=== PATIENT | male | born 1940 | race Caucasian/White ===

== ENCOUNTER 2018-11-15 14:52 | Emergency (ER) | payer MEDICARE, SELFPAY ==
[2018-11-15 14:55] VITALS: BP 153/94; PULSE 102; RESP 15; TEMP 36.6; O2SAT 98; BMI 32.5
--- NOTE | 2018-11-15 15:02 | PC.NURSE ---
Pt unable to urinate since 0700 today.
--- NOTE | 2018-11-15 15:05 | ED.MALEGU ---
HPI - Male Genitourinary <YEHUDA Teran - Last Filed: 11/15/18 21:45> General Chief complaint: Urogenital-Male Stated complaint: needs bladder drained Time Seen by Provider: 11/15/18 14:57 Source: patient Mode of arrival: ambulatory Limitations: no limitations History of Present Illness HPI Narrative: 78-year-old male with history of bladder cancer here for complaint of urinary retention. He was seen in primary care provider office this morning and was diagnosed with prostatitis he was given a prescription of levofloxacin however he has not been able to urinate since early this morning and feels that he has pressure to his suprapubic region. Primary care office was unable to put in a Venegas catheter he is here primarily to have his bladder drained to relieve the pressure and discomfort. He is referred to urology already. He denies any fevers or chills. No flank pain. Positive p.o. intake. No nausea or vomiting. Discomfort is limited to the suprapubic area. He denies having any rectal discomfort at this time. He denies any other urinary symptoms other than urinary retention with no dysuria or urinary frequency. MD Complaint: other Related Data Home Medications Medication Instructions Recorded Confirmed levofloxacin 500 mg PO DAILY 11/15/18 11/15/18 Allergies Allergy/AdvReac Type Severity Reaction Status Date / Time Penicillins Allergy Verified 11/15/18 14:59 Sulfa (Sulfonamide Allergy Verified 11/15/18 14:59 Antibiotics) Review of Systems <YEHUDA Teran - Last Filed: 11/15/18 21:45> Constitutional Denies chills, Denies fever(s), Denies lethargy and Denies weakness ENT Ears, Nose, Mouth, and Throat: Denies change in voice, Denies neck pain and Denies sore throat Cardiovascular Denies chest pain, Denies irregular heart rhythm, Denies lightheadedness, Denies palpitations, Denies dyspnea, Denies dyspnea on exertion and Denies orthopnea Respiratory Denies cough, Denies dyspnea, Denies dyspnea on exertion and Denies wheezing Gastrointestinal Gastrointestinal: Denies abdominal pain, Denies change in bowel habits, Denies diarrhea, Denies nausea and Denies vomiting Genitourinary Comments: Acute urinary retention Musculoskeletal Denies neck pain Integumentary/Breasts Denies pruritus, Denies erythema, Denies rash and Denies wounds Neurologic Denies weakness Endocrine Denies palpitations Hematologic/Lymphatic Denies easy bruising Allergic/Immunologic Denies wheezing PFSH <YEHUDA Teran - Last Filed: 11/15/18 21:45> Social History Smoking Status: Never smoker Social History Smoking Status: Never smoker Exam <YEHUDA Teran - Last Filed: 11/15/18 21:45> Initial Vital Signs Initial Vital Signs: Vital Signs Temperature 97.8 F 11/15/18 14:55 Pulse Rate 102 H 11/15/18 14:55 Respiratory Rate 15 11/15/18 14:55 Blood Pressure 153/94 H 11/15/18 14:55 Pulse Oximetry 98 11/15/18 14:55 Const General: cooperative and well developed Nutritional Appearance: well nourished Orientation: alert, awake, oriented x3 and not confused HENMT Mouth: oral mucosae normal and moist mucous membranes Resp Effort & Inspection: normal respiratory effort, able to speak in complete sentences, no respiratory distress and no use of accessory muscles Auscultation: clear to auscultation bilaterally, no rales, no rhonchi and no wheezes Cardio Rate: regular rate Rhythm: regular rhythm Heart Sounds: no click, no gallops, no murmurs and no rubs Pulses: normal peripheral pulses GI Inspection: non-distended Palpation: soft, no hepatosplenomegaly, No guarding, No pulsatile mass and No tender Auscultation: normal bowel sounds General: No CVA tenderness Skin General: no rashes or lesions noted, No jaundice and No petechiae Neuro General: alert, oriented x3, gait normal and no focal motor deficits Speech: speech normal <Flaco Staples DO - Last Filed: 11/16/18 18:20> Initial Vital Signs Initial Vital Signs: Vital Signs Temperature 97.8 F 11/15/18 14:55 Pulse Rate 102 H 11/15/18 14:55 Respiratory Rate 15 11/15/18 14:55 Blood Pressure 153/94 H 11/15/18 14:55 Pulse Oximetry 98 11/15/18 14:55 Course <YEHUDA Teran - Last Filed: 11/15/18 21:45> Orders Ordered: ED Orders 11/15/18 15:30 UA Complete [Urinalysis and Microscopic] Stat Urine Culture Stat Vital Signs - 8 hr 11/15/18 14:55 11/15/18 15:58 Temperature 97.8 F Pulse Rate 102 H 82 Respiratory Rate 15 18 Blood Pressure 153/94 H Blood Pressure [Right Arm] 120/81 Pulse Oximetry 98 94 <Flaco Staples DO - Last Filed: 11/16/18 18:20> Orders Ordered: ED Orders 11/15/18 15:30 UA Complete [Urinalysis and Microscopic] Stat Urine Culture Stat Vital Signs - 8 hr 11/15/18 14:55 11/15/18 15:58 Temperature 97.8 F Pulse Rate 102 H 82 Respiratory Rate 15 18 Blood Pressure 153/94 H Blood Pressure [Right Arm] 120/81 Pulse Oximetry 98 94 MDM - Male Genitourinary <YEHUDA Teran - Last Filed: 11/15/18 21:45> Lab Data Lab Results 11/15/18 Range/Units 15:30 Urine Color Yellow Urine Appearance Clear Urine pH 5.5 (4.5-8.0) Ur Specific [place] 1.015 (1.000-1.035) Urine Protein Trace H (Negative) Urine Glucose (UA) Negative (Negative) g/dL Urine Ketones Negative (NEGATIVE) Urine Occult Blood 3+ H (Negative) Urine Nitrate Positive (Negative) Urine Bilirubin Negative (NEGATIVE) Urine Urobilinogen 0.2 (0.2) E.U./dL Ur Leukocyte Esterase Trace H (NEGATIVE) Urine RBC 5-10/hpf H (0-5/HPF) Urine WBC 10-30/hpf H (0-5/HPF) Ur Squamous Epith Cells 0-1 /hpf Urine Bacteria Many (>30) H (None) Ur Culture Indicated? Specimen cultured MDM Narrative Medical decision making narrative: Bladder scan indicated 800 mL of a urine in the bladder. Venegas catheter was inserted and drained approximately 1500 mL of yellowish urine. Patient reports feeling much better after Venegas catheter insertion. Urinalysis was obtained and shows signs of urinary tract infection. Venegas catheter is left in welling along with leg bag. He is to follow up with Urology here in the next day or 2 for further evaluation and treatment. He is already prescribed Levaquin for prostatitis which will also cover for UTI. He is instructed to take as directed. [id number] Tylenol as needed for any discomfort. For any worsening symptoms return to the emergency room. <Flaco Staples DO - Last Filed: 11/16/18 18:20> Lab Data Lab Results 11/15/18 Range/Units 15:30 Urine Color Yellow Urine Appearance Clear Urine pH 5.5 (4.5-8.0) Ur Specific [place] 1.015 (1.000-1.035) Urine Protein Trace H (Negative) Urine Glucose (UA) Negative (Negative) g/dL Urine Ketones Negative (NEGATIVE) Urine Occult Blood 3+ H (Negative) Urine Nitrate Positive (Negative) Urine Bilirubin Negative (NEGATIVE) Urine Urobilinogen 0.2 (0.2) E.U./dL Ur Leukocyte Esterase Trace H (NEGATIVE) Urine RBC 5-10/hpf H (0-5/HPF) Urine WBC 10-30/hpf H (0-5/HPF) Ur Squamous Epith Cells 0-1 /hpf Urine Bacteria Many (>30) H (None) Ur Culture Indicated? Specimen cultured Discharge Plan Departure Patient Disposition: Home Clinical Impression: Acute retention of urine Urinary tract infection Qualifiers: Urinary tract infection type: acute cystitis Hematuria presence: without hematuria Qualified Code(s): N30.00 - Acute cystitis without hematuria Prostatitis Qualifiers: Prostatitis type: acute Qualified Code(s): N41.0 - Acute prostatitis Discharge Date/Time: 11/15/18 16:13 Interventions: ED Discharge Assessment Last Done: 11/15/18 16:12 Instructions: DI for Urinary Tract Infection (UTI), DI for Urinary Retention in Men Activity Restrictions/Additional Instructions: Catheter was inserted to help drain the bladder. Catheter was left indwelling to allow for continued urine drainage. He will need to follow up with Urology here in the next day or 2 you may follow up with Urology at [facility] or obtain a referral to Urology from her primary care provider for a local urologist. Urinalysis indicates urinary tract infection. Use the already prescribed Levaquin for the prostatitis as directed as this will cover for urinary tract infection as well. Use [id number] Tylenol as needed for any discomfort. For any worsening symptoms return to the emergency room. Venegas catheter care as instructed. Prescriptions: No Action levofloxacin 500 mg tablet 500 mg PO DAILY RF: 0 Referrals: [facility] [Provider Group] Kat Christian PA-C [Primary Care Provider] - <Flaco Staples DO - Last Filed: 11/16/18 18:20> Cosign ED Attending Patel Attestation: I was available for consultation during this patient's emergency department encounter
--- NOTE | 2018-11-15 15:30 | PC.NURSE ---
post robb insertion, drained approx 1400ml.
[2018-11-15 15:32] LABS: Appearance Urine UA CLEAR; Bilirubin Urine UA NEGATIVE (NEGATIVE); Color Urine UA YELLOW; Glucose Urine UA NEGATIVE (Negative); Ketones Urine UA NEGATIVE (NEGATIVE); Leukocyte Esterase Urine UA TRACE (NEGATIVE); Nitrite Urine UA POSITIVE (Negative); Occult Blood Urine UA 3+ (Negative); Protein Urine UA TRACE (Negative); Specific Gravity Urine UA 1.015 (1.000-1.035); Urobilinogen Urine UA 0.2 E.U./dL (0.2); pH Urine UA 5.5 (4.5-8.0)
[2018-11-15 15:39] LABS: RBC Urine 5-10/HPF (0-5/HPF); Squamous Epithelial Cell Urine 0-1 /HPF; WBC Urine 10-30/HPF (0-5/HPF)
[2018-11-15 15:40] LABS: Bacteria Urine Many (>30); Culture Indicated Urine Specimen Cultured
[2018-11-15 15:58] VITALS: BP 120/81; PULSE 82; RESP 18; O2SAT 94
--- NOTE | 2018-11-15 16:12 | PC.NURSE ---
robb education given, pt verbal understanding instructions.
== END 2018-11-15 16:13 | disposition home or self-care (01) ==
PROVIDERS: Emergency Provider Nurse Practitioner Family; PCP Physician Assistant
DX: N30.00 Acute cystitis without hematuria (principal); R33.9 Retention of urine, unspecified
CPT/HCPCS: 51701; 51798; 81001; 87077; 87086; 87186; 99283

== ENCOUNTER → 2020-05-24 07:25 | Outpatient (CLI) | payer MEDICARE, SELFPAY ==
[2020-05-24 08:54] LABS: Hemoglobin A1C% w Est Avg Glu 6.2 % (4.0-6.0)
[2020-05-24 09:31] LABS: Prostate Specific Antigen Scrn 3.06 ng/mL (0.1-4.0)
[2020-05-24 20:11] LABS: Add Manual Diff / Slide Review NO; Basophils Absolute Auto 200 /uL (0-100); Basophils Percent Auto 1.3 % (0-2); Eosinophils Absolute Auto 400 /uL (0-450); Eosinophils Percent Auto 2.9 % (2-4); Hematocrit 26.6 % (41-53); Hemoglobin 8.3 g/dL (13.5-17.5); Lymphocytes Absolute Auto 1200 /uL (1100-4500); Lymphocytes Percent Auto 9.6 % (25-40); Mean Corpuscular HGB Conc 31.2 % (30-36); Mean Corpuscular Hemoglobin 24.1 PG (26-34); Mean Corpuscular Volume 77.2 fL (80-100); Monocytes Absolute Auto 1200 /uL (0-900); Monocytes Percent Auto 10.1 % (3-14); Neutrophils Absolute Auto 9200 /uL (1500-7000); Neutrophils Percent Auto 76.1 % (50-75); Platelet Count 584 X10^3/uL (150-400); Red Blood Cell Count 3.44 X10^6/uL (4.5-5.9); White Blood Cell Count 12.1 X10^3/uL (4.5-11.0)
[2020-05-24 20:38] LABS: Alanine Aminotransferase 12 IU/L (<50); Albumin 3.6 g/dL (3.5-5.0); Alkaline Phosphatase 71 U/L (38-126); Aspartate Aminotransferase 16 IU/L (17-59); BUN Creatinine Ratio 15.7 (6-22); Bilirubin Total 0.6 mg/dL (0.2-1.3); Blood Urea Nitrogen 36 mg/dL (9-20); Carbon Dioxide 26 mmol/L (22-32); Chloride 98 mmol/L (98-107); Estimated Glomerular Filt Rate 27.7 mL/min (>60); Globulin 3.7 g/dL (1.7-4.1); Glucose 108 mg/dL (80-110); HEMOLYSIS < 15 (0-50); Potassium 4.7 mmol/L (3.4-5.1); Sodium 133 mmol/L (137-145); Total Protein 7.3 g/dL (6.3-8.2)
== END ==
PROVIDERS: PCP Physician Assistant; Referring Provider Physician Assistant; Visit Provider Physician Assistant
DX: Z12.5 Encounter for screening for malignant neoplasm of prostate (principal); I10 Essential (primary) hypertension; R73.03 Prediabetes; I48.91 Unspecified atrial fibrillation; I48.92 Unspecified atrial flutter
CPT/HCPCS: 36415; 80053; 83036; 85025; G0103

== ENCOUNTER 2020-05-26 23:49 | Inpatient (IN) | payer MEDICARE, SELFPAY ==
[2020-05-26 23:57] VITALS: BP 139/88; PULSE 104; RESP 20; TEMP 36.1; O2SAT 97
--- NOTE | 2020-05-26 23:59 | ED_ITS ---
HPI - Nausea/Vomiting/Diarrhea General Chief complaint: Syncope Stated complaint: lighthead/nausea/fell hit head on toilet Time Seen by Provider: 05/26/20 23:54 Source: patient and family Mode of arrival: Ambulatory Limitations: no limitations History of Present Illness HPI Narrative: 79-year-old male former smoker with history of atrial fibrillation presents with his and a chief complaint have multiple episodes of nausea, vomiting, poor appetite and diarrhea today which resulted in syncopal episode in which he fell and struck his head on the toilet. He states he has been feeling poorly for a few weeks with things definitely ramped up today. He denies any recent dietary change, new medications, exposure to other ill persons, bad food or antibiotics. He denies any chest pain but states he becomes profoundly short of breath with minimal exertion states he is very fatigued and upon standing he becomes dizzy and lightheaded. He denies any blood in his emesis or his stools and does not take any blood thinners. He denies any abdominal pain. He denies any history of the same. Patient is not a drinker, denies the use of any blood thinners or frequent use of NSAIDs or aspirin. His last colonoscopy he states noted diverticuli. MD complaint: nausea, vomiting and diarrhea Onset (ago): hour(s) Description of Vomiting: food contents Description of Diarrhea: watery Relieving factors: none Exacerbating factors: none Associated symptoms: nausea/vomiting Related Data Home Medications Medication Instructions Recorded Confirmed levofloxacin 500 mg PO DAILY 11/15/18 11/15/18 Allergies Allergy/AdvReac Type Severity Reaction Status Date / Time Penicillins Allergy Verified 11/15/18 14:59 Sulfa (Sulfonamide Allergy Verified 11/15/18 14:59 Antibiotics) Review of Systems Constitutional Constitutional: Denies chills, Reports fatigue, Denies fever(s), Denies frequent falls, Reports lethargy, Reports malaise, Reports poor appetite and Reports we akness Eyes Eyes: Denies change in vision, Denies eye discharge, Denies irritation and Denies loss of vision ENT Ears, Nose, Mouth, and Throat: Denies change in voice, Denies dizziness, Denies neck pain, Denies sore throat and Denies throat swelling Cardiovascular Cardiovascular: Denies chest pain, Reports syncope, Denies irregular heart rhythm, Reports lightheadedness, Denies palpitations, Reports dyspnea, Denies dyspnea on exertion and Denies orthopnea Respiratory Respiratory: Denies cough, Reports dyspnea, Denies dyspnea on exertion and Denies wheezing Gastrointestinal Gastrointestinal: Denies change in bowel habits, Reports diarrhea, Reports nausea and Reports vomiting Musculoskeletal Musculoskeletal: Denies neck pain and Denies numbness Integumentary/Breasts Skin/Breast: Denies pruritus, Denies erythema, Denies rash and Denies wounds Neurologic Neurologic: Denies behavioral changes, Denies confusion, Denies dizziness, Reports syncope, Denies frequent falls, Denies loss of vision, Denies numbness and Reports weakness Psychiatric Psychiatric: Denies anxiety, Denies behavioral changes, Denies confusion, Denies depression, Denies homicidal ideation and Denies suicidal ideation Endocrine Endocrine: Reports fatigue, Denies flushing and Denies palpitations Hematologic/Lymphatic Hematologic/Lymphatic: Denies easy bruising Allergic/Immunologic Allergic/Immunologic: Denies urticaria, Denies throat swelling and Denies wheezing Patient History Social History Smoking Status: Never smoker Smoking Status: Never smoker alcohol intake frequency: holidays/special occasions only Substance Use Type: does not use Exam Narrative Exam Narrative: GENERAL: [79] year old patient appears stated age. Ill appearing, very weak and requiring assistance to get out of the wheelchair. HEAD: Atraumatic. Normocephalic. EYES: Pupils equal round and reactive. Extraocular motions intact. No scleral icterus. No injection or drainage. ENT: Dry mucous membrane Nose without bleeding, purulent drainage. Throat without erythema, tonsillar hypertrophy or exudate. Airway patent. NECK: Trachea midline. Non tender CARDIOVASCULAR: Regular rate and rhythm without murmurs, gallops, or rubs. RESPIRATORY: Clear to auscultation. Breath sounds equal bilaterally. No wheezes, rales, or rhonchi. GASTROINTESTINAL: Abdomen soft, non-tender, nondistended. EXTREMITIES: No edema or joint tenderness. BACK: Nontender without deformity or crepitance. No flank tenderness. NEURO: AOx3. SKIN: Poor skin turgor No rash or erythema of visible areas Initial Vital Signs Initial Vital Signs: Vital Signs Temperature 96.9 F L 05/26/20 23:57 Pulse Rate 104 H 05/26/20 23:57 Respiratory Rate 20 05/26/20 23:57 Blood Pressure 139/88 05/26/20 23:57 Pulse Oximetry 97 05/26/20 23:57 Course Orders Ordered: ED Orders 05/26/20 23:59 Complete Blood Count AUTO DIFF Stat Comprehensive Metabolic Panel Stat 05/27/20 00:00 EKG-12 Lead Stat 05/27/20 00:05 Lactate (Lactic Acid) Stat Lipase Stat NT-proBNP (BNP-Adult 18+) Stat Packed Cells Stat Troponin & CK Cardiac Panel Stat Type and Screen Stat 05/27/20 00:39 CT head/brain wo con Stat 05/27/20 01:00 COVID19 -ED/INPAT/OR/L&D Stat Ondansetron HCl (Zofran) 4 mg IV Q4HR PRN PRN Reason: Nausea And Vomiting Last Admin: 05/27/20 00:18 Dose: 4 mg Documented by: MOUNA Discontinued Medications Lactated Ringer's (Lactated Ringers) 1,000 mls @ 1,000 mls/hr IV BOLUS ONE Stop: 05/27/20 00:58 Last Infusion: 05/27/20 01:38 Dose: 0 mls/hr Documented by: Admin: 05/27/20 00:18 Dose: 1,000 mls/hr Documented by: MOUNA Pantoprazole Sodium (Protonix) 40 mg IV NOW ONE Stop: 05/27/20 00:01 Last Admin: 05/27/20 00:18 Dose: 40 mg Documented by: MOUNA Reevaluation(s) Reevaluation #1: Patient actively vomiting, no blood or coffee-ground emesis Reevaluation #2: patient having frequent episodes of brief rapid AFib at the 140s to 150s, but quickly returns to sinus Consultations Consultation #1: discussed with Dr. Bingham. He is happy to be involved as senior environmental consultant for likely scope Consultation #2: hospitalist accepts patient on service Vital Signs Vital signs: Vital Signs - 8 hr 05/26/20 23:57 05/27/20 00:18 05/27/20 00:30 Temperature 96.9 F L Pulse Rate 104 H 100 H 136 H Respiratory Rate 20 25 H 19 Blood Pressure 139/88 136/84 Pulse Oximetry 97 97 95 05/27/20 01:00 Temperature Pulse Rate 105 H Respiratory Rate 20 Blood Pressure Pulse Oximetry 99 MDM - Nausea/Vomiting/Diarrhea Lab Data Result diagrams: 05/27/20 00:05 05/27/20 00:05 Labs: Lab Results 05/27/20 05/27/20 05/27/20 Range/Units 00:05 00:05 00:05 WBC 23.7 H (4.5-11.0) X10^3/uL RBC 2.78 L (4.5-5.9) X10^6/uL Hgb 6.8 L* (13.5-17.5) g/dL Hct 21.3 L (41-53) % MCV 76.7 L (80-100) fL MCH 24.5 L (26-34) PG MCHC 31.9 (30-36) % RDW 16.3 H (11.6-14.8) % Plt Count 644 H (150-400) X10^3/uL Neut % (Auto) 82.1 H (50-75) % Lymph % (Auto) 8.1 L (25-40) % [place] % (Auto) 7.1 (3-14) % Eos % (Auto) 1.8 L (2-4) % Baso % (Auto) 0.9 (0-2) % Neut # (Auto) 84034 H (2999-9219) /uL Lymph # (Auto) 1900 (9599-5008) /uL [place] # (Auto) 1700 H (0-900) /uL Eos # (Auto) 400 (0-450) /uL Baso # (Auto) 200 H (0-100) /uL Sodium 133 L (137-145) mmol/L Potassium 4.5 (3.4-5.1) mmol/L Chloride 95 L (98-107) mmol/L Carbon Dioxide 26 (22-32) mmol/L BUN 47 H (9-20) mg/dL Creatinine 2.61 H (0.66-1.25) mg/dL Estimated GFR 23.9 L (>60) mL/min BUN/Creatinine Ratio 18.0 (6-22) Glucose 257 H D (80-110) mg/dL Lactate (0.7-2.1) mmol/L Calcium 8.6 (8.4-10.2) mg/dL Total Bilirubin 0.5 (0.2-1.3) mg/dL AST 19 (17-59) IU/L ALT 13 (<50) IU/L Alkaline Phosphatase 68 (38-126) U/L Total Creatine Kinase 31 L (55-170) U/L CK-MB (CK-2) TNP CK-MB (CK-2) Rel Index TNP Troponin I < 0.012 (0.01-0.034) ng/mL NT-Pro-B Natriuret Pep 1710 H (<450) pg/mL Total Protein 7.0 (6.3-8.2) g/dL Albumin 3.4 L (3.5-5.0) g/dL Globulin 3.6 (1.7-4.1) g/dL Albumin/Globulin Ratio 0.9 L (1.0-2.8) Lipase 65 (23-300) U/L COVID-19 PCR (Negative) Blood Type Antibody Screen Crossmatch 05/27/20 05/27/20 05/27/20 Range/Units 00:05 00:05 01:00 WBC (4.5-11.0) X10^3/uL RBC (4.5-5.9) X10^6/uL Hgb (13.5-17.5) g/dL Hct (41-53) % MCV (80-100) fL MCH (26-34) PG MCHC (30-36) % RDW (11.6-14.8) % Plt Count (150-400) X10^3/uL Neut % (Auto) (50-75) % Lymph % (Auto) (25-40) % [place] % (Auto) (3-14) % Eos % (Auto) (2-4) % Baso % (Auto) (0-2) % Neut # (Auto) (5254-9348) /uL Lymph # (Auto) (6654-9718) /uL [place] # (Auto) (0-900) /uL Eos # (Auto) (0-450) /uL Baso # (Auto) (0-100) /uL Sodium (137-145) mmol/L Potassium (3.4-5.1) mmol/L Chloride (98-107) mmol/L Carbon Dioxide (22-32) mmol/L BUN (9-20) mg/dL Creatinine (0.66-1.25) mg/dL Estimated GFR (>60) mL/min BUN/Creatinine Ratio (6-22) Glucose (80-110) mg/dL Lactate 1.9 (0.7-2.1) mmol/L Calcium (8.4-10.2) mg/dL Total Bilirubin (0.2-1.3) mg/dL AST (17-59) IU/L ALT (<50) IU/L Alkaline Phosphatase (38-126) U/L Total Creatine Kinase (55-170) U/L CK-MB (CK-2) CK-MB (CK-2) Rel Index Troponin I (0.01-0.034) ng/mL NT-Pro-B Natriuret Pep (<450) pg/mL Total Protein (6.3-8.2) g/dL Albumin (3.5-5.0) g/dL Globulin (1.7-4.1) g/dL Albumin/Globulin Ratio (1.0-2.8) Lipase (23-300) U/L COVID-19 PCR Negative (Negative) Blood Type A Positive Antibody Screen Negative Crossmatch See Detail Imaging Data CT scan - head: My Impression: NAP Radiologist's Impression: No acute intracranial process Discharge Plan Departure Admit Date/Time: 05/27/20 01:26 Admit Provider: Amanda Garces
[2020-05-27] VITALS (27 sets, daily range): BP systolic 118–161; BP diastolic 67–96; PULSE 76–136; RESP 12–27; TEMP 36.1–36.9; O2SAT 91–99; BMI 30.7
[2020-05-27] MEDS: LACTATED RINGERS 1,000 ML 1000 ML IV (00:18)
[2020-05-27] MEDS: PANTOPRAZOLE 40 MG VIAL IV ×3 (00:18→20:41)
[2020-05-27] MEDS: ONDANSETRON 4 MG/2 ML INJ IV (00:18)
[2020-05-27 00:23] LABS: Add Manual Diff / Slide Review NO; Basophils Absolute Auto 200 /uL (0-100); Basophils Percent Auto 0.9 % (0-2); Eosinophils Absolute Auto 400 /uL (0-450); Eosinophils Percent Auto 1.8 % (2-4); Lymphocytes Absolute Auto 1900 /uL (1100-4500); Lymphocytes Percent Auto 8.1 % (25-40); Mean Corpuscular HGB Conc 31.9 % (30-36); Mean Corpuscular Hemoglobin 24.5 PG (26-34); Mean Corpuscular Volume 76.7 fL (80-100); Monocytes Absolute Auto 1700 /uL (0-900); Monocytes Percent Auto 7.1 % (3-14); Neutrophils Absolute Auto 19500 /uL (1500-7000); Neutrophils Percent Auto 82.1 % (50-75); Platelet Count 644 X10^3/uL (150-400); Red Blood Cell Count 2.78 X10^6/uL (4.5-5.9); Red Cell Distribution Width 16.3 % (11.6-14.8); White Blood Cell Count 23.7 X10^3/uL (4.5-11.0)
[2020-05-27 00:28] LABS: Lactate (Lactic Acid) 1.9 mmol/L (0.7-2.1)
[2020-05-27 00:29] LABS: Creatine Kinase 31 U/L (55-170); Hematocrit 21.3 % (41-53); Lipase 65 U/L (23-300)
[2020-05-27 00:30] LABS: Hemoglobin 6.8 g/dL (13.5-17.5)
[2020-05-27 00:31] LABS: Alanine Aminotransferase 13 IU/L (<50); Albumin 3.4 g/dL (3.5-5.0); Albumin Globulin Ratio 0.9 (1.0-2.8); Alkaline Phosphatase 68 U/L (38-126); Aspartate Aminotransferase 19 IU/L (17-59); Bilirubin Total 0.5 mg/dL (0.2-1.3); Blood Urea Nitrogen 47 mg/dL (9-20); Calcium 8.6 mg/dL (8.4-10.2); Carbon Dioxide 26 mmol/L (22-32); Chloride 95 mmol/L (98-107); Estimated Glomerular Filt Rate 23.9 mL/min (>60); Globulin 3.6 g/dL (1.7-4.1); Glucose 257 mg/dL (80-110); HEMOLYSIS < 15 (0-50); Potassium 4.5 mmol/L (3.4-5.1); Sodium 133 mmol/L (137-145)
--- NOTE | 2020-05-27 00:39 | DI.CT.S_ITS ---
PROCEDURE: CT HEAD/BRAIN WO CON INDICATIONS: syncope secondary to head injury TECHNIQUE: Noncontrast 4.5 mm thick angled axial sections acquired from the foramen magnum to the vertex, with coronal and sagittal reformats. For radiation dose reduction, the following was used: automated exposure control, adjustment of mA and/or kV according to patient size. COMPARISON: None. FINDINGS: Image quality: Excellent. CSF spaces: Basal cisterns are patent. No extra-axial fluid collections. The ventricles are symmetric in size and shape. Brain: No intracranial bleeds or masses. There is cerebral volume loss for age, with resultant ventricular and sulcal prominence. There are periventricular and deep white matter chronic small vessel ischemic changes. There is intracranial internal carotid artery atherosclerosis. Skull and face: Calvarium and visualized facial bones appear intact, without suspicious lesions. Sinuses: Visualized sinuses and mastoids are clear. IMPRESSION: Normal intracranial study for age. Note: No significant discrepancy from the preliminary report. Dictated by: Johnathon Urias M.D. on 05/27/2020 at 7:34 Approved by: Johnathon Urias M.D. on 05/27/2020 at 7:34
[2020-05-27 00:41] LABS: NT-proBNP (BNP-Adult 18+) 1710 pg/mL (<450); Troponin I < 0.012 ng/mL (0.01-0.034)
[2020-05-27 01:25] LABS: COVID19 -Nasal RAPID Negative (Negative)
--- NOTE | 2020-05-27 02:48 | DI.US.S_ITS ---
PROCEDURE: US RENAL COMPLETE INDICATIONS: ALFREDITO TECHNIQUE: Real-time scanning was performed of the kidneys and bladder, with image documentation. COMPARISON: [facility], CT, CT HEAD/BRAIN WO CON, 05/27/2020, 0:45. FINDINGS: Kidneys: Kidneys are normal in size. Right kidney measures 12.4 cm long; left kidney measures 10.7 cm long. Right renal cortical thickness is 2 cm; left renal cortical thickness is 1.5 cm. Renal cortical echotexture is normal. No hydronephrosis or nephrolithiasis. No suspicious solid mass lesions. Bladder: The bladder is decompressed by a Venegas catheter. Miscellaneous: No free pelvic fluid. IMPRESSION: Normal appearing kidneys by ultrasound, without hydronephrosis. Venegas catheter. Dictated by: Johnathon Urias M.D. on 05/27/2020 at 8:51 Approved by: Johnathon Urias M.D. on 05/27/2020 at 8:52
[2020-05-27 03:28] LABS: Hemoglobin A1C% w Est Avg Glu 6.2 % (4.0-6.0)
--- NOTE | 2020-05-27 03:28 | P.HP_ITS ---
History of Present Illness History of Present Illness Date Patient Seen: 05/27/20 Time Patient Seen: 01:45 Chief complaint: lighthead/nausea/fell hit head on toilet Narrative: Shady Pinedo is 79-year-old male former smoker with history of paroxsymal atrial fibrillation and subsequent cardioversion in June 2019 and a remote history of prostate cancer and subsequent TURP in 2001, and on no medications, presented with his who was in his usual state of health presented to the ED with a chief complaint have multiple episodes of nausea, vomiting, poor appetite and diarrhea today which resulted in syncopal episode in which he fell and struck his head on the toilet. He states he has been feeling weak and fatigued for the past several weeks. He denies any recent dietary change, new medications, exposure to other ill persons, bad food or antibiotics. He denies any chest pain but states he becomes profoundly short of breath with minimal exertion, states he is very fatigued and upon standing he becomes dizzy and lightheaded. He denies any blood in his emesis or his stools, or hematuria and no longer takes any blood thinners. He denies any abdominal pain. Patient is not a drinker, denies the use of any blood thinners or frequent use of NSAIDs or aspirin. His last colonoscopy he states noted diverticuli. Upon obtaining records from [facility], it was noted he was diabetic with an A1c of 6.1 in May 2019 and the patient states he was aware, but was not instructed to take any medications or modify his diet. today it is 6.2, so not significantly worse. The patient presented today with an acute kidney injury with a creatinine of 2.61 and GFR of 23.9, where in 05/2019, his renal function was normal. He presented to [place] in March for gross hematuria and underwent a contrast IVP which indicated a possible resolving pyeloniphritis. He was seen in [facility]'s ED urinary retention, and at that time, both his hemoglobin was mildly decreased and today it is 6.8, necessitating a transfusion. His creatinine was elevated at 2.3 on 05/23 and today it is 2.61. In June of 2019, he underwent a cardioversion for paroxsymal atrial fibrillation. He had previously been on xarelto, but developed a rash with that and started apixaban. He had also been taking sotolol and went off both medications after the cardioversion. He has seen his academic computing director at least once since the most recent dates of his [facility] records and informed his PCP that they were in agreement with his not being on medications. His main reason for being here is for symtomatic anemia, however, receipt of his records from [facility] reveal other issues that may need to be urgently addressed due to a high white count, apparent uncontrolled atrial fibrillation, blood pressure and rapid heart, and acute kidney injury and uncontrolled diabetes. Head CT was negative for an acute intercranial process. Patient is afebrile, blood pressure 161/90, heart rate 129, respiratory rate 16, oxygen saturation 97% on room air, he weighs 94.3 kg with a BMI of 30.7. WBC is 23.7, RBC 2.78, hemoglobin 6.8, hematocrit 21.3, platelet count 644, he does have a significant left shift with neutrophils of 19,500, sodium 133, potassium 4.5, chloride 95, bicarb 26, BUN is 47, creatinine 2.61, GFR is 23.9, glucose 257, hemoglobin A1c was 6.2, lactate is normal at 1.4, liver enzymes are within normal limits, his proBNP is 1710, lipase 65, and COVID-19 negative. Patient History Medical History History of cardioversion (Acute) Hx of prostatic malignancy (Acute) Lipoma of abdominal wall (Acute) Paroxysmal A-fib (Acute) Surgical History Hx of total knee replacement (Inactive) S/P TURP (status post transurethral resection of prostate) (Acute) Family & Social History Family History Mother Multiple sclerosis Father Prostate cancer Social History: household members spouse Prior Living Arrangements House Safety & Behavioral: Feels Safe in Current Yes Environment Been Physically Hurt or No Threatened By a Person Suicidal Ideation Description None Suicide Plan Description No Plan Tobacco & Substance use: Smoking Status remote history alcohol intake frequency holiday/special occasion Substance Use Type does not use Meds Home Medications and Allergies Home Medications Medication Instructions Recorded Confirmed Type levofloxacin 500 mg PO DAILY 11/15/18 11/15/18 History Allergies Allergy/AdvReac Type Severity Reaction Status Date / Time Penicillins Allergy Verified 11/15/18 14:59 Sulfa (Sulfonamide Allergy Verified 11/15/18 14:59 Antibiotics) Review of Systems Review of Systems ROS: Yes All systems reviewed with the patient and are negative except as otherwise documented Exam Vital Signs (past 8 hours): - 05/26/20 23:57 05/27/20 00:18 05/27/20 00:30 Temperature 96.9 F L Pulse Rate 104 H 100 H 136 H Respiratory Rate 20 25 H 19 Blood Pressure 139/88 136/84 Pulse Oximetry 97 97 95 05/27/20 01:00 05/27/20 01:30 05/27/20 01:33 Temperature 97.9 F Pulse Rate 105 H 111 H 118 H Respiratory Rate 20 21 17 Blood Pressure 136/84 Pulse Oximetry 99 98 05/27/20 01:34 05/27/20 01:45 05/27/20 01:49 Temperature 97.8 F Pulse Rate 103 H 134 H 109 H Respiratory Rate 18 16 14 Blood Pressure 160/77 H 154/82 H 154/82 H Pulse Oximetry 95 93 05/27/20 02:00 05/27/20 02:15 05/27/20 02:30 Temperature Pulse Rate 95 H 96 H 95 H Respiratory Rate 14 15 16 Blood Pressure 142/72 H 139/84 138/96 H Pulse Oximetry 91 91 92 05/27/20 02:35 05/27/20 03:09 Temperature 97.3 F L Pulse Rate 109 H 129 H Respiratory Rate 16 Blood Pressure 161/90 H Pulse Oximetry 95 97 Oxygen Delivery Method Room Air Oxygen Flow Rate 0 Narrative Exam Narrative: Gen: Alert, oriented, well-developed 79 y.o. male, quite pale HEENT: normocephalic, atraumatic, conjunctiva clear, sclera non-icteric, oral mucosa pink and moist Neck: supple, full ROM, no JVD, trachea is midline Resp: Lungs CTA, non-labored breathing CV: irregularly irregular, no murmur or rubs Abd: soft, non-tender, normoactive BTs Skin: no lesions or rashes, dry and intact Neuro: Alert and oriented X 4 w/no focal deficits. Speech clear and coherent. Extremities: moves all 4 extremities, is ambulatory, negative Gayle?s sign Psyche: normal mood and affect. Very evasive regarding medical history Objective Labs Result Diagrams: 05/27/20 04:54 05/27/20 04:54 Labs: Laboratory Results - last 24 hr 05/27/20 05/27/20 05/27/20 00:05 00:05 00:05 WBC 23.7 H RBC 2.78 L Hgb 6.8 L* Hct 21.3 L MCV 76.7 L MCH 24.5 L MCHC 31.9 RDW 16.3 H Plt Count 644 H Neut % (Auto) 82.1 H Lymph % (Auto) 8.1 L [place] % (Auto) 7.1 Eos % (Auto) 1.8 L Baso % (Auto) 0.9 Neut # (Auto) 55824 H Lymph # (Auto) 1900 [place] # (Auto) 1700 H Eos # (Auto) 400 Baso # (Auto) 200 H Sodium 133 L Potassium 4.5 Chloride 95 L Carbon Dioxide 26 BUN 47 H Creatinine 2.61 H Estimated GFR 23.9 L BUN/Creatinine Ratio 18.0 Glucose 257 H D Lactate Calcium 8.6 Total Bilirubin 0.5 AST 19 ALT 13 Alkaline Phosphatase 68 Total Creatine Kinase 31 L CK-MB (CK-2) TNP CK-MB (CK-2) Rel Index TNP Troponin I < 0.012 NT-Pro-B Natriuret Pep 1710 H Total Protein 7.0 Albumin 3.4 L Globulin 3.6 Albumin/Globulin Ratio 0.9 L Lipase 65 COVID-19 PCR Blood Type Antibody Screen Crossmatch 05/27/20 05/27/20 05/27/20 00:05 00:05 01:00 WBC RBC Hgb Hct MCV MCH MCHC RDW Plt Count Neut % (Auto) Lymph % (Auto) [place] % (Auto) Eos % (Auto) Baso % (Auto) Neut # (Auto) Lymph # (Auto) [place] # (Auto) Eos # (Auto) Baso # (Auto) Sodium Potassium Chloride Carbon Dioxide BUN Creatinine Estimated GFR BUN/Creatinine Ratio Glucose Lactate 1.9 Calcium Total Bilirubin AST ALT Alkaline Phosphatase Total Creatine Kinase CK-MB (CK-2) CK-MB (CK-2) Rel Index Troponin I NT-Pro-B Natriuret Pep Total Protein Albumin Globulin Albumin/Globulin Ratio Lipase COVID-19 PCR Negative Blood Type A Positive Antibody Screen Negative Crossmatch See Detail Assessment & Plan Assessment & Plan narrative: Shady Pinedo is a 79 y.o. male who is admitted to the inpatient service for symptomatic anemia and further workup of an acute kidney injury and leukocytosis. Symptomatic anemia, acute, present on admission -he was initiated on 1 unit PRBC, I will do an H&H prior to him receiving the 2nd PRBC as his hemoglobin was 6.9 and wish to avoid overcorrecting -presumed to be a GI bleed and Dr. Bingham is following -due to a fall, head CT was done and was negative -clears Leukocytosis in the setting of a confirmed complicated UTI vs pylenephritis, acute, present on admission -UA positive for blood, nitrates, many urine WBCs and bacteria -initiated on ceftriaxone 1 gram daily -patient's lactate is normal -blood and urine cultures pending Acute kidney injury, present on admission -patient had a normal creatinine and GFR in June 2019 -he also had an abnormal CT IVP reported by Dr. Jagdish Coulter and am not clear as to whether this was addressed -renal ultrasound is ordered. Paroxysmal atrial fibrillation, present on admission -The patient was cardioverted at [facility] in June of last year. Dr. Fareed Pat is his academic computing director -telemetry -he went off of his blood thinner, apixaban, and sotalol for likely rate and r hythm control -he is currently in the 110s to 120s and is in atrial fibrillation, I will start him on metoprolol 25 mg p.o. b.i.d. for better rate and bp control -he should likely undergo an echocardiogram however due to current daily limits, I would advise having a discussion with his academic computing director in [place] -Pro-bnp is elevated at 1710, ordered IV lasix 40 mg after the first unit Hypertension, not well controlled, present on admission -See above Diabetes type 2 with a hemoglobin A1c of 6.2 -Low dose insulin correctional scale Risk stratification -Lipid panel: TC: 101, LDL: 64m, HDL: 27, Triglicerides: 52 VTE prophylaxis: Caprini risk score: 6, high risk, HAS-BLED score of 4, high risk of bleeding. Bilateral SCDs Consults: Dr. Bingham consult and involvement is appreciated. Patient is admitted under inpatient status with expected length of stay greater than 2 midnights due to severity of presenting symptoms, risk of adverse event, and complexity of treatment plan. FEN: Saline lock, clears, CMP and magnesium in the am. Dispo: Unknown at this time Code Status: Full Code as discussed with patient
[2020-05-27 03:31] LABS: Lactate (Lactic Acid) 1.4 mmol/L (0.7-2.1)
[2020-05-27 04:53] LABS: Bilirubin Urine UA NEGATIVE (NEGATIVE); Color Urine UA YELLOW; Glucose Urine UA NEGATIVE (Negative); Ketones Urine UA NEGATIVE (NEGATIVE); Leukocyte Esterase Urine UA 2+ (NEGATIVE); Nitrite Urine UA POSITIVE (Negative); Occult Blood Urine UA 1+ (Negative); Protein Urine UA NEGATIVE (Negative); Urobilinogen Urine UA 0.2 E.U./dL (0.2)
[2020-05-27 04:59] LABS: Appearance Urine UA Slightly Cloudy
[2020-05-27 05:00] LABS: Bacteria Urine Many (>30); Culture Indicated Urine Specimen Cultured; RBC Urine 0-1/HPF (0-5/HPF); Squamous Epithelial Cell Urine 0-1 /HPF (0-5/HPF); WBC Urine 30-100/HPF (0-5/HPF)
[2020-05-27] MEDS: FUROSEMIDE 40 MG/4 ML VIAL IV (05:06)
[2020-05-27] MEDS: SODIUM CHLORIDE 0.9% FLUSH 10 ML IV ×3 (05:06→20:41)
[2020-05-27 05:10] LABS: Add Manual Diff / Slide Review NO; Basophils Absolute Auto 0 /uL (0-100); Basophils Percent Auto 0.2 % (0-2); Eosinophils Absolute Auto 0 /uL (0-450); Eosinophils Percent Auto 0.1 % (2-4); Hematocrit 21.4 % (41-53); Lymphocytes Absolute Auto 1200 /uL (1100-4500); Lymphocytes Percent Auto 7.3 % (25-40); Mean Corpuscular HGB Conc 32.8 % (30-36); Mean Corpuscular Hemoglobin 25.5 PG (26-34); Mean Corpuscular Volume 77.7 fL (80-100); Monocytes Absolute Auto 900 /uL (0-900); Monocytes Percent Auto 5.5 % (3-14); Neutrophils Absolute Auto 14400 /uL (1500-7000); Neutrophils Percent Auto 86.9 % (50-75); Platelet Count 526 X10^3/uL (150-400); Red Blood Cell Count 2.76 X10^6/uL (4.5-5.9); Red Cell Distribution Width 16.7 % (11.6-14.8); White Blood Cell Count 16.6 X10^3/uL (4.5-11.0)
[2020-05-27 05:12] LABS: INR 1.5 (0.9-1.3); Prothrombin Time 16.7 SECONDS (10.1-12.7)
[2020-05-27 05:20] LABS: Alanine Aminotransferase 14 IU/L (<50); Albumin 3.3 g/dL (3.5-5.0); Albumin Globulin Ratio 0.9 (1.0-2.8); Alkaline Phosphatase 59 U/L (38-126); Aspartate Aminotransferase 26 IU/L (17-59); BUN Creatinine Ratio 20.9 (6-22); Bilirubin Total 0.7 mg/dL (0.2-1.3); Blood Urea Nitrogen 49 mg/dL (9-20); Calcium 8.5 mg/dL (8.4-10.2); Carbon Dioxide 28 mmol/L (22-32); Chloride 97 mmol/L (98-107); Estimated Glomerular Filt Rate 27.2 mL/min (>60); Globulin 3.7 g/dL (1.7-4.1); Glucose 173 mg/dL (80-110); HEMOLYSIS 19 (0-50); Magnesium 1.6 mg/dL (1.6-2.3); Potassium 4.8 mmol/L (3.4-5.1); Sodium 133 mmol/L (137-145)
--- NOTE | 2020-05-27 05:25 | PC.NURSE ---
Addendum entered by Damari Moss R.N. 05/27/20 06:31: 2nd unit PRBC started, tolerating. Ceftriaxzone infusing as ordered. Original Note: Admit Note-Patient brought to Room 227 via stretcher, able to ambulate to bed and then later into BR with SBA, denies dizziness. Still has paroxysmal A-fib rate up to 130s, self-limiting, and SR with frequent PACs and multi-focal PVCs, other VSS. 1st unit PRBCs infusing without s/s reaction. 40mg IV Lasix x1 given afterward as ordered. UAC sent, urine is cloudy, denies dysuria, flank or abdominal pain. Placed on 2L NC while asleep, desats to 85% on RA, LS CTA, denies shortness of breath. Patient is A/Ox4, fatigued and a bit nervous, asks appropriate questions. Bed alarm on.
[2020-05-27 05:30] LABS: Cholesterol 101 mg/dL (140-199); HDL Cholesterol 27 mg/dL (40-60); LDL Cholesterol Calculated 64 mg/dL (<100); Triglycerides 52 mg/dL (35-150)
[2020-05-27] MEDS: CEFTRIAXONE 1 GM/50 ML FROZ.PIGGY IV (06:22)
[2020-05-27] MEDS: METOPROLOL IR 25 MG TABLET PO ×2 (08:04→20:41)
--- NOTE | 2020-05-27 09:01 | PM.PN.1 ---
Subjective Subjective Date Patient Seen: 05/27/20 Interval history: Brief progress note: Patient seen and examined. Physical exam unchanged. Initial hemoglobin 6.8 and previously 1 month ago was 15.3 on 04/29/2020 per outside records. Patient received 2 U PRBC and will recheck H&H. Plan for surgery consultation today for evaluation of bleeding. Patient had small amount of BRBPR this morning per nurse. Patient had colonoscopy 08/2019 with benign polyps and diverticula per patient report. He has never had an EGD. Hi dizziness has resolved with transfusion. He has had no nausea, vomiting or diarrhea since hospitalized. If diarrhea recurs would pursue GI stool PCR. Urine preliminarily has no growth but urinalysis appeared mildly infected. WBC trending down and procalcitonin elevated at 3.73. Continue to monitor WBC and procalcitonin daily. Blood cultures have no growth. Renal ultrasound unremarkable. Continue ceftriaxone but note if infection appears to be worsening he has history of ESBL E. coli and would need to broaden antibiotics. Atrial fibrillation now well controlled on metoprolol tartrate 25 mg twice daily. Patient hopeful of late discharge tomorrow afternoon due to planned in person meeting on Wednesday05/29/20 in the morning. Exam Vital Signs (past 8 hours): - 05/27/20 15:40 05/27/20 19:50 Temperature 98.4 F 98.4 F Pulse Rate 76 79 Respiratory Rate 18 19 Blood Pressure 142/83 H 118/74 Pulse Oximetry 96 94 Oxygen Delivery Method Room Air Oxygen Flow Rate 0 Objective Labs Result Diagrams: 05/27/20 13:20 05/27/20 04:54 Labs: Laboratory Results - last 24 hr 05/27/20 05/27/20 05/27/20 00:05 00:05 00:05 WBC 23.7 H RBC 2.78 L Hgb 6.8 L* Hct 21.3 L MCV 76.7 L MCH 24.5 L MCHC 31.9 RDW 16.3 H Plt Count 644 H Neut % (Auto) 82.1 H Lymph % (Auto) 8.1 L Tate % (Auto) 7.1 Eos % (Auto) 1.8 L Baso % (Auto) 0.9 Neut # (Auto) 51100 H Lymph # (Auto) 1900 Tate # (Auto) 1700 H Eos # (Auto) 400 Baso # (Auto) 200 H PT INR Sodium 133 L Potassium 4.5 Chloride 95 L Carbon Dioxide 26 BUN 47 H Creatinine 2.61 H Estimated GFR 23.9 L BUN/Creatinine Ratio 18.0 Glucose 257 H D Hemoglobin A1c Lactate Calcium 8.6 Magnesium Total Bilirubin 0.5 AST 19 ALT 13 Alkaline Phosphatase 68 Total Creatine Kinase 31 L CK-MB (CK-2) TNP CK-MB (CK-2) Rel Index TNP Troponin I < 0.012 NT-Pro-B Natriuret Pep 1710 H Total Protein 7.0 Albumin 3.4 L Globulin 3.6 Albumin/Globulin Ratio 0.9 L Triglycerides Cholesterol LDL Cholesterol, Calc HDL Cholesterol Lipase 65 Procalcitonin Urine Color Urine Appearance Urine pH Ur Specific [place] Urine Protein Urine Glucose (UA) Urine Ketones Urine Occult Blood Urine Nitrate Urine Bilirubin Urine Urobilinogen Ur Leukocyte Esterase Urine RBC Urine WBC Ur Squamous Epith Cells Urine Bacteria Ur Culture Indicated? Nasal Screen MRSA (PCR) COVID-19 PCR Blood Type Antibody Screen Crossmatch 05/27/20 05/27/20 05/27/20 00:05 00:05 01:00 WBC RBC Hgb Hct MCV MCH MCHC RDW Plt Count Neut % (Auto) Lymph % (Auto) Tate % (Auto) Eos % (Auto) Baso % (Auto) Neut # (Auto) Lymph # (Auto) Tate # (Auto) Eos # (Auto) Baso # (Auto) PT INR Sodium Potassium Chloride Carbon Dioxide BUN Creatinine Estimated GFR BUN/Creatinine Ratio Glucose Hemoglobin A1c Lactate 1.9 Calcium Magnesium Total Bilirubin AST ALT Alkaline Phosphatase Total Creatine Kinase CK-MB (CK-2) CK-MB (CK-2) Rel Index Troponin I NT-Pro-B Natriuret Pep Total Protein Albumin Globulin Albumin/Globulin Ratio Triglycerides Cholesterol LDL Cholesterol, Calc HDL Cholesterol Lipase Procalcitonin Urine Color Urine Appearance Urine pH Ur Specific [place] Urine Protein Urine Glucose (UA) Urine Ketones Urine Occult Blood Urine Nitrate Urine Bilirubin Urine Urobilinogen Ur Leukocyte Esterase Urine RBC Urine WBC Ur Squamous Epith Cells Urine Bacteria Ur Culture Indicated? Nasal Screen MRSA (PCR) COVID-19 PCR Negative Blood Type A Positive Antibody Screen Negative Crossmatch See Detail 05/27/20 05/27/20 05/27/20 02:50 02:58 03:05 WBC RBC Hgb Hct MCV MCH MCHC RDW Plt Count Neut % (Auto) Lymph % (Auto) Tate % (Auto) Eos % (Auto) Baso % (Auto) Neut # (Auto) Lymph # (Auto) Tate # (Auto) Eos # (Auto) Baso # (Auto) PT INR Sodium Potassium Chloride Carbon Dioxide BUN Creatinine Estimated GFR BUN/Creatinine Ratio Glucose Hemoglobin A1c 6.2 H Lactate 1.4 Calcium Magnesium Total Bilirubin AST ALT Alkaline Phosphatase Total Creatine Kinase CK-MB (CK-2) CK-MB (CK-2) Rel Index Troponin I NT-Pro-B Natriuret Pep Total Protein Albumin Globulin Albumin/Globulin Ratio Triglycerides Cholesterol LDL Cholesterol, Calc HDL Cholesterol Lipase Procalcitonin Urine Color Urine Appearance Urine pH Ur Specific [place] Urine Protein Urine Glucose (UA) Urine Ketones Urine Occult Blood Urine Nitrate Urine Bilirubin Urine Urobilinogen Ur Leukocyte Esterase Urine RBC Urine WBC Ur Squamous Epith Cells Urine Bacteria Ur Culture Indicated? Nasal Screen MRSA (PCR) Negative for mrsa COVID-19 PCR Blood Type Antibody Screen Crossmatch 05/27/20 05/27/20 05/27/20 04:45 04:54 04:54 WBC 16.6 H RBC 2.76 L Hgb 7.0 L Hct 21.4 L MCV 77.7 L MCH 25.5 L MCHC 32.8 RDW 16.7 H Plt Count 526 H Neut % (Auto) 86.9 H Lymph % (Auto) 7.3 L Tate % (Auto) 5.5 Eos % (Auto) 0.1 L Baso % (Auto) 0.2 Neut # (Auto) 58600 H Lymph # (Auto) 1200 Tate # (Auto) 900 Eos # (Auto) 0 Baso # (Auto) 0 PT 16.7 H INR 1.5 H Sodium Potassium Chloride Carbon Dioxide BUN Creatinine Estimated GFR BUN/Creatinine Ratio Glucose Hemoglobin A1c Lactate Calcium Magnesium Total Bilirubin AST ALT Alkaline Phosphatase Total Creatine Kinase CK-MB (CK-2) CK-MB (CK-2) Rel Index Troponin I NT-Pro-B Natriuret Pep Total Protein Albumin Globulin Albumin/Globulin Ratio Triglycerides Cholesterol LDL Cholesterol, Calc HDL Cholesterol Lipase Procalcitonin Urine Color Yellow Urine Appearance Slightly cloudy Urine pH 5.0 Ur Specific [place] 1.010 Urine Protein Negative Urine Glucose (UA) Negative Urine Ketones Negative Urine Occult Blood 1+ H Urine Nitrate Positive Urine Bilirubin Negative Urine Urobilinogen 0.2 Ur Leukocyte Esterase 2+ H Urine RBC 0-1/hpf Urine WBC 30-100/hpf H Ur Squamous Epith Cells 0-1 /hpf Urine Bacteria Many (>30) H Ur Culture Indicated? Specimen cultured Nasal Screen MRSA (PCR) COVID-19 PCR Blood Type Antibody Screen Crossmatch 05/27/20 05/27/20 05/27/20 04:54 04:54 04:54 WBC RBC Hgb Hct MCV MCH MCHC RDW Plt Count Neut % (Auto) Lymph % (Auto) Tate % (Auto) Eos % (Auto) Baso % (Auto) Neut # (Auto) Lymph # (Auto) Tate # (Auto) Eos # (Auto) Baso # (Auto) PT INR Sodium 133 L Potassium 4.8 Chloride 97 L Carbon Dioxide 28 BUN 49 H Creatinine 2.34 H Estimated GFR 27.2 L BUN/Creatinine Ratio 20.9 Glucose 173 H Hemoglobin A1c Lactate Calcium 8.5 Magnesium 1.6 Total Bilirubin 0.7 AST 26 ALT 14 Alkaline Phosphatase 59 Total Creatine Kinase CK-MB (CK-2) CK-MB (CK-2) Rel Index Troponin I NT-Pro-B Natriuret Pep Total Protein 7.0 Albumin 3.3 L Globulin 3.7 Albumin/Globulin Ratio 0.9 L Triglycerides 52 Cholesterol 101 L LDL Cholesterol, Calc 64 HDL Cholesterol 27 L Lipase Procalcitonin 3.73 H Urine Color Urine Appearance Urine pH Ur Specific [place] Urine Protein Urine Glucose (UA) Urine Ketones Urine Occult Blood Urine Nitrate Urine Bilirubin Urine Urobilinogen Ur Leukocyte Esterase Urine RBC Urine WBC Ur Squamous Epith Cells Urine Bacteria Ur Culture Indicated? Nasal Screen MRSA (PCR) COVID-19 PCR Blood Type Antibody Screen Crossmatch 05/27/20 13:20 WBC RBC Hgb 7.4 L Hct 23.3 L MCV MCH MCHC RDW Plt Count Neut % (Auto) Lymph % (Auto) Tate % (Auto) Eos % (Auto) Baso % (Auto) Neut # (Auto) Lymph # (Auto) Tate # (Auto) Eos # (Auto) Baso # (Auto) PT INR Sodium Potassium Chloride Carbon Dioxide BUN Creatinine Estimated GFR BUN/Creatinine Ratio Glucose Hemoglobin A1c Lactate Calcium Magnesium Total Bilirubin AST ALT Alkaline Phosphatase Total Creatine Kinase CK-MB (CK-2) CK-MB (CK-2) Rel Index Troponin I NT-Pro-B Natriuret Pep Total Protein Albumin Globulin Albumin/Globulin Ratio Triglycerides Cholesterol LDL Cholesterol, Calc HDL Cholesterol Lipase Procalcitonin Urine Color Urine Appearance Urine pH Ur Specific [place] Urine Protein Urine Glucose (UA) Urine Ketones Urine Occult Blood Urine Nitrate Urine Bilirubin Urine Urobilinogen Ur Leukocyte Esterase Urine RBC Urine WBC Ur Squamous Epith Cells Urine Bacteria Ur Culture Indicated? Nasal Screen MRSA (PCR) COVID-19 PCR Blood Type Antibody Screen Crossmatch
[2020-05-27 09:46] LABS: Procalcitonin 3.73 ng/mL (<0.5)
--- NOTE | 2020-05-27 12:48 | CM.DANOTE ---
DCP: Case received, EMR reviewed and met with patient. Introduced self and role. , Hannah, was also at bedside. Had seen patient prior to visit during team rounds as well. DCP assessment completed with information currently available. Patient is a 79 year old male who admitted early this morning to the care of the hospitalist team. PCP: Dr. Christian. Payer: confirmed: [facility]. Patient came to the hospital via private vehicle secondary to a fall at home due to increased weakness. Patient had had some nausea, as well as vomiting. At home, he had some syncope and he ended up falling, hitting his head on the toilet. was able to assist him up and drive him here to the hospital. Patient holds diagnosis of anemia, as well as uncontrolled a-fib. He also is noted to have acute kidney injury. He may have UTI, and culture is pending. Met with patient in his room. He is alert and oriented, pleasant. , Hannah, present in room as well. Patient indicated, I really hope that I can go home tomorrow, for I have a meeting that I need to be at on Wednesday. Dr. Moser mentioned significance of ensuring that culture comes back for appropriate treatment. He is functionally independent, and lives in single family home with his spouse. P: DCP to continue to follow. Patient should be able to go home when he is medically stable. Leia Pineda RN/Clinical Rehab Liaison
[2020-05-27] MEDS: MAGNESIUM SULFATE 2 GM/50 ML PIGGYBACK IV (13:16)
[2020-05-27 13:26] LABS: Hematocrit 23.3 % (41-53); Hemoglobin 7.4 g/dL (13.5-17.5)
--- NOTE | 2020-05-27 14:49 | PC.NURSE ---
pt denies pain - has been in sr with freq pvc's most of shift following early am dose od po metoprolol, completed #2 unit of PRBC transfusion and tolerated well- robb cath placed with large diuresis ( pt did receive lasix between units) am labs ordered and mag rider near completion and then will be saline locked - tolerating clear liquid diet
--- NOTE | 2020-05-27 16:12 | P.CONS_ITS ---
History of Present Illness Consult details Date Patient Seen: 05/27/20 Time Patient Seen: 11:14 Chief complaint: lighthead/nausea/fell hit head on toilet Reason for consult: Intestinal bleeding and anemia Requesting provider: Ramsey Jackson Narrative: The patient is a gentleman who is been having nausea vomiting last few days. No blood in his emesis. He has not seen any blood per rectum until last night when he went to the bathroom had a large bowel movement that had a lot of maroon and clotted material and passed out. He was brought to the emergency room and I was asked to see him today he had a colonoscopy in August. I have the pathology report from that which suggests as he stated for small polyps were removed and they found diverticulosis. I do not have the actual report yet and the doctor's office who performed it is not available today due to the holiday so I can obtain it. Meds Home Medications and Allergies Home Medications Medication Instructions Recorded Confirmed Type tamsulosin 0.4 mg PO BEDTIME 05/27/20 05/27/20 History Allergies Allergy/AdvReac Type Severity Reaction Status Date / Time Penicillins Allergy Verified 11/15/18 14:59 Sulfa (Sulfonamide Allergy Verified 11/15/18 14:59 Antibiotics) Review of Systems Review of Systems Narrative: Patient denies cough or cold. He has been fatigued and tired. No heart attack that he is aware of but he has been in atrial fibrillation in the past and was cardioverted. He was out of it for some time until this admission. The patient does have some urinary tract difficulties with voiding. Exam Vital Signs (past 8 hours): - 05/27/20 09:42 05/27/20 11:18 05/27/20 15:40 Temperature 98.0 F 98.4 F Pulse Rate 87 78 76 Respiratory Rate 24 16 18 Blood Pressure 141/89 H 142/83 H Pulse Oximetry 95 96 Oxygen Delivery Method Room Air Oxygen Flow Rate 0 Narrative Exam Narrative: Cooperative pleasant man. He has a small bruise near his left eyelid. Neck is supple. There are no nodes in the neck or supraclavicular areas. Trachea is midline mobile. Thyroid is not enlarged. Lungs are clear to auscultation without rales or rhonchi. Heart irregularly irregular with a 2 to 3/6 systolic murmur heard best at the base. No bruit in the neck. His abdomen is protuberant but soft. There is no tenderness. No obvious hernias are noted. Rectal was performed by the ER physician who reported maroon stool on the glove to me. Objective Labs Result Diagrams: 05/27/20 13:20 05/27/20 04:54 Labs: Laboratory Results - last 24 hr 05/27/20 05/27/20 05/27/20 00:05 00:05 00:05 WBC 23.7 H RBC 2.78 L Hgb 6.8 L* Hct 21.3 L MCV 76.7 L MCH 24.5 L MCHC 31.9 RDW 16.3 H Plt Count 644 H Neut % (Auto) 82.1 H Lymph % (Auto) 8.1 L [place] % (Auto) 7.1 Eos % (Auto) 1.8 L Baso % (Auto) 0.9 Neut # (Auto) 21025 H Lymph # (Auto) 1900 [place] # (Auto) 1700 H Eos # (Auto) 400 Baso # (Auto) 200 H PT INR Sodium 133 L Potassium 4.5 Chloride 95 L Carbon Dioxide 26 BUN 47 H Creatinine 2.61 H Estimated GFR 23.9 L BUN/Creatinine Ratio 18.0 Glucose 257 H D Hemoglobin A1c Lactate Calcium 8.6 Magnesium Total Bilirubin 0.5 AST 19 ALT 13 Alkaline Phosphatase 68 Total Creatine Kinase 31 L CK-MB (CK-2) TNP CK-MB (CK-2) Rel Index TNP Troponin I < 0.012 NT-Pro-B Natriuret Pep 1710 H Total Protein 7.0 Albumin 3.4 L Globulin 3.6 Albumin/Globulin Ratio 0.9 L Triglycerides Cholesterol LDL Cholesterol, Calc HDL Cholesterol Lipase 65 Procalcitonin Urine Color Urine Appearance Urine pH Ur Specific [place] Urine Protein Urine Glucose (UA) Urine Ketones Urine Occult Blood Urine Nitrate Urine Bilirubin Urine Urobilinogen Ur Leukocyte Esterase Urine RBC Urine WBC Ur Squamous Epith Cells Urine Bacteria Ur Culture Indicated? Nasal Screen MRSA (PCR) COVID-19 PCR Blood Type Antibody Screen Crossmatch 05/27/20 05/27/20 05/27/20 00:05 00:05 01:00 WBC RBC Hgb Hct MCV MCH MCHC RDW Plt Count Neut % (Auto) Lymph % (Auto) [place] % (Auto) Eos % (Auto) Baso % (Auto) Neut # (Auto) Lymph # (Auto) [place] # (Auto) Eos # (Auto) Baso # (Auto) PT INR Sodium Potassium Chloride Carbon Dioxide BUN Creatinine Estimated GFR BUN/Creatinine Ratio Glucose Hemoglobin A1c Lactate 1.9 Calcium Magnesium Total Bilirubin AST ALT Alkaline Phosphatase Total Creatine Kinase CK-MB (CK-2) CK-MB (CK-2) Rel Index Troponin I NT-Pro-B Natriuret Pep Total Protein Albumin Globulin Albumin/Globulin Ratio Triglycerides Cholesterol LDL Cholesterol, Calc HDL Cholesterol Lipase Procalcitonin Urine Color Urine Appearance Urine pH Ur Specific [place] Urine Protein Urine Glucose (UA) Urine Ketones Urine Occult Blood Urine Nitrate Urine Bilirubin Urine Urobilinogen Ur Leukocyte Esterase Urine RBC Urine WBC Ur Squamous Epith Cells Urine Bacteria Ur Culture Indicated? Nasal Screen MRSA (PCR) COVID-19 PCR Negative Blood Type A Positive Antibody Screen Negative Crossmatch See Detail 05/27/20 05/27/20 05/27/20 02:50 02:58 03:05 WBC RBC Hgb Hct MCV MCH MCHC RDW Plt Count Neut % (Auto) Lymph % (Auto) [place] % (Auto) Eos % (Auto) Baso % (Auto) Neut # (Auto) Lymph # (Auto) [place] # (Auto) Eos # (Auto) Baso # (Auto) PT INR Sodium Potassium Chloride Carbon Dioxide BUN Creatinine Estimated GFR BUN/Creatinine Ratio Glucose Hemoglobin A1c 6.2 H Lactate 1.4 Calcium Magnesium Total Bilirubin AST ALT Alkaline Phosphatase Total Creatine Kinase CK-MB (CK-2) CK-MB (CK-2) Rel Index Troponin I NT-Pro-B Natriuret Pep Total Protein Albumin Globulin Albumin/Globulin Ratio Triglycerides Cholesterol LDL Cholesterol, Calc HDL Cholesterol Lipase Procalcitonin Urine Color Urine Appearance Urine pH Ur Specific [place] Urine Protein Urine Glucose (UA) Urine Ketones Urine Occult Blood Urine Nitrate Urine Bilirubin Urine Urobilinogen Ur Leukocyte Esterase Urine RBC Urine WBC Ur Squamous Epith Cells Urine Bacteria Ur Culture Indicated? Nasal Screen MRSA (PCR) Negative for mrsa COVID-19 PCR Blood Type Antibody Screen Crossmatch 05/27/20 05/27/20 05/27/20 04:45 04:54 04:54 WBC 16.6 H RBC 2.76 L Hgb 7.0 L Hct 21.4 L MCV 77.7 L MCH 25.5 L MCHC 32.8 RDW 16.7 H Plt Count 526 H Neut % (Auto) 86.9 H Lymph % (Auto) 7.3 L [place] % (Auto) 5.5 Eos % (Auto) 0.1 L Baso % (Auto) 0.2 Neut # (Auto) 37156 H Lymph # (Auto) 1200 [place] # (Auto) 900 Eos # (Auto) 0 Baso # (Auto) 0 PT 16.7 H INR 1.5 H Sodium Potassium Chloride Carbon Dioxide BUN Creatinine Estimated GFR BUN/Creatinine Ratio Glucose Hemoglobin A1c Lactate Calcium Magnesium Total Bilirubin AST ALT Alkaline Phosphatase Total Creatine Kinase CK-MB (CK-2) CK-MB (CK-2) Rel Index Troponin I NT-Pro-B Natriuret Pep Total Protein Albumin Globulin Albumin/Globulin Ratio Triglycerides Cholesterol LDL Cholesterol, Calc HDL Cholesterol Lipase Procalcitonin Urine Color Yellow Urine Appearance Slightly cloudy Urine pH 5.0 Ur Specific [place] 1.010 Urine Protein Negative Urine Glucose (UA) Negative Urine Ketones Negative Urine Occult Blood 1+ H Urine Nitrate Positive Urine Bilirubin Negative Urine Urobilinogen 0.2 Ur Leukocyte Esterase 2+ H Urine RBC 0-1/hpf Urine WBC 30-100/hpf H Ur Squamous Epith Cells 0-1 /hpf Urine Bacteria Many (>30) H Ur Culture Indicated? Specimen cultured Nasal Screen MRSA (PCR) COVID-19 PCR Blood Type Antibody Screen Crossmatch 05/27/20 05/27/20 05/27/20 04:54 04:54 04:54 WBC RBC Hgb Hct MCV MCH MCHC RDW Plt Count Neut % (Auto) Lymph % (Auto) [place] % (Auto) Eos % (Auto) Baso % (Auto) Neut # (Auto) Lymph # (Auto) [place] # (Auto) Eos # (Auto) Baso # (Auto) PT INR Sodium 133 L Potassium 4.8 Chloride 97 L Carbon Dioxide 28 BUN 49 H Creatinine 2.34 H Estimated GFR 27.2 L BUN/Creatinine Ratio 20.9 Glucose 173 H Hemoglobin A1c Lactate Calcium 8.5 Magnesium 1.6 Total Bilirubin 0.7 AST 26 ALT 14 Alkaline Phosphatase 59 Total Creatine Kinase CK-MB (CK-2) CK-MB (CK-2) Rel Index Troponin I NT-Pro-B Natriuret Pep Total Protein 7.0 Albumin 3.3 L Globulin 3.7 Albumin/Globulin Ratio 0.9 L Triglycerides 52 Cholesterol 101 L LDL Cholesterol, Calc 64 HDL Cholesterol 27 L Lipase Procalcitonin 3.73 H Urine Color Urine Appearance Urine pH Ur Specific [place] Urine Protein Urine Glucose (UA) Urine Ketones Urine Occult Blood Urine Nitrate Urine Bilirubin Urine Urobilinogen Ur Leukocyte Esterase Urine RBC Urine WBC Ur Squamous Epith Cells Urine Bacteria Ur Culture Indicated? Nasal Screen MRSA (PCR) COVID-19 PCR Blood Type Antibody Screen Crossmatch 05/27/20 13:20 WBC RBC Hgb 7.4 L Hct 23.3 L MCV MCH MCHC RDW Plt Count Neut % (Auto) Lymph % (Auto) [place] % (Auto) Eos % (Auto) Baso % (Auto) Neut # (Auto) Lymph # (Auto) [place] # (Auto) Eos # (Auto) Baso # (Auto) PT INR Sodium Potassium Chloride Carbon Dioxide BUN Creatinine Estimated GFR BUN/Creatinine Ratio Glucose Hemoglobin A1c Lactate Calcium Magnesium Total Bilirubin AST ALT Alkaline Phosphatase Total Creatine Kinase CK-MB (CK-2) CK-MB (CK-2) Rel Index Troponin I NT-Pro-B Natriuret Pep Total Protein Albumin Globulin Albumin/Globulin Ratio Triglycerides Cholesterol LDL Cholesterol, Calc HDL Cholesterol Lipase Procalcitonin Urine Color Urine Appearance Urine pH Ur Specific [place] Urine Protein Urine Glucose (UA) Urine Ketones Urine Occult Blood Urine Nitrate Urine Bilirubin Urine Urobilinogen Ur Leukocyte Esterase Urine RBC Urine WBC Ur Squamous Epith Cells Urine Bacteria Ur Culture Indicated? Nasal Screen MRSA (PCR) COVID-19 PCR Blood Type Antibody Screen Crossmatch Assessment & Plan Assessment & Plan narrative: Patient has numerous issues including cardiac, it urinary, renal failure, and what appears to be a chronic anemia with an acute bleed. Given his recent colonoscopy I am not sure that has to be repeated but I do have to obtain the report to make sure was a thorough exam in that the prep was good. I did want to perform an EGD though I think the an upper source of acute blood-loss is slight given the fact he was vomiting there was no blood in the vomitus. However he could have an ulcer or gastritis causing some chronic bleeding. He had refuses to have an EGD and therefore I will order a barium upper GI whenever I obtain his colonoscopy report. Should he need a colonoscopy and I gave him barium I will not be able to do it until that entirely clear is a system. His cardiac issues etc are being managed by his music manager.
--- NOTE | 2020-05-27 21:32 | PC.NURSE ---
Addendum entered by Damari Moss R.N. 05/28/20 06:25: Patient slept throughout the night, no more stools. Original Note: 2100-Patient ambulated into BR, steady with SBA, denies dizziness, remains in SR with 1st degree AVB, frequent PACs and PVCs, scheduled PO metoprolol given, IVP Protonix given. He had 250ml thick maroon stool, denies abdominal pain.
[2020-05-28 05:00] VITALS: BP 115/61; PULSE 73; RESP 16; TEMP 36.6; O2SAT 97
[2020-05-28 05:06] LABS: Add Manual Diff / Slide Review NO; Basophils Absolute Auto 200 /uL (0-100); Basophils Percent Auto 1.7 % (0-2); Eosinophils Absolute Auto 500 /uL (0-450); Eosinophils Percent Auto 4.7 % (2-4); Hematocrit 21.7 % (41-53); Hemoglobin 7.2 g/dL (13.5-17.5); Lymphocytes Absolute Auto 1700 /uL (1100-4500); Lymphocytes Percent Auto 14.7 % (25-40); Mean Corpuscular HGB Conc 33.3 % (30-36); Mean Corpuscular Hemoglobin 26.4 PG (26-34); Mean Corpuscular Volume 79.2 fL (80-100); Monocytes Absolute Auto 1200 /uL (0-900); Monocytes Percent Auto 10.5 % (3-14); Neutrophils Absolute Auto 8000 /uL (1500-7000); Neutrophils Percent Auto 68.4 % (50-75); Platelet Count 447 X10^3/uL (150-400); Red Blood Cell Count 2.74 X10^6/uL (4.5-5.9); Red Cell Distribution Width 17.4 % (11.6-14.8); White Blood Cell Count 11.7 X10^3/uL (4.5-11.0)
[2020-05-28 05:19] LABS: BUN Creatinine Ratio 17.9 (6-22); Blood Urea Nitrogen 47 mg/dL (9-20); Calcium 8.6 mg/dL (8.4-10.2); Carbon Dioxide 31 mmol/L (22-32); Chloride 100 mmol/L (98-107); Estimated Glomerular Filt Rate 23.8 mL/min (>60); Glucose 104 mg/dL (80-110); HEMOLYSIS < 15 (0-50); Magnesium 2.2 mg/dL (1.6-2.3); Potassium 4.7 mmol/L (3.4-5.1); Sodium 135 mmol/L (137-145)
[2020-05-28 05:32] LABS: Procalcitonin 5.53 ng/mL (<0.5)
[2020-05-28] MEDS: CEFTRIAXONE 1 GM/50 ML FROZ.PIGGY IV (06:19)
[2020-05-28] MEDS: SODIUM CHLORIDE 0.9% FLUSH 10 ML IV ×4 (06:19→20:33)
[2020-05-28 08:23] VITALS: BP 147/74; PULSE 74; RESP 18; TEMP 36.4; O2SAT 95
[2020-05-28] MEDS: PANTOPRAZOLE 40 MG VIAL IV ×2 (08:34→19:44)
[2020-05-28] MEDS: METOPROLOL IR 25 MG TABLET PO ×2 (08:34→19:44)
[2020-05-28] MEDS: MEROPENEM 1 GM/50 ML PIGGYBACK IV (10:05)
--- NOTE | 2020-05-28 11:18 | PM.PN.1 ---
Subjective Subjective Date Patient Seen: 05/28/20 Time Patient Seen: 11:18 Interval history: Patient was admitted for gastrointestinal bleeding. Did have a colonoscopy be in August and I have obtain that report from the sports medicine coordinator office. Was a complete exam. He had diverticulosis and for tiny polyps. Therefore I do not believe it is worthwhile to repeat his colonoscopy unless he continues to bleed and were trying to find an exact area that is bleeding. Consider a bleeding scan of some form if bleeding continues. To evaluate his upper tract, I would recommend a upper GI as the patient declines an EGD. Exam Vital Signs (past 8 hours): - 05/28/20 05:00 05/28/20 08:23 Temperature 97.9 F 97.6 F Pulse Rate 73 74 Respiratory Rate 16 18 Blood Pressure 115/61 147/74 H Pulse Oximetry 97 95 Oxygen Delivery Method Room Air Oxygen Flow Rate 0 Objective Labs Result Diagrams: 05/28/20 04:47 05/28/20 04:47 Labs: Laboratory Results - last 24 hr 05/27/20 05/28/20 05/28/20 13:20 04:47 04:47 WBC 11.7 H RBC 2.74 L Hgb 7.4 L 7.2 L Hct 23.3 L 21.7 L MCV 79.2 L MCH 26.4 MCHC 33.3 RDW 17.4 H Plt Count 447 H Neut % (Auto) 68.4 Lymph % (Auto) 14.7 L [place] % (Auto) 10.5 Eos % (Auto) 4.7 H Baso % (Auto) 1.7 Neut # (Auto) 8000 H Lymph # (Auto) 1700 [place] # (Auto) 1200 H Eos # (Auto) 500 H Baso # (Auto) 200 H Sodium Potassium Chloride Carbon Dioxide BUN Creatinine Estimated GFR BUN/Creatinine Ratio Glucose Calcium Magnesium Procalcitonin 5.53 H 05/28/20 04:47 WBC RBC Hgb Hct MCV MCH MCHC RDW Plt Count Neut % (Auto) Lymph % (Auto) [place] % (Auto) Eos % (Auto) Baso % (Auto) Neut # (Auto) Lymph # (Auto) [place] # (Auto) Eos # (Auto) Baso # (Auto) Sodium 135 L Potassium 4.7 Chloride 100 Carbon Dioxide 31 BUN 47 H Creatinine 2.62 H Estimated GFR 23.8 L BUN/Creatinine Ratio 17.9 Glucose 104 Calcium 8.6 Magnesium 2.2 Procalcitonin
[2020-05-28 12:00] VITALS: BP 140/89; PULSE 74; RESP 24; TEMP 36.6; O2SAT 99
--- NOTE | 2020-05-28 12:06 | DI.RAD.S_ITS ---
PROCEDURE: FL UPPER GI W AIR INDICATIONS: GI bleeding, recommended by surgery COMPARISON: None. FINDINGS: Exam suboptimal due to support equipment, Venegas catheter and subsequent difficulty with patient positioning KUB: Preprocedural scout leaser film demonstrates a normal bowel gas pattern. No suspicious abdominal calcifications. Visualized solid organ contours appear normal. Bony structures appear unremarkable. Esophagus: Esophageal dysmotility is present. No definite focal esophageal mucosal abnormality. No strictures, extrinsic mass effects, or diverticula. No hiatal hernia or elicited gastroesophageal reflux. Stomach: The stomach is normally distensible, with normal rugal fold thickness. No mucosal masses or ulcers. Pylorus and duodenal bulb appear normal in morphology. Incidentally noted duodenal diverticulum. IMPRESSION: Incidentally noted duodenal diverticulum. Esophageal dysmotility Elsewhere, no discrete mass or focal abnormality identified Dictated by: Tank Garces M.D. on 05/28/2020 at 14:56 Approved by: Tank Garces M.D. on 05/28/2020 at 14:59
--- NOTE | 2020-05-28 12:17 | P.PN_ITS ---
Subjective Subjective Date Patient Seen: 05/28/20 Time Patient Seen: 12:17 Interval history: Shady Pinedo is 79-year-old male former smoker with history of paroxsymal atrial fibrillation and subsequent cardioversion in June 2019 and a remote history of prostate cancer and subsequent TURP in 2001, multiple recent UTIs who presented after symptoms of nausea, vomiting, and diarrhea prior to admission and some bright red blood per rectum. His hemoglobin has sta bilized around 7, his urine culture is positive for 2 different Gram-negative bacilli, he did have a rising procalcitonin today in given his history of ESBL organisms he was placed on contact precautions and started on meropenem. He continues to feel well, and did have a few episodes of bright red blood per rectum overnight with bowel movements. He still calls his bowel movements quickly. Have reordered him for a GI panel given his recent antibiotic use. Patient was further seen by General surgery, not recommended for repeat colonoscopy and patient refused EGD. Did recommend an upper GI series which has been ordered. He remains on a clear liquid diet for now. Exam Vital Signs (past 8 hours): - 05/28/20 05:00 05/28/20 08:23 Temperature 97.9 F 97.6 F Pulse Rate 73 74 Respiratory Rate 16 18 Blood Pressure 115/61 147/74 H Pulse Oximetry 97 95 Oxygen Delivery Method Room Air Oxygen Flow Rate 0 Narrative Exam Narrative: GENERAL APPEARANCE: Well developed, well nourished, in no acute distress. SKIN: Inspection of the skin reveals no rashes, ulcerations or petechiae. HEENT: Normocephalic atraumatic, extraocular muscles are intact, oropharynx is clear and mucous membranes are moist, neck is supple without adenopathy NECK: Supple and symmetric. There was no thyroid enlargement, and no tenderness, or masses were felt. CHEST: Normal AP diameter and normal contour without any kyphoscoliosis. LUNGS: Auscultation of the lungs revealed no wheezes, rhonchi, or rales. CARDIOVASCULAR: Irregularly irregular rhythm with a normal rate, there is a 2- 3/6 systolic murmur. Peripheral pulses were 2+ and symmetric. ABDOMEN: Soft and nontender with normal bowel sounds. No ascites was noted. MUSCULOSKELETAL: There was no tenderness or effusions noted. Muscle strength and tone were normal. EXTREMITIES: No cyanosis, clubbing or edema. NEUROLOGIC: Alert and oriented x 3. Normal affect. Gait was normal. Strength is +5/5 in the Upper Extremities and Lower Extremities Bilaterally. Sensation to touch was normal. Objective Labs Result Diagrams: 05/28/20 04:47 05/28/20 04:47 Labs: Laboratory Results - last 24 hr 05/27/20 05/28/20 05/28/20 13:20 04:47 04:47 WBC 11.7 H RBC 2.74 L Hgb 7.4 L 7.2 L Hct 23.3 L 21.7 L MCV 79.2 L MCH 26.4 MCHC 33.3 RDW 17.4 H Plt Count 447 H Neut % (Auto) 68.4 Lymph % (Auto) 14.7 L [place] % (Auto) 10.5 Eos % (Auto) 4.7 H Baso % (Auto) 1.7 Neut # (Auto) 8000 H Lymph # (Auto) 1700 [place] # (Auto) 1200 H Eos # (Auto) 500 H Baso # (Auto) 200 H Sodium Potassium Chloride Carbon Dioxide BUN Creatinine Estimated GFR BUN/Creatinine Ratio Glucose Calcium Magnesium Procalcitonin 5.53 H 05/28/20 04:47 WBC RBC Hgb Hct MCV MCH MCHC RDW Plt Count Neut % (Auto) Lymph % (Auto) [place] % (Auto) Eos % (Auto) Baso % (Auto) Neut # (Auto) Lymph # (Auto) [place] # (Auto) Eos # (Auto) Baso # (Auto) Sodium 135 L Potassium 4.7 Chloride 100 Carbon Dioxide 31 BUN 47 H Creatinine 2.62 H Estimated GFR 23.8 L BUN/Creatinine Ratio 17.9 Glucose 104 Calcium 8.6 Magnesium 2.2 Procalcitonin Assessment & Plan Assessment & Plan narrative: Shady Pinedo is 79-year-old male former smoker with history of paroxsymal atrial fibrillation and subsequent cardioversion in June 2019 and a remote history of prostate cancer and subsequent TURP in 2001, multiple recent UTIs who presented after symptoms of nausea, vomiting, and diarrhea prior to admission and some bright red blood per rectum. He remains admitted for continued GI bleeding, ALFREDITO, and UTI with possible ESBL organism. 1. Symptomatic acute blood loss anemia likely secondary to GI bleeding, acute, present on admission -initial Hg was 6.8, received 1 U PRBC with response to 7.0, then 7.4. Stable at 7.2 today. Will repeat early afternoon. - refused EGD, will obtain upper GI series recommended by general surgery, dr. Bingham. Appreciate his time and assistance. - s/p colonoscopy 08/31/19 which showed minor polyps, no need for repeat per surgery. - continue protonix IV BID, transfuse for Hg <7. - still with some liquidy bowel movements reported, collect GI panel if remains liquid stool given recent antibiotic use for UTI. 2. complicated acute cystitis, present on admission -UA positive for blood, nitrates, + WBC. Urine culture with 2x GNB, history of ESBL in the past. -initiated on ceftriaxone 1 gram daily, broadened to meropenem today given history of ESBL and procalcitonin did rise. -patient's lactate is normal -blood cultures NGTD. Urine cultures as noted above. 3. Acute kidney injury, present on admission -patient had a normal creatinine and GFR in June 2019. Admission creatinine 2.6 which improved slightly but returned back to 2.6 today. Does have history of prostate CA and complained of obstruction like symptoms, now with a robb catheter. -renal ultrasound unremarkable. -possibly in the setting of acute cystitis or relative hypovolemia. - continue to monitor cr, avoid nephrotoxic medications. 4. Paroxysmal atrial fibrillation, present on admission -The patient was cardioverted at [facility] in June of last year. 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 Was uncontrolled rate on admission which improved with initation of metoprolol. Will hold resumption of anticoagulation given bleeding. -given 1 dose of IV lasix initially. Appears euvolemic now. Will hold any further diuresis. 5. Hypertension, chronic, present on admission -See above 6. Diabetes type 2 with a hemoglobin A1c of 6.2 -continue Low dose insulin correctional scale Code: Full Dispo: likely discharge home, if ESBL + will need 7 days of IV antibiotics for definitive treatment with today being day 1. Pending sensitivities at this time.
[2020-05-28 13:36] LABS: Adenovirus F 40/41 Not Detected (Not Detect); Astrovirus Not Detected (Not Detect); Campylobacter Not Detected (Not Detect); Clostridium difficile toxin AB Not Detected (Not Detect); Cryptosporidium Not Detected (Not Detect); Cyclospora cayetanensis Not Detected (Not Detect); Entamoeba histolytica Not Detected (Not Detect); Enteroaggregative E.coli Not Detected (Not Detect); Enteropathogenic E.coli Not Detected (Not Detect); Enterotoxigenic E.coli It/st Not Detected (Not Detect); Giardia lamblia Not Detected (Not Detect); Norovirus GI/GII Not Detected (Not Detect); Plesiomonsa shigelloides Not Detected (Not Detect); Rotavirus A Not Detected (Not Detect); Salmonella Not Detected (Not Detect); Sapovirus Not Detected (Not Detect); Shiga-like toxin-prod E.coli Not Detected (Not Detect); Shigella/Enteroinvasive E.coli Not Detected (Not Detect); Vibrio Not Detected (Not Detect); Vibrio cholerae Not Detected (Not Detect); Yersinia enterocolitica Not Detected (Not Detect)
[2020-05-28 14:52] LABS: Hematocrit 23.1 % (41-53); Hemoglobin 7.5 g/dL (13.5-17.5)
[2020-05-28 15:30] VITALS: BP 147/89; PULSE 81; RESP 16; TEMP 36.6; O2SAT 98
--- NOTE | 2020-05-28 16:59 | PC.NURSE ---
Addendum entered by Qing Haro R.N. 05/28/20 20:40: Diet advanced to general. Pt ate a later dinner, whole sandwich and yogurt with no reported pain or nausea post-meal. HS CBG elevated at 145 mg/dl, possibly due to the late meal. Venegas patent with dilute clear yellow urine, emptied prior to shower with 450 ml output in approx 4 hours. Pt reports comfortable, warm blanket placed over feet, denies other needs or concerns from staff. Original Note: 1520: Had 5 and then 20 beat runs of V-tach during shift change, CREDIT ADMINISTRATION SPECIALIST confirmed via strip & Dr Beaver was notified. No new orders. Meds and patient cardiac history reviewed by myself & CREDIT ADMINISTRATION SPECIALIST. Pt denies feeling any palpitations, chest pain, SOB, dizziness upon ambulation or other symptoms. Told me he feels fine. He has asked myself & MANAGER PROFESSIONAL DEVELOPMENT several times when is the Dr coming to tell me my test results? I notified Dr Beaver of patient request. Patient slightly anxious, Ox3 and situation. visiting at bedside. VS stable, tele SR with PAC's and PVC's. LS dimished to bilateral bases, RA oxygen mid 90's. CBG 125. Denies any other needs or concerns at this time, call button at bedside, reminded to call staff if he has any needs.
[2020-05-28] MEDS: MEROPENEM 500 MG in SODIUM CHLORIDE 0.9% 100 ML 200 ML IV (19:44)
[2020-05-28] MEDS: TAMSULOSIN 0.4 MG CAPSULE PO (19:44)
[2020-05-28 20:00] VITALS: BP 133/77; PULSE 90; RESP 18; TEMP 37.2
[2020-05-28 20:34] VITALS: O2SAT 98
[2020-05-29 01:45] VITALS: BP 106/64; PULSE 74; RESP 18; TEMP 36.9; O2SAT 95
[2020-05-29 06:15] VITALS: BP 134/70; PULSE 77; RESP 20; TEMP 37.1; O2SAT 98
[2020-05-29 08:00] VITALS: BP 159/91; PULSE 79; RESP 18; TEMP 36.7; O2SAT 97
[2020-05-29 08:17] LABS: Add Manual Diff / Slide Review NO; Basophils Absolute Auto 100 /uL (0-100); Eosinophils Absolute Auto 400 /uL (0-450); Eosinophils Percent Auto 3.5 % (2-4); Hematocrit 22.8 % (41-53); Hemoglobin 7.4 g/dL (13.5-17.5); Lymphocytes Absolute Auto 1500 /uL (1100-4500); Lymphocytes Percent Auto 11.8 % (25-40); Mean Corpuscular HGB Conc 32.7 % (30-36); Mean Corpuscular Volume 79.7 fL (80-100); Monocytes Absolute Auto 1200 /uL (0-900); Monocytes Percent Auto 9.6 % (3-14); Neutrophils Absolute Auto 9500 /uL (1500-7000); Neutrophils Percent Auto 74.1 % (50-75); Platelet Count 453 X10^3/uL (150-400); Red Blood Cell Count 2.86 X10^6/uL (4.5-5.9); Red Cell Distribution Width 17.7 % (11.6-14.8); White Blood Cell Count 12.8 X10^3/uL (4.5-11.0)
[2020-05-29] MEDS: METOPROLOL IR 25 MG TABLET PO (08:27)
[2020-05-29] MEDS: SODIUM CHLORIDE 0.9% FLUSH 10 ML IV (08:27)
[2020-05-29] MEDS: PANTOPRAZOLE 40 MG VIAL IV (08:27)
[2020-05-29] MEDS: MEROPENEM 500 MG in SODIUM CHLORIDE 0.9% 100 ML 200 ML IV (08:27)
[2020-05-29 08:28] LABS: BUN Creatinine Ratio 15.9 (6-22); Blood Urea Nitrogen 39 mg/dL (9-20); Calcium 8.5 mg/dL (8.4-10.2); Carbon Dioxide 28 mmol/L (22-32); Chloride 99 mmol/L (98-107); Estimated Glomerular Filt Rate 25.8 mL/min (>60); Glucose 103 mg/dL (80-110); HEMOLYSIS < 15 (0-50); Magnesium 1.9 mg/dL (1.6-2.3); Potassium 4.3 mmol/L (3.4-5.1); Sodium 134 mmol/L (137-145)
--- NOTE | 2020-05-29 08:48 | P.DS_ITS ---
History of Present Illness History of Present Illness Date Patient Seen: 05/29/20 Time Patient Seen: 08:48 Chief complaint: lighthead/nausea/fell hit head on toilet Narrative: As per YEHUDA Roth: Shady Pinedo is 79-year-old male former smoker with history of paroxsymal atrial fibrillation and subsequent cardioversion in June 2019 and a remote history of prostate cancer and subsequent TURP in 2001, and on no medications, presented with his who was in his usual state of health presented to the ED with a chief complaint have multiple episodes of nausea, vomiting, poor appetite and diarrhea today which resulted in syncopal episode in which he fell and struck his head on the toilet. He states he has been feeling weak and fatigued for the past several weeks. He denies any recent dietary change, new medications, exposure to other ill persons, bad food or antibiotics. He denies any chest pain but states he becomes profoundly short of breath with minimal exertion, states he is very fatigued and upon standing he becomes dizzy and lightheaded. He denies any blood in his emesis or his stools, or hematuria and no longer takes any blood thinners. He denies any abdominal pain. Patient is not a drinker, denies the use of any blood thinners or frequent use of NSAIDs or aspirin. His last colonoscopy he states noted diverticuli. Upon obtaining records from [facility], it was noted he was diabetic with an A1c of 6.1 in May 2019 and the patient states he was aware, but was not instructed to take any medications or modify his diet. today it is 6.2, so not significantly worse. The patient presented today with an acute kidney injury with a creatinine of 2.61 and GFR of 23.9, where in 05/2019, his renal function was normal. He presented to [place] in March this for gross hematuria and underwent a contrast IVP which indicated a possible resolving pyeloniphritis. He was seen in [facility] ED urinary retention, and at that time, both his hemoglobin was mildly decreased and today it is 6.8, necessitating a transfusion. His creatinine was elevated at 2.3 on 05/23 and today it is 2.61. In June of 2019, he underwent a cardioversion for paroxsymal atrial fibrillation. He had previously been on xarelto, but developed a rash with that and started apixaban. He had also been taking sotolol and went off both medications after the cardioversion. He has seen his analytics specialist at least once since the most recent dates of his [facility] records and informed his PCP that they were in agreement with his not being on medications. His main reason for being here is for symtomatic anemia, however, receipt of his records from [facility] reveal other issues that may need to be urgently addressed due to a high white count, apparent uncontrolled atrial fibrillation, blood pressure and rapid heart, and acute kidney injury and uncontrolled diabetes. Head CT was negative for an acute intercranial process. Patient is afebrile, blood pressure 161/90, heart rate 129, respiratory rate 16, oxygen saturation 97% on room air, he weighs 94.3 kg with a BMI of 30.7. WBC is 23.7, RBC 2.78, hemoglobin 6.8, hematocrit 21.3, platelet count 644, he does have a significant left shift with neutrophils of 19,500, sodium 133, potassium 4.5, chloride 95, bicarb 26, BUN is 47, creatinine 2.61, GFR is 23.9, glucose 257, hemoglobin A1c was 6.2, lactate is normal at 1.4, liver enzymes are within normal limits, his proBNP is 1710, lipase 65, and COVID-19 negative. Discharge Providers Provider Date of admission: 05/27/20 01:26 Discharge Date: 05/29/20 Primary care physician: Kat Christian PA-C Consults: 05/27/20 02:34 Consult to General Surgery Routine Comment: Consulting Provider: Sebastian Bingham Reason for consultation: Acute blood loss, susp GIB Has provider been notified: Yes Discharge provider: Koby Beaver DO Summary Hospital Course Discharge Diagnosis: Please see hospital course by problem list noted below. Hospital Course: Shday Pinedo is 79-year-old male former smoker with history of paroxsymal atrial fibrillation and subsequent cardioversion in June 2019 and a remote history of prostate cancer and subsequent TURP in 2001, multiple recent UTIs who presented after symptoms of nausea, vomiting, and diarrhea prior to admission and some bright red blood per rectum. He remains admitted for continued GI bleeding, ALFREDITO, and UTI. GI bleeding resolved and patient refused further interventions from general surgery. Creatinine stayed stable during his course, may be due to chronic obstruction and can follow up with PMD and urologist after discharging with robb. Concern for ESBL organism as patient with a history of ESBL E. 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 Patient reports allergies to both, however he had swelling on penicillins and does not recall taking sulfa drugs in the past. Given a trial of bactrim while admitted and will continue half dose regimen given kidney function as an outpatient. He has planned urology and PMD appointments for early next week. 1. Symptomatic acute blood loss anemia likely secondary to GI bleeding, acute, present on admission -initial Hg was 6.8, received 1 U PRBC with response to 7.0, then 7.4. Stable in the low 7s after and slowly improving. Patient refused further endoscopies here, tolerated a diet prior to discharge and had only minimal bleeding. He was discahrged on a PPI BID as a precaution and was given IV PPI BID while admitted. He states he will follow up with his problem manager as an outpatient. - refused EGD, Upper GI series unremarkable recommended by general surgery, dr. Bingham. Appreciate his time and assistance. - s/p colonoscopy 08/31/19 which showed minor polyps, no need for repeat per surgery. - GI panel was negative for infection. 2. complicated acute cystitis, present on admission -UA positive for blood, nitrates, + WBC. history of ESBL in the past. Urine cultures ultimately grew an E coli that was sensitive to Augmentin and Bactrim. -initiated on ceftriaxone 1 gram daily initially, broadened to meropenem today given history of ESBL and procalcitonin did rise. After starting meropenem his labs began to improve. Patient reports allergy to penicillin, he was given a dose of Bactrim prior to discharge given that he has a reported allergy but does not recall taking a sulfa drug ever. He tolerated the medicine without incident. Ultimately, do not like giving Bactrim to an elderly male with reduced kidney function, however I do suspect his kidney function will continue to improve after placement of a Robb catheter and there are no other alternative oral antibiotics given his penicillin allergy and do not believe that nitrofurantoin would be effective against this drug-resistant bacteria. Discharged on single strength bactrim given EGFR of 25 on discharge. -patient's lactate was normal -blood cultures NGTD. Urine cultures as noted above. 3. Acute kidney injury, present on admission -patient had a normal creatinine and GFR in June 2019. Admission creatinine 2.6 which stayed fairly stable over the course of his admission. Creatinine upon discharge did improved slightly to 2.45. Does have history of prostate CA and complained of obstruction like symptoms, now with a robb catheter. 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 He will follow-up with his urologist next week. -renal ultrasound unremarkable. -recommend repeating creatinine next week after placement of catheter and treatment of acute cystitis. If still no improvement recommend neprhology follow up. 4. Paroxysmal atrial fibrillation, present on admission, resolved -The patient was cardioverted at [facility] in June of last year. Dr. Fareed Pat is his analytics specialist. -continue telemetry -he went off of his blood thinner, apixaban, and sotalol for likely rate and rhythm control. Was uncontrolled rate on admission which improved with initation of metoprolol and he is in normal sinus rhythm at the time of discharge. Will hold resumption of anticoagulation given bleeding. -given 1 dose of IV lasix initially. Appears euvolemic now. Will hold any further diuresis. 5. Hypertension, chronic, present on admission -See above 6. Diabetes type 2 with a hemoglobin A1c of 6.2 -continued on Low dose insulin correctional scale while admitted. 7. BPH with obstruction - patient complained of difficulty voiding. Urinary catheter was placed. Has urology follow up planned for next week. Time Spent with Patient Time spent: Greater than 30 minutes Exam Vital Signs (past 8 hours): - 05/29/20 01:45 05/29/20 06:15 Temperature 98.4 F 98.8 F Pulse Rate 74 77 Respiratory Rate 18 20 Blood Pressure 106/64 134/70 Pulse Oximetry 95 98 Oxygen Delivery Method Room Air Oxygen Flow Rate 0 Narrative Exam Narrative: GENERAL APPEARANCE: Well developed, well nourished, in no acute distress. SKIN: Inspection of the skin reveals no rashes, ulcerations or petechiae. HEENT: Normocephalic atraumatic, extraocular muscles are intact, oropharynx is clear and mucous membranes are moist, neck is supple without adenopathy NECK: Supple and symmetric. There was no thyroid enlargement, and no tenderness, or masses were felt. CHEST: Normal AP diameter and normal contour without any kyphoscoliosis. LUNGS: Auscultation of the lungs revealed no wheezes, rhonchi, or rales. CARDIOVASCULAR: Irregularly irregular rhythm with a normal rate, there is a 2- 3/6 systolic murmur. Peripheral pulses were 2+ and symmetric. ABDOMEN: Soft and nontender with normal bowel sounds. No ascites was noted. MUSCULOSKELETAL: There was no tenderness or effusions noted. Muscle strength and tone were normal. EXTREMITIES: No cyanosis, clubbing or edema. NEUROLOGIC: Alert and oriented x 3. Normal affect. Gait was normal. Strength is +5/5 in the Upper Extremities and Lower Extremities Bilaterally. Sensation to touch was normal. Objective Labs Result Diagrams: 05/29/20 08:05 05/29/20 08:05 Labs: Laboratory Results - last 24 hr 05/28/20 05/28/20 05/29/20 11:46 14:40 08:05 WBC 12.8 H RBC 2.86 L Hgb 7.5 L 7.4 L Hct 23.1 L 22.8 L MCV 79.7 L MCH 26.0 MCHC 32.7 RDW 17.7 H Plt Count 453 H Neut % (Auto) 74.1 Lymph % (Auto) 11.8 L [place] % (Auto) 9.6 Eos % (Auto) 3.5 Baso % (Auto) 1.0 Neut # (Auto) 9500 H Lymph # (Auto) 1500 [place] # (Auto) 1200 H Eos # (Auto) 400 Baso # (Auto) 100 Sodium Potassium Chloride Carbon Dioxide BUN Creatinine Estimated GFR BUN/Creatinine Ratio Glucose Calcium Magnesium Stl C. cayetanensis PCR Not detected Stool Rotavirus (PCR) Not detected Stool Adenovirus (PCR) Not detected Stool Astrovirus (PCR) Not detected Stool Cryptosporidium PCR Not detected Stl E.coli Shiga Tox PCR Not detected St Sh/Enteroin Ecoli PCR Not detected Stool E coli O157 PCR Not detected Stl Enterotoxigenic E PCR Not detected Stool EPEC (PCR) Not detected Stl E. histolytica PCR Not detected Stool Giardia Lamblia PCR Not detected Stool Sapovirus (PCR) Not detected Stl P. shigelloides PCR Not detected St Y.enterocolitica PCR Not detected Stool Vibrio (PCR) Not detected Stl Vibrio cholerae PCR Not detected Stl Enteroaggr Ecoli PCR Not detected Stl Norovirus GI/GII PCR Not detected Campylobacter (PCR) Not detected C. difficile Tox (PCR) Not detected Salmonella (PCR) Not detected 05/29/20 08:05 WBC RBC Hgb Hct MCV MCH MCHC RDW Plt Count Neut % (Auto) Lymph % (Auto) [place] % (Auto) Eos % (Auto) Baso % (Auto) Neut # (Auto) Lymph # (Auto) [place] # (Auto) Eos # (Auto) Baso # (Auto) Sodium 134 L Potassium 4.3 Chloride 99 Carbon Dioxide 28 BUN 39 H Creatinine 2.45 H Estimated GFR 25.8 L BUN/Creatinine Ratio 15.9 Glucose 103 Calcium 8.5 Magnesium 1.9 Stl C. cayetanensis PCR Stool Rotavirus (PCR) Stool Adenovirus (PCR) Stool Astrovirus (PCR) Stool Cryptosporidium PCR Stl E.coli Shiga Tox PCR St Sh/Enteroin Ecoli PCR Stool E coli O157 PCR Stl Enterotoxigenic E PCR Stool EPEC (PCR) Stl E. histolytica PCR Stool Giardia Lamblia PCR Stool Sapovirus (PCR) Stl P. shigelloides PCR St Y.enterocolitica PCR Stool Vibrio (PCR) Stl Vibrio cholerae PCR Stl Enteroaggr Ecoli PCR Stl Norovirus GI/GII PCR Campylobacter (PCR) C. difficile Tox (PCR) Salmonella (PCR) Discharge Plan Discharge Plan Patient Disposition: Home Discharge comment: You were admitted to the hospital with a urinary tract in fection, possibly due to urinary obstruction from your prostate. You also had an elevated creatinine which was stable and did slightly improve on the day of discharge. Please follow up with your urologist and PCP as soon as possible for repeat kidney function testing, catheter follow up, and to check on your symptoms after antibiotics. Your infection was due to a bacteria that is drug resistant, and given your penicillin allergy we tried bactrim which you did not have a reaction to. You also had some GI bleeding, unknown if this is in your stomach or due to diverticulae. Discharge orders & Medications Prescriptions: New metoprolol tartrate 25 mg Tablet 25 mg PO BID 30 Days Qty: 60 RF: 0 sulfamethoxazole-trimethoprim 400-80 mg tablet 1 tab PO BID 6 Days Qty: 12 RF: 0 pantoprazole 40 mg tablet,delayed release (DR/EC) 40 mg PO BID 14 Days Qty: 28 RF: 0 Continued tamsulosin 0.4 mg capsule 0.4 mg PO BEDTIME RF: 0 Follow up/Referrals: Kat Christian, PAClaireC [Primary Care Provider] - Discharge Health Status Health Concerns: ALFREDITO, UTI, atrial fibrillation, BPH Diet/Activity/Treatments Diet: Diet as Tolerated Activity: As tolerated Catheter: 2-way Robb Visit Report/Discharge Packet Instructions: How to Care for Your Robb Catheter -- Male Visit Report Forms: Patient Portal/API, Stroke Signs & Symptoms Discharge Data Primary Care Provider: Kat Christian Discharges patient from system. Discharge Date/Time: 05/29/20 11:25
[2020-05-29] MEDS: TRIMETH/SULFA 160/800 (DS) TABLET 1 TAB PO (09:18)
--- NOTE | 2020-05-29 11:23 | PC.NURSE ---
PT ;DISCHARGED TO HOME WITH PENDING APPTS WITH BOTH PCP/UROLOGIST @ first of week- REVIEWED WITH BOTH PT AND LEG-[facility]- ANSWERED ALL QUESTIONS TO THEIR SATISFACTION AND DISCHARGED TO HOME AT THIS TIME
--- NOTE | 2020-05-29 13:12 | CM.DPC ---
DCP Discharge Home Per MD, pt is medically stable to d/c home today as his V-tach is stable and will receive a dose of abx prior to d/c just to confirm no allergic reaction to the abx. Per RN, plan is to d/c home with robb and leg bag, which pt has had before and aware how to manage, and will have follow up appointments with Urologist on Wednesday06/03/20 and PCP appointment on 06/04/20. No concerns at this time. Plan: Patient discharged home via POV and no SW needs at this time. Tiffany Kelly MSW
[2020-05-30 14:01] LABS: H. Pylori Antigen Stool Negative (Negative)
== END 2020-05-29 11:25 | disposition home or self-care (01) | DRG 812 ==
LOC: ED 05-27 00:39 → AC 05-27 01:29 → ICU 05-27 02:40
PROVIDERS: Internal Medicine; Admitting Provider Nurse Practitioner Family; Emergency Provider Emergency Medicine; PCP Physician Assistant; Referring Provider Emergency Medicine; Visit Provider Nurse Practitioner Family
DX: D62 Acute posthemorrhagic anemia (principal); N17.9 Acute kidney failure, unspecified; K92.1 Melena; N30.00 Acute cystitis without hematuria; Z16.24 Resistance to multiple antibiotics; I48.92 Unspecified atrial flutter; N13.8 Other obstructive and reflux uropathy; I48.0 Paroxysmal atrial fibrillation; B96.29 Other Escherichia coli [E. coli] as the cause of diseases classified elsewhere; N40.1 Benign prostatic hyperplasia with lower urinary tract symptoms; I10 Essential (primary) hypertension; E11.9 Type 2 diabetes mellitus without complications; R11.2 Nausea with vomiting, unspecified; R55 Syncope and collapse; Z12.5 Encounter for screening for malignant neoplasm of prostate; Z85.46 Personal history of malignant neoplasm of prostate; W18.30XA Fall on same level, unspecified, initial encounter; Z87.891 Personal history of nicotine dependence
CPT/HCPCS: 36415; 36430; 70450; 74246; 76770; 80048; 80053; 80061; 81001; 81003; 82550; 82962; 83036; 83605; 83690; 83735; 83880; 84145; 84484; 85014; 85018; 85025; 85610; 86850; 86900; 86901; 87040; 87077; 87086; 87186; 87338; 87507; 87635; 87797; 93005; 96361; 96374; 96375; 99284; G0103; P9016; C9113; J1940; J2185; J2405

== ENCOUNTER → 2020-06-20 11:10 | Outpatient (CLI) | payer MEDICARE, SELFPAY ==
[2020-05-27 02:59] VITALS: BMI 30.7
[2020-06-20 12:36] LABS: Add Manual Diff / Slide Review NO; Basophils Absolute Auto 100 /uL (0-100); Eosinophils Absolute Auto 200 /uL (0-450); Eosinophils Percent Auto 1.9 % (2-4); Hematocrit 24.2 % (41-53); Hemoglobin 7.7 g/dL (13.5-17.5); Lymphocytes Absolute Auto 1200 /uL (1100-4500); Lymphocytes Percent Auto 10.2 % (25-40); Mean Corpuscular HGB Conc 31.9 % (30-36); Mean Corpuscular Hemoglobin 25.4 PG (26-34); Mean Corpuscular Volume 79.7 fL (80-100); Monocytes Absolute Auto 1100 /uL (0-900); Monocytes Percent Auto 9.2 % (3-14); Neutrophils Absolute Auto 9000 /uL (1500-7000); Neutrophils Percent Auto 77.7 % (50-75); Platelet Count 556 X10^3/uL (150-400); Red Blood Cell Count 3.04 X10^6/uL (4.5-5.9); Red Cell Distribution Width 18.1 % (11.6-14.8); White Blood Cell Count 11.5 X10^3/uL (4.5-11.0)
[2020-06-20 13:04] LABS: Alanine Aminotransferase 16 IU/L (<50); Albumin 3.7 g/dL (3.5-5.0); Albumin Globulin Ratio 0.9 (1.0-2.8); Alkaline Phosphatase 65 U/L (38-126); Aspartate Aminotransferase 21 IU/L (17-59); Bilirubin Total 0.5 mg/dL (0.2-1.3); Blood Urea Nitrogen 31 mg/dL (9-20); Carbon Dioxide 29 mmol/L (22-32); Chloride 95 mmol/L (98-107); Estimated Glomerular Filt Rate 31.5 mL/min (>60); Glucose 137 mg/dL (80-110); Potassium 4.4 mmol/L (3.4-5.1); Sodium 133 mmol/L (137-145); Total Protein 7.7 g/dL (6.3-8.2)
[2020-06-20 13:22] LABS: HEMOLYSIS < 15 (0-50); Iron 25 ug/dL (49-181)
[2020-06-20 13:36] LABS: Percent Iron Saturation 9 % (20-50); Total Iron Binding Capacity 267 ug/dL (261-462); Transferrin 197 mg/dL (206-381)
[2020-06-20 13:39] LABS: Ferritin 236 ng/mL (18-464)
[2020-06-20 13:43] LABS: Free T3, Triiodothyronine Free 2.82 pg/mL (2.77-5.27)
[2020-06-20 13:54] LABS: TSH w/ Reflex to FT4 3.11 uIU/mL (0.47-4.68)
[2020-06-20 15:32] LABS: Vitamin D 25 Hydroxy (D3) 71.8 ng/mL (30.0-100.0)
[2020-06-20 18:31] LABS: HEMOLYSIS < 15 (0-50); Prostate Specific Antigen 3.05 ng/mL (0.10-4.00)
== END ==
PROVIDERS: PCP Physician Assistant; Referring Provider Naturopath; Visit Provider Naturopath
DX: D64.9 Anemia, unspecified (principal); K92.2 Gastrointestinal hemorrhage, unspecified; N40.0 Benign prostatic hyperplasia without lower urinary tract symptoms; I48.11 Longstanding persistent atrial fibrillation; D50.9 Iron deficiency anemia, unspecified; Z12.5 Encounter for screening for malignant neoplasm of prostate; I10 Essential (primary) hypertension; R73.03 Prediabetes; I48.92 Unspecified atrial flutter; I48.91 Unspecified atrial fibrillation
CPT/HCPCS: 36415; 80053; 82306; 82728; 83036; 83540; 83550; 84153; 84443; 84481; 85025

== ENCOUNTER 2020-06-22 09:50 | Emergency (ER) | payer MEDICARE, SELFPAY ==
[2020-05-27 02:59] VITALS: BMI 30.7
[2020-06-22 09:55] VITALS: BP 188/99; PULSE 90; RESP 24; TEMP 36.5; O2SAT 92; O2SAT 94; BMI 30.2
[2020-06-22 09:56] VITALS: BP 178/147; PULSE 93; O2SAT 96
[2020-06-22 09:58] VITALS: BP 188/99; PULSE 108; RESP 21; O2SAT 96
[2020-06-22 10:00] VITALS: PULSE 99; RESP 21; O2SAT 96
[2020-06-22 10:01] VITALS: BP 150/88; PULSE 96; RESP 21; O2SAT 95
--- NOTE | 2020-06-22 10:11 | ED_ITS ---
HPI - Recheck/Abnormal Lab/Rx General Chief Complaint: Recheck/Abnormal Lab/Rx Stated Complaint: transfusion per phys Time Seen by Provider: 06/22/20 09:59 Source: patient Mode of arrival: Ambulatory Limitations: no limitations History of Present Illness HPI narrative: Patient is a 79-year-old male with history of anemia admitted May 26 through May 29 with GI bleed. Initially found have a hemoglobin of 6.8 a seem to level out at around 7.4. He had routine lab redraw on 06/20/2020 hemoglobin 7.7 hematocrit 24.2. He received a phone call from his primary care provider who ordered the labs and was told to go to the ER for blood transfusion. He said when he had the blood work drawn he actually was dizzy and lightheaded when he stood up too fast. But he denies any shortness of breath with exertion he denies any dizziness or lightheadedness now he really overall is feeling well. He denies any further GI bleeding. He scheduled follow-up with GI he already has followed up some with them. He is scheduled to have prostate surgery in just over a week. MD complaint: abnormal lab Related Data Home Medications Medication Instructions Recorded Confirmed tamsulosin 0.4 mg PO BEDTIME 05/27/20 05/27/20 Previous Rx's Medication Instructions Recorded metoprolol tartrate 25 mg PO BID 30 Days #60 tab 05/29/20 Allergies Allergy/AdvReac Type Severity Reaction Status Date / Time Penicillins Allergy Verified 06/22/20 10:00 Sulfa (Sulfonamide Allergy Verified 06/22/20 10:00 Antibiotics) Review of Systems Review of Systems Narrative: GENERAL: Denies chills, fatigue, malaise, fever, sweats, travel HEENT: Denies sinus pain, ear pain, sore throat, difficulty swallowing, neck pain RESPIRATORY: Denies dyspnea, cough, wheezing, hemoptysis, sputum. CARDIOVASCULAR: Denies chest pain, palpitations, orthopnea, edema GASTROINTESTINAL: Denies nausea, vomiting, abdominal pain, diarrhea, constipation, melena. : See HPI denies any dysuria-indwelling Venegas catheter MUSCULOSKELETAL: Denies weakness, joint pain, or bony pain SKIN: No rash, no erythema, no pruritus NEUROLOGIC: Denies weakness, dizziness, headache, numbness, change in speech, confusion PSYCHIATRIC: No concerning psychosocial issues. 12 point review of systems is negative except for those stated above and HPI Patient History Medical History History of cardioversion (Acute) Hx of prostatic malignancy (Acute) Lipoma of abdominal wall (Acute) Paroxysmal A-fib (Acute) Surgical History Hx of total knee replacement (Inactive) S/P TURP (status post transurethral resection of prostate) (Acute) Family History Mother Multiple sclerosis Father Prostate cancer Social History household members: spouse Smoking Status: Never smoker Smoking Status: Never smoker alcohol intake frequency: holidays/special occasions only Substance Use Type: does not use Exam Initial Vital Signs Initial Vital Signs: Vital Signs Temperature 97.7 F 06/22/20 09:55 Pulse Rate 90 06/22/20 09:55 Respiratory Rate 24 06/22/20 09:55 Blood Pressure 188/99 H 06/22/20 09:55 Pulse Oximetry 94 06/22/20 09:55 GENERAL: Well-appearing, well-nourished and in no acute distress. HEENT: Head atraumatic,EOMI, pupils reactive, face symmetric, moist mucous membranes CARDIOVASCULAR: Regular rate and rhythm without murmurs, rubs or gallops. RESPIRATORY: Breath sounds equal bilaterally, no wheezes rales or rhonchi. ABDOMEN: Soft, nontender. Normoactive bowel sounds all 4 quadrants. No guarding or rebound. : Venegas catheter in place EXTREMITIES: Normal range of motion, no clubbing or edema. Neurovascularly intact NEUROLOGICAL: Alert and oriented x4.Normal gait and speech. SKIN: Warm, dry, no laceration, no petechiae, no rashes or lesions. Course Orders Ordered: ED Orders 06/22/20 10:00 Basic Metabolic Panel Stat Complete Blood Count AUTO DIFF Stat Type and Screen Stat Vital Signs Vital signs: Vital Signs - 8 hr 06/22/20 09:55 06/22/20 09:56 06/22/20 09:58 Temperature 97.7 F Pulse Rate 90 93 H 108 H Respiratory Rate 24 21 Blood Pressure 188/99 H 178/147 H 188/99 H Pulse Oximetry 92 96 96 06/22/20 10:00 06/22/20 10:01 06/22/20 10:30 Temperature Pulse Rate 99 H 96 H 97 H Respiratory Rate 21 21 18 Blood Pressure 150/88 H 151/89 H Pulse Oximetry 96 95 96 MDM - Recheck/Abnormal Lab/Rx Lab Data Attestation: I reviewed the patient's lab results. Result diagrams: 06/22/20 10:00 06/22/20 10:00 Labs: Lab Results 06/22/20 06/22/20 06/22/20 Range/Units 10:00 10:00 10:00 WBC 12.9 H (4.5-11.0) X10^3/uL RBC 3.20 L (4.5-5.9) X10^6/uL Hgb 8.1 L (13.5-17.5) g/dL Hct 25.2 L (41-53) % MCV 78.6 L (80-100) fL MCH 25.3 L (26-34) PG MCHC 32.2 (30-36) % RDW 18.2 H (11.6-14.8) % Plt Count 540 H (150-400) X10^3/uL Neut % (Auto) Not Reportable Lymph % (Auto) Not Reportable [place] % (Auto) Not Reportable Eos % (Auto) Not Reportable Baso % (Auto) Not Reportable Lymph # (Auto) Not Reportable [place] # (Auto) Not Reportable Baso # (Auto) Not Reportable Total Counted 100 Seg Neutrophils % 58.0 (38-70) % Band Neutrophils % 27.0 H (3-7) % Lymphocytes % (Manual) 6.0 L (25-45) % Atypical Lymphs % 1.0 H ( - 0) % Monocytes % (Manual) 4.0 (2-11) % Eosinophils % (Manual) 3.0 (2-4) % Basophils % (Manual) 1.0 (0-1) % Neutrophils # (Manual) 19270 H (5092-1348) /uL RBC Morphology See below Microcytosis 1+ H Sodium 133 L (137-145) mmol/L Potassium 4.6 (3.4-5.1) mmol/L Chloride 97 L (98-107) mmol/L Carbon Dioxide 29 (22-32) mmol/L BUN 32 H (9-20) mg/dL Creatinine 2.05 H (0.66-1.25) mg/dL Estimated GFR 31.6 L (>60) mL/min BUN/Creatinine Ratio 15.6 (6-22) Glucose 138 H (80-110) mg/dL Calcium 9.1 (8.4-10.2) mg/dL Blood Type A Positive Antibody Screen Negative ECG Data Attestation: I personally reviewed and interpreted this ECG as follows: Prior ECG tracings: available for review Interpretation: Sinus rhythm rate 107 p.r. interval 224 multiple PVCs noted. New first-degree AV block MDM Narrative Medical decision making narrative: Patient's hemoglobin has gradually been rising. Actually with higher when it was rechecked 3 days ago than when he was discharged. Today his hemoglobin greater than 8.0 and no indication for emergent blood transfusion. He is also asymptomatic at this time. Discharge Plan Departure Patient Disposition: Home Clinical Impression: Anemia Qualifiers: Anemia type: other cause Discharge Date/Time: 06/22/20 10:50 Instructions: Anemia Activity Restrictions/Additional Instructions: *You have been diagnosed with anemia *What to do: At this time no emergent blood transfusion is needed however you in your surgeon may discuss possibility of transfusion prior to surgery next week. *Continue to take medications as directed *Follow up with your primary care provider in 2-3 days *Return to ER if you should have increasing fatigue, shortness of breath with exertion, bloody stools, dizziness, lightheadedness or passing out or any new, worsening or concerning symptoms Prescriptions: No Action tamsulosin 0.4 mg capsule 0.4 mg PO BEDTIME RF: 0 metoprolol tartrate 25 mg Tablet 25 mg PO BID 30 Days Qty: 60 RF: 0 Referrals: Kat Christian PA-C [Primary Care Provider] -
[2020-06-22 10:23] LABS: Add Manual Diff / Slide Review YES; Hematocrit 25.2 % (41-53); Hemoglobin 8.1 g/dL (13.5-17.5); Mean Corpuscular HGB Conc 32.2 % (30-36); Mean Corpuscular Hemoglobin 25.3 PG (26-34); Mean Corpuscular Volume 78.6 fL (80-100); Platelet Count 540 X10^3/uL (150-400); Red Cell Distribution Width 18.2 % (11.6-14.8); White Blood Cell Count 12.9 X10^3/uL (4.5-11.0)
[2020-06-22 10:24] LABS: BUN Creatinine Ratio 15.6 (6-22); Blood Urea Nitrogen 32 mg/dL (9-20); Calcium 9.1 mg/dL (8.4-10.2); Carbon Dioxide 29 mmol/L (22-32); Chloride 97 mmol/L (98-107); Estimated Glomerular Filt Rate 31.6 mL/min (>60); Glucose 138 mg/dL (80-110); HEMOLYSIS < 15 (0-50); Potassium 4.6 mmol/L (3.4-5.1); Sodium 133 mmol/L (137-145)
[2020-06-22 10:30] VITALS: BP 151/89; PULSE 97; RESP 18; O2SAT 96
[2020-06-22 11:06] LABS: Neutrophils Absolute Manual 10965 /uL (3000-5900); Total Cells Counted 100
[2020-06-22 11:08] LABS: Microcytosis 1+
== END 2020-06-22 10:50 | disposition home or self-care (01) ==
PROVIDERS: Emergency Provider Emergency Medicine; PCP Physician Assistant
DX: D64.9 Anemia, unspecified (principal)
CPT/HCPCS: 36415; 80048; 85025; 86850; 86900; 86901; 93005; 99283; 99284

== ENCOUNTER → 2020-08-02 11:22 | Outpatient (CLI) | payer MEDICARE, SELFPAY ==
[2020-05-27 02:59] VITALS: BMI 30.7
[2020-08-02 14:29] LABS: Add Manual Diff / Slide Review NO; Basophils Absolute Auto 100 /uL (0-100); Basophils Percent Auto 0.6 % (0-2); Eosinophils Absolute Auto 200 /uL (0-450); Eosinophils Percent Auto 0.8 % (2-4); Hematocrit 27.2 % (41-53); Hemoglobin 8.5 g/dL (13.5-17.5); Lymphocytes Absolute Auto 1500 /uL (1100-4500); Lymphocytes Percent Auto 7.1 % (25-40); Mean Corpuscular HGB Conc 31.3 % (30-36); Mean Corpuscular Hemoglobin 23.9 PG (26-34); Mean Corpuscular Volume 76.2 fL (80-100); Monocytes Absolute Auto 2000 /uL (0-900); Monocytes Percent Auto 9.8 % (3-14); Neutrophils Absolute Auto 16900 /uL (1500-7000); Neutrophils Percent Auto 81.7 % (50-75); Platelet Count 576 X10^3/uL (150-400); Red Blood Cell Count 3.57 X10^6/uL (4.5-5.9); Red Cell Distribution Width 17.6 % (11.6-14.8); White Blood Cell Count 20.8 X10^3/uL (4.5-11.0)
[2020-08-02 15:16] LABS: Alanine Aminotransferase 14 IU/L (<50); Albumin 3.2 g/dL (3.5-5.0); Albumin Globulin Ratio 0.8 (1.0-2.8); Alkaline Phosphatase 80 U/L (38-126); Aspartate Aminotransferase 17 IU/L (17-59); BUN Creatinine Ratio 15.9 (6-22); Bilirubin Total 0.6 mg/dL (0.2-1.3); Blood Urea Nitrogen 25 mg/dL (9-20); Calcium 8.5 mg/dL (8.4-10.2); Carbon Dioxide 29 mmol/L (22-32); Chloride 97 mmol/L (98-107); Estimated Glomerular Filt Rate 43.1 mL/min (>60); Globulin 3.8 g/dL (1.7-4.1); Glucose 99 mg/dL (80-110); HEMOLYSIS < 15 (0-50); Potassium 4.7 mmol/L (3.4-5.1); Sodium 134 mmol/L (137-145)
[2020-08-02 15:37] LABS: TSH w/ Reflex to FT4 2.54 uIU/mL (0.47-4.68)
== END ==
PROVIDERS: PCP Physician Assistant; Referring Provider Physician Assistant; Visit Provider Physician Assistant
DX: D64.9 Anemia, unspecified (principal); D47.3 Essential (hemorrhagic) thrombocythemia
CPT/HCPCS: 36415; 80053; 84443; 85025

== ENCOUNTER 2020-08-20 13:58 | Emergency (ER) | payer MEDICARE, SELFPAY ==
[2020-05-27 02:59] VITALS: BMI 30.7
[2020-08-20] VITALS (24 sets, daily range): BP systolic 132–193; BP diastolic 82–109; PULSE 82–115; RESP 16–47; TEMP 36.4; O2SAT 80–97; BMI 30.4
--- NOTE | 2020-08-20 14:11 | ED_ITS ---
HPI - SOB/Dyspnea General Chief Complaint: Shortness of Breath/Dyspnea Stated Complaint: lung issue Time Seen by Provider: 08/20/20 14:11 Source: patient and old records reviewed Limitations: no limitations History of Present Illness HPI Narrative: This is a 79-year-old male comes to the emergency department with complaint of difficulty breathing. He states all in his right side. He states it has been slowly getting better over the last couple weeks. He states he does sometimes bring up some clear phlegm when he does beam treatments at. He denies fevers, chills no cough that is regular. He denies any chest pain or pressure. He has noted swelling of his right upper extremity intermittently. He states that it will improve as the day goes by usually worse in the evening. He did have a hospitalization for a TURP and symptomatic anemia in the last several months did have an IV at that side he also noticed his face will often get puffy overnight and then improves as the day goes by. He does have a history of atrial fibrillation which he is in and out of intermittently. He states that he had cardioverted to a regular rhythm, he had stopped his anticoagulants, metoprolol and does not take any of those medications currently. He does state that he has been in and out of atrial fibrillation since being off those medicat ions. He denies any history cardiac stents. He did have some GI bleeding which they related to his anticoagulant. This was after he had a TURP. He quit smoking tobacco remotely, no alcohol or illicit. He does take medication for hypothyroid. Related Data Home Medications Medication Instructions Recorded Confirmed tamsulosin 0.4 mg PO BEDTIME 05/27/20 05/27/20 Allergies Allergy/AdvReac Type Severity Reaction Status Date / Time Penicillins Allergy Verified 08/20/20 14:13 Sulfa (Sulfonamide Allergy Verified 08/20/20 14:13 Antibiotics) Review of Systems Review of Systems ROS Unobtainable: All systems reviewed & are unremarkable except as noted in HPI and below Patient History Medical History (Updated 08/20/20 @ 17:20 by Nhi Naqvi DO) History of cardioversion Hx of prostatic malignancy Lipoma of abdominal wall Paroxysmal A-fib Surgical History Hx of total knee replacement S/P TURP (status post transurethral resection of prostate) Family History Mother Multiple sclerosis Father Prostate cancer Social History household members: spouse Smoking Status: Never smoker Smoking Status: Never smoker alcohol intake frequency: holidays/special occasions only Substance Use Type: does not use Exam Narrative Exam Narrative: GEN: Obese male alert and oriented x 3, patient appears to be in mild distress. HEENT: Atraumatic, pupils are equal round reactive to light, extraocular movements are intact, nares are clear, TMs are clear with no fluid, there is no conjunctival pallor. Throat is clear without any exudates, erythema, tonsillar enlargement or uvular deviation HEART: Irregularly irregular and occasionally tachycardic Regular rate and rhythm without murmur, clicks, rubs. Pulses are equal in upper and lower extremities. Patient's right upper extremity is swollen, not erythematous, I do not appreciate any discoloration, pallor or cyanosis, patient has full range of motion. LUNGS:Lungs slightly decreased on the left, no wheezes, rales, crackles, chest moves symmetrically, positive for tachypnea. No accessory muscle use. Patient speaks in full sentences ABD:bowel sounds normal, soft, non-tender, no guarding, rebound, rigidity, no masses noted, no hepatosplenomegaly MSCL: Non-tender, no muscle atrophy, muscles strength 5/5 upper and lower extremities, full range of motion, normal gait NEURO:CN 2-12 intact, sensation normal Initial Vital Signs Initial Vital Signs: Vital Signs Temperature 97.5 F L 08/20/20 14:08 Pulse Rate 114 H 08/20/20 14:08 Respiratory Rate 33 H 08/20/20 14:08 Blood Pressure 154/100 H 08/20/20 14:08 Pulse Oximetry 92 08/20/20 14:08 Scores PERC Score Age greater than or equal to 50 years: Yes Heart rate greater than or equal to 100 bpm: Yes Room Air O2 Sat less than 95%: No Unilateral leg swelling: Yes (arm) Recent trauma or surgery: Yes Hemoptysis: No Prior PE or DVT: No Hormone Use: No Total PERC Score: 4 Course Orders Ordered: ED Orders 08/20/20 14:10 Complete Blood Count AUTO DIFF Stat Comprehensive Metabolic Panel Stat D Dimer Stat Lactate (Lactic Acid) Stat NT-proBNP (BNP-Adult 18+) Stat Partial Thromboplastin Time Stat Procalcitonin Stat Prothrombin Time INR Stat Troponin & CK Cardiac Panel Stat Type and Screen Stat 08/20/20 14:21 XR chest 1V Stat EKG-12 Lead Stat Measure peak expiratory flow ONCE RT Consult Eval and Treat Now 08/20/20 14:27 US periph venous up extrem rt Stat 08/20/20 15:21 Blood Culture Stat 08/20/20 15:41 CT angio chest PE protocol Stat 08/20/20 17:10 COVID19 Stat DILTIAZEM (Diltiazem 125 Mg/125 Ml-D5w) 125 mg in 125 mls @ 5 mls/hr IV TITRATE [facility]; Protocol Last Admin: 08/20/20 16:30 Dose: 5 mg/hr, 5 mls/hr Documented by: BTONESaida Discontinued Medications Diltiazem HCl (Diltiazem 5 Mg/Ml Sdv) 10 mg IV NOW ONE Stop: 08/20/20 15:43 Last Admin: 08/20/20 16:30 Dose: 10 mg Documented by: CATRINA Sodium Chloride (Normal Saline 0.9%) 1,000 mls @ 1,000 mls/hr IV BOLUS ONE Stop: 08/20/20 15:27 Last Infusion: 08/20/20 17:00 Dose: 150 mls/hr Documented by: Admin: 08/20/20 16:30 Dose: 1,000 mls/hr Documented by: BTONESaida Levofloxacin (Levaquin) 750 mg in 150 mls @ 100 mls/hr IV NOW ONE Stop: 08/20/20 17:11 Last Admin: 08/20/20 16:32 Dose: 100 mls/hr Documented by: BTONESaida Reevaluation(s) Reevaluation #1: Patient initial ultrasound was negative, with intermittent swelling, D-dimer was ordered and patient is elevated, CTA was ordered patient has a large right lung mass with invasion into the pericardium and appears to be into the SVC. Patient and I discussed he had a lipoma in his abdomen which he states he was told was noncancerous but was also told that some doctors might have said it was cancerous this was removed in 2002 in [facility]. Patient recently had a TURP there were cells consistent with bladder cancer and he is actually being set up to follow with Oncology and Surgical Oncology at [facility] and Lorrie scott on this following Wednesday and . Time: 17: Consultations Consultation #1: Lorrie Scott, spoke with Dr. Simmons from oncology, reviewed patient's labs and imaging he. He does feel patient needs to be eval uated from an oncology perspective we also discussed he is in AFib with RVR and is currently on a diltiazem drip. Chronic kidney disease appear stable with very mild electrolyte changes. Has CHF from compression of the structures in his chest and or his atrial fibrillation. We also discussed his procalcitonin is elevated he does have an increasingly elevated leukocytosis unclear if this is infectious or related to cancer. He was covered with IV antibiotics in the short term. Time: 17: Consultation #2: Dr. Ballard, accepts for transfer. Reviewed patients, labs, imaging and current therapies. Time: 19:01 Vital Signs Vital signs: Vital Signs - 8 hr 08/20/20 14:08 08/20/20 14:27 08/20/20 14:30 Temperature 97.5 F L Pulse Rate 114 H 106 H Respiratory Rate 33 H 32 H Blood Pressure 154/100 H Pulse Oximetry 92 94 96 08/20/20 15:00 08/20/20 15:30 08/20/20 16:00 Temperature Pulse Rate 82 107 H 115 H Respiratory Rate 28 H 47 H Blood Pressure Pulse Oximetry 97 93 80 L 08/20/20 16:30 08/20/20 16:46 08/20/20 16:51 Temperature Pulse Rate 101 H 94 H 89 Respiratory Rate 37 H 31 H 34 H Blood Pressure 154/100 H 160/100 H 163/103 H Pulse Oximetry 93 93 93 08/20/20 17:00 08/20/20 17:30 08/20/20 17:31 Temperature Pulse Rate 90 97 H 98 H Respiratory Rate 27 H 29 H 34 H Blood Pressure 162/95 H 173/109 H Pulse Oximetry 93 93 93 08/20/20 18:00 08/20/20 18:30 Temperature Pulse Rate 100 H 100 H Respiratory Rate 38 H 35 H Blood Pressure 162/103 H 156/98 H Pulse Oximetry 92 94 MDM - SOB/Dyspnea Lab Data Attestation: I reviewed the patient's lab results. Result diagrams: 08/20/20 14:10 08/20/20 14:10 Labs: Lab Results 08/20/20 08/20/20 08/20/20 Range/Units 14:10 14:10 14:10 WBC 31.8 H* (4.5-11.0) X10^3/uL RBC 3.96 L (4.5-5.9) X10^6/uL Hgb 9.2 L (13.5-17.5) g/dL Hct 29.6 L (41-53) % MCV 74.8 L (80-100) fL MCH 23.2 L (26-34) PG MCHC 31.0 (30-36) % RDW 18.3 H (11.6-14.8) % Plt Count 621 H (150-400) X10^3/uL Neut % (Auto) 89.6 H (50-75) % Lymph % (Auto) 4.5 L (25-40) % [place] % (Auto) 5.6 (3-14) % Eos % (Auto) 0.0 L (2-4) % Baso % (Auto) 0.3 (0-2) % Neut # (Auto) 85564 H (5772-3384) /uL Lymph # (Auto) 1400 (5257-8493) /uL [place] # (Auto) 1800 H (0-900) /uL Eos # (Auto) 0 (0-450) /uL Baso # (Auto) 100 (0-100) /uL RBC Morphology See below Polychromasia 1+ H Microcytosis 1+ H PT (10.1-12.7) SECONDS INR (0.9-1.3) APTT (26.4-36.2) SECONDS D-Dimer (<230) ng/mL Sodium 136 L (137-145) mmol/L Potassium 4.2 (3.4-5.1) mmol/L Chloride 100 (98-107) mmol/L Carbon Dioxide 29 (22-32) mmol/L BUN 38 H (9-20) mg/dL Creatinine 1.91 H (0.66-1.25) mg/dL Estimated GFR 34.3 L (>60) mL/min BUN/Creatinine Ratio 19.9 (6-22) Glucose 130 H (80-110) mg/dL Lactate 2.2 H (0.7-2.1) mmol/L Calcium 9.3 (8.4-10.2) mg/dL Total Bilirubin 0.7 (0.2-1.3) mg/dL AST 23 (17-59) IU/L ALT 20 (<50) IU/L Alkaline Phosphatase 124 (38-126) U/L Total Creatine Kinase (55-170) U/L CK-MB (CK-2) CK-MB (CK-2) Rel Index Troponin I (0.01-0.034) ng/mL NT-Pro-B Natriuret Pep 6280 H (<450) pg/mL Total Protein 8.0 (6.3-8.2) g/dL Albumin 3.7 (3.5-5.0) g/dL Globulin 4.3 H (1.7-4.1) g/dL Albumin/Globulin Ratio 0.9 L (1.0-2.8) Procalcitonin (<0.5) ng/mL COVID-19 PCR (Negative) Blood Type Antibody Screen 08/20/20 08/20/20 08/20/20 Range/Units 14:10 14:10 14:10 WBC (4.5-11.0) X10^3/uL RBC (4.5-5.9) X10^6/uL Hgb (13.5-17.5) g/dL Hct (41-53) % MCV (80-100) fL MCH (26-34) PG MCHC (30-36) % RDW (11.6-14.8) % Plt Count (150-400) X10^3/uL Neut % (Auto) (50-75) % Lymph % (Auto) (25-40) % [place] % (Auto) (3-14) % Eos % (Auto) (2-4) % Baso % (Auto) (0-2) % Neut # (Auto) (7589-5290) /uL Lymph # (Auto) (2054-0950) /uL [place] # (Auto) (0-900) /uL Eos # (Auto) (0-450) /uL Baso # (Auto) (0-100) /uL RBC Morphology Polychromasia Microcytosis PT (10.1-12.7) SECONDS INR (0.9-1.3) APTT (26.4-36.2) SECONDS D-Dimer (<230) ng/mL Sodium (137-145) mmol/L Potassium (3.4-5.1) mmol/L Chloride (98-107) mmol/L Carbon Dioxide (22-32) mmol/L BUN (9-20) mg/dL Creatinine (0.66-1.25) mg/dL Estimated GFR (>60) mL/min BUN/Creatinine Ratio (6-22) Glucose (80-110) mg/dL Lactate (0.7-2.1) mmol/L Calcium (8.4-10.2) mg/dL Total Bilirubin (0.2-1.3) mg/dL AST (17-59) IU/L ALT (<50) IU/L Alkaline Phosphatase (38-126) U/L Total Creatine Kinase 34 L (55-170) U/L CK-MB (CK-2) TNP CK-MB (CK-2) Rel Index TNP Troponin I 0.014 (0.01-0.034) ng/mL NT-Pro-B Natriuret Pep (<450) pg/mL Total Protein (6.3-8.2) g/dL Albumin (3.5-5.0) g/dL Globulin (1.7-4.1) g/dL Albumin/Globulin Ratio (1.0-2.8) Procalcitonin 2.11 H (<0.5) ng/mL COVID-19 PCR (Negative) Blood Type A Positive Antibody Screen Negative 08/20/20 08/20/20 08/20/20 Range/Units 14:10 16:41 17:10 WBC (4.5-11.0) X10^3/uL RBC (4.5-5.9) X10^6/uL Hgb (13.5-17.5) g/dL Hct (41-53) % MCV (80-100) fL MCH (26-34) PG MCHC (30-36) % RDW (11.6-14.8) % Plt Count (150-400) X10^3/uL Neut % (Auto) (50-75) % Lymph % (Auto) (25-40) % [place] % (Auto) (3-14) % Eos % (Auto) (2-4) % Baso % (Auto) (0-2) % Neut # (Auto) (3526-6733) /uL Lymph # (Auto) (9146-5125) /uL [place] # (Auto) (0-900) /uL Eos # (Auto) (0-450) /uL Baso # (Auto) (0-100) /uL RBC Morphology Polychromasia Microcytosis PT 16.9 H (10.1-12.7) SECONDS INR 1.5 H (0.9-1.3) APTT 32 (26.4-36.2) SECONDS D-Dimer 1657 H (<230) ng/mL Sodium (137-145) mmol/L Potassium (3.4-5.1) mmol/L Chloride (98-107) mmol/L Carbon Dioxide (22-32) mmol/L BUN (9-20) mg/dL Creatinine (0.66-1.25) mg/dL Estimated GFR (>60) mL/min BUN/Creatinine Ratio (6-22) Glucose (80-110) mg/dL Lactate 1.8 (0.7-2.1) mmol/L Calcium (8.4-10.2) mg/dL Total Bilirubin (0.2-1.3) mg/dL AST (17-59) IU/L ALT (<50) IU/L Alkaline Phosphatase (38-126) U/L Total Creatine Kinase (55-170) U/L CK-MB (CK-2) CK-MB (CK-2) Rel Index Troponin I (0.01-0.034) ng/mL NT-Pro-B Natriuret Pep (<450) pg/mL Total Protein (6.3-8.2) g/dL Albumin (3.5-5.0) g/dL Globulin (1.7-4.1) g/dL Albumin/Globulin Ratio (1.0-2.8) Procalcitonin (<0.5) ng/mL COVID-19 PCR Negative (Negative) Blood Type Antibody Screen Imaging Data Chest x-ray: Radiologist's Impression: [address] [id number] ReportSigned Patient: Shady Pinedo WMR#: [id number]: 3Acct:[id number]/Sex: 79 / MDate of Service: 08/20/20Lo: EDAccession Number: [id number] Procedure: XR chest 1V Ordering Provider: Nhi Naqvi D.O. PROCEDURE: XR CHEST 1V INDICATIONS: flu-like symptoms TECHNIQUE: One view of the chest was acquired. COMPARISON: None. FINDINGS: Surgical changes and devices: None. Lungs and pleura: There is a large right-sided pleural effusion with atelectasis of the adjacent portions of the right lung. The left lung appears clear. There is no pneumothorax. Mediastinum: Right-sided mediastinal contours are obscured by the adjacent pleural effusion. The left heart border appears normal. Bones and chest wall: No suspicious bony lesions. Overlying soft tissues appear unremarkable. Degenerative changes are seen in the acromioclavicular joints and the spine. IMPRESSION: Large right pleural effusion with atelectasis of the adjacent portions of the right lung. Dictated by: Cristian Montero M.D. on 08/20/2020 at 13:47 Approved by: Cristian Montero M.D. on 08/20/2020 at 13:49 CT scan - abdomen/pelvis: Radiologist's Impression: [address] Scan ReportSigned Patient: Shady Pinedo R#: [id number]: 3Acct:[id number]/Sex: 79 / MDate of Service: 08/20/20Loc: EDAccession Number: [id number] Procedure: CT angio chest PE protocol Ordering Provider: Nhi Naqvi D.O. PROCEDURE: CT ANGIO CHEST PE PROTOCOL INDICATIONS: pleural effusion, intermitten arm swelling, mass vs PE TECHNIQUE: After the administration of intravenous contrast, 2 mm thick sections acquired from the pulmonary apices to the posterior costophrenic angles. 3-dimensional maximum intensity projection (MIP) coronal and sagittal reformats were then acquired through the thorax. For radiation dose reduction, the following was used: automated exposure control, adjustment of mA and/or kV according to patient size. COMPARISON: None. FINDINGS: Image quality: Excellent. Pulmonary arteries: Pulmonary arteries are normal in size, and demonstrate no intraluminal filling defects to suggest central pulmonary embolism. Lungs and pleura: There is a large right pleural effusion with areas of loculation. There appears to be compressive atelectasis within the right lower lobe. Confluent mass is noted in the medial aspect of the left upper lobe with marked extension into the mediastinum, right hilum, as well as portions of the pericardium. It measures approximately 11.0 cm AP x 7.5 cm transverse by 8.5 cm craniocaudal. Mediastinum: Heart size is enlarged, with pericardial effusion. Thoracic aorta is normal in caliber and enhancement. Esophagus is normal in caliber, without hiatal hernia. Portions of the proximal and mid superior vena cava demonstrate lack of contrast opacification and are contiguous with the above described mass. Bones and chest wall: No suspicious bony lesions. Ribs and thoracic spine appear intact throughout. Thyroid gland is unremarkable . No axillary or supraclavicular adenopathy. Abdomen: Visualized upper abdominal solid organs appear normal in the early arterial phase of enhancement. IMPRESSION: 1. Prominent right upper lobe mass, with prominent extension into the mediastinum, pericardium and hilar region, as above most consistent with malignancy. 2. Lack of opacification within the superior vena cava as above most concerning for tumor infiltration. 3. Large right pleural effusion with compressive atelectasis. 4. No pulmonary embolism. Dictated by: Adelaida Laboy M.D. on 08/20/2020 at 16:13 Approved by: Adelaida Laboy M.D. on 08/20/2020 at 16:41 US - DVT: Radiologist's Impression: [address] [id number] ReportSigned Patient: Shady Pinedo WMR#: [id number]: 3Acct:[id number]/Sex: 79 / MDate of Service: 08/20/20Loc: EDAccession Number: [id number] Procedure: US periph venous up extrem rt Ordering Provider: Nhi Naqvi D.O. PROCEDURE: US PERIPH VENOUS UP EXTREM RT INDICATIONS: ? dvt, intermittent swelling TECHNIQUE: Real-time imaging, as well as color and pulse Doppler interrogation, was performed of the right upper extremity deep veins from the inferior neck to the antecubital fossa. COMPARISON: None. FINDINGS: The internal jugular vein, visualized portions of the subclavian vein, axillary, and brachial veins are free of intraluminal thrombus. Where physically possible, the veins are normally compressible. Color and pulse Doppler demonstrate normal intraluminal flow, with expected phasicity and pulsatility. Additional scanning of the cephalic and basilic veins of the superficial system demonstrate normal compressibility, without thrombus. Nonspecific subcutaneous edema is seen at the lower portion of the right arm. IMPRESSION: Negative for deep venous thrombosis of the right upper extremity. Dictated by: Cristian Montero M.D. on 08/20/2020 at 14:17 Approved by: Cristian Montero M.D. on 08/20/2020 at 14:19 ECG Data Attestation: I personally reviewed and interpreted this ECG as follows: Prior ECG tracings: available for review Interpretation: AFib with RVR, rate of 105, QRS is 74 and QTC of 412. No significant ST changes appreciated. MDM Narrative Medical decision making narrative: 79-year-old male who comes to the emergency department with complaint of. Patient states he has had right hand swelling in his upper extremity and his face intermittently swells particularly when he is lying flat overnight. Patient has a remote history of a mass in his abdomen which was surgically removed. Patient is atrial fibrillation with rapid ventricular response and ultimately required a diltiazem drip for rate control, he also appears to be in congestive heart failure with a negative troponin. Patient's CTA shows a large right lung mass with compression, pleural effusion with compressive atelectasis and appears to be invasion into the pericardium with invasion or compression of the SVC as well. Discussed with Oncology and they felt that patient would benefit from coming to [facility] which he has already tied into for evaluation for recent TURP with cells that were positive for bladder cancer. Spoke with the hospitalist, Dr. Ballard who accepts for transfer. Discharge Plan Departure Clinical Impression: Mass of upper lobe of right lung, Pleural effusion on right, Atrial fibrillation with RVR, CKD (chronic kidney disease), Anemia Prescriptions: No Action tamsulosin 0.4 mg capsule 0.4 mg PO BEDTIME RF: 0 Referrals: Kat Christian PA-C [Primary Care Provider] -
--- NOTE | 2020-08-20 14:21 | DI.RAD.S_ITS ---
PROCEDURE: XR CHEST 1V INDICATIONS: flu-like symptoms TECHNIQUE: One view of the chest was acquired. COMPARISON: None. FINDINGS: Surgical changes and devices: None. Lungs and pleura: There is a large right-sided pleural effusion with atelectasis of the adjacent portions of the right lung. The left lung appears clear. There is no pneumothorax. Mediastinum: Right-sided mediastinal contours are obscured by the adjacent pleural effusion. The left heart border appears normal. Bones and chest wall: No suspicious bony lesions. Overlying soft tissues appear unremarkable. Degenerative changes are seen in the acromioclavicular joints and the spine. IMPRESSION: Large right pleural effusion with atelectasis of the adjacent portions of the right lung. Dictated by: Cristian Montero M.D. on 08/20/2020 at 13:47 Approved by: Cristian Montero M.D. on 08/20/2020 at 13:49
--- NOTE | 2020-08-20 14:27 | DI.US.S_ITS ---
PROCEDURE: US PERIPH VENOUS UP EXTREM RT INDICATIONS: ? dvt, intermittent swelling TECHNIQUE: Real-time imaging, as well as color and pulse Doppler interrogation, was performed of the right upper extremity deep veins from the inferior neck to the antecubital fossa. COMPARISON: None. FINDINGS: The internal jugular vein, visualized portions of the subclavian vein, axillary, and brachial veins are free of intraluminal thrombus. Where physically possible, the veins are normally compressible. Color and pulse Doppler demonstrate normal intraluminal flow, with expected phasicity and pulsatility. Additional scanning of the cephalic and basilic veins of the superficial system demonstrate normal compressibility, without thrombus. Nonspecific subcutaneous edema is seen at the lower portion of the right arm. IMPRESSION: Negative for deep venous thrombosis of the right upper extremity. Dictated by: Cristian Montero M.D. on 08/20/2020 at 14:17 Approved by: Cristian Montero M.D. on 08/20/2020 at 14:19
[2020-08-20 14:41] LABS: Basophils Absolute Auto 100 /uL (0-100); Basophils Percent Auto 0.3 % (0-2); Eosinophils Absolute Auto 0 /uL (0-450); Hematocrit 29.6 % (41-53); Hemoglobin 9.2 g/dL (13.5-17.5); Lymphocytes Absolute Auto 1400 /uL (1100-4500); Lymphocytes Percent Auto 4.5 % (25-40); Mean Corpuscular Hemoglobin 23.2 PG (26-34); Mean Corpuscular Volume 74.8 fL (80-100); Monocytes Absolute Auto 1800 /uL (0-900); Monocytes Percent Auto 5.6 % (3-14); Neutrophils Absolute Auto 28500 /uL (1500-7000); Neutrophils Percent Auto 89.6 % (50-75); Platelet Count 621 X10^3/uL (150-400); Red Blood Cell Count 3.96 X10^6/uL (4.5-5.9); Red Cell Distribution Width 18.3 % (11.6-14.8)
[2020-08-20 14:49] LABS: Alanine Aminotransferase 20 IU/L (<50); Albumin 3.7 g/dL (3.5-5.0); Albumin Globulin Ratio 0.9 (1.0-2.8); Alkaline Phosphatase 124 U/L (38-126); Aspartate Aminotransferase 23 IU/L (17-59); BUN Creatinine Ratio 19.9 (6-22); Bilirubin Total 0.7 mg/dL (0.2-1.3); Blood Urea Nitrogen 38 mg/dL (9-20); Calcium 9.3 mg/dL (8.4-10.2); Carbon Dioxide 29 mmol/L (22-32); Chloride 100 mmol/L (98-107); Creatine Kinase 34 U/L (55-170); Estimated Glomerular Filt Rate 34.3 mL/min (>60); Globulin 4.3 g/dL (1.7-4.1); Glucose 130 mg/dL (80-110); HEMOLYSIS < 15 (0-50); Lactate (Lactic Acid) 2.2 mmol/L (0.7-2.1); Potassium 4.2 mmol/L (3.4-5.1); Sodium 136 mmol/L (137-145); White Blood Cell Count 31.8 X10^3/uL (4.5-11.0)
[2020-08-20 14:51] LABS: Add Manual Diff / Slide Review SLIDE REVIEW
[2020-08-20 14:57] LABS: NT-proBNP (BNP-Adult 18+) 6280 pg/mL (<450)
[2020-08-20 15:00] LABS: Troponin I 0.014 ng/mL (0.01-0.034)
[2020-08-20 15:06] LABS: INR 1.5 (0.9-1.3); Prothrombin Time 16.9 SECONDS (10.1-12.7)
[2020-08-20 15:09] LABS: PTT Partial Thromboplastin Tim 32 SECONDS (26.4-36.2)
[2020-08-20 15:16] LABS: D Dimer 1657 ng/mL (<230)
[2020-08-20 15:37] LABS: Procalcitonin 2.11 ng/mL (<0.5)
--- NOTE | 2020-08-20 15:41 | DI.CT.S_ITS ---
PROCEDURE: CT ANGIO CHEST PE PROTOCOL INDICATIONS: pleural effusion, intermitten arm swelling, mass vs PE TECHNIQUE: After the administration of intravenous contrast, 2 mm thick sections acquired from the pulmonary apices to the posterior costophrenic angles. 3-dimensional maximum intensity projection (MIP) coronal and sagittal reformats were then acquired through the thorax. For radiation dose reduction, the following was used: automated exposure control, adjustment of mA and/or kV according to patient size. COMPARISON: None. FINDINGS: Image quality: Excellent. Pulmonary arteries: Pulmonary arteries are normal in size, and demonstrate no intraluminal filling defects to suggest central pulmonary embolism. Lungs and pleura: There is a large right pleural effusion with areas of loculation. There appears to be compressive atelectasis within the right lower lobe. Confluent mass is noted in the medial aspect of the left upper lobe with marked extension into the mediastinum, right hilum, as well as portions of the pericardium. It measures approximately 11.0 cm AP x 7.5 cm transverse by 8.5 cm craniocaudal. Mediastinum: Heart size is enlarged, with pericardial effusion. Thoracic aorta is normal in caliber and enhancement. Esophagus is normal in caliber, without hiatal hernia. Portions of the proximal and mid superior vena cava demonstrate lack of contrast opacification and are contiguous with the above described mass. Bones and chest wall: No suspicious bony lesions. Ribs and thoracic spine appear intact throughout. Thyroid gland is unremarkable . No axillary or supraclavicular adenopathy. Abdomen: Visualized upper abdominal solid organs appear normal in the early arterial phase of enhancement. IMPRESSION: 1. Prominent right upper lobe mass, with prominent extension into the mediastinum, pericardium and hilar region, as above most consistent with malignancy. 2. Lack of opacification within the superior vena cava as above most concerning for tumor infiltration. 3. Large right pleural effusion with compressive atelectasis. 4. No pulmonary embolism. Dictated by: Adelaida Laboy M.D. on 08/20/2020 at 16:13 Approved by: Adelaida Laboy M.D. on 08/20/2020 at 16:41
[2020-08-20 15:54] LABS: Microcytosis 1+; Polychromasia 1+
[2020-08-20] MEDS: DILTIAZEM 125 MG/125 ML PIGGYBACK IV (16:30)
[2020-08-20] MEDS: SODIUM CHLORIDE 0.9% 1,000 ML 1000 ML IV (16:30)
[2020-08-20] MEDS: dilTIAZem 5 MG/ML SDV 10 MG IV (16:30)
[2020-08-20 16:31] LABS: Reflexed Lactate in 2 Hours Y
[2020-08-20] MEDS: levoFLOXacin 750 MG/150 ML PIGGYBACK 100 MG IV (16:32)
[2020-08-20 17:05] LABS: Lactate 2HR (Lactic Acid Rflx) 1.8 mmol/L (0.7-2.1)
[2020-08-20 17:34] LABS: COVID19 -Nasal RAPID Negative (Negative)
--- NOTE | 2020-08-20 20:24 | PC.NURSE ---
NAIF Mario given report at [facility]
== END 2020-08-20 21:30 | disposition short-term general hospital (02) ==
PROVIDERS: Emergency Medicine; Emergency Provider Emergency Medicine; PCP Physician Assistant
DX: R91.8 Other nonspecific abnormal finding of lung field (principal); J90 Pleural effusion, not elsewhere classified; N18.9 Chronic kidney disease, unspecified; I48.91 Unspecified atrial fibrillation; D64.9 Anemia, unspecified; R00.0 Tachycardia, unspecified; R06.82 Tachypnea, not elsewhere classified; R79.89 Other specified abnormal findings of blood chemistry; E03.9 Hypothyroidism, unspecified
CPT/HCPCS: 36415; 71045; 71275; 80053; 82550; 83605; 83880; 84145; 84484; 85025; 85379; 85610; 85730; 86850; 86900; 86901; 87040; 87635; 93005; 93971; 96365; 96366; 96368; 96375; 99284; J1956; Q9967

== ENCOUNTER 2020-10-17 20:36 | Inpatient (IN) | payer MEDICARE, SELFPAY ==
[2020-05-27 02:59] VITALS: BMI 30.7
[2020-10-17] VITALS (11 sets, daily range): BP systolic 97–122; BP diastolic 59–78; PULSE 80–103; RESP 18–26; TEMP 35.9–36.8; O2SAT 94–100; BMI 26.6
[2020-10-17 21:07] LABS: INR 1.6 (0.9-1.3)
--- NOTE | 2020-10-17 21:09 | PC.NURSE ---
PT was walking to bathroom, felt dizzy and told spouse he was feeling funny. Lowered down to knees, then syncopal episode. Bumped left side of head on the wall. Was incontinent of black stool. Pt was able to get up and clean off in shower before medics arrived. Recent chemo treatment started wednesday for reccurance of bladder cancer and mass outside of right lung. Was started on Eliquis again for Afib recently also. Reports history of syncopal episode and GI bleed after starting blood thinners previously. Currently A/O, and reports details of event. Denies pain. Appears pale, skin cool. Warm blankets provided.
[2020-10-17 21:10] LABS: PTT Partial Thromboplastin Tim 28 SECONDS (26.4-36.2)
[2020-10-17 21:12] LABS: Alanine Aminotransferase 21 IU/L (<50); Albumin 2.3 g/dL (3.5-5.0); Albumin Globulin Ratio 0.9 (1.0-2.8); Alkaline Phosphatase 93 U/L (38-126); Aspartate Aminotransferase 33 IU/L (17-59); BUN Creatinine Ratio 28.8 (6-22); Bilirubin Total 0.2 mg/dL (0.2-1.3); Blood Urea Nitrogen 38 mg/dL (9-20); Calcium 7.5 mg/dL (8.4-10.2); Carbon Dioxide 26 mmol/L (22-32); Chloride 100 mmol/L (98-107); Estimated Glomerular Filt Rate 52.5 mL/min (>60); Globulin 2.6 g/dL (1.7-4.1); Glucose 215 mg/dL (80-110); HEMOLYSIS < 15 (0-50); Sodium 131 mmol/L (137-145); Total Protein 4.9 g/dL (6.3-8.2)
[2020-10-17 21:19] LABS: Mean Corpuscular HGB Conc 29.5 % (30-36); Mean Corpuscular Hemoglobin 22.8 PG (26-34); Mean Corpuscular Volume 77.5 fL (80-100); Platelet Count 454 X10^3/uL (150-400); Red Blood Cell Count 2.19 X10^6/uL (4.5-5.9); Red Cell Distribution Width 19.5 % (11.6-14.8); White Blood Cell Count 27.2 X10^3/uL (4.5-11.0)
[2020-10-17 21:22] LABS: Add Manual Diff / Slide Review YES
[2020-10-17 21:48] LABS: COVID19 -Nasal RAPID Negative (Negative)
[2020-10-17 21:54] LABS: Neutrophils Absolute Manual 25840 /uL (3000-5900); Total Cells Counted 100
[2020-10-17 21:55] LABS: Hypochromasia 1+; Microcytosis 1+
--- NOTE | 2020-10-17 21:56 | ED.GIBLEED ---
HPI - GI Bleed General Chief complaint: GI Bleed Stated complaint: Syncopal Episode Time Seen by Provider: 10/17/20 20:57 Source: patient, family and EMS Mode of arrival: EMS Limitations: no limitations History of Present Illness HPI Narrative: 80-year-old male former smoker with history of atrial fibrillation presents by EMS for syncopal episode just prior to arrival. He states he had largely been in his normal state of health until the event this evening. He was walking to the bathroom and requested his 's assistance, stating his legs felt like they were going to give out. He became lightheaded, developed tunnel vision and fell to his knees. He states that he was very close but did not completely pass out. Soon thereafter he had a large bloody bowel movement. He recently has had a diagnosis of bladder cancer and has been receiving treatment at [facility]. 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 He just had a port placed and 1st round of chemotherapy on Wednesday. He just resumed his Eliquis 3 doses ago. He denies hematemesis or coffee-ground emesis. He feels very fatigued, dizzy and lightheaded. He has mild abdominal cramping but no significant pain. He has had no runny nose or sore throat. He denies any fever or chills MD complaint: gross hematochezia Onset (ago): minute(s) Pain Consistency: intermittent Severity: mild Relieving factors: none Exacerbating factors: none Context: history of GI bleed and medication/supplement use Associated symptoms: loss of appetite, syncope and weakness Treatments Prior to Arrival: none Related Data Home Medications Medication Instructions Recorded Confirmed tamsulosin 0.4 mg PO BEDTIME 05/27/20 10/17/20 apixaban [Eliquis] 5 mg PO BID 10/17/20 10/17/20 biotin-chromium 1 cap PO DAILY 10/17/20 10/17/20 cholecalciferol (vitamin D3) 250 mcg PO DAILY 10/17/20 10/17/20 [Vitamin D3] iron bisglycinate chelate 29 mg PO DAILY 10/17/20 10/17/20 levothyroxine [Synthroid] 25 mcg PO DAILY 10/17/20 10/17/20 metoprolol tartrate 25 mg PO DAILY 10/17/20 10/17/20 olanzapine 2.5 mg PO PRN PRN 10/17/20 10/17/20 Allergies Allergy/AdvReac Type Severity Reaction Status Date / Time Penicillins Allergy Verified 08/20/20 14:13 Sulfa (Sulfonamide Allergy Verified 08/20/20 14:13 Antibiotics) Review of Systems Review of Systems ROS Unobtainable: All systems reviewed & are unremarkable except as noted in HPI and below Constitutional Constitutional: Denies chills, Reports fatigue, Denies fever(s), Denies frequent falls, Denies lethargy and Reports weakness Eyes Eyes: Denies change in vision, Denies eye discharge, Denies irritation and Denies loss of vision ENT Ears, Nose, Mouth, and Throat: Denies change in voice, Denies dizziness, Denies neck pain, Denies sore throat and Denies throat swelling Cardiovascular Cardiovascular: Denies chest pain, Reports syncope, Denies irregular heart rhythm, Denies lightheadedness, Denies palpitations, Denies dyspnea, Denies dyspnea on exertion and Denies orthopnea Respiratory Respiratory: Denies cough, Denies dyspnea, Denies dyspnea on exertion and Denies wheezing Gastrointestinal Gastrointestinal: Reports abdominal pain, Reports hematochezia, Denies change in bowel habits, Denies diarrhea, Denies nausea and Denies vomiting Musculoskeletal Musculoskeletal: Denies neck pain and Denies numbness Integumentary/Breasts Skin/Breast: Denies pruritus, Denies erythema, Denies rash and Denies wounds Neurologic Neurologic: Denies behavioral changes, Denies confusion, Denies dizziness, Reports syncope, Denies frequent falls, Denies loss of vision, Denies numbness and Reports weakness Psychiatric Psychiatric: Denies anxiety, Denies behavioral changes, Denies confusion, Denies depression, Denies homicidal ideation and Denies suicidal ideation Endocrine Endocrine: Reports fatigue, Denies flushing and Denies palpitations Hematologic/Lymphatic Hematologic/Lymphatic: Denies easy bruising Allergic/Immunologic Allergic/Immunologic: Denies urticaria, Denies throat swelling and Denies wheezing Patient History Medical History (Updated 10/18/20 @ 01:29 by Ramsey Jackson DO) History of cardioversion Hx of prostatic malignancy Lipoma of abdominal wall Paroxysmal A-fib Surgical History Hx of total knee replacement S/P TURP (status post transurethral resection of prostate) Family History Mother Multiple sclerosis Father Prostate cancer Social History household members: spouse Smoking Status: Never smoker alcohol intake: current Smoking Status: Never smoker alcohol intake frequency: holidays/special occasions only Substance Use Type: does not use Exam Narrative Exam Narrative: GENERAL: [80] year old patient appears stated age. Well-nourished, well-developed patient, in mild distress. HEAD: Atraumatic. Normocephalic. EYES: Pale conjunctiva Pupils equal round and reactive. Extraocular motions intact. No scleral icterus. No injection or drainage. ENT: Nose without bleeding, purulent drainage. Throat without erythema, tonsillar hypertrophy or exudate. Airway patent. NECK: Trachea midline. Non tender CARDIOVASCULAR: Regular rate and rhythm without murmurs, gallops, or rubs. RESPIRATORY: Clear to auscultation. Breath sounds equal bilaterally. No wheezes, rales, or rhonchi. GASTROINTESTINAL: Abdomen soft, non-tender, nondistended. Rectal notes melena. Guaiac positive EXTREMITIES: No edema or joint tenderness. BACK: Nontender without deformity or crepitance. No flank tenderness. NEURO: AOx3. SKIN: No rash or erythema of visible areas Initial Vital Signs Initial Vital Signs: Vital Signs Temperature 98.3 F 10/17/20 20:40 Pulse Rate 91 H 10/17/20 20:40 Respiratory Rate 18 10/17/20 20:40 Blood Pressure 119/77 10/17/20 20:40 Pulse Oximetry 99 10/17/20 20:40 Course Course Course Narrative: patient refused head CT. States he did NOT fully syncopize, has full recall. Orders Ordered: ED Orders 10/17/20 20:45 Complete Blood Count AUTO DIFF Stat Comprehensive Metabolic Panel Stat Packed Cells Stat Partial Thromboplastin Time Stat Prothrombin Time INR Stat Type and Screen Stat 10/17/20 20:57 CT head/brain wo con Stat 10/17/20 21:25 COVID19 Stat Acetaminophen (Acetaminophen 325 Mg Tablet) 650 mg PO Q6HR PRN PRN Reason: Fever/Mild Pain (1-3) Lactated Ringer's (Lactated Ringers) 1,000 mls @ 60 mls/hr IV CONT KAREEN Influenza Virus Vaccine (Influenza Hd Vaccine 0.7 Ml Syringe) 0.7 ml IM .ONCE ONE Stop: 10/18/20 09:01 Levothyroxine Sodium (Levothyroxine 25 Mcg Tablet) 25 mcg PO 0600 KAREEN Naloxone HCl (Naloxone 0.4 Mg/Ml Vial) 0.2 mg IV Q2MIN PRN PRN Reason: Opiate Reversal Pantoprazole Sodium (Pantoprazole 40 Mg Vial) 40 mg IV BID KAREEN Tamsulosin HCl (Tamsulosin 0.4 Mg Capsule) 0.4 mg PO BEDTIME [facility] Consultations Consultation #1: discussed with on-call Gen Surgery (Delores), happy to become involved if/when needed. Admit to hospitalist Consultation #2: hospitalist happy to accept Vital Signs Vital signs: Vital Signs - 8 hr 10/17/20 20:40 10/17/20 20:43 10/17/20 21:00 Temperature 98.3 F Pulse Rate 91 H 97 H 92 H Respiratory Rate 18 18 21 Blood Pressure 119/77 105/77 Pulse Oximetry 99 100 94 10/17/20 21:30 10/17/20 21:31 10/17/20 22:00 Temperature Pulse Rate 94 H 102 H 89 Respiratory Rate 22 23 21 Blood Pressure 122/59 L 97/65 Pulse Oximetry 97 MDM - GI Bleed Lab Data Result diagrams: 10/17/20 20:45 10/17/20 20:45 Labs: Lab Results 10/17/20 10/17/20 10/17/20 Range/Units 20:45 20:45 20:45 WBC 27.2 H (4.5-11.0) X10^3/uL RBC 2.19 L (4.5-5.9) X10^6/uL Hgb 5.0 L* (13.5-17.5) g/dL Hct 17.0 L* (41-53) % MCV 77.5 L (80-100) fL MCH 22.8 L (26-34) PG MCHC 29.5 L (30-36) % RDW 19.5 H (11.6-14.8) % Plt Count 454 H (150-400) X10^3/uL Neut % (Auto) Not Reportable Lymph % (Auto) Not Reportable [place]bour % (Auto) Not Reportable Eos % (Auto) Not Reportable Baso % (Auto) Not Reportable Lymph # (Auto) Not Reportable [place]bour # (Auto) Not Reportable Baso # (Auto) Not Reportable Total Counted 100 Seg Neutrophils % 85.0 H (38-70) % Band Neutrophils % 10.0 H (3-7) % Lymphocytes % (Manual) 2.0 L (25-45) % Monocytes % (Manual) 3.0 (2-11) % Neutrophils # (Manual) 66457 H (4561-9264) /uL RBC Morphology See below Hypochromasia 1+ H Microcytosis 1+ H PT 18.0 H (10.1-12.7) SECONDS INR 1.6 H (0.9-1.3) APTT 28 (26.4-36.2) SECONDS Sodium 131 L (137-145) mmol/L Potassium 5.0 (3.4-5.1) mmol/L Chloride 100 (98-107) mmol/L Carbon Dioxide 26 (22-32) mmol/L BUN 38 H (9-20) mg/dL Creatinine 1.32 H (0.66-1.25) mg/dL Estimated GFR 52.5 L (>60) mL/min BUN/Creatinine Ratio 28.8 H (6-22) Glucose 215 H (80-110) mg/dL Calcium 7.5 L (8.4-10.2) mg/dL Total Bilirubin 0.2 (0.2-1.3) mg/dL AST 33 (17-59) IU/L ALT 21 (<50) IU/L Alkaline Phosphatase 93 (38-126) U/L Total Protein 4.9 L (6.3-8.2) g/dL Albumin 2.3 L (3.5-5.0) g/dL Globulin 2.6 (1.7-4.1) g/dL Albumin/Globulin Ratio 0.9 L (1.0-2.8) SARS-CoV-2 (PCR) (Negative) Blood Type Antibody Screen Crossmatch 10/17/20 10/17/20 Range/Units 20:45 21:25 WBC (4.5-11.0) X10^3/uL RBC (4.5-5.9) X10^6/uL Hgb (13.5-17.5) g/dL Hct (41-53) % MCV (80-100) fL MCH (26-34) PG MCHC (30-36) % RDW (11.6-14.8) % Plt Count (150-400) X10^3/uL Neut % (Auto) Lymph % (Auto) [place]bour % (Auto) Eos % (Auto) Baso % (Auto) Lymph # (Auto) [place] # (Auto) Baso # (Auto) Total Counted Seg Neutrophils % (38-70) % Band Neutrophils % (3-7) % Lymphocytes % (Manual) (25-45) % Monocytes % (Manual) (2-11) % Neutrophils # (Manual) (3517-7878) /uL RBC Morphology Hypochromasia Microcytosis PT (10.1-12.7) SECONDS INR (0.9-1.3) APTT (26.4-36.2) SECONDS Sodium (137-145) mmol/L Potassium (3.4-5.1) mmol/L Chloride (98-107) mmol/L Carbon Dioxide (22-32) mmol/L BUN (9-20) mg/dL Creatinine (0.66-1.25) mg/dL Estimated GFR (>60) mL/min BUN/Creatinine Ratio (6-22) Glucose (80-110) mg/dL Calcium (8.4-10.2) mg/dL Total Bilirubin (0.2-1.3) mg/dL AST (17-59) IU/L ALT (<50) IU/L Alkaline Phosphatase (38-126) U/L Total Protein (6.3-8.2) g/dL Albumin (3.5-5.0) g/dL Globulin (1.7-4.1) g/dL Albumin/Globulin Ratio (1.0-2.8) SARS-CoV-2 (PCR) Negative (Negative) Blood Type A Positive Antibody Screen Negative Crossmatch See Detail Discharge Plan Departure Patient Disposition: Admitted As Inpatient Clinical Impression: Acute blood loss anemia GI bleed Qualifiers: GI bleed type/associated pathology: unspecified gastrointestinal hemorrhage type Qualified Code(s): K92.2 - Gastrointestinal hemorrhage, unspecified Admit Date/Time: 10/17/20 22:04 Admit Provider: Aurora Abel
--- NOTE | 2020-10-17 23:04 | PC.NURSE ---
2245: This RN was informed by charge nurse that Pt declined CT scan of head. Pt States I don't need it. I'm fine. Talked with pt about situation, on anticoagulants, fell and hit head, and that signs/symptoms may not show immediately. After more information about risks given, pt again declined. Floor nurse also informed of this when pt was transferred up to .
[2020-10-18] VITALS (13 sets, daily range): BP systolic 127–154; BP diastolic 72–116; PULSE 71–108; RESP 15–16; TEMP 35.5–36.3; O2SAT 93–98
--- NOTE | 2020-10-18 00:27 | PM.HP.1 ---
History of Present Illness History of Present Illness Date Patient Seen: 10/17/20 Time Patient Seen: 22:12 Chief complaint: Syncopal Episode Narrative: Shady Pinedo is 79-year-old male presents by EMS for syncopal episode just prior to arrival. He states he had largely been in his normal state of health until the event this evening. He was walking to the bathroom and requested his 's assistance, stating his legs felt like they were going to give out. He became lightheaded, developed tunnel vision and fell to his knees. He states that he was very close but did not completely pass out. Soon thereafter he had a large bloody bowel movement. He recently has had a diagnosis of bladder cancer and has been receiving treatment at [facility]. 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 He just had a port placed and 1st round of chemotherapy on Wednesday. He just resumed his Eliquis 3 doses ago. He denies hematemesis or coffee-ground emesis. Pt is a former smoker with history of paroxsymal atrial fibrillation and subsequent cardioversion in June 2019, a history of prostate cancer and subsequent TURP in 2001, patient was placed back on Xarelto so that a port could be placed for utilization of chemotherapy. He denies any recent dietary changes, exposure to other ill persons, bad food or antibiotics. He notes the only change is restarting Xarelto, which he notes previously he had a GI bleed while taking Xarelto and subsequently was taken off. Upon admit to the floor pt denies any chest pain, SOB, fever body aches or chills, cough shortness of breath, states he is very fatigued and upon standing he becomes dizzy and lightheaded. He denies any blood in his emesis or hematuria. He denies any abdominal pain. Patient is not a drinker, denies frequent use of NSAIDs or aspirin. His last colonoscopy he states noted diverticuli. Patient's presenting vitals 97/65 HR 89 RR 21 temp 98.3? O2 saturation air, hemoglobin 5 hematocrit 17, WBC 27.2, RBC 2.19, RDW 19.5, platelets 454, neutrophil# 25,840, sodium 131, BUN 38, creatinine 1.32, glucose 215, EGFR 52.5, albumin 2.3, total protein 4.9, BUN creatinine ratio 28.8. 06/22/2020 patient was seen in [facility] Emergency Room for anemia admitted 05/26-05/29/2020 with GI bleed. Initially found have a hemoglobin of 6.8 a seem to level out at around 7.4. He had routine lab redraw on 06/20/2020 hemoglobin 7.7 hematocrit 24.2. He received a phone call from his primary care provider who ordered the labs and was told to go to the ER for blood transfusion. He scheduled follow-up with GI he already has followed up some with them. He is scheduled to have prostate surgery in just over a week. 05/27-05/29/2020 admitted to [facility] for symptomatic anemia and further workup of an acute kidney injury and leukocytosis. Records from [facility]: noted he was diabetic with an A1c of 6.1 in May 2019 and the patient states he was aware, but was not instructed to take any medications or modify his diet. today it is 6.2, so not significantly worse. The patient presented today with an acute kidney injury with a creatinine of 2.61 and GFR of 23.9, where in 05/2019, his renal function was normal. He presented to [facility] in March of 2019 for gross hematuria and underwent a contrast IVP which indicated a possible resolving pyeloniphritis. He was seen in [facility]'s ED urinary retention, and at that time, both his hemoglobin was mildly decreased and today it is 6.8, necessitating a transfusion. His creatinine was elevated at 2.3 on 05/23 and today it is 2.61. 06/2019, he underwent a cardioversion for paroxsymal atrial fibrillation. He had previously been on xarelto, but developed a rash with that and started apixaban. He had also been taking sotolol and went off both medications after the cardioversion. 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 . Patient History Medical History (Updated 10/18/20 @ 02:05 by RICARDO Matos) Adult onset hypothyroidism Anemia History of cardioversion Hx of prostatic malignancy Lipoma of abdominal wall Paroxysmal A-fib Surgical History Hx of total knee replacement S/P TURP (status post transurethral resection of prostate) Family & Social History Family History Mother Multiple sclerosis Father Prostate cancer Social History: household members spouse Prior Living Arrangements House Safety & Behavioral: Feels Safe in Current Yes Environment Been Physically Hurt or No Threatened By a Person Suicidal Ideation Description None Suicide Plan Description No Plan Tobacco & Substance use: Smoking Status Never smoker alcohol intake current alcohol intake frequency holiday/special occasion Substance Use Type does not use Meds Home Medications and Allergies Home Medications Medication Instructions Recorded Confirmed Type tamsulosin 0.4 mg PO BEDTIME 05/27/20 10/17/20 History apixaban [Eliquis] 5 mg PO BID 10/17/20 10/17/20 History biotin-chromium 1 cap PO DAILY 10/17/20 10/17/20 History cholecalciferol (vitamin D3) 250 mcg PO DAILY 10/17/20 10/17/20 History [Vitamin D3] iron bisglycinate chelate 29 mg PO DAILY 10/17/20 10/17/20 History levothyroxine [Synthroid] 25 mcg PO DAILY 10/17/20 10/17/20 History metoprolol tartrate 25 mg PO DAILY 10/17/20 10/17/20 History olanzapine 2.5 mg PO PRN PRN 10/17/20 10/17/20 History Allergies Allergy/AdvReac Type Severity Reaction Status Date / Time Penicillins Allergy Verified 08/20/20 14:13 Sulfa (Sulfonamide Allergy Verified 08/20/20 14:13 Antibiotics) Review of Systems Review of Systems ROS: Yes All systems reviewed with the patient and are negative except as otherwise documented Constitutional Constitutional: Reports chills, Reports fatigue and Reports lethargy Eyes Eyes: Reports system reviewed and no additional complaints, except as documented ENT Ears, Nose, Mouth, and Throat: Yes system reviewed and no additional complaints, except as documented Cardiovascular Cardiovascular: Reports system reviewed and no additional complaints, except as documented Respiratory Respiratory: Reports system reviewed and no additional complaints, except as documented Gastrointestinal Gastrointestinal: Reports melena Genitourinary Genitourinary: Reports system reviewed and no additional complaints, except as documented Musculoskeletal Musculoskeletal: Reports system reviewed and no additional complaints, except as documented Integumentary/Breasts Skin/Breast: Reports system reviewed and no additional complaints, except as documented Neurologic Neurologic: Reports system reviewed and no additional complaints, except as documented Psychiatric Psychiatric: Reports system reviewed and no additional complaints, except as documented Endocrine Endocrine: Reports system reviewed and no additional complaints, except as documented and Reports fatigue Hematologic/Lymphatic Hematologic/Lymphatic: Reports system reviewed and no additional complaints, except as documented Allergic/Immunologic Allergic/Immunologic: Reports system reviewed and no additional complaints, except as documented Exam Vital Signs (past 8 hours): - 10/17/20 20:40 10/17/20 20:43 10/17/20 21:00 Temperature 98.3 F Pulse Rate 91 H 97 H 92 H Respiratory Rate 18 18 21 Blood Pressure 119/77 105/77 Pulse Oximetry 99 100 94 10/17/20 21:30 10/17/20 21:31 10/17/20 22:00 Temperature Pulse Rate 94 H 102 H 89 Respiratory Rate 22 23 21 Blood Pressure 122/59 L 97/65 Pulse Oximetry 97 10/17/20 22:30 10/17/20 22:35 10/17/20 22:48 Temperature 96.6 F L 96.6 F L Pulse Rate 90 98 H 80 Respiratory Rate 26 H 18 18 Blood Pressure 102/68 106/72 106/72 Pulse Oximetry 98 100 10/17/20 22:59 10/17/20 23:10 Temperature 97.4 F L Pulse Rate 103 H Respiratory Rate 18 Blood Pressure 111/78 Pulse Oximetry 94 Oxygen Delivery Method Room Air Oxygen Flow Rate 0 Narrative Exam Narrative: General: Patient is a well-developed, well-nourished pale male, in no distress at this time. HEENT: Normocephalic, atraumatic, extraocular muscles intact, oral pharynx is clear and mucous membranes are moist. Neck is supple and symmetric, trachea is midline, no adenopathy, no thyroid enlargement, nontender, no masses palpated. Negative for JVD Chest: Normal AP diameter and contour without kyphoscoliosis, no nasal flaring, retractions, or tachypneic labored, noted port present right 2nd intercostal space midclavicular line Lungs: Auscultation of all lung cohen are clear without adventitious sounds, wheezes, rhonchi, or rales. Cardio: S1 & S2 with regular rate and rhythm without murmur, rubs, or gallops, no carotid bruit, no cardiac pulsations present. Abdomen: Soft nontender, negative for organomegaly, or masses. Bowel sounds are present in all 4 quadrants without guarding or rebound, no CVA tenderness. Musculoskeletal: Muscle strength and tone are equal within normal limits, no deformity, Stevo crepitus, effusions, cyanosis, clubbing present. Positive bilateral lower extremity present and equal non pitting. Full range of motion intact radial and pedal pulses are normal. Skin: Warm dry and intact without rashes, ulcerations or petechiae. Neuro: Alert and orientated x3, strength is +5/5 in all extremities, sensation to touch intact, no gross deficits noted of cranial nerves. Psych: Patient has a well-kept appearance, appropriate affect, mental status attitude thought context and judgment are appropriate for age. Objective Labs Result Diagrams: 10/17/20 20:45 10/17/20 20:45 Labs: Laboratory Results - last 24 hr 10/17/20 10/17/20 10/17/20 20:45 20:45 20:45 WBC 27.2 H RBC 2.19 L Hgb 5.0 L* Hct 17.0 L* MCV 77.5 L MCH 22.8 L MCHC 29.5 L RDW 19.5 H Plt Count 454 H Neut % (Auto) Not Reportable Lymph % (Auto) Not Reportable Whitley % (Auto) Not Reportable Eos % (Auto) Not Reportable Baso % (Auto) Not Reportable Lymph # (Auto) Not Reportable Whitley # (Auto) Not Reportable Baso # (Auto) Not Reportable Total Counted 100 Seg Neutrophils % 85.0 H Band Neutrophils % 10.0 H Lymphocytes % (Manual) 2.0 L Monocytes % (Manual) 3.0 Neutrophils # (Manual) 38463 H RBC Morphology See below Hypochromasia 1+ H Microcytosis 1+ H PT 18.0 H INR 1.6 H APTT 28 Sodium 131 L Potassium 5.0 Chloride 100 Carbon Dioxide 26 BUN 38 H Creatinine 1.32 H Estimated GFR 52.5 L BUN/Creatinine Ratio 28.8 H Glucose 215 H Calcium 7.5 L Total Bilirubin 0.2 AST 33 ALT 21 Alkaline Phosphatase 93 Total Protein 4.9 L Albumin 2.3 L Globulin 2.6 Albumin/Globulin Ratio 0.9 L SARS-CoV-2 (PCR) Blood Type Antibody Screen Crossmatch 10/17/20 10/17/20 20:45 21:25 WBC RBC Hgb Hct MCV MCH MCHC RDW Plt Count Neut % (Auto) Lymph % (Auto) Whitley % (Auto) Eos % (Auto) Baso % (Auto) Lymph # (Auto) Whitley # (Auto) Baso # (Auto) Total Counted Seg Neutrophils % Band Neutrophils % Lymphocytes % (Manual) Monocytes % (Manual) Neutrophils # (Manual) RBC Morphology Hypochromasia Microcytosis PT INR APTT Sodium Potassium Chloride Carbon Dioxide BUN Creatinine Estimated GFR BUN/Creatinine Ratio Glucose Calcium Total Bilirubin AST ALT Alkaline Phosphatase Total Protein Albumin Globulin Albumin/Globulin Ratio SARS-CoV-2 (PCR) Negative Blood Type A Positive Antibody Screen Negative Crossmatch See Detail Assessment & Plan Assessment & Plan narrative: This patient requires acute care inpatient hospital management for acute GI bleed/anemia. After failing outpatient management of anti coagulable therapy in the presence of chemotherapy treatment for bladder cancer. The patient is at much higher risk for medical and surgical complications because of his history of multiple hospital visits for acute anemia. These factors increase the difficulty and complexity of medical and surgical interventions and increases the chances of poor outcomes such as morbidity and mortality. The patient's acute on chronic anemia and recent cancer diagnosis will impact his oxygenation, which will likely contribute to impaired healing. 1. Acute lower GI bleed,(acute, stable) secondary to Eliquis exacerbation of, anemia (acute on chronic stable), in the presence of initiation of chemotherapy for bladder cancer, (acute, stability unknown), present on admission -vitals 97/65 HR 89 RR 21 temp 98.3? O2 saturation air, hemoglobin 5 hematocrit 17, WBC 27.2, RBC 2.19, RDW 19.5, platelets 454, neutrophil# 25,840, sodium 131, BUN 38, creatinine 1.32, glucose 215, EGFR 52.5, albumin 2.3, total protein 4.9, BUN creatinine ratio 28.8. -stopped Patient's Eliquis -patient has been seen multiple times and admitted to hospital over the past 2 years for GI bleed/anemia. -vital signs if unstable q.2 hours x2, then q.4 hours if stable, call for heart rate> 100, systolic BP< 100, activity-as tolerated with fall precautions, patient on clear liquids-will re-evaluate tomorrow, strict I&O Q shift, DVT prophylaxis contraindicated, SCDs only, neuro checks Q shift, weight measure daily. -patient was typed and cross in ER (A+)patient receiving 2 units of blood then will reassess H&H 30-45 minutes following 2nd transfusion and then will re-evaluate, goal hemoglobin> 7. -labs ordered CBC, peripheral smear, reticulocyte count, PT, PTT, iron profile, CMP -consults ordered physical therapy, occupational therapy, dietary. -prevention vaccines: Seasonal flu recommended, shingles, pneumonia, COVID-19 when available. 2. Hypertension, controlled, not present on admission -holding patient's metoprolol admit blood pressure 97/65 3. Hypothyroidism, stability unknown, present on admission -continue patient's levothyroxine, a.m. lab of TSH with reflex T4 4. Prostate cancer, stable, present on admission -continue patient's tamsulosin daily Code status:Full Surrogate/plan of care:Spouse COVID PCR:Negative VTE prophylaxis: Contraindicated, Eliquis stopped, SCDs Scores GCS Maisha coma scale eye opening: Spontaneous Maisha coma scale verbal response: Orientated Maisha coma scale motor response: Obey commands Cornucopia coma scale total score: 15 Quality VTE Deep Vein Thrombosis/Pulmonary Embolism Present on Admission: No
--- NOTE | 2020-10-18 03:03 | PC.NURSE ---
at 0115 pt's first unit of blood finished and vitals stable, pt states that he is feeling better already and pt ambulated to bathroom with FWW and reported no dizziness. Second unit of blood started, vitals stable, pt laying in bed.
[2020-10-18] MEDS: LACTATED RINGERS 1,000 ML 60 ML IV (03:51)
--- NOTE | 2020-10-18 04:10 | PC.NURSE ---
2nd unit of blood ended at about 0345, vitals stable, pt sleeping, lab was notified that HH needed to be drawn in next 30 mins.
[2020-10-18] MEDS: LEVOTHYROXINE 25 MCG TABLET PO (05:46)
--- NOTE | 2020-10-18 07:55 | PC.NURSE ---
Addendum entered by Crystal Llamas R.N. 10/18/20 15:28: IV removed, small skin tear due to tape, covered with allyvn. is hesitant to tack picker prescribed protonix, does not want PT to take unnecessary medication. Patient education given regarding medication and potential side effects. Tele off, patient discharge via wheelchair, accompanied by aide. Addendum entered by Crystal Llamas R.N. 10/18/20 13:20: Patient A/O x 4, patient verbalized he is feeling much improved after receiving two units of blood overnight (discrepancy noted in TAR, 2nd unit infused per RN note but not reflected in TAR, will follow up). Pt denies lightheadedness, dizziness, SOB, n/t in the extremities, or headache. Room air, > 95%, tele on, pulses irregularly irregular, noted 2+ edema in LUE and LLE, extremities warm, WNL denies tenderness. Patient reports this happens occasionally. IV in L AC patent, infusing LR @60 cc/hr per order. Patient up to restroom for stool, still loose, dark, noted blood. UA collected and sent. Patient ambulating with FWW. Patient denies further needs at this time. Call light in reach. 1013 third unit of blood infusing, patient tolerating. VS stable. Completed at 1313. Patient hypertensive, denies headache, chest pain, SOB, remains afebrile. Original Note: Informed lab patient has completed 2 units of blood and needs to be drawn.
--- NOTE | 2020-10-18 08:26 | OT.IPNOTE ---
Discussed case with nursing and pt. Pt states he is IND at baseline and feels like he is back to his baseline of IND this AM. Nursing agrees that pt is likely at or near his baseline for ADLs. Will discharge order per pt request.
[2020-10-18 08:35] LABS: Add Manual Diff / Slide Review NO; Basophils Absolute Auto 0 /uL (0-100); Basophils Percent Auto 0.1 % (0-2); Eosinophils Absolute Auto 0 /uL (0-450); Hematocrit 21.6 % (41-53); Lymphocytes Absolute Auto 400 /uL (1100-4500); Lymphocytes Percent Auto 2.1 % (25-40); Mean Corpuscular HGB Conc 30.9 % (30-36); Mean Corpuscular Hemoglobin 25.1 PG (26-34); Mean Corpuscular Volume 81.1 fL (80-100); Monocytes Absolute Auto 300 /uL (0-900); Monocytes Percent Auto 1.3 % (3-14); Neutrophils Absolute Auto 19100 /uL (1500-7000); Neutrophils Percent Auto 96.5 % (50-75); Platelet Count 301 X10^3/uL (150-400); Red Blood Cell Count 2.66 X10^6/uL (4.5-5.9); Red Cell Distribution Width 20.3 % (11.6-14.8); White Blood Cell Count 19.8 X10^3/uL (4.5-11.0)
[2020-10-18 08:38] LABS: Hemoglobin 6.7 g/dL (13.5-17.5)
[2020-10-18 08:43] LABS: Reticulocyte Count, Percent 1.7 % (0.87-2.60)
[2020-10-18 08:52] LABS: HEMOLYSIS < 15 (0-50); Iron 179 ug/dL (49-181)
[2020-10-18 08:53] LABS: Alanine Aminotransferase 21 IU/L (<50); Albumin 2.3 g/dL (3.5-5.0); Alkaline Phosphatase 87 U/L (38-126); Aspartate Aminotransferase 27 IU/L (17-59); BUN Creatinine Ratio 34.2 (6-22); Bilirubin Total 0.6 mg/dL (0.2-1.3); Blood Urea Nitrogen 41 mg/dL (9-20); Calcium 7.6 mg/dL (8.4-10.2); Carbon Dioxide 28 mmol/L (22-32); Chloride 101 mmol/L (98-107); Estimated Glomerular Filt Rate 58.6 mL/min (>60); Globulin 2.4 g/dL (1.7-4.1); Glucose 116 mg/dL (80-110); HEMOLYSIS < 15 (0-50); Magnesium 1.7 mg/dL (1.6-2.3); Sodium 132 mmol/L (137-145); Total Protein 4.7 g/dL (6.3-8.2)
[2020-10-18 08:54] LABS: Potassium 5.5 mmol/L (3.4-5.1)
[2020-10-18 09:02] LABS: Percent Iron Saturation 77 % (20-50); Total Iron Binding Capacity 231 ug/dL (261-462); Transferrin 158 mg/dL (206-381)
[2020-10-18 09:03] LABS: Anisocytosis 2+; Poikilocytosis 2+
[2020-10-18 09:04] LABS: Burr Cells 2+
[2020-10-18 09:18] LABS: TSH w/ Reflex to FT4 2.94 uIU/mL (0.47-4.68)
[2020-10-18] MEDS: INFLUENZA HD VACCINE 0.7 ML SYRINGE IM (09:30)
[2020-10-18] MEDS: PANTOPRAZOLE 40 MG VIAL IV (09:31)
--- NOTE | 2020-10-18 10:57 | PT-IP ANOTE ---
checked with nurse and Dr. Beaver also was outside pt's room. pt with Hgb of 6.7. Doctor stated to hold pt for today and to check back tomorrow.
[2020-10-18 13:32] LABS: Hematocrit 24.4 % (41-53); Hemoglobin 7.7 g/dL (13.5-17.5)
--- NOTE | 2020-10-18 13:48 | P.DS_ITS ---
History of Present Illness History of Present Illness Date Patient Seen: 10/18/20 Time Patient Seen: 13:48 Chief complaint: Syncopal Episode Narrative: As per Aurora Abel, BIOMEDICAL ENGINEERING TECHNICIAN-: Shady Pinedo is 79-year-old male presents by EMS for syncopal episode just prior to arrival. He states he had largely been in his normal state of health until the event this evening. He was walking to the bathroom and requested his 's assistance, stating his legs felt like they were going to give out. He became lightheaded, developed tunnel vision and fell to his knees. He states that he was very close but did not completely pass out. Soon thereafter he had a large bloody bowel movement. He recently has had a diagnosis of bladder cancer and has been receiving treatment at [facility]. 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 He just had a port placed and 1st round of chemotherapy on Wednesday. He just resumed his Eliquis 3 doses ago. He denies hematemesis or coffee-ground emesis. Pt is a former smoker with history of paroxsymal atrial fibrillation and subsequent cardioversion in June 2019, a history of prostate cancer and subsequent TURP in 2001, patient was placed back on Xarelto so that a port could be placed for utilization of chemotherapy. He denies any recent dietary changes, exposure to other ill persons, bad food or antibiotics. He notes the only change is restarting Xarelto, which he notes previously he had a GI bleed while taking Xarelto and subsequently was taken off. Upon admit to the floor pt denies any chest pain, SOB, fever body aches or chills, cough shortness of breath, states he is very fatigued and upon standing he becomes dizzy and ligh theaded. He denies any blood in his emesis or hematuria. He denies any abdominal pain. Patient is not a drinker, denies frequent use of NSAIDs or aspirin. His last colonoscopy he states noted diverticuli. Patient's presenting vitals 97/65 HR 89 RR 21 temp 98.3? O2 saturation air, hemoglobin 5 hematocrit 17, WBC 27.2, RBC 2.19, RDW 19.5, platelets 454, neutrophil# 25,840, sodium 131, BUN 38, creatinine 1.32, glucose 215, EGFR 52.5, albumin 2.3, total protein 4.9, BUN creatinine ratio 28.8. 06/22/2020 patient was seen in [facility] Emergency Room for anemia admitted 05/26-05/29/2020 with GI bleed. Initially found have a hemoglobin of 6.8 a seem to level out at around 7.4. He had routine lab redraw on 06/20/2020 hemoglobin 7.7 hematocrit 24.2. He received a phone call from his primary care provider who ordered the labs and was told to go to the ER for blood transfusion. He scheduled follow-up with GI he already has followed up some with them. He is scheduled to have prostate surgery in just over a week. 05/27-05/29/2020 admitted to [facility] for symptomatic anemia and further workup of an acute kidney injury and leukocytosis. Records from [facility]: noted he was diabetic with an A1c of 6.1 in May 2019 and the patient states he was aware, but was not instructed to take any medications or modify his diet. today it is 6.2, so not significantly worse. The patient presented today with an acute kidney injury with a creatinine of 2.61 and GFR of 23.9, where in 05/2019, his renal function was normal. He presented to [place] in March of 2019 for gross hematuria and underwent a contrast IVP which indicated a possible resolving pyeloniphritis. He was seen in [facility]'s ED urinary retention, and at that time, both his hemoglobin was mildly decreased and today it is 6.8, necessitating a transfusion. His creatinine was elevated at 2.3 on 05/23 and today it is 2.61. 06/2019, he underwent a cardioversion for paroxsymal atrial fibrillation. He had previously been on xarelto, but developed a rash with that and started apixaban. He had also been taking sotolol and went off both medications after the cardioversion. He has seen his rippler at least once since the most recent dates of his [facility] records and informed his PCP that they were in agreement with his not being on medications. Discharge Providers Provider Date of admission: 10/17/20 22:04 Discharge Date: 10/18/20 Primary care physician: Kat Christian PA-C Consults: 10/17/20 23:04 Consult to Discharge Planning Routine Comment: Consult to Occupational Therapy Evaluate & Treat Comment: Physician Instructions: Evaluate and treat Consult to Physical Therapy Evaluate & Treat Comment: Physician Instructions: Evaluate and Treat Discharge provider: Koby Beaver DO Summary Hospital Course Discharge Diagnosis: 1. Acute lower GI bleed (acute) secondary to oral anticoagulation. 2. Acute blood loss anemia secondary to GI bleeding., improve. 3. Hypertension, controlled, not present on admission 4. Hypothyroidism, chronic 5. Prostate cancer, stable, present on admission Hospital Course: This is a 80-year-old male with a history of prostate cancer, hypertension, hypothyroidism who was admitted for a likely lower GI bleed after restarting oral apixaban as an outpatient after port placement earlier this week. His hemoglobin on admission was 5, with 2 units his hemoglobin improved to 6.7. He was given a 3rd unit with improvement to 7.7. He responded appropriately to each and he was asymptomatic after his final transfusion. He had no further episodes melanotic stools and improved more quickly than expected on admission. Believe this to be lower GI in nature, however cannot rule out the possibility of an upper GI bleed. He was given IV Protonix while here, and discharged on oral PPI therapy twice daily for 14 days. Apixaban was discontinued. The patient refused further evaluation with colonoscopy or endoscopy. Recommend he follow-up with his primary care provider for repeat CBC next week. Exam Vital Signs (past 8 hours): - 10/18/20 06:00 10/18/20 06:17 10/18/20 08:28 Temperature 97.4 F L Pulse Rate 83 Pulse Rate [Orthostatic Lying] 71 Pulse Rate [Orthostatic Sitting] 89 Pulse Rate [Orthostatic Standing] 108 H Respiratory Rate 16 Blood Pressure 139/93 H Blood Pressure [Orthostatic Lying] 130/100 H Blood Pressure [Orthostatic Sitting] 134/96 H Blood Pressure [Orthostatic Standing] 138/80 Pulse Oximetry 98 93 10/18/20 08:30 10/18/20 10:00 10/18/20 10:10 Temperature 97.1 F L Pulse Rate 95 H Pulse Rate [Orthostatic Lying] 83 Pulse Rate [Orthostatic Sitting] 100 H Pulse Rate [Orthostatic Standing] 94 H Respiratory Rate 16 Blood Pressure 147/116 H Blood Pressure [Orthostatic Lying] 139/93 H Blood Pressure [Orthostatic Sitting] 147/77 H Blood Pressure [Orthostatic Standing] 144/81 H Pulse Oximetry 96 10/18/20 10:28 10/18/20 12:30 10/18/20 13:13 Temperature 97.1 F L 96.4 F L 96.4 F L Pulse Rate 79 74 83 Pulse Rate [Orthostatic Lying] Pulse Rate [Orthostatic Sitting] Pulse Rate [Orthostatic Standing] Respiratory Rate 16 16 16 Blood Pressure 142/93 H 154/113 H 137/77 Blood Pressure [Orthostatic Lying] Blood Pressure [Orthostatic Sitting] Blood Pressure [Orthostatic Standing] Pulse Oximetry 97 Oxygen Delivery Method Room Air Oxygen Flow Rate 0 Narrative Exam Narrative: General: Patient is a well-developed, well-nourished male, in no distress at this time. Improved pallor. HEENT: Normocephalic, atraumatic, extraocular muscles intact, oral pharynx is clear and mucous membranes are moist. Neck is supple and symmetric, trachea is midline, no adenopathy, no thyroid enlargement, nontender, no masses palpated. Negative for JVD Chest: Normal AP diameter and contour without kyphoscoliosis, no nasal flaring, retractions, or tachypneic labored, noted port present right 2nd intercostal space midclavicular line without erythema induration, or warmth. Lungs: Auscultation of all lung cohen are clear without wheezes, rhonchi, or r ales. Cardio: S1 & S2 with regular rate and rhythm without murmur, rubs, or gallops, no carotid bruit, no cardiac pulsations present. Abdomen: Soft nontender, negative for organomegaly, or masses. Bowel sounds are present in all 4 quadrants without guarding or rebound, no CVA tenderness. Musculoskeletal: Muscle strength and tone are equal within normal limits, no deformity, effusions, cyanosis, clubbing present. Positive bilateral lower extremity present and equal non pitting. Full range of motion intact radial and pedal pulses are normal. Skin: Warm dry and intact without rashes, ulcerations or petechiae. Neuro: Alert and orientated x3, strength is +5/5 in all extremities, sensation to touch intact, no gross deficits noted of cranial nerves. Psych: Patient has a well-kept appearance, appropriate affect, mental status attitude thought context and judgment are appropriate for age. Objective Labs Result Diagrams: 10/18/20 13:18 10/18/20 08:10 Labs: Laboratory Results - last 24 hr 10/17/20 10/17/20 10/17/20 20:45 20:45 20:45 WBC 27.2 H RBC 2.19 L Hgb 5.0 L* Hct 17.0 L* MCV 77.5 L MCH 22.8 L MCHC 29.5 L RDW 19.5 H Plt Count 454 H Neut % (Auto) Not Reportable Lymph % (Auto) Not Reportable [place] % (Auto) Not Reportable Eos % (Auto) Not Reportable Baso % (Auto) Not Reportable Neut # (Auto) Lymph # (Auto) Not Reportable [place] # (Auto) Not Reportable Eos # (Auto) Baso # (Auto) Not Reportable Total Counted 100 Seg Neutrophils % 85.0 H Band Neutrophils % 10.0 H Lymphocytes % (Manual) 2.0 L Monocytes % (Manual) 3.0 Neutrophils # (Manual) 01610 H RBC Morphology See below Hypochromasia 1+ H Poikilocytosis Anisocytosis Microcytosis 1+ H Gus Cells Percent Retic PT 18.0 H INR 1.6 H APTT 28 Sodium 131 L Potassium 5.0 Chloride 100 Carbon Dioxide 26 BUN 38 H Creatinine 1.32 H Estimated GFR 52.5 L BUN/Creatinine Ratio 28.8 H Glucose 215 H Calcium 7.5 L Magnesium Iron TIBC % Saturation Transferrin Total Bilirubin 0.2 AST 33 ALT 21 Alkaline Phosphatase 93 Total Protein 4.9 L Albumin 2.3 L Globulin 2.6 Albumin/Globulin Ratio 0.9 L TSH SARS-CoV-2 (PCR) Blood Type Antibody Screen Crossmatch 10/17/20 10/17/20 10/18/20 20:45 21:25 08:10 WBC 19.8 H RBC 2.66 L Hgb 6.7 L* Hct 21.6 L MCV 81.1 D MCH 25.1 L MCHC 30.9 RDW 20.3 H Plt Count 301 Neut % (Auto) 96.5 H Lymph % (Auto) 2.1 L [place] % (Auto) 1.3 L Eos % (Auto) 0.0 L Baso % (Auto) 0.1 Neut # (Auto) 65422 H Lymph # (Auto) 400 L [place] # (Auto) 300 Eos # (Auto) 0 Baso # (Auto) 0 Total Counted Seg Neutrophils % Band Neutrophils % Lymphocytes % (Manual) Monocytes % (Manual) Neutrophils # (Manual) RBC Morphology Not Reportable Hypochromasia Poikilocytosis 2+ H Anisocytosis 2+ H Microcytosis [place] Cells 2+ H Percent Retic PT INR APTT Sodium Potassium Chloride Carbon Dioxide BUN Creatinine Estimated GFR BUN/Creatinine Ratio Glucose Calcium Magnesium Iron TIBC % Saturation Transferrin Total Bilirubin AST ALT Alkaline Phosphatase Total Protein Albumin Globulin Albumin/Globulin Ratio TSH SARS-CoV-2 (PCR) Negative Blood Type A Positive Antibody Screen Negative Crossmatch See Detail 10/18/20 10/18/20 10/18/20 08:10 08:10 08:10 WBC RBC Hgb Hct MCV MCH MCHC RDW Plt Count Neut % (Auto) Lymph % (Auto) [place] % (Auto) Eos % (Auto) Baso % (Auto) Neut # (Auto) Lymph # (Auto) [place] # (Auto) Eos # (Auto) Baso # (Auto) Total Counted Seg Neutrophils % Band Neutrophils % Lymphocytes % (Manual) Monocytes % (Manual) Neutrophils # (Manual) RBC Morphology Hypochromasia Poikilocytosis Anisocytosis Microcytosis Gus Cells Percent Retic 1.7 PT INR APTT Sodium 132 L Potassium 5.5 H Chloride 101 Carbon Dioxide 28 BUN 41 H Creatinine 1.20 Estimated GFR 58.6 L BUN/Creatinine Ratio 34.2 H Glucose 116 H Calcium 7.6 L Magnesium 1.7 Iron TIBC % Saturation Transferrin Total Bilirubin 0.6 AST 27 ALT 21 Alkaline Phosphatase 87 Total Protein 4.7 L Albumin 2.3 L Globulin 2.4 Albumin/Globulin Ratio 1.0 TSH 2.94 SARS-CoV-2 (PCR) Blood Type Antibody Screen Crossmatch 10/18/20 10/18/20 08:10 13:18 WBC RBC Hgb 7.7 L Hct 24.4 L MCV MCH MCHC RDW Plt Count Neut % (Auto) Lymph % (Auto) [place] % (Auto) Eos % (Auto) Baso % (Auto) Neut # (Auto) Lymph # (Auto) [place] # (Auto) Eos # (Auto) Baso # (Auto) Total Counted Seg Neutrophils % Band Neutrophils % Lymphocytes % (Manual) Monocytes % (Manual) Neutrophils # (Manual) RBC Morphology Hypochromasia Poikilocytosis Anisocytosis Microcytosis Gus Cells Percent Retic PT INR APTT Sodium Potassium Chloride Carbon Dioxide BUN Creatinine Estimated GFR BUN/Creatinine Ratio Glucose Calcium Magnesium Iron 179 TIBC 231 L % Saturation 77 H Transferrin 158 L Total Bilirubin AST ALT Alkaline Phosphatase Total Protein Albumin Globulin Albumin/Globulin Ratio TSH SARS-CoV-2 (PCR) Blood Type Antibody Screen Crossmatch [facility] Medical History (Updated 10/18/20 @ 02:05 by Aurora Abel [facility]) Adult onset hypothyroidism Anemia History of cardioversion Hx of prostatic malignancy Lipoma of abdominal wall Paroxysmal A-fib Surgical History Hx of total knee replacement S/P TURP (status post transurethral resection of prostate) Family History Mother Multiple sclerosis Father Prostate cancer Social History household members: spouse Smoking Status: Never smoker alcohol intake: current Discharge Plan Discharge Plan Patient Disposition: Home Provider Discharge Comment: You were admitted to the hospital with GI bleeding after restarting a blood thinner. You needed 3 units of blood but your counts improved to normal and it appears as if your bleeding has improved. You did not want endoscopy performed. Please follow up with your primary care provider as previously scheduled. Return for any worsening fatigue, chest pain, pallor, or evidence of continued bleeding although your stools may be dark for a few days. I recommend you take omeprazole or pantoprazole at home, 40 mg twice daily for 2 weeks, then 40 mg daily after. Discharge orders & Medications Prescriptions: New pantoprazole 40 mg tablet,delayed release (DR/EC) 40 mg PO BID 14 Days Qty: 28 RF: 0 Continued tamsulosin 0.4 mg capsule 0.4 mg PO BEDTIME RF: 0 olanzapine 2.5 mg tablet 2.5 mg PO PRN PRN (Reason: Nausea) RF: 0 levothyroxine [Synthroid] 25 mcg Tablet 25 mcg PO DAILY RF: 0 metoprolol tartrate 25 mg Tablet 25 mg PO DAILY RF: 0 iron bisglycinate chelate 29 mg iron Capsule 29 mg PO DAILY RF: 0 biotin-chromium 2-600 mg-mcg Capsule 1 cap PO DAILY RF: 0 cholecalciferol (vitamin D3) [Vitamin D3] 125 mcg (5,000 unit) Tablet 250 mcg PO DAILY RF: 0 Discontinued Eliquis 5 mg Tablet 5 mg PO BID RF: 0 Follow up/Referrals: Kat Christian, PALOMA [Primary Care Provider] - Diet/Activity/Treatments Diet: Diet as Tolerated Activity: As tolerated Discharge Data Primary Care Provider: Kat Christian Quality VTE Deep Vein Thrombosis/Pulmonary Embolism Present on Admission: No
--- NOTE | 2020-10-18 13:55 | CM.DANOTE ---
Discharge Planning/Care Management DCP: assessment: case received, EMR reviewed and met with pt. Introduced self and role. Pt has just been given the ok for a d/c home today if he wishes. He says he is most eager to go and his is on her way. PCP: Megan Christian. Pt is current oncolgy pt with Lorrie Scott. Just started chemotherapy on Wednesday. He says he is feeling much better after the transfusions: home today. CM Discharge Assessment Start: 10/18/20 13:54 Freq: Status: Active Protocol: Document 10/18/20 13:54 ITV (Rec: 10/18/20 13:55 ITV [id number]) Discharge Planning Assessment Advance Directives? No Advance Directives on File No History Provided By Patient,Medical Record Prior Living Arrangements House Household Members spouse Independent with ADL's Yes Is patient alert and oriented? Yes Discharge Plan Home Transportation Arrangement Spouse Referrals Initiated None needed
== END 2020-10-18 15:45 | disposition home or self-care (01) | DRG 378 ==
LOC: ED 21:21 → AC 22:05
PROVIDERS: Internal Medicine; Admitting Provider Nurse Practitioner Family; Emergency Provider Emergency Medicine; PCP Physician Assistant; Referring Provider Emergency Medicine; Visit Provider Nurse Practitioner Family
DX: K92.1 Melena (principal); D68.32 Hemorrhagic disorder due to extrinsic circulating anticoagulants; D62 Acute posthemorrhagic anemia; T45.525A Adverse effect of antithrombotic drugs, initial encounter; I48.0 Paroxysmal atrial fibrillation; Z79.01 Long term (current) use of anticoagulants; C67.9 Malignant neoplasm of bladder, unspecified; R55 Syncope and collapse; Z87.891 Personal history of nicotine dependence; E03.9 Hypothyroidism, unspecified; I10 Essential (primary) hypertension; C61 Malignant neoplasm of prostate; Z20.822 Contact with and (suspected) exposure to COVID-19
CPT/HCPCS: 36415; 36430; 80053; 83540; 83550; 83735; 84443; 85007; 85014; 85018; 85025; 85045; 85610; 85730; 86850; 86900; 86901; 87635; 90471; 90662; 93005; 96374; 99283; 99285; C9803; P9016; C9113

== ENCOUNTER 2020-10-19 14:23 | Inpatient (IN) | payer MEDICARE, SELFPAY ==
[2020-10-17 22:30] VITALS: BMI 26.6
[2020-10-19] VITALS (45 sets, daily range): BP systolic 73–127; BP diastolic 50–94; PULSE 79–139; RESP 14–26; TEMP 36.2–36.7; O2SAT 77–100; BMI 27.1
--- NOTE | 2020-10-19 14:28 | ED.GIBLEED ---
HPI - GI Bleed General Chief complaint: GI Bleed Stated complaint: Rectal Bleed, syncope Time Seen by Provider: 10/19/20 14:28 Source: EMS and old records reviewed Mode of arrival: EMS Limitations: no limitations History of Present Illness HPI Narrative: Patient is a 80-year-old male who has a history of recently diagnosed bladder cancer, atrial fibrillation was on Eliquis until 3 days ago when he was admitted for rectal bleeding. He received 3 units of packed red blood cells and was discharged on October 18. During that hospital stay he did not want endoscopy done. He was not restarted on anticoagulation. Today he felt like he had to have a bowel movement he got up he did not feel well when he passed out hitting his head. He had a brief loss of consciousness and had a large bright red blood per rectum. EMS was called they came to evaluate he was awake and responsive at that time they sat him up at which point he passed out again. He appears pale and cool. EMS did give him 1 L of normal saline and blood pressure they say was never low. Related Data Home Medications Medication Instructions Recorded Confirmed tamsulosin 0.4 mg PO BEDTIME 05/27/20 10/19/20 biotin-chromium 1 cap PO DAILY 10/17/20 10/19/20 cholecalciferol (vitamin D3) 250 mcg PO DAILY 10/17/20 10/19/20 [Vitamin D3] iron bisglycinate chelate 29 mg PO DAILY 10/17/20 10/19/20 levothyroxine [Synthroid] 25 mcg PO DAILY 10/17/20 10/19/20 metoprolol tartrate 25 mg PO DAILY 10/17/20 10/19/20 olanzapine 2.5 mg PO PRN PRN 10/17/20 10/19/20 Allergies Allergy/AdvReac Type Severity Reaction Status Date / Time Penicillins Allergy Verified 10/19/20 15:15 Sulfa (Sulfonamide Allergy Verified 10/19/20 15:15 Antibiotics) Review of Systems Review of Systems ROS Unobtainable: All systems reviewed & are unremarkable except as noted in HPI and below Constitutional Constitutional: Denies body ache(s), Denies chills, Reports fatigue and Denies headache(s) Eyes Eyes: Denies change in vision, Denies eye discharge, Denies irritation and Denies loss of vision ENT Ears, Nose, Mouth, and Throat: Denies facial pain and Denies headache(s) Cardiovascular Cardiovascular: Denies chest pain, Denies irregular heart rhythm, Reports lightheadedness and Denies dyspnea Respiratory Respiratory: Denies chest congestion and Denies dyspnea Gastrointestinal Gastrointestinal: Reports as per HPI Neurologic Neurologic: Denies headache(s) and Denies loss of vision Endocrine Endocrine: Reports fatigue Patient History Medical History Adult onset hypothyroidism Anemia History of cardioversion Hx of prostatic malignancy Lipoma of abdominal wall Paroxysmal A-fib Surgical History Hx of total knee replacement S/P TURP (status post transurethral resection of prostate) Family History Mother Multiple sclerosis Father Prostate cancer Social History household members: spouse Smoking Status: Never smoker alcohol intake: current Smoking Status: Never smoker alcohol intake frequency: holidays/special occasions only Substance Use Type: does not use Exam Initial Vital Signs Initial Vital Signs: Vital Signs Temperature 97.6 F 10/19/20 14:24 Pulse Rate 112 H 10/19/20 14:24 Respiratory Rate 16 10/19/20 14:24 Blood Pressure 112/54 L 10/19/20 14:24 Pulse Oximetry 96 10/19/20 14:24 GENERAL: Pale alert male HEENT: Head atraumatic,EOMI, pupils reactive, face symmetric, moist mucous membranes CARDIOVASCULAR: Regular rate and rhythm without murmurs, rubs or gallops. RESPIRATORY: Breath sounds equal bilaterally, no wheezes rales or rhonchi. ABDOMEN: Soft, nontender. Normoactive bowel sounds all 4 quadrants. No guarding or rebound. RECTAL: Gross bright red blood EXTREMITIES: Normal range of motion, no clubbing or edema. Neurovascularly intact NEUROLOGICAL: Alert and oriented x4. SKIN: Warm, dry, no laceration, no petechiae, no rashes or lesions. Scores NIH Stroke Scale Level of Conciousness: Alert, keenly responsive Ask month/age: Answers both questions correctly. Open/close eyes, close hand: Performs both tasks correctly Best gaze horizontal: Normal Visual cohen: No visual loss Facial palsy: Normal symetrical movement Left arm drift: No drift for full 10 sec Right arm drift: No drift for full 10 sec Left leg drift: No drift for full 5 sec Right leg drift: No drift for full 5 sec Limb ataxia: Absent Sensory on face/arms/legs: Normal, no sensory loss Best language: No aphasia, normal Dysarthria: Normal Extinction or inattention: No abnormality Total NIH Stroke scale score: 0 Course Orders Ordered: ED Orders 10/19/20 14:30 CT head/brain wo con Stat EKG-12 Lead Stat 10/19/20 14:45 COVID19 Stat 10/19/20 14:56 CT abdomen pelvis w con Stat 10/19/20 15:05 Complete Blood Count AUTO DIFF Stat Comprehensive Metabolic Panel Stat Lactate (Lactic Acid) Stat Partial Thromboplastin Time Stat Prothrombin Time INR Stat Troponin & CK Cardiac Panel Stat 10/19/20 15:19 Packed Cells Stat Type and Screen Stat 10/19/20 16:18 Consult to General Surgery Stat 10/19/20 17:15 MRSA PCR Stat Lactated Ringer's (Lactated Ringers) 1,000 mls @ 100 mls/hr IV CONT KAREEN Last Admin: 10/19/20 18:05 Dose: 100 mls/hr Documented by: JOESPH Naloxone HCl (Naloxone 0.4 Mg/Ml Vial) 0.2 mg IV Q2MIN PRN PRN Reason: Opiate Reversal Pantoprazole Sodium (Pantoprazole 40 Mg Vial) 40 mg IV DAILY KAREEN Discontinued Medications Sodium Chloride (Normal Saline 0.9%) 1,000 mls @ 1,000 mls/hr IV BOLUS ONE Stop: 10/19/20 15:29 Last Infusion: 10/19/20 17:01 Dose: 0 mls/hr Documented by: Infusion: 10/19/20 15:58 Dose: 100 mls/hr Documented by: Admin: 10/19/20 14:30 Dose: 1,000 mls/hr Documented by: BERLIN Pantoprazole Sodium (Pantoprazole 40 Mg Vial) 40 mg IV NOW ONE Stop: 10/19/20 14:57 Last Admin: 10/19/20 15:42 Dose: 40 mg Documented by: BERLIN Vital Signs Vital signs: Vital Signs - 8 hr 10/19/20 14:24 10/19/20 14:30 10/19/20 14:37 Temperature 97.6 F Pulse Rate 112 H 139 H 118 H Respiratory Rate 16 26 H 22 Blood Pressure 112/54 L 112/54 L Pulse Oximetry 96 10/19/20 14:45 10/19/20 14:46 10/19/20 15:00 Temperature Pulse Rate 119 H 113 H 112 H Respiratory Rate 23 26 H 24 Blood Pressure 81/53 L 84/52 L 75/53 L Pulse Oximetry 84 L 10/19/20 15:14 10/19/20 15:15 10/19/20 15:30 Temperature Pulse Rate 115 H 114 H 120 H Respiratory Rate 22 20 24 Blood Pressure 73/51 L 81/56 L Pulse Oximetry 99 10/19/20 15:35 10/19/20 15:36 10/19/20 15:45 Temperature Pulse Rate 114 H 107 H 118 H Respiratory Rate 19 23 22 Blood Pressure 92/59 L 92/59 L 109/55 L Pulse Oximetry 96 96 10/19/20 15:48 10/19/20 16:00 10/19/20 16:15 Temperature Pulse Rate 111 H 113 H 101 H Respiratory Rate 21 24 16 Blood Pressure 92/50 L 82/52 L 98/67 Pulse Oximetry 98 96 98 10/19/20 16:30 10/19/20 16:45 10/19/20 16:54 Temperature Pulse Rate 101 H 105 H 99 H Respiratory Rate 17 22 18 Blood Pressure 112/72 95/67 102/71 Pulse Oximetry 99 91 MDM - GI Bleed Lab Data Attestation: I reviewed the patient's lab results. Result diagrams: 10/19/20 18:50 10/19/20 15:05 Labs: Lab Results 10/19/20 10/19/20 10/19/20 Range/Units 14:45 15:05 15:05 WBC 21.1 H (4.5-11.0) X10^3/uL RBC 2.18 L (4.5-5.9) X10^6/uL Hgb 5.6 L* (13.5-17.5) g/dL Hct 18.2 L* (41-53) % MCV 83.7 (80-100) fL MCH 25.9 L (26-34) PG MCHC 30.9 (30-36) % RDW 20.6 H (11.6-14.8) % Plt Count 277 (150-400) X10^3/uL Neut % (Auto) 97.4 H (50-75) % Lymph % (Auto) 2.1 L (25-40) % [place] % (Auto) 0.3 L (3-14) % Eos % (Auto) 0.1 L (2-4) % Baso % (Auto) 0.1 (0-2) % Neut # (Auto) 18664 H (3545-7908) /uL Lymph # (Auto) 400 L (8725-6264) /uL [place] # (Auto) 100 (0-900) /uL Eos # (Auto) 0 (0-450) /uL Baso # (Auto) 0 (0-100) /uL RBC Morphology Not Reportable Anisocytosis 2+ H PT 14.9 H (10.1-12.7) SECONDS INR 1.3 (0.9-1.3) APTT 27 (26.4-36.2) SECONDS Sodium (137-145) mmol/L Potassium (3.4-5.1) mmol/L Chloride (98-107) mmol/L Carbon Dioxide (22-32) mmol/L BUN (9-20) mg/dL Creatinine (0.66-1.25) mg/dL Estimated GFR (>60) mL/min BUN/Creatinine Ratio (6-22) Glucose (80-110) mg/dL Lactate (0.7-2.1) mmol/L Calcium (8.4-10.2) mg/dL Total Bilirubin (0.2-1.3) mg/dL AST (17-59) IU/L ALT (<50) IU/L Alkaline Phosphatase (38-126) U/L Total Creatine Kinase (55-170) U/L CK-MB (CK-2) CK-MB (CK-2) Rel Index Troponin I (0.01-0.034) ng/mL Total Protein (6.3-8.2) g/dL Albumin (3.5-5.0) g/dL Globulin (1.7-4.1) g/dL Albumin/Globulin Ratio (1.0-2.8) SARS-CoV-2 (PCR) Negative (Negative) Blood Type Antibody Screen Crossmatch 10/19/20 10/19/20 10/19/20 Range/Units 15:05 15:05 15:19 WBC (4.5-11.0) X10^3/uL RBC (4.5-5.9) X10^6/uL Hgb (13.5-17.5) g/dL Hct (41-53) % MCV (80-100) fL MCH (26-34) PG MCHC (30-36) % RDW (11.6-14.8) % Plt Count (150-400) X10^3/uL Neut % (Auto) (50-75) % Lymph % (Auto) (25-40) % [place] % (Auto) (3-14) % Eos % (Auto) (2-4) % Baso % (Auto) (0-2) % Neut # (Auto) (6284-5932) /uL Lymph # (Auto) (1675-9033) /uL [place] # (Auto) (0-900) /uL Eos # (Auto) (0-450) /uL Baso # (Auto) (0-100) /uL RBC Morphology Anisocytosis PT (10.1-12.7) SECONDS INR (0.9-1.3) APTT (26.4-36.2) SECONDS Sodium 133 L (137-145) mmol/L Potassium 4.7 (3.4-5.1) mmol/L Chloride 102 (98-107) mmol/L Carbon Dioxide 23 (22-32) mmol/L BUN 41 H (9-20) mg/dL Creatinine 1.11 (0.66-1.25) mg/dL Estimated GFR > 60.0 (>60) mL/min BUN/Creatinine Ratio 36.9 H (6-22) Glucose 197 H (80-110) mg/dL Lactate 6.3 H* (0.7-2.1) mmol/L Calcium 7.2 L (8.4-10.2) mg/dL Total Bilirubin 0.3 (0.2-1.3) mg/dL AST 30 (17-59) IU/L ALT 24 (<50) IU/L Alkaline Phosphatase 79 (38-126) U/L Total Creatine Kinase 45 L (55-170) U/L CK-MB (CK-2) TNP CK-MB (CK-2) Rel Index TNP Troponin I < 0.012 (0.01-0.034) ng/mL Total Protein 4.5 L (6.3-8.2) g/dL Albumin 2.2 L (3.5-5.0) g/dL Globulin 2.3 (1.7-4.1) g/dL Albumin/Globulin Ratio 1.0 (1.0-2.8) SARS-CoV-2 (PCR) (Negative) Blood Type A Positive Antibody Screen Negative Crossmatch See Detail Imaging Data CT scan - head: Radiologist's Impression: PROCEDURE: CT HEAD/BRAIN WO CON INDICATIONS: syncope TECHNIQUE: Noncontrast 4.5 mm thick angled axial sections acquired from the foramen magnum to the vertex, with coronal and sagittal reformats. For radiation dose reduction, the following was used: automated exposure control, adjustment of mA and/or kV according to patient size. COMPARISON: [facility], CT, CT HEAD/BRAIN WO CON, 05/27/2020, 0:45. FINDINGS: Image quality: Excellent. CSF spaces: Basal cisterns are patent. No extra-axial fluid collections. The ventricles are symmetric in size and shape. Brain: No intracranial bleeds or masses. There is cerebral volume loss for age, with resultant ventricular and sulcal prominence. There are periventricular and deep white matter chronic small vessel ischemic changes. There is intracranial internal carotid artery atherosclerosis. Skull and face: Calvarium and visualized facial bones appear intact, without suspicious lesions. Sinuses: Visualized sinuses and mastoids are clear. IMPRESSION: No imaging explanation is found for this patient's presenting symptoms. Unremarkable intracranial study for age. Stable from prior. Dictated by: Johnathon Urias M.D. on 10/19/2020 at 14:41 Approved by: Johnathon Urias M.D. on 10/19/2020 at 14:43 CT scan - abdomen/pelvis: Radiologist's Impression: PROCEDURE: CT ABDOMEN PELVIS W CON INDICATIONS: gi bleed TECHNIQUE: After the administration of intravenous contrast, 5 mm thick sections acquired from the diaphragm to the symphysis. 5 mm coronal and sagittal reformats were acquired. For radiation dose reduction, the following was used: automated exposure control, adjustment of mA and/or kV according to patient size. COMPARISON: [facility], CT, CT ANGIO CHEST PE PROTOCOL, 08/20/2020, 15:52. [facility], CT, CT HEAD/BRAIN WO CON, 10/19/2020, 14:32. FINDINGS: Image quality: There is streak artifact seen through the upper abdomen. ABDOMEN: Lung bases: A small left-sided pleural effusion and a trace right-sided pleural effusion. Overlying mild enhancing atelectasis can be seen. The heart size is within normal limits. There is a moderate to prominent pericardial effusion seen. There is partial visualization of mediastinal adenopathy. Solid organs: Liver is normal in size and enhancement. Gallbladder wall is not thickened. Biliary system is non dilated. Pancreas enhances normally. Spleen is normal in size. Within the inferior spleen, there is a low-density lesion that measures 1.6 cm, which is not present on the prior. Bilateral adrenal nodules are seen. There is a left-sided adrenal nodule that measures up to 2.8 cm. There is a right lateral adrenal nodule seen that measures 2 cm. Kidneys demonstrate normal size and enhancement, without hydronephrosis. Peritoneum and bowel: Distal colonic diverticulosis is seen. Moderate wall thickening is seen involving the sigmoid colon. No other definite areas of bowel wall thickening can be seen. No free air is seen. There is mild ascites seen, with layering free fluid seen within the pelvis. No loculated abscess can be seen. Nodes and vessels: No retroperitoneal or mesenteric adenopathy by size criteria. Aorta and inferior vena cava are normal in size. Atherosclerotic calcification is noted. Miscellaneous: No ventral hernias. Generalized anasarca can be seen. PELVIS: Genitourinary: Moderate circumferential bladder wall thickening is seen. There is a bladder diverticulum seen on the right. There is a rim calcified bladder stone seen posteriorly and on the left, measuring 1.3 cm. Miscellaneous: No enlarged inguinal or pelvic lymph nodes are seen. There is a fat-containing left inguinal hernia seen. Bones: No suspicious bony lesions. No vertebral body compression fractures. Mild levoconvex scoliotic curvature is noted. Age-appropriate bony degenerative changes are seen. IMPRESSION: Colonic diverticulosis is seen, with moderate wall thickening within the sigmoid colon. Diverticulitis is possible. If clinically appropriate, a lower endoscopy could be considered for further evaluation. No free air is seen. No abscess can be seen. Mild ascites. Moderate to prominent pericardial effusion. Small left-sided pleural effusion and a trace right-sided pleural effusion seen. Mediastinal adenopathy is partially seen. Bilateral adrenal nodules are seen, which have increased in size compared to the 10/21/2019 examination and are suspicious for metastatic disease. There is a new low-density lesion seen within the spleen, which is also suspicious for metastatic disease. Areas of moderate bladder wall thickening are seen. In a male patient of this age, this is felt most likely be related to bladder on obstruction. Cystitis and neoplasm are also possible, however. Generalized anasarca can be seen. Incidental note is made of: Levoconvex scoliotic curvature Bladder stone Bladder diverticulum Fat containing left inguinal hernia Dictated by: Johnathon Urias M.D. on 10/19/2020 at 14:46 ECG Data Attestation: I personally reviewed and interpreted this ECG as follows: Prior ECG tracings: available for review Interpretation: Atrial fibrillation rate [address] changes MDM Narrative Medical decision making narrative: The patient initially normotensive however not quite believable he has had a large bloody bowel movement and appears cool and pale. Blood pressure did drop shortly after his arrival to the ED. Surgery Dr. Diaz immediately consulted concern for hypotensive acute GI bleed. At this time she recommends continuing to stabilize at this time no need for emergent surgery. Hemoglobin returns low at 5 with hematocrit of 18 and elevated lactate of 6.3. Blood immediately ordered when patient became hypotensive. Due to recent blood transfusion it would take significant amount of time to type and cross match blood. Therefore O negative blood 2 units were given. Surgery updated on test results still agrees no need to transfer patient. Dr. De Leon, Hospitalist agrees to accept patient to the ICU. Critical Care Time Critical Care Time Critical Care Time: Yes Total Critical Care Time: 45 Attestation: The high probability of a clinically significant, sudden or life threatening deterioration of the [cardiovascular] system(s) required my full and direct attention, intervention and personal management. The aggregate critical care time was [45] minutes. This time is in addition to time spent performing reported procedures but includes the following: [x] Data Review and interpretation [x] Patient assessment and monitoring of vital signs [x] Documentation [x] Medication orders and management Discharge Plan Departure Patient Disposition: Admitted As Inpatient Clinical Impression: GI bleed Admit Date/Time: 10/19/20 16:59 Admit Provider: Anika De Leon
[2020-10-19] MEDS: SODIUM CHLORIDE 0.9% 1,000 ML 1000 ML IV (14:30)
--- NOTE | 2020-10-19 14:56 | DI.CT.S_ITS ---
PROCEDURE: CT ABDOMEN PELVIS W CON INDICATIONS: gi bleed TECHNIQUE: After the administration of intravenous contrast, 5 mm thick sections acquired from the diaphragm to the symphysis. 5 mm coronal and sagittal reformats were acquired. For radiation dose reduction, the following was used: automated exposure control, adjustment of mA and/or kV according to patient size. COMPARISON: [facility], CT, CT ANGIO CHEST PE PROTOCOL, 08/20/2020, 15:52. [facility], CT, CT HEAD/BRAIN WO CON, 10/19/2020, 14:32. FINDINGS: Image quality: There is streak artifact seen through the upper abdomen. ABDOMEN: Lung bases: A small left-sided pleural effusion and a trace right-sided pleural effusion. Overlying mild enhancing atelectasis can be seen. The heart size is within normal limits. There is a moderate to prominent pericardial effusion seen. There is partial visualization of mediastinal adenopathy. Solid organs: Liver is normal in size and enhancement. Gallbladder wall is not thickened. Biliary system is non dilated. Pancreas enhances normally. Spleen is normal in size. Within the inferior spleen, there is a low-density lesion that measures 1.6 cm, which is not present on the prior. Bilateral adrenal nodules are seen. There is a left-sided adrenal nodule that measures up to 2.8 cm. There is a right lateral adrenal nodule seen that measures 2 cm. Kidneys demonstrate normal size and enhancement, without hydronephrosis. Peritoneum and bowel: Distal colonic diverticulosis is seen. Moderate wall thickening is seen involving the sigmoid colon. No other definite areas of bowel wall thickening can be seen. No free air is seen. There is mild ascites seen, with layering free fluid seen within the pelvis. No loculated abscess can be seen. Nodes and vessels: No retroperitoneal or mesenteric adenopathy by size criteria. Aorta and inferior vena cava are normal in size. Atherosclerotic calcification is noted. Miscellaneous: No ventral hernias. Generalized anasarca can be seen. PELVIS: Genitourinary: Moderate circumferential bladder wall thickening is seen. There is a bladder diverticulum seen on the right. There is a rim calcified bladder stone seen posteriorly and on the left, measuring 1.3 cm. Miscellaneous: No enlarged inguinal or pelvic lymph nodes are seen. There is a fat-containing left inguinal hernia seen. Bones: No suspicious bony lesions. No vertebral body compression fractures. Mild levoconvex scoliotic curvature is noted. Age-appropriate bony degenerative changes are seen. IMPRESSION: Colonic diverticulosis is seen, with moderate wall thickening within the sigmoid colon. Diverticulitis is possible. If clinically appropriate, a lower endoscopy could be considered for further evaluation. No free air is seen. No abscess can be seen. Mild ascites. Moderate to prominent pericardial effusion. Small left-sided pleural effusion and a trace right-sided pleural effusion seen. Mediastinal adenopathy is partially seen. Bilateral adrenal nodules are seen, which have increased in size compared to the 10/21/2019 examination and are suspicious for metastatic disease. There is a new low-density lesion seen within the spleen, which is also suspicious for metastatic disease. Areas of moderate bladder wall thickening are seen. In a male patient of this age, this is felt most likely be related to bladder on obstruction. Cystitis and neoplasm are also possible, however. Generalized anasarca can be seen. Incidental note is made of: Levoconvex scoliotic curvature Bladder stone Bladder diverticulum Fat containing left inguinal hernia Dictated by: Johnathon Urias M.D. on 10/19/2020 at 14:46 Approved by: Johnathon Urias M.D. on 10/19/2020 at 14:53
[2020-10-19 15:09] LABS: COVID19 -Nasal RAPID Negative (Negative)
--- NOTE | 2020-10-19 15:15 | PC.NURSE ---
1435 Large amount of dried blood on legs , feet, and around pernieal area cleaned at this time, depends and chux pad placed.
[2020-10-19 15:23] LABS: Add Manual Diff / Slide Review NO; Basophils Absolute Auto 0 /uL (0-100); Basophils Percent Auto 0.1 % (0-2); Eosinophils Absolute Auto 0 /uL (0-450); Eosinophils Percent Auto 0.1 % (2-4); Lymphocytes Absolute Auto 400 /uL (1100-4500); Lymphocytes Percent Auto 2.1 % (25-40); Mean Corpuscular HGB Conc 30.9 % (30-36); Mean Corpuscular Hemoglobin 25.9 PG (26-34); Mean Corpuscular Volume 83.7 fL (80-100); Monocytes Absolute Auto 100 /uL (0-900); Monocytes Percent Auto 0.3 % (3-14); Neutrophils Absolute Auto 20600 /uL (1500-7000); Neutrophils Percent Auto 97.4 % (50-75); Platelet Count 277 X10^3/uL (150-400); Red Blood Cell Count 2.18 X10^6/uL (4.5-5.9); Red Cell Distribution Width 20.6 % (11.6-14.8); White Blood Cell Count 21.1 X10^3/uL (4.5-11.0)
[2020-10-19 15:25] LABS: Hemoglobin 5.6 g/dL (13.5-17.5)
[2020-10-19 15:26] LABS: Hematocrit 18.2 % (41-53)
[2020-10-19 15:33] LABS: INR 1.3 (0.9-1.3); Prothrombin Time 14.9 SECONDS (10.1-12.7)
[2020-10-19 15:36] LABS: PTT Partial Thromboplastin Tim 27 SECONDS (26.4-36.2)
[2020-10-19 15:38] LABS: Alanine Aminotransferase 24 IU/L (<50); Albumin 2.2 g/dL (3.5-5.0); Alkaline Phosphatase 79 U/L (38-126); Aspartate Aminotransferase 30 IU/L (17-59); BUN Creatinine Ratio 36.9 (6-22); Bilirubin Total 0.3 mg/dL (0.2-1.3); Blood Urea Nitrogen 41 mg/dL (9-20); Calcium 7.2 mg/dL (8.4-10.2); Carbon Dioxide 23 mmol/L (22-32); Chloride 102 mmol/L (98-107); Creatine Kinase 45 U/L (55-170); Estimated Glomerular Filt Rate > 60.0 mL/min (>60); Globulin 2.3 g/dL (1.7-4.1); Glucose 197 mg/dL (80-110); HEMOLYSIS < 15 (0-50); Potassium 4.7 mmol/L (3.4-5.1); Sodium 133 mmol/L (137-145); Total Protein 4.5 g/dL (6.3-8.2)
[2020-10-19] MEDS: PANTOPRAZOLE 40 MG VIAL IV (15:42)
[2020-10-19] MEDS: LIDOCAINE 2% (UROJET) 5 ML GEL (15:43)
[2020-10-19 15:47] LABS: Lactate (Lactic Acid) 6.3 mmol/L (0.7-2.1)
[2020-10-19 15:50] LABS: Troponin I < 0.012 ng/mL (0.01-0.034)
[2020-10-19 16:35] LABS: Anisocytosis 2+
[2020-10-19 17:14] LABS: Reflexed Lactate in 2 Hours Y
--- NOTE | 2020-10-19 17:16 | PC.NURSE ---
Right port accessed with sterile technique.
--- NOTE | 2020-10-19 17:42 | P.HP_ITS ---
History of Present Illness History of Present Illness Date Patient Seen: 10/19/20 Chief complaint: Rectal Bleed, syncope Narrative: Patient is a 80-year-old male with a history of bladder cancer currently undergoing chemotherapy at [facility] who was admitted to the hospital 2 days ago for symptomatic blood loss anemia. Patient developed a large bloody stool and had associated syncope. He was admitted to the hospital with a hemoglobin of 5 received 3 units of packed RBCs started on proton pump inhibitor and was discharged home. The patient was offered endoscopy which she refused. He was follow-up with his PCP for further evaluation. Earlier today the patient was going to the restroom when his knees gave out. He had a large bloody bowel movement. He loss consciousness. Medics arrived and the patient became syncopal twice again. He was transported to the emergency department for evaluation. Patient was found to have hemoglobin of 5. He was given 2 units of O-negative blood. Patient has a history of paroxysmal atrial fibrillation. He was anticoagulated with Eliquis. Patient continues to have rectal bleeding. He has had no hematemesis, upper abdominal pain, or dyspepsia. He denies any chest pain, or shortness of breath. As a consequence of syncopal episodes patient developed bruising on the forehead and has multiple bruising on his upper and lower extremities. He also reports lower extremity edema which is chronic. He denies any orthopnea. Patient is admitted to the hospital at this time for symptomatic anemia. He has received 2 units of blood thus far. The patient will be seen by General surgery who will begin bowel prep tomorrow. Will negrito bravo to monitor his H&H this evening. Her goal will be to transfuse him to hemoglobin of at least 9. Anticipate definitive endoscopy and treatment during this admission. His anticoagulation has been held. Patient is agreeable to the treatment plan as outlined. Patient History Medical History Adult onset hypothyroidism Anemia History of cardioversion Hx of prostatic malignancy Lipoma of abdominal wall Paroxysmal A-fib Surgical History Hx of total knee replacement S/P TURP (status post transurethral resection of prostate) Family & Social History Family History Mother Multiple sclerosis Father Prostate cancer Social History: household members spouse Safety & Behavioral: Feels Safe in Current Yes Environment Been Physically Hurt or No Threatened By a Person Tobacco & Substance use: Smoking Status Never smoker alcohol intake current alcohol intake frequency holiday/special occasion Substance Use Type does not use Meds Home Medications and Allergies Home Medications Medication Instructions Recorded Confirmed Type tamsulosin 0.4 mg PO BEDTIME 05/27/20 10/17/20 History biotin-chromium 1 cap PO DAILY 10/17/20 10/17/20 History cholecalciferol (vitamin D3) 250 mcg PO DAILY 10/17/20 10/17/20 History [Vitamin D3] iron bisglycinate chelate 29 mg PO DAILY 10/17/20 10/17/20 History levothyroxine [Synthroid] 25 mcg PO DAILY 10/17/20 10/17/20 History metoprolol tartrate 25 mg PO DAILY 10/17/20 10/17/20 History olanzapine 2.5 mg PO PRN PRN 10/17/20 10/17/20 History Allergies Allergy/AdvReac Type Severity Reaction Status Date / Time Penicillins Allergy Verified 10/19/20 15:15 Sulfa (Sulfonamide Allergy Verified 10/19/20 15:15 Antibiotics) Review of Systems Review of Systems ROS: Yes All systems reviewed with the patient and are negative except as otherwise documented Exam Vital Signs (past 8 hours): - 10/19/20 14:24 10/19/20 14:30 10/19/20 14:37 Temperature 97.6 F Pulse Rate 112 H 139 H 118 H Respiratory Rate 16 26 H 22 Blood Pressure 112/54 L 112/54 L Pulse Oximetry 96 10/19/20 14:45 10/19/20 14:46 10/19/20 15:00 Temperature Pulse Rate 119 H 113 H 112 H Respiratory Rate 23 26 H 24 Blood Pressure 81/53 L 84/52 L 75/53 L Pulse Oximetry 84 L 10/19/20 15:14 10/19/20 15:15 10/19/20 15:30 Temperature Pulse Rate 115 H 114 H 120 H Respiratory Rate 22 20 24 Blood Pressure 73/51 L 81/56 L Pulse Oximetry 99 10/19/20 15:35 10/19/20 15:36 10/19/20 15:45 Temperature Pulse Rate 114 H 107 H 118 H Respiratory Rate 19 23 22 Blood Pressure 92/59 L 92/59 L 109/55 L Pulse Oximetry 96 96 10/19/20 15:48 10/19/20 16:00 10/19/20 16:15 Temperature Pulse Rate 111 H 113 H 101 H Respiratory Rate 21 24 16 Blood Pressure 92/50 L 82/52 L 98/67 Pulse Oximetry 98 96 98 10/19/20 16:30 10/19/20 16:45 10/19/20 16:54 Temperature Pulse Rate 101 H 105 H 99 H Respiratory Rate 17 22 18 Blood Pressure 112/72 95/67 102/71 Pulse Oximetry 99 91 10/19/20 17:00 10/19/20 17:04 10/19/20 17:11 Temperature 97.2 F L Pulse Rate 98 H 104 H 112 H Respiratory Rate 20 22 17 Blood Pressure 115/69 107/65 107/65 Pulse Oximetry 100 98 97 Oxygen Delivery Method Room Air Narrative Exam Narrative: Pale ill-appearing male lying in bed HEENT normocephalic ecchymoses on the right forehead, extraocular muscles are intact, oropharynx is clear, neck is supple Lungs: Clear to auscultation Cardiac exam: Irregularly irregular, normal S1-S2, 2/6 systolic ejection murmur Abdomen: Soft nontender nondistended, no hepatosplenomegaly, no palpable mass Extremities: 2+ pitting edema bilaterally Skin exam: Bruising on the right bilateral upper extremities, bruising on the lower extremities as well there is an ecchymosis of the right forehead Neuro exam: Nonfocal, patient awake alert and appropriate Psychiatric exam: No delusions or hallucinations Objective Labs Result Diagrams: 10/19/20 15:05 10/19/20 15:05 Labs: Laboratory Results - last 24 hr 10/19/20 10/19/20 10/19/20 14:45 15:05 15:05 WBC 21.1 H RBC 2.18 L Hgb 5.6 L* Hct 18.2 L* MCV 83.7 MCH 25.9 L MCHC 30.9 RDW 20.6 H Plt Count 277 Neut % (Auto) 97.4 H Lymph % (Auto) 2.1 L [place] % (Auto) 0.3 L Eos % (Auto) 0.1 L Baso % (Auto) 0.1 Neut # (Auto) 23989 H Lymph # (Auto) 400 L [place] # (Auto) 100 Eos # (Auto) 0 Baso # (Auto) 0 RBC Morphology Not Reportable Anisocytosis 2+ H PT 14.9 H INR 1.3 APTT 27 Sodium Potassium Chloride Carbon Dioxide BUN Creatinine Estimated GFR BUN/Creatinine Ratio Glucose Lactate Calcium Total Bilirubin AST ALT Alkaline Phosphatase Total Creatine Kinase CK-MB (CK-2) CK-MB (CK-2) Rel Index Troponin I Total Protein Albumin Globulin Albumin/Globulin Ratio SARS-CoV-2 (PCR) Negative Blood Type Antibody Screen Crossmatch 10/19/20 10/19/20 10/19/20 15:05 15:05 15:19 WBC RBC Hgb Hct MCV MCH MCHC RDW Plt Count Neut % (Auto) Lymph % (Auto) [place] % (Auto) Eos % (Auto) Baso % (Auto) Neut # (Auto) Lymph # (Auto) [place] # (Auto) Eos # (Auto) Baso # (Auto) RBC Morphology Anisocytosis PT INR APTT Sodium 133 L Potassium 4.7 Chloride 102 Carbon Dioxide 23 BUN 41 H Creatinine 1.11 Estimated GFR > 60.0 BUN/Creatinine Ratio 36.9 H Glucose 197 H Lactate 6.3 H* Calcium 7.2 L Total Bilirubin 0.3 AST 30 ALT 24 Alkaline Phosphatase 79 Total Creatine Kinase 45 L CK-MB (CK-2) TNP CK-MB (CK-2) Rel Index TNP Troponin I < 0.012 Total Protein 4.5 L Albumin 2.2 L Globulin 2.3 Albumin/Globulin Ratio 1.0 SARS-CoV-2 (PCR) Blood Type A Positive Antibody Screen Negative Crossmatch See Detail Assessment & Plan Assessment & Plan narrative: Impression 1. Syncope secondary to acute blood loss anemia -patient with recurrent lower GI bleeding -patient with symptomatic anemia -hemoglobin 5 again, status post 2 units of blood -patient appears to have hypovolemic hemorrhagic shock -patient successfully resuscitated in the emergency depart -will continue to transfuse with a goal of hemoglobin 8-9 -will continue proton pump inhibitor -anticipate colon prep tomorrow with a goal for colonoscopy on Wednesday -given his syncope will hold metoprolol, however heart rate somewhat elevated may need low-dose metoprolol for rate control 2. Paroxysmal atrial fibrillation -anticoagulation on hold -will hold metoprolol if possible given syncope -however if the patient develops a rapid ventricular rate and is no longer hypotensive consider low-dose metoprolol 3. Hypothyroid -continue L-thyroxine 4. History of bladder cancer -patient undergoing treatment at [facility] Patient is a full code will note that his record according His , Hannah is his surrogate decision maker Quality VTE Deep Vein Thrombosis/Pulmonary Embolism Present on Admission: No
[2020-10-19] MEDS: LACTATED RINGERS 1,000 ML 100 ML IV (18:05)
[2020-10-19 19:06] LABS: Hematocrit 23.4 % (41-53); Hemoglobin 7.5 g/dL (13.5-17.5)
--- NOTE | 2020-10-19 19:15 | PC.NURSE ---
Pt arrived in room 227 per stretcher from the ED with DX GIB. Report from ED RN received, he states patient received 2 units PRBCs in the ED and 1 liter of NS. Pt awake and alert, oriented x4, monitor shows afib with rvr. SBP 90s-low 100s. Pt denies pain at this time. IV to R AC initially saline locked, the accessed with LR @ 100ml/hr. Port accessed in the ED and flushed with heparin. Will monitor closely.
[2020-10-19 19:33] LABS: Lactate (Lactic Acid) 1.7 mmol/L (0.7-2.1)
[2020-10-19] MEDS: diphenhydrAMINE 25 MG TABLET PO (20:46)
[2020-10-20] VITALS (23 sets, daily range): BP systolic 95–180; BP diastolic 58–115; PULSE 62–104; RESP 11–27; TEMP 36–36.8; O2SAT 91–100
[2020-10-20 00:19] LABS: Add Manual Diff / Slide Review NO; Basophils Absolute Auto 100 /uL (0-100); Basophils Percent Auto 0.8 % (0-2); Eosinophils Absolute Auto 0 /uL (0-450); Eosinophils Percent Auto 0.3 % (2-4); Hemoglobin 8.1 g/dL (13.5-17.5); Lymphocytes Absolute Auto 700 /uL (1100-4500); Lymphocytes Percent Auto 4.8 % (25-40); Mean Corpuscular HGB Conc 31.6 % (30-36); Mean Corpuscular Hemoglobin 26.3 PG (26-34); Mean Corpuscular Volume 83.4 fL (80-100); Monocytes Absolute Auto 100 /uL (0-900); Monocytes Percent Auto 0.9 % (3-14); Neutrophils Absolute Auto 12700 /uL (1500-7000); Neutrophils Percent Auto 93.2 % (50-75); Platelet Count 195 X10^3/uL (150-400); Red Blood Cell Count 3.08 X10^6/uL (4.5-5.9); White Blood Cell Count 13.6 X10^3/uL (4.5-11.0)
[2020-10-20 00:23] LABS: Hematocrit 25.6 % (41-53)
[2020-10-20 00:25] LABS: BUN Creatinine Ratio 42.3 (6-22); Blood Urea Nitrogen 44 mg/dL (9-20); Calcium 7.3 mg/dL (8.4-10.2); Carbon Dioxide 31 mmol/L (22-32); Chloride 102 mmol/L (98-107); Estimated Glomerular Filt Rate > 60.0 mL/min (>60); Glucose 96 mg/dL (80-110); HEMOLYSIS < 15 (0-50); Potassium 4.9 mmol/L (3.4-5.1); Sodium 132 mmol/L (137-145)
[2020-10-20 01:15] LABS: Magnesium 1.5 mg/dL (1.6-2.3)
[2020-10-20] MEDS: MAGNESIUM SULFATE 2 GM/50 ML PIGGYBACK IV (01:55)
[2020-10-20] MEDS: LACTATED RINGERS 1,000 ML 100 ML IV (05:24)
[2020-10-20 06:18] LABS: Lactate (Lactic Acid) 0.8 mmol/L (0.7-2.1)
[2020-10-20 06:20] LABS: Alanine Aminotransferase 22 IU/L (<50); Albumin 2.1 g/dL (3.5-5.0); Alkaline Phosphatase 70 U/L (38-126); Aspartate Aminotransferase 28 IU/L (17-59); BUN Creatinine Ratio 44.2 (6-22); Bilirubin Total 0.5 mg/dL (0.2-1.3); Blood Urea Nitrogen 42 mg/dL (9-20); Calcium 7.2 mg/dL (8.4-10.2); Carbon Dioxide 30 mmol/L (22-32); Chloride 102 mmol/L (98-107); Estimated Glomerular Filt Rate > 60.0 mL/min (>60); Globulin 2.2 g/dL (1.7-4.1); Glucose 94 mg/dL (80-110); HEMOLYSIS < 15 (0-50); Potassium 4.4 mmol/L (3.4-5.1); Sodium 132 mmol/L (137-145); Total Protein 4.3 g/dL (6.3-8.2)
[2020-10-20 06:27] LABS: Hematocrit 23.2 % (41-53); Hemoglobin 7.4 g/dL (13.5-17.5); Mean Corpuscular HGB Conc 31.8 % (30-36); Mean Corpuscular Hemoglobin 26.7 PG (26-34); Platelet Count 172 X10^3/uL (150-400); Red Blood Cell Count 2.77 X10^6/uL (4.5-5.9); Red Cell Distribution Width 18.5 % (11.6-14.8)
[2020-10-20 06:29] LABS: Add Manual Diff / Slide Review YES
[2020-10-20 06:42] LABS: Magnesium 1.9 mg/dL (1.6-2.3)
[2020-10-20 07:04] LABS: Total Cells Counted 100
[2020-10-20 07:05] LABS: Neutrophils Absolute Manual 11520 /uL (3000-5900)
--- NOTE | 2020-10-20 07:13 | PC.NURSE ---
Production Cost Estimator Note-Patient is fatigued, oriented x4, mildly anxious and impulsive. Denies pain, cramping, or nausea. No stools until am, had medium maroon stool. H/H 8.1/25.6 at [place] after 3rd unit PRBC, dropped to 7.4/23.2 in am. Denied dizziness when up to BSC, HR A-fib/flutter 90s, up to 120 with brief activity, BP stable, MD aware, see vital trends. 2gm Mg+ sulfate IV given overnight, has frequent PVCs, especially while lying on Lt side.
[2020-10-20] MEDS: PEG3350/SOD SULF,BICARB,CL/KCL 4,000 ML SOLUTION 4000 ML PO (09:11)
--- NOTE | 2020-10-20 09:58 | PM.CN ---
History of Present Illness Consult details Date Patient Seen: 10/20/20 Time Patient Seen: 09:58 Chief complaint: Rectal Bleed, syncope Reason for consult: GI bleed Requesting provider: Anika De Leon Narrative: This is a 80 yo man with a history of bladder cancer currently undergoing chemotherapy at [facility] who was admitted to the hospital on 10/18 for GI bleed. Per his report, he developed large bloody stool after using Eliquis in the setting of having his portacath placed for chemotherapy. The order of events is not entirely clear. He reports that each time he uses anticoagulation he gets a GI bleed. He reports that he had stopped taking blood thinners after his last GI bleed in June, but took several doses of Eliquis prior to and after his port placement as recommended by the surgeon who placed his port. He believes this was a day or so before the most recent episode of bleeding occurred. I do not have the outside report on when the port was placed relative to when the bleeding occurred in order to correlate this. Per the chart notes, on 10/18 he developed a large bloody stool and had associated syncope. He was admitted to the hospital with a hemoglobin of 5 and received 3 units of packed RBCs, started on proton pump inhibitor and was discharged home. At that time he was offered endoscopy which she refused. He had a colonoscopy about 13 months ago, form which we have the report, which indicates he had a few small polyps and left colon diverticulae. The thought was that this was likely a self limited diverticular bleed. He was to follow-up with his PCP for further evaluation. Then the next day, on 10/19, the patient came back into the ER with another bleed. Per his report, he was going to the restroom when his knees gave out. He had a large bloody bowel movement. He loss consciousness. Per report he had two more syncopal events witnessed by the handle machine operator. In the ER he was found to have hemoglobin of 5 and recieved 2 units of O-negative blood. ROS: He denies hematemesis, epigastric pain, heartburn, or history of peptic ulcers. He denies chest pain, or shortness of breath. As a consequence of syncopal episodes patient developed bruising on the forehead and has multiple bruising on his upper and lower extremities. He also reports lower extremity edema which is chronic. He denies any orthopnea. Thirteen system review is otherwise negative other than as mentioned below and in HPI. Narrative: Pale ill-appearing male lying in bed; appears stated age, answers questions promptly and appropriately, although does not remember all of timing of his recent medical events HENT: Normocephalic, atraumatic. Hearing intact. Ecchymosis on right forehead. EYES: Conjunctiva pink, sclera white, no periorbital swelling. CARDIOVASCULAR: Regular rate. Bilateral pedal edema. RESPIRATORY: Non-tachypneic, breathing comfortably on room air. GASTROINTESTINAL: Abdomen soft and non-distended, nontender, no masses, well-healed incisional scar from lipoma removal GENITALURINARY: No flank tenderness. MUSCULOSKELETAL: Equal tone and mass bilaterally. SKIN: Warm, dry, soft, appropriate color for ethnicity. No other lesions, rashes, or wounds. NEURO: Alert and Oriented to self and situation. No gross sensory deficits, or cognitive issues. PSYCH: Appropriate affect and mood. Meds Home Medications and Allergies Home Medications Medication Instructions Recorded Confirmed Type tamsulosin 0.4 mg PO BEDTIME 05/27/20 10/19/20 History biotin-chromium 1 cap PO DAILY 10/17/20 10/19/20 History cholecalciferol (vitamin D3) 250 mcg PO DAILY 10/17/20 10/19/20 History [Vitamin D3] iron bisglycinate chelate 29 mg PO DAILY 10/17/20 10/19/20 History levothyroxine [Synthroid] 25 mcg PO DAILY 10/17/20 10/19/20 History metoprolol tartrate 25 mg PO DAILY 10/17/20 10/19/20 History olanzapine 2.5 mg PO PRN PRN 10/17/20 10/19/20 History Allergies Allergy/AdvReac Type Severity Reaction Status Date / Time Penicillins Allergy Verified 10/19/20 15:15 Sulfa (Sulfonamide Allergy Verified 10/19/20 15:15 Antibiotics) Exam Vital Signs (past 8 hours): - 10/20/20 02:00 10/20/20 03:00 10/20/20 04:00 Temperature Pulse Rate 87 83 83 Respiratory Rate 19 27 H 23 Blood Pressure 129/68 117/88 117/67 Pulse Oximetry 97 96 10/20/20 05:00 10/20/20 06:53 10/20/20 07:37 Temperature 97.5 F L Pulse Rate 76 91 H 91 H Respiratory Rate 18 25 H 13 Blood Pressure 133/67 147/67 H 144/91 H Pulse Oximetry 97 10/20/20 07:53 10/20/20 07:59 Temperature 97.5 F L 97.6 F Pulse Rate 91 H 75 Respiratory Rate 20 18 Blood Pressure 144/91 H 121/76 Pulse Oximetry 100 Oxygen Delivery Method Room Air Oxygen Flow Rate [address] scan - abdomen: My impression: Diverticula visible and CT scan are mainly isolated to the sigmoid colon Radiologist's impression: [facility] [place] [id number] Scan ReportSigned Patient: Shady Pinedo WMR#: [id number]: [id number]/Sex: 80 / MDate of Service: 10/19/20Loc: EDAccession Number: [id number] Procedure: CT abdomen pelvis w con Ordering Provider: Sasha Valencia D.O. PROCEDURE: CT ABDOMEN PELVIS W CON INDICATIONS: gi bleed TECHNIQUE: After the administration of intravenous contrast, 5 mm thick sections acquired from the diaphragm to the symphysis. 5 mm coronal and sagittal reformats were acquired. For radiation dose reduction, the following was used: automated exposure control, adjustment of mA and/or kV according to patient size. COMPARISON: [facility], CT, CT ANGIO CHEST PE PROTOCOL, 08/20/2020, 15:52. [facility], CT, CT HEAD/BRAIN WO CON, 10/19/2020, 14:32. FINDINGS: Image quality: There is streak artifact seen through the upper abdomen. ABDOMEN: Lung bases: A small left-sided pleural effusion and a trace right-sided pleural effusion. Overlying mild enhancing atelectasis can be seen. The heart size is within normal limits. There is a moderate to prominent pericardial effusion seen. There is partial visualization of mediastinal adenopathy. Solid organs: Liver is normal in size and enhancement. Gallbladder wall is not thickened. Biliary system is non dilated. Pancreas enhances normally. Spleen is normal in size. Within the inferior spleen, there is a low-density lesion that measures 1.6 cm, which is not present on the prior. Bilateral adrenal nodules are seen. There is a left-sided adrenal nodule that measures up to 2.8 cm. There is a right lateral adrenal nodule seen that measures 2 cm. Kidneys demonstrate normal size and enhancement, without hydronephrosis. Peritoneum and bowel: Distal colonic diverticulosis is seen. Moderate wall thickening is seen involving the sigmoid colon. No other definite areas of bowel wall thickening can be seen. No free air is seen. There is mild ascites seen, with layering free fluid seen within the pelvis. No loculated abscess can be seen. Nodes and vessels: No retroperitoneal or mesenteric adenopathy by size criteria. Aorta and inferior vena cava are normal in size. Atherosclerotic calcification is noted. Miscellaneous: No ventral hernias. Generalized anasarca can be seen. PELVIS: Genitourinary: Moderate circumferential bladder wall thickening is seen. There is a bladder diverticulum seen on the right. There is a rim calcified bladder stone seen posteriorly and on the left, measuring 1.3 cm. Miscellaneous: No enlarged inguinal or pelvic lymph nodes are seen. There is a fat-containing left inguinal hernia seen. Bones: No suspicious bony lesions. No vertebral body compression fractures. Mild levoconvex scoliotic curvature is noted. Age-appropriate bony degenerative changes are seen. IMPRESSION: Colonic diverticulosis is seen, with moderate wall thickening within the sigmoid colon. Diverticulitis is possible. If clinically appropriate, a lower endoscopy could be considered for further evaluation. No free air is seen. No abscess can be seen. Mild ascites. Moderate to prominent pericardial effusion. Small left-sided pleural effusion and a trace right-sided pleural effusion seen. Mediastinal adenopathy is partially seen. Bilateral adrenal nodules are seen, which have increased in size compared to the 10/21/2019 examination and are suspicious for metastatic disease. There is a new low-density lesion seen within the spleen, which is also suspicious for metastatic disease. Areas of moderate bladder wall thickening are seen. In a male patient of this age, this is felt most likely be related to bladder on obstruction. Cystitis and neoplasm are also possible, however. Generalized anasarca can be seen. Incidental note is made of: Levoconvex scoliotic curvature Bladder stone Bladder diverticulum Fat containing left inguinal hernia Labs Result Diagrams: 10/20/20 06:00 10/20/20 06:00 Labs: Laboratory Results - last 24 hr 10/19/20 10/19/20 10/19/20 14:45 15:05 15:05 WBC 21.1 H RBC 2.18 L Hgb 5.6 L* Hct 18.2 L* MCV 83.7 MCH 25.9 L MCHC 30.9 RDW 20.6 H Plt Count 277 Neut % (Auto) 97.4 H Lymph % (Auto) 2.1 L Storey % (Auto) 0.3 L Eos % (Auto) 0.1 L Baso % (Auto) 0.1 Neut # (Auto) 80905 H Lymph # (Auto) 400 L Storey # (Auto) 100 Eos # (Auto) 0 Baso # (Auto) 0 Total Counted Seg Neutrophils % Band Neutrophils % Lymphocytes % (Manual) Neutrophils # (Manual) RBC Morphology Not Reportable Dimorphic RBCs Anisocytosis 2+ H PT 14.9 H INR 1.3 APTT 27 Sodium Potassium Chloride Carbon Dioxide BUN Creatinine Estimated GFR BUN/Creatinine Ratio Glucose Lactate Calcium Magnesium Total Bilirubin AST ALT Alkaline Phosphatase Total Creatine Kinase CK-MB (CK-2) CK-MB (CK-2) Rel Index Troponin I Total Protein Albumin Globulin Albumin/Globulin Ratio Nasal Screen MRSA (PCR) SARS-CoV-2 (PCR) Negative Blood Type Antibody Screen Crossmatch 10/19/20 10/19/20 10/19/20 15:05 15:05 15:19 WBC RBC Hgb Hct MCV MCH MCHC RDW Plt Count Neut % (Auto) Lymph % (Auto) Storey % (Auto) Eos % (Auto) Baso % (Auto) Neut # (Auto) Lymph # (Auto) Storey # (Auto) Eos # (Auto) Baso # (Auto) Total Counted Seg Neutrophils % Band Neutrophils % Lymphocytes % (Manual) Neutrophils # (Manual) RBC Morphology Dimorphic RBCs Anisocytosis PT INR APTT Sodium 133 L Potassium 4.7 Chloride 102 Carbon Dioxide 23 BUN 41 H Creatinine 1.11 Estimated GFR > 60.0 BUN/Creatinine Ratio 36.9 H Glucose 197 H Lactate 6.3 H* Calcium 7.2 L Magnesium Total Bilirubin 0.3 AST 30 ALT 24 Alkaline Phosphatase 79 Total Creatine Kinase 45 L CK-MB (CK-2) TNP CK-MB (CK-2) Rel Index TNP Troponin I < 0.012 Total Protein 4.5 L Albumin 2.2 L Globulin 2.3 Albumin/Globulin Ratio 1.0 Nasal Screen MRSA (PCR) SARS-CoV-2 (PCR) Blood Type A Positive Antibody Screen Negative Crossmatch See Detail 10/19/20 10/19/20 10/19/20 17:15 18:50 18:50 WBC RBC Hgb 7.5 L Hct 23.4 L MCV MCH MCHC RDW Plt Count Neut % (Auto) Lymph % (Auto) Storey % (Auto) Eos % (Auto) Baso % (Auto) Neut # (Auto) Lymph # (Auto) Storey # (Auto) Eos # (Auto) Baso # (Auto) Total Counted Seg Neutrophils % Band Neutrophils % Lymphocytes % (Manual) Neutrophils # (Manual) RBC Morphology Dimorphic RBCs Anisocytosis PT INR APTT Sodium Potassium Chloride Carbon Dioxide BUN Creatinine Estimated GFR BUN/Creatinine Ratio Glucose Lactate 1.7 Calcium Magnesium Total Bilirubin AST ALT Alkaline Phosphatase Total Creatine Kinase CK-MB (CK-2) CK-MB (CK-2) Rel Index Troponin I Total Protein Albumin Globulin Albumin/Globulin Ratio Nasal Screen MRSA (PCR) Negative for mrsa SARS-CoV-2 (PCR) Blood Type Antibody Screen Crossmatch 10/20/20 10/20/20 10/20/20 00:00 00:00 00:00 WBC 13.6 H RBC 3.08 L Hgb 8.1 L Hct 25.6 L MCV 83.4 MCH 26.3 MCHC 31.6 RDW 18.0 H Plt Count 195 Neut % (Auto) 93.2 H Lymph % (Auto) 4.8 L Storey % (Auto) 0.9 L Eos % (Auto) 0.3 L Baso % (Auto) 0.8 Neut # (Auto) 92452 H Lymph # (Auto) 700 L Storey # (Auto) 100 Eos # (Auto) 0 Baso # (Auto) 100 Total Counted Seg Neutrophils % Band Neutrophils % Lymphocytes % (Manual) Neutrophils # (Manual) RBC Morphology Dimorphic RBCs Anisocytosis PT INR APTT Sodium 132 L Potassium 4.9 Chloride 102 Carbon Dioxide 31 BUN 44 H Creatinine 1.04 Estimated GFR > 60.0 BUN/Creatinine Ratio 42.3 H Glucose 96 D Lactate 1.0 Calcium 7.3 L Magnesium Total Bilirubin AST ALT Alkaline Phosphatase Total Creatine Kinase CK-MB (CK-2) CK-MB (CK-2) Rel Index Troponin I Total Protein Albumin Globulin Albumin/Globulin Ratio Nasal Screen MRSA (PCR) SARS-CoV-2 (PCR) Blood Type Antibody Screen Crossmatch 10/20/20 10/20/20 10/20/20 00:01 06:00 06:00 WBC RBC Hgb Hct MCV MCH MCHC RDW Plt Count Neut % (Auto) Lymph % (Auto) Storey % (Auto) Eos % (Auto) Baso % (Auto) Neut # (Auto) Lymph # (Auto) Storey # (Auto) Eos # (Auto) Baso # (Auto) Total Counted Seg Neutrophils % Band Neutrophils % Lymphocytes % (Manual) Neutrophils # (Manual) RBC Morphology Dimorphic RBCs Anisocytosis PT INR APTT Sodium 132 L Potassium 4.4 Chloride 102 Carbon Dioxide 30 BUN 42 H Creatinine 0.95 Estimated GFR > 60.0 BUN/Creatinine Ratio 44.2 H Glucose 94 Lactate 0.8 Calcium 7.2 L Magnesium 1.5 L Total Bilirubin 0.5 AST 28 ALT 22 Alkaline Phosphatase 70 Total Creatine Kinase CK-MB (CK-2) CK-MB (CK-2) Rel Index Troponin I Total Protein 4.3 L Albumin 2.1 L Globulin 2.2 Albumin/Globulin Ratio 1.0 Nasal Screen MRSA (PCR) SARS-CoV-2 (PCR) Blood Type Antibody Screen Crossmatch 10/20/20 10/20/20 06:00 06:00 WBC 12.0 H RBC 2.77 L Hgb 7.4 L Hct 23.2 L MCV 84.0 MCH 26.7 MCHC 31.8 RDW 18.5 H Plt Count 172 Neut % (Auto) Not Reportable Lymph % (Auto) Not Reportable Storey % (Auto) Not Reportable Eos % (Auto) Not Reportable Baso % (Auto) Not Reportable Neut # (Auto) Lymph # (Auto) Not Reportable Storey # (Auto) Not Reportable Eos # (Auto) Baso # (Auto) Not Reportable Total Counted 100 Seg Neutrophils % 89.0 H Band Neutrophils % 7.0 Lymphocytes % (Manual) 4.0 L Neutrophils # (Manual) 66489 H RBC Morphology See below Dimorphic RBCs * Anisocytosis PT INR APTT Sodium Potassium Chloride Carbon Dioxide BUN Creatinine Estimated GFR BUN/Creatinine Ratio Glucose Lactate Calcium Magnesium 1.9 Total Bilirubin AST ALT Alkaline Phosphatase Total Creatine Kinase CK-MB (CK-2) CK-MB (CK-2) Rel Index Troponin I Total Protein Albumin Globulin Albumin/Globulin Ratio Nasal Screen MRSA (PCR) SARS-CoV-2 (PCR) Blood Type Antibody Screen Crossmatch Assessment & Plan Assessment and plan (1) Anemia: Qualifiers: Anemia type: other cause Other causes of anemia: acute posthemorrhagic Qualified Code(s): D62 - Acute posthemorrhagic anemia Status: Acute (2) Acute blood loss anemia: Status: Acute (3) GI bleed: Qualifiers: GI bleed type/associated pathology: diverticulosis Qualified Code(s): K57.91 - Diverticulosis of intestine, part unspecified, without perforation or abscess with bleeding Status: Acute (4) Acute kidney injury: Status: Acute (5) Bladder cancer: Qualifiers: Bladder location: unspecified site Qualified Code(s): C67.9 - Malignant neoplasm of bladder, unspecified Status: Acute (6) Adult onset hypothyroidism: Status: Acute (7) Diverticulosis: Status: Acute (8) Personal history of colonic polyps: Status: Acute (9) Paroxysmal A-fib: Status: Acute (10) HX: anticoagulation: Status: Acute Assessment & Plan narrative: 15 minutes were spent reviewing the patient's imaging, 6 minutes were spent discussing the case with Dr. De Leon, 25 minutes were spent discussing the case with the patient, and examining him, and 12 minutes was spent discussing the patient with the nurse and how supervising nurse to schedule the patient for possible endoscopy today. Had a long discussion with the patient regarding his recent medical history, and his history of anticoagulation. The time what is not entirely clear from the patient's standpoint, but he believes that he began bleeding shortly after he took Eliquis for the Port-A-Cath placement. Given he has had a colonoscopy for which we have the report, which was done about 1 year ago, showing only a few small polyps and diverticula, the most likely cause of his GI bleed is diverticulosis. Per the patient, all prior GI bleeds were also associated with taking anticoagulation, and he is now refusing any future use of anticoagulation. I told him that we may be able to find a focal source of bleeding on colonoscopy, but this is often difficult. We will try to get him prepped today so that we can take a look on colonoscopy this afternoon. If I can find a source of bleeding, and clip it or injected it, we will attempt to do that. If there is no obvious source, we have the options of doing a sigmoid colectomy, but this has a small chance of not taking care of the bleed, since we would be doing that in the setting of not a clearly identified source. We can also wait till the next time this happens, and transfer him immediately to hospital that has the capability of angio, and IR to embolize a bleeder. I explained all of this to the patient, as well as discussing it with Dr. De Leon. Plan: Start bowel prep now Attempt to complete bowel prep and have clear stool by 2:00 p.m. NPO at 2:00 p.m. Colonoscopy at 4:00 p.m. If this does not work out, we may ask for his colonoscopy to be done tomorrow by Dr. Estrella COVID-19 COVID-19 status: Negative Result date/Date tested (Pos, Neg/Pending): 10/19/20 Time Spent With Patient Time with patient: Greater than 35 minutes (58)
[2020-10-20] MEDS: PANTOPRAZOLE 40 MG VIAL IV (10:18)
[2020-10-20 10:52] LABS: Hematocrit 29.6 % (41-53); Hemoglobin 9.3 g/dL (13.5-17.5)
--- NOTE | 2020-10-20 11:45 | PM.PN.1 ---
Subjective Subjective Date Patient Seen: 10/20/20 Interval history: The patient is a 80 y/o male admitted last night with acute blood loss anemia, hemorrhagic shock, syncope, secondary to lower gi bleeding. Patient had continued bleeding overnight. He has not had any additional hypotension. He received 3 units of PRCc;s without difficulty. He does have increased swelling of his hands and legs. He denies shortness of breath. patient has had no hemetemsis or nausea. Patient complains of significant flatus. He had one large bloody/maroon stool this morning Exam Vital Signs (past 8 hours): - 10/20/20 04:00 10/20/20 05:00 10/20/20 06:53 Temperature Pulse Rate 83 76 91 H Respiratory Rate 23 18 25 H Blood Pressure 117/67 133/67 147/67 H Pulse Oximetry 96 97 10/20/20 07:37 10/20/20 07:53 10/20/20 07:59 Temperature 97.5 F L 97.5 F L 97.6 F Pulse Rate 91 H 91 H 75 Respiratory Rate 13 20 18 Blood Pressure 144/91 H 144/91 H 121/76 Pulse Oximetry 100 10/20/20 10:03 Temperature 97.5 F L Pulse Rate 77 Respiratory Rate 18 Blood Pressure 95/58 L Pulse Oximetry Oxygen Delivery Method Room Air Oxygen Flow Rate 0 Narrative Exam Narrative: pleasant male lying in bed Lungs: decreased breath sounds but clear to auscultation CV: irregularly irregular, nl Sl S2 Abd: soft/ non tender/ non distended Patient with bilateral lower extremity edema, left upper extremity edematous as well Objective Labs Result Diagrams: 10/20/20 10:37 10/20/20 06:00 Labs: Laboratory Results - last 24 hr 10/19/20 10/19/20 10/19/20 14:45 15:05 15:05 WBC 21.1 H RBC 2.18 L Hgb 5.6 L* Hct 18.2 L* MCV 83.7 MCH 25.9 L MCHC 30.9 RDW 20.6 H Plt Count 277 Neut % (Auto) 97.4 H Lymph % (Auto) 2.1 L [place] % (Auto) 0.3 L Eos % (Auto) 0.1 L Baso % (Auto) 0.1 Neut # (Auto) 84432 H Lymph # (Auto) 400 L [place] # (Auto) 100 Eos # (Auto) 0 Baso # (Auto) 0 Total Counted Seg Neutrophils % Band Neutrophils % Lymphocytes % (Manual) Neutrophils # (Manual) RBC Morphology Not Reportable Dimorphic RBCs Anisocytosis 2+ H PT 14.9 H INR 1.3 APTT 27 Sodium Potassium Chloride Carbon Dioxide BUN Creatinine Estimated GFR BUN/Creatinine Ratio Glucose Lactate Calcium Magnesium Total Bilirubin AST ALT Alkaline Phosphatase Total Creatine Kinase CK-MB (CK-2) CK-MB (CK-2) Rel Index Troponin I Total Protein Albumin Globulin Albumin/Globulin Ratio Nasal Screen MRSA (PCR) SARS-CoV-2 (PCR) Negative Blood Type Antibody Screen Crossmatch 10/19/20 10/19/20 10/19/20 15:05 15:05 15:19 WBC RBC Hgb Hct MCV MCH MCHC RDW Plt Count Neut % (Auto) Lymph % (Auto) [place] % (Auto) Eos % (Auto) Baso % (Auto) Neut # (Auto) Lymph # (Auto) [place] # (Auto) Eos # (Auto) Baso # (Auto) Total Counted Seg Neutrophils % Band Neutrophils % Lymphocytes % (Manual) Neutrophils # (Manual) RBC Morphology Dimorphic RBCs Anisocytosis PT INR APTT Sodium 133 L Potassium 4.7 Chloride 102 Carbon Dioxide 23 BUN 41 H Creatinine 1.11 Estimated GFR > 60.0 BUN/Creatinine Ratio 36.9 H Glucose 197 H Lactate 6.3 H* Calcium 7.2 L Magnesium Total Bilirubin 0.3 AST 30 ALT 24 Alkaline Phosphatase 79 Total Creatine Kinase 45 L CK-MB (CK-2) TNP CK-MB (CK-2) Rel Index TNP Troponin I < 0.012 Total Protein 4.5 L Albumin 2.2 L Globulin 2.3 Albumin/Globulin Ratio 1.0 Nasal Screen MRSA (PCR) SARS-CoV-2 (PCR) Blood Type A Positive Antibody Screen Negative Crossmatch See Detail 10/19/20 10/19/20 10/19/20 17:15 18:50 18:50 WBC RBC Hgb 7.5 L Hct 23.4 L MCV MCH MCHC RDW Plt Count Neut % (Auto) Lymph % (Auto) [place] % (Auto) Eos % (Auto) Baso % (Auto) Neut # (Auto) Lymph # (Auto) [place] # (Auto) Eos # (Auto) Baso # (Auto) Total Counted Seg Neutrophils % Band Neutrophils % Lymphocytes % (Manual) Neutrophils # (Manual) RBC Morphology Dimorphic RBCs Anisocytosis PT INR APTT Sodium Potassium Chloride Carbon Dioxide BUN Creatinine Estimated GFR BUN/Creatinine Ratio Glucose Lactate 1.7 Calcium Magnesium Total Bilirubin AST ALT Alkaline Phosphatase Total Creatine Kinase CK-MB (CK-2) CK-MB (CK-2) Rel Index Troponin I Total Protein Albumin Globulin Albumin/Globulin Ratio Nasal Screen MRSA (PCR) Negative for mrsa SARS-CoV-2 (PCR) Blood Type Antibody Screen Crossmatch 10/20/20 10/20/20 10/20/20 00:00 00:00 00:00 WBC 13.6 H RBC 3.08 L Hgb 8.1 L Hct 25.6 L MCV 83.4 MCH 26.3 MCHC 31.6 RDW 18.0 H Plt Count 195 Neut % (Auto) 93.2 H Lymph % (Auto) 4.8 L [place] % (Auto) 0.9 L Eos % (Auto) 0.3 L Baso % (Auto) 0.8 Neut # (Auto) 33799 H Lymph # (Auto) 700 L [place] # (Auto) 100 Eos # (Auto) 0 Baso # (Auto) 100 Total Counted Seg Neutrophils % Band Neutrophils % Lymphocytes % (Manual) Neutrophils # (Manual) RBC Morphology Dimorphic RBCs Anisocytosis PT INR APTT Sodium 132 L Potassium 4.9 Chloride 102 Carbon Dioxide 31 BUN 44 H Creatinine 1.04 Estimated GFR > 60.0 BUN/Creatinine Ratio 42.3 H Glucose 96 D Lactate 1.0 Calcium 7.3 L Magnesium Total Bilirubin AST ALT Alkaline Phosphatase Total Creatine Kinase CK-MB (CK-2) CK-MB (CK-2) Rel Index Troponin I Total Protein Albumin Globulin Albumin/Globulin Ratio Nasal Screen MRSA (PCR) SARS-CoV-2 (PCR) Blood Type Antibody Screen Crossmatch 10/20/20 10/20/20 10/20/20 00:01 06:00 06:00 WBC RBC Hgb Hct MCV MCH MCHC RDW Plt Count Neut % (Auto) Lymph % (Auto) [place] % (Auto) Eos % (Auto) Baso % (Auto) Neut # (Auto) Lymph # (Auto) [place] # (Auto) Eos # (Auto) Baso # (Auto) Total Counted Seg Neutrophils % Band Neutrophils % Lymphocytes % (Manual) Neutrophils # (Manual) RBC Morphology Dimorphic RBCs Anisocytosis PT INR APTT Sodium 132 L Potassium 4.4 Chloride 102 Carbon Dioxide 30 BUN 42 H Creatinine 0.95 Estimated GFR > 60.0 BUN/Creatinine Ratio 44.2 H Glucose 94 Lactate 0.8 Calcium 7.2 L Magnesium 1.5 L Total Bilirubin 0.5 AST 28 ALT 22 Alkaline Phosphatase 70 Total Creatine Kinase CK-MB (CK-2) CK-MB (CK-2) Rel Index Troponin I Total Protein 4.3 L Albumin 2.1 L Globulin 2.2 Albumin/Globulin Ratio 1.0 Nasal Screen MRSA (PCR) SARS-CoV-2 (PCR) Blood Type Antibody Screen Crossmatch 10/20/20 10/20/20 10/20/20 06:00 06:00 10:37 WBC 12.0 H RBC 2.77 L Hgb 7.4 L 9.3 L Hct 23.2 L 29.6 L MCV 84.0 MCH 26.7 MCHC 31.8 RDW 18.5 H Plt Count 172 Neut % (Auto) Not Reportable Lymph % (Auto) Not Reportable [place] % (Auto) Not Reportable Eos % (Auto) Not Reportable Baso % (Auto) Not Reportable Neut # (Auto) Lymph # (Auto) Not Reportable [place] # (Auto) Not Reportable Eos # (Auto) Baso # (Auto) Not Reportable Total Counted 100 Seg Neutrophils % 89.0 H Band Neutrophils % 7.0 Lymphocytes % (Manual) 4.0 L Neutrophils # (Manual) 74490 H RBC Morphology See below Dimorphic RBCs * Anisocytosis PT INR APTT Sodium Potassium Chloride Carbon Dioxide BUN Creatinine Estimated GFR BUN/Creatinine Ratio Glucose Lactate Calcium Magnesium 1.9 Total Bilirubin AST ALT Alkaline Phosphatase Total Creatine Kinase CK-MB (CK-2) CK-MB (CK-2) Rel Index Troponin I Total Protein Albumin Globulin Albumin/Globulin Ratio Nasal Screen MRSA (PCR) SARS-CoV-2 (PCR) Blood Type Antibody Screen Crossmatch [facility] Medical History (Updated 10/20/20 @ 10:14 by Uyen Alford MD) Adult onset hypothyroidism Anemia History of cardioversion Hx of prostatic malignancy Lipoma of abdominal wall Paroxysmal A-fib Surgical History Hx of total knee replacement S/P TURP (status post transurethral resection of prostate) Family History Mother Multiple sclerosis Father Prostate cancer Social History household members: spouse Smoking Status: Never smoker alcohol intake: current Assessment & Plan Assessment & Plan narrative: 80-year-old male admitted to the hospital with hemorrhagic shock, and acute blood loss anemia from lower GI bleed -patient has received 4 units of packed RBCs with improvement of his hemoglobin now at 9.3 -he continues to have intermittent lower GI bleeding, the patient is undergoing bowel prep plans for colonoscopy today -suspect diverticular bleed but C scope will define further. -apixaban on hold -no further transfusions needed at this time -given his significant peripheral edema will start IV Lasix 20 mg x 1 now -continue iron given his significant blood loss anemia -will continue to trend his hemoglobin and hematocrit -no further syncopal episodes Paroxysmal atrial fibrillation -patient was anticoagulate for his AFib and Port-A-Cath -his heart rate is controlled on metoprolol which we will continue -patient indicates he does not wish to take apixaban any further, will defer to his primary team regarding that medication Metastatic bladder cancer -patient to continue undergoing treatment with chemo and radiation per Oncology -continue tamsulosin Quality VTE Deep Vein Thrombosis/Pulmonary Embolism Present on Admission: No
[2020-10-20] MEDS: FUROSEMIDE 20 MG/2 ML VIAL IV (12:27)
--- NOTE | 2020-10-20 15:12 | CM.DPNOTE ---
Addendum entered by Carlos Whelan 10/20/20 15:57: Patient switched to inpatient status on 10/20/20. HARJIT Nash MSW Student Original Note: DCP ASSESSMENT: Patient is a 80 year-old male who was admitted on 10/19/20 for Rectal bleed and syncope. PCP listed Kat Christian. Primary payer listed is [facility] and Self-pay. Patient was discharged 10/18/20 patient presented with same complaint of syncope patient returned 10/19/20. Attempted to see patient x2 this date, in AM Nursing held session due to procedure prep. Second visit patient sleeping. Patient is scheduled for a colonoscopy at 4pm today. Information was collected from a chart review this date. Per chart review patient appears to be independent with ADL's lives in [place] with spouse Hannah . PLAN: Will attempt to see patient on 10/21/20 to further assess discharge needs HARJIT Nash MSW Student Discharge Planning/Care Management CM Discharge Assessment Start: 10/20/20 15:03 Freq: Status: Active Protocol: Document 10/20/20 15:03 AL (Rec: 10/20/20 15:11 AL [id number]) Discharge Planning Assessment Contact Information Hannah Pinedo () # Advance Directives? No Advance Directives on File No History Provided By Medical Record Has Patient been admitted in last 30 Yes days? Comment 10/17/20 - 10/18/20 Prior Living Arrangements House Household Members spouse Independent with ADL's Yes Is patient alert and oriented? Yes Caregiver for Another No Discharge Plan Home Transportation Arrangement Spouse Review Status In Process
[2020-10-20] MEDS: SODIUM CHLORIDE 0.9% 1,000 ML 150 ML IV ×2 (16:00→22:46)
--- NOTE | 2020-10-20 16:06 | SUR.HOLD ---
Patient to pre-op holding area from ICU with Endo nursing staff. GCS 15. VSS. Afib noted on the monitor at a controlled rate. Patient noted to have 4+ pitting edema to left upper extremity that is causing weeping out of his skin. Gown wet with fluid. Wrapped left arm in kerlex due to weeping and applied clean gown to patient. Right antecubital IV site also weeping around catheter insertion site but flushes without difficulty. Patient has an indwelling portacath to right upper chest and gives nursing staff permission to use port for Endo procedure. Cleaned hub and flushed with saline. Good blood return noted and Portacath patent.
--- NOTE | 2020-10-20 16:44 | PC.NURSE ---
Addendum entered by Neena Bernal R.N. 10/20/20 20:48: 2048 Pt very insistent that he speak to the surgeon Dr. Alford about the findings of today's procedure, he states that he realizes that the Doctor spoke to his , but he would like to speak with her tomorrow. Addendum entered by Neena Bernal R.N. 10/20/20 17:25: 1703 Report received from PACU nurse Rosita, pt sleeping on Left side, 550 drained from robb, BP 128/72 AFIB 80's O2 92% on 2L. Pt arrived back into room at 1715, VSS, connected to fluids per order, PO vitals per protocol, pt wishes to continue sleeping at this time, will continue to monitor. Original Note: Evening shift note: Pt taken via bed to surgery at 1533, no further pt contact at this time
--- NOTE | 2020-10-20 17:10 | P.OP.ENDO_ITS ---
Operative Date/Time/Diagnoses Date of procedure: 10/20/20 Time of procedure: 17:11 Pre-op diagnosis: Acute GI bleed Post-op diagnosis: other (sigmoid colon diverticulosis, friable mucosa throughout) Procedure & Clinicians Study performed: Colonoscopy Same procedure as scheduled: Yes Indications: This is a 80-year-old man who has had 2 episodes of copious GI bleeding in the past week. He is very medically fragile, due to his lung metastases, cardiac condition, and recent significant bleeding and transfusion requirements. For this reason he has a high risk of respiratory and cardiac complications with any procedure. The anesthesiologist , therefore, was necessarily consulted to manage his airway and hemodynamics under sedation during this procedure. Surgeon: Uyen Alford Procedure Notes SCOAP/Timeout: performed Procedure in detail: The patient was brought to the room and placed in left lateral decubitus position with all bony prominences padded. A time-out was performed and then the patient was given procedural sedation by the anesthesiologist. Once adequately sedated, the procedure was begun. A rectal exam was performed revealing [no abnormalities]. The colonoscope was then introduced to the rectum and advanced to the cecum in the usual fashion. There were many diverticula throughout the sigmoid colon up to 35 cm, with many false passages. The rim any areas of friable mucosa, but no areas of active bleeding.[]The cecum was identified by the appendiceal orifice, the mucosal tri- fold, and the ileocecal valve. There was friable mucosa at the cecum, but no active bleeding. The terminal ileum was intubated, and traversed for 15 cm. No areas of bleeding or friability were seen in the ileum. The scope was then retracted while rotating side to side and examining each mucosal fold. No polyps or masses were seen. The entire sigmoid colon from 35 cm to the rectum was densely populated with small, medium, and large mouth diverticula, none with active bleeding or stigmata of recent bleeding seen. At the conclusion of the procedure retroflexion was performed and small grade 1-2 internal hemorrhoids without stigmata of bleeding were seen. The scope was then withdrawn from the rectum the procedure was concluded. The patient tolerated the procedure well and was transferred to the PACU in stable condition. Scope withdrawal time: 12 Findings: diverticulosis ( from 35 cm to the rectum) and other findings ( friable mucosa throughout) Specimen(s): none sent Complications: none Impression: Likely source of bleeding is diverticulosis. The areas of friable mucosa do not likely represent an adequate source for the volume of bleeding the patient has recently sustained. Post-procedure Recommendations: Other recommendation ( Hold anticoagulants. Would not restart anticoagulants in this patient. Discussed with medical oncologist regarding chemotherapeutic agents, and whether any may be increasing his risk of bleeding.) Plan for aftercare: If patient rebleeds transfer to hospital center that has the capability to perform IR angiogram and embolization. Follow up: as needed Disposition: PACU
[2020-10-21] VITALS (7 sets, daily range): BP systolic 91–147; BP diastolic 52–92; PULSE 71–96; RESP 10–27; TEMP 35.8–37.4; O2SAT 96–98
[2020-10-21] MEDS: FUROSEMIDE 20 MG/2 ML VIAL IV ×2 (00:14→09:08)
[2020-10-21 04:47] LABS: Add Manual Diff / Slide Review NO; Basophils Absolute Auto 0 /uL (0-100); Basophils Percent Auto 0.2 % (0-2); Eosinophils Absolute Auto 100 /uL (0-450); Eosinophils Percent Auto 0.7 % (2-4); Hemoglobin 8.4 g/dL (13.5-17.5); Lymphocytes Absolute Auto 900 /uL (1100-4500); Lymphocytes Percent Auto 9.3 % (25-40); Mean Corpuscular HGB Conc 33.4 % (30-36); Mean Corpuscular Hemoglobin 27.9 PG (26-34); Mean Corpuscular Volume 83.5 fL (80-100); Monocytes Absolute Auto 100 /uL (0-900); Monocytes Percent Auto 1.3 % (3-14); Neutrophils Absolute Auto 8300 /uL (1500-7000); Neutrophils Percent Auto 88.5 % (50-75); Platelet Count 153 X10^3/uL (150-400); Red Cell Distribution Width 17.8 % (11.6-14.8); White Blood Cell Count 9.4 X10^3/uL (4.5-11.0)
[2020-10-21 04:53] LABS: Blood Urea Nitrogen 33 mg/dL (9-20); Calcium 7.5 mg/dL (8.4-10.2); Carbon Dioxide 35 mmol/L (22-32); Chloride 99 mmol/L (98-107); Estimated Glomerular Filt Rate > 60.0 mL/min (>60); Glucose 90 mg/dL (80-110); HEMOLYSIS < 15 (0-50); Magnesium 1.6 mg/dL (1.6-2.3); Potassium 4.1 mmol/L (3.4-5.1); Sodium 133 mmol/L (137-145)
[2020-10-21 05:01] LABS: NT-proBNP (BNP-Adult 18+) 4450 pg/mL (<450)
[2020-10-21] MEDS: SODIUM CHLORIDE 0.9% FLUSH 10 ML IV (08:24)
[2020-10-21] MEDS: METOPROLOL IR 25 MG TABLET PO (08:24)
[2020-10-21] MEDS: LEVOTHYROXINE 25 MCG TABLET PO (08:24)
--- NOTE | 2020-10-21 08:36 | PM.PN.1 ---
Subjective Subjective Date Patient Seen: 10/21/20 Interval history: Patient is a 80-year-old male with history of advanced bladder cancer, atrial fibrillation admitted due to recurrent severe lower GI bleed. He had colonoscopy on 10/20/2020 which showed extensive sigmoid diverticulosis and friable colon mucosa with the diverticulosis as likely source of bleed. Acute bleeding source was not definitively identified, however. He has been stable overnight. He has been quite edematous due to blood transfusions and received 20 mg IV Lasix yesterday. He is presently on clear liquid diet. Exam Vital Signs (past 8 hours): - 10/21/20 04:00 10/21/20 05:00 10/21/20 08:00 Temperature 97.2 F L 97.0 F L Pulse Rate 71 96 H 74 Respiratory Rate 10 L 18 Blood Pressure 132/83 147/92 H Pulse Oximetry 98 Oxygen Delivery Method Nasal Cannula Oxygen Flow Rate 2 Narrative Exam Narrative: General: Alert and cooperative male in no acute distress Lungs: Clear to auscultation Heart: Irregularly irregular Extremities: Moderate pitting edema in the lower legs Neurological: Affect normal, speech normal, nonfocal Objective Labs Result Diagrams: 10/21/20 04:40 10/21/20 04:40 Labs: Laboratory Results - last 24 hr 10/19/20 10/20/20 10/21/20 15:19 10:37 04:40 WBC 9.4 RBC 3.00 L Hgb 9.3 L 8.4 L Hct 29.6 L 25.0 L MCV 83.5 MCH 27.9 MCHC 33.4 RDW 17.8 H Plt Count 153 Neut % (Auto) 88.5 H Lymph % (Auto) 9.3 L [place] % (Auto) 1.3 L Eos % (Auto) 0.7 L Baso % (Auto) 0.2 Neut # (Auto) 8300 H Lymph # (Auto) 900 L [place] # (Auto) 100 Eos # (Auto) 100 Baso # (Auto) 0 Sodium Potassium Chloride Carbon Dioxide BUN Creatinine Estimated GFR BUN/Creatinine Ratio Glucose Calcium Magnesium NT-Pro-B Natriuret Pep Crossmatch See Detail 10/21/20 04:40 WBC RBC Hgb Hct MCV MCH MCHC RDW Plt Count Neut % (Auto) Lymph % (Auto) [place] % (Auto) Eos % (Auto) Baso % (Auto) Neut # (Auto) Lymph # (Auto) [place] # (Auto) Eos # (Auto) Baso # (Auto) Sodium 133 L Potassium 4.1 Chloride 99 Carbon Dioxide 35 H BUN 33 H Creatinine 1.03 Estimated GFR > 60.0 BUN/Creatinine Ratio 32.0 H Glucose 90 Calcium 7.5 L Magnesium 1.6 NT-Pro-B Natriuret Pep 4450 H Crossmatch [facility] Medical History (Updated 10/20/20 @ 10:14 by Uyen Alford MD) Adult onset hypothyroidism Anemia History of cardioversion Hx of prostatic malignancy Lipoma of abdominal wall Paroxysmal A-fib Surgical History Hx of total knee replacement S/P TURP (status post transurethral resection of prostate) Family History Mother Multiple sclerosis Father Prostate cancer Social History household members: spouse Smoking Status: Never smoker alcohol intake: current Assessment & Plan Assessment & Plan narrative: This is a 80-year-old male with advanced bladder cancer, atrial fibrillation admitted with hemorrhagic shock due to acute blood loss anemia from recurrent lower GI bleed. 1. Acute blood loss anemia with hemorrhagic shock and syncope -stable overnight, hemoglobin stable -status post 4 units PRBC -colonoscopy: Extensive sigmoid diverticulosis likely source of bleed -continue 1 more day hospitalization, order RBC scan if patient rebleeds -clear liquid diet, advance per surgery -Lasix 20 mg IV x1 for generalized edema secondary to transfusions 2. Paroxysmal atrial fibrillation -currently in atrial fibrillation with controlled VR on telemetry -permanently stopped patient's Eliquis -continue patient's oral metoprolol 3. Metastatic bladder cancer -managed per Oncology at [facility] -continue tamsulosin 4. Hypothyroidism -continue patient's levothyroxine 25 mcg q.d. DVT prophylaxis: SCDs Quality VTE Deep Vein Thrombosis/Pulmonary Embolism Present on Admission: No
--- NOTE | 2020-10-21 16:26 | CM.DPC ---
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 Patient confirmed he lives at home with and is independent with ADL?s including driving. Patient endorsed he was feeling better this date and reported anticipating discharging home. PLAN: Anticipated D/C home. CM Team will continue to follow patient. HARJIT Nash MSW Student
--- NOTE | 2020-10-21 18:26 | PC.NURSE ---
Pt has been AO x4 this shift. Pt asks repetitive questions and is particularly anxious about his potential to have another GIB. He requires a lot of reassurance but is hesitant to mobilize due to his fear of falling and/or bleeding again. Emotional support and reassurance given. Vitals have been stable and pt has been weaned to RA with saturations 96-99%. Bedside monitor shows Afib CVR with frequent PVCs. Pt had one pause at 1155 that was 3 seconds long and a few pauses that were less than 3 seconds. The pt was sleeping at the time this was noted and woke easily without symptoms. Rhythm strips reviewed with Dr. Martell and instruction received to continue to monitor. Plan is for pt to dc home tomorrow.
[2020-10-21] MEDS: TAMSULOSIN 0.4 MG CAPSULE PO (20:44)
[2020-10-22 00:31] VITALS: BP 137/86; PULSE 56; RESP 16; TEMP 36.6; O2SAT 97
[2020-10-22 05:05] VITALS: BP 118/90; PULSE 64; RESP 18; TEMP 36.5; O2SAT 91
[2020-10-22 05:22] LABS: Add Manual Diff / Slide Review NO; Basophils Absolute Auto 0 /uL (0-100); Basophils Percent Auto 0.1 % (0-2); Eosinophils Absolute Auto 100 /uL (0-450); Eosinophils Percent Auto 0.7 % (2-4); Hematocrit 23.5 % (41-53); Hemoglobin 7.6 g/dL (13.5-17.5); Lymphocytes Absolute Auto 700 /uL (1100-4500); Lymphocytes Percent Auto 6.9 % (25-40); Mean Corpuscular HGB Conc 32.5 % (30-36); Mean Corpuscular Hemoglobin 27.4 PG (26-34); Mean Corpuscular Volume 84.4 fL (80-100); Monocytes Absolute Auto 100 /uL (0-900); Monocytes Percent Auto 1.3 % (3-14); Neutrophils Absolute Auto 8800 /uL (1500-7000); Platelet Count 100 X10^3/uL (150-400); Red Blood Cell Count 2.79 X10^6/uL (4.5-5.9); Red Cell Distribution Width 18.1 % (11.6-14.8); White Blood Cell Count 9.7 X10^3/uL (4.5-11.0)
[2020-10-22 05:27] LABS: BUN Creatinine Ratio 27.4 (6-22); Blood Urea Nitrogen 29 mg/dL (9-20); Calcium 7.5 mg/dL (8.4-10.2); Carbon Dioxide 33 mmol/L (22-32); Chloride 98 mmol/L (98-107); Estimated Glomerular Filt Rate > 60.0 mL/min (>60); Glucose 103 mg/dL (80-110); HEMOLYSIS < 15 (0-50); Potassium 3.9 mmol/L (3.4-5.1); Sodium 132 mmol/L (137-145)
[2020-10-22] MEDS: LEVOTHYROXINE 25 MCG TABLET PO (05:31)
[2020-10-22] MEDS: ACETAMINOPHEN 325 MG TABLET 650 MG PO (05:31)
[2020-10-22] MEDS: SODIUM CHLORIDE 0.9% FLUSH 10 ML IV ×2 (05:31→11:57)
--- NOTE | 2020-10-22 06:28 | PC.NURSE ---
Shift Note-Patient was able to doze intermittently. Ambulates into BR with walker and SBA, steady, denies dizziness or shortness of breath, HR does go up to 120 briefly, resolves quickly at rest. Voiding without difficulty after Venegas catheter removed, no stools. Tylenol given for mild generalized pain. AM H/H of 7.6/23.5 reported to Des BLACKMAN.
[2020-10-22 08:05] VITALS: BP 114/85; PULSE 80; RESP 16; TEMP 36.3; O2SAT 97
[2020-10-22] MEDS: METOPROLOL IR 25 MG TABLET PO (08:33)
--- NOTE | 2020-10-22 10:30 | P.DS_ITS ---
History of Present Illness History of Present Illness Chief complaint: Rectal Bleed, syncope Narrative: Patient is a 80-year-old male with a history of bladder cancer currently undergoing chemotherapy at [facility] who was admitted to the hospital 2 days ago for symptomatic blood loss anemia. Patient developed a large bloody stool and had associated syncope. He was admitted to the hospital with a hemoglobin of 5 received 3 units of packed RBCs started on proton pump inhibitor and was discharged home. The patient was offered endoscopy which she refused. He was follow-up with his PCP for further evaluation. Earlier today the patient was going to the restroom when his knees gave out. He had a large bloody bowel movement. He loss consciousness. Medics arrived and the patient became syncopal twice again. He was transported to the emergency department for evaluation. Patient was found to have hemoglobin of 5. He was given 2 units of O-negative blood. Patient has a history of paroxysmal atrial fibrillation. He was anticoagulated with Eliquis. Patient continues to have rectal bleeding. He has had no hematemesis, upper abdominal pain, or dyspepsia. He denies any chest pain, or shortness of breath. As a consequence of syncopal episodes patient developed bruising on the forehead and has multiple bruising on his upper and lower extremities. He also reports lower extremity edema which is chronic. He denies any orthopnea. Patient is admitted to the hospital at this time for symptomatic anemia. He has received 2 units of blood thus far. The patient will be seen by General surgery who will begin bowel prep tomorrow. Will continue to monitor his H&H this evening. Her goal will be to transfuse him to hemoglobin of at least 9. Anticipate definitive endoscopy and treatment during this admission. His anticoagulation has been held. Patient is agreeable to the treatment plan as outlined. Discharge Providers Provider Date of admission: 10/19/20 16:59 Discharge Date: 10/22/20 Primary care physician: Kat Christian PA-C Consults: 10/19/20 17:41 Consult to General Surgery Routine Comment: Consulting Provider: Uyen Alford Reason for consultation: gi bleed Has provider been notified: Yes Discharge provider: Parminder aMrtell MD Summary Hospital Course Discharge Diagnosis: 1. Acute blood loss anemia 2. Hemorrhagic shock 3. Paroxysmal versus chronic atrial fibrillation 4. Metastatic bladder cancer 5. Hypothyroidism Patient was admitted with recurrent severe lower GI bleed causing severe hypotension and syncope. He was transfused 4 units PRBC. Colonoscopy showed extensive sigmoid diverticulosis which was likely source of bleed. Also noted was friable mucosa which was not thought to be source of bleed. Patient was previously on Eliquis for history of atrial fibrillation and this has been permanently discontinued. He was in controlled atrial fibrillation on telemetry monitoring. He did have a couple of approximately 3 seconds pauses on telemetry which was not thought to be significant. Patient additionally is being managed at [facility] for metastatic bladder cancer. He will follow-up with his oncologist. On day of discharge his hemoglobin is 7.6 and hematocrit 23.5 with stable blood pressures and heart rate. Total time of 30 minutes in discharge day management services. Exam Vital Signs (past 8 hours): - 10/22/20 05:05 10/22/20 08:05 Temperature 97.7 F 97.3 F L Pulse Rate 64 80 Respiratory Rate 18 16 Blood Pressure 118/90 114/85 Pulse Oximetry 91 97 Oxygen Delivery Method Room Air Oxygen Flow Rate 0 Objective Labs Result Diagrams: 10/22/20 05:00 10/22/20 05:00 Labs: Laboratory Results - last 24 hr 10/22/20 10/22/20 05:00 05:00 WBC 9.7 RBC 2.79 L Hgb 7.6 L Hct 23.5 L MCV 84.4 MCH 27.4 MCHC 32.5 RDW 18.1 H Plt Count 100 L Neut % (Auto) 91.0 H Lymph % (Auto) 6.9 L Heard % (Auto) 1.3 L Eos % (Auto) 0.7 L Baso % (Auto) 0.1 Neut # (Auto) 8800 H Lymph # (Auto) 700 L Heard # (Auto) 100 Eos # (Auto) 100 Baso # (Auto) 0 Sodium 132 L Potassium 3.9 Chloride 98 Carbon Dioxide 33 H BUN 29 H Creatinine 1.06 Estimated GFR > 60.0 BUN/Creatinine Ratio 27.4 H Glucose 103 Calcium 7.5 L PFSH Medical History (Updated 10/20/20 @ 10:14 by Uyen Alford MD) Adult onset hypothyroidism Anemia History of cardioversion Hx of prostatic malignancy Lipoma of abdominal wall Paroxysmal A-fib Surgical History Hx of total knee replacement S/P TURP (status post transurethral resection of prostate) Family History Mother Multiple sclerosis Father Prostate cancer Social History household members: spouse Smoking Status: Never smoker alcohol intake: current Discharge Plan Discharge Plan Patient Disposition: Home Discharge orders & Medications Prescriptions: Continued tamsulosin 0.4 mg capsule 0.4 mg PO BEDTIME RF: 0 olanzapine 2.5 mg tablet 2.5 mg PO PRN PRN (Reason: Nausea) RF: 0 levothyroxine [Synthroid] 25 mcg Tablet 25 mcg PO DAILY RF: 0 metoprolol tartrate 25 mg Tablet 25 mg PO DAILY RF: 0 iron bisglycinate chelate 29 mg iron Capsule 29 mg PO DAILY RF: 0 biotin-chromium 2-600 mg-mcg Capsule 1 cap PO DAILY RF: 0 cholecalciferol (vitamin D3) [Vitamin D3] 125 mcg (5,000 unit) Tablet 250 mcg PO DAILY RF: 0 Follow up/Referrals: Kat Christian, PAClaireC [Primary Care Provider] - (-Please call and set up a follow-up appointment with your primary care provider -Be sure to let the office know that this is a follow-up for a hospital stay -It is recommended that this appointment occur within 1-2 weeks of your date of hospital discharge) Diet/Activity/Treatments Diet: Regular Visit Report/Discharge Packet Instructions: How to Prevent Falls, Gastrointestinal Bleeding, DI for Diverticulosis Discharge Data Primary Care Provider: Kat Christian Quality VTE Deep Vein Thrombosis/Pulmonary Embolism Present on Admission: No
--- NOTE | 2020-10-22 10:56 | PC.NURSE ---
Addendum entered by Tank Shah R.N. 10/22/20 13:03: De accessed port per protocol. Pt tolerated well. to bedside at 1230. Reviewed d/c packet and educational materials. Reinforced need for f/u appt with PCP. Reviewed educational material re GIB, diverticulosis, fall risk. Reviewed medications including next dose due. Both pt and verbalize understanding. Pt left with all belongings via w/c in no distress. Original Note: Plan is for pt to dc home today. Pt is agreeable to plan. He would like to take a nap. He has called his , Hannah, and told her to be here around noon. He states he will take care of scheduling his own follow-up appointment. He requests that d/c education be post poned until his arrives.
[2020-10-22 12:00] VITALS: BP 118/71; PULSE 69; RESP 18; TEMP 36.2; O2SAT 97
== END 2020-10-22 12:55 | disposition home or self-care (01) | DRG 377 ==
LOC: ED 16:18 → ICU 17:01
PROVIDERS: Internal Medicine; Nurse Practitioner Family; Surgery; Admitting Provider Internal Medicine; Emergency Provider Emergency Medicine; PCP Physician Assistant; Referring Provider Emergency Medicine; Visit Provider Internal Medicine
PROC: 0DJD8ZZ Inspection of Lower Intestinal Tract, Via Natural or Artificial Opening Endoscopic (ICD-10-PCS; CPT 45378; principal; 2020-10-20 16:30)
DX: K57.31 Diverticulosis of large intestine without perforation or abscess with bleeding (principal); R57.8 Other shock; D62 Acute posthemorrhagic anemia; C79.89 Secondary malignant neoplasm of other specified sites; I48.20 Chronic atrial fibrillation, unspecified; I48.0 Paroxysmal atrial fibrillation; Z79.01 Long term (current) use of anticoagulants; C67.9 Malignant neoplasm of bladder, unspecified; E87.71 Transfusion associated circulatory overload; R55 Syncope and collapse; E03.9 Hypothyroidism, unspecified; Z20.822 Contact with and (suspected) exposure to COVID-19
CPT/HCPCS: 36430; 36591; 45378; 70450; 74177; 80048; 80053; 82550; 83605; 83735; 83880; 84484; 85007; 85014; 85018; 85025; 85610; 85730; 86850; 86900; 86901; 87635; 87797; 93005; 96361; 96374; 99232; 99283; 99291; 99292; C9803; P9016; C9113; J1642; J1940; J3475; Q9967

== ENCOUNTER → 2020-11-11 13:47 | Outpatient (CLI) | payer MEDICARE, SELFPAY ==
[2020-10-19 17:05] VITALS: BMI 27.1
--- NOTE | 2020-11-11 13:57 | DI.RAD.S_ITS ---
PROCEDURE: XR CHEST 2V INDICATIONS: chest congestion TECHNIQUE: 2 views of the chest were acquired. COMPARISON: [facility], CT, CT ANGIO CHEST PE PROTOCOL, 08/20/2020, 15:52. [facility], CT, CT ABDOMEN PELVIS W CON, 10/19/2020, 14:32. [facility], CR, XR CHEST 1V, 08/20/2020, 14:27. FINDINGS: Surgical changes and devices: Right IJ central venous line. Lungs and pleura: Mixed alveolar and interstitial opacity in the right mid and lower lung with small right pleural effusion present, decreased size compared to the prior chest x-ray. Enlarged, stable. Bones and chest wall: No suspicious bony abnormalities. Soft tissues appear unremarkable. IMPRESSION: 1. Alveolar and interstitial opacity in the right mid lung and small residual right pleural effusion. This may represent pneumonia or neoplasm. 2. Right IJ MediPort in satisfactory position. 3. Stable, mild cardiomegaly. Dictated by: Nora Lee M.D. on 11/11/2020 at 16:32 Approved by: Nora Lee M.D. on 11/11/2020 at 16:37
[2020-11-11 15:24] LABS: Hematocrit 23.2 % (41-53); Hemoglobin 7.7 g/dL (13.5-17.5); Mean Corpuscular HGB Conc 33.1 % (30-36); Mean Corpuscular Hemoglobin 28.9 PG (26-34); Mean Corpuscular Volume 87.5 fL (80-100); Red Blood Cell Count 2.66 X10^6/uL (4.5-5.9)
[2020-11-11 15:28] LABS: C-Reactive Protein Quant 15.1 mg/dL (<1.0)
[2020-11-11 15:45] LABS: Add Manual Diff / Slide Review YES; White Blood Cell Count 46.2 X10^3/uL (4.5-11.0)
[2020-11-11 15:56] LABS: Neutrophils Absolute Manual 40656 /uL (3000-5900); Total Cells Counted 100
[2020-11-11 15:57] LABS: Anisocytosis 1+; Ovalocytes 1+; Poikilocytosis 2+
[2020-11-11 15:58] LABS: Hypochromasia 1+; Polychromasia 1+
[2020-11-11 16:01] LABS: Platelet Count 522 X10^3/uL (150-400)
== END ==
PROVIDERS: PCP Physician Assistant
DX: R09.89 Other specified symptoms and signs involving the circulatory and respiratory systems (principal); I51.7 Cardiomegaly; J90 Pleural effusion, not elsewhere classified
CPT/HCPCS: 36415; 71046; 85007; 85025; 86140

== ENCOUNTER 2020-11-22 10:38 | Inpatient (IN) | payer MEDICARE, SELFPAY ==
[2020-10-19 17:05] VITALS: BMI 27.1
[2020-11-22] VITALS (14 sets, daily range): BP systolic 106–134; BP diastolic 67–81; PULSE 94–122; RESP 16–26; TEMP 36.1–36.9; O2SAT 92–98; BMI 26.6
--- NOTE | 2020-11-22 10:50 | DI.RAD.S_ITS ---
PROCEDURE: XR CHEST 1V INDICATIONS: suspected sepsis TECHNIQUE: One view of the chest was acquired. COMPARISON: [facility], CR, XR CHEST 1V, 08/20/2020, 14:27. [facility], CR, XR CHEST 2V, 11/11/2020, 13:57. FINDINGS: Surgical changes and devices: None. Lungs and pleura: The right lower lung has an airspace opacity similar to the prior x-ray on 11/10/20, this is likely residual scarring from a prior large right pleural effusions seen on a 08/20/2020 x-ray. No pneumothorax. Blunting of the right costophrenic angle is seen consistent with a small residual pleural effusion. Mediastinum: Mediastinal contours appear normal. Heart size is normal. Bones and chest wall: No suspicious bony lesions. Overlying soft tissues appear unremarkable. IMPRESSION: 1. Airspace opacity in the right lower lung similar to the prior x-ray on 11/11/2020, likely postinflammatory scarring. 2. Small right pleural effusion. Dictated by: Franklin Weeks M.D. on 11/22/2020 at 11:28 Approved by: Franklin Weeks M.D. on 11/22/2020 at 11:31
--- NOTE | 2020-11-22 11:17 | ED_ITS ---
HPI - Pediatric SOB/Dyspnea General Chief Complaint: Shortness of Breath/Dyspnea Time Seen by Provider: 11/22/20 10:51 Source: patient and EMS Mode of arrival: EMS History of Present Illness HPI Narrative: 80yo male with a history of bladder and lung cancer (radiation completed and chemo pending at this time), paradoxical AFib, and recent GI bleed, presents emergency department for an episode of weakness that happened today. Patient lives at home with his , he was diagnosed with pneumonia and started on doxycycline. However, today he was walking and fell to his knees because he felt weak. Patient denies hitting his head or any injury with falling. He states he has had shortness of breath for the past month. EMS found patient to be 85% oxygen saturation on room air, patient does not use daily oxygen. Patient was on metoprolol but discontinued recently due to history of lung cancer. Patient is not taking any blood thinners at this time. He denies any fevers, chest pain, dizziness, abdominal pain, nausea, vomiting, d iarrhea, or bloody stools. Related Data Home Medications Medication Instructions Recorded Confirmed tamsulosin 0.4 mg PO BEDTIME 05/27/20 10/19/20 biotin-chromium 1 cap PO DAILY 10/17/20 10/19/20 cholecalciferol (vitamin D3) 250 mcg PO DAILY 10/17/20 10/19/20 [Vitamin D3] iron bisglycinate chelate 29 mg PO DAILY 10/17/20 10/19/20 levothyroxine [Synthroid] 25 mcg PO DAILY 10/17/20 10/19/20 metoprolol tartrate 25 mg PO DAILY 10/17/20 10/19/20 olanzapine 2.5 mg PO PRN PRN 10/17/20 10/19/20 Allergies Allergy/AdvReac Type Severity Reaction Status Date / Time Penicillins Allergy Verified 10/19/20 15:15 Sulfa (Sulfonamide Allergy Verified 10/19/20 15:15 Antibiotics) Patient History Medical History (Updated 10/20/20 @ 10:14 by Uyen Alford MD) Adult onset hypothyroidism Anemia History of cardioversion Hx of prostatic malignancy Lipoma of abdominal wall Paroxysmal A-fib Surgical History Hx of total knee replacement S/P TURP (status post transurethral resection of prostate) Family History Mother Multiple sclerosis Father Prostate cancer Social History household members: spouse Smoking Status: Never smoker alcohol intake: current Smoking Status: Never smoker alcohol intake frequency: holidays/special occasions only Substance Use Type: does not use Pediatric Exam Initial Vital Signs Initial Vital Signs: Vital Signs Temperature 98.5 F 11/22/20 10:39 Pulse Rate 122 H 11/22/20 10:39 Respiratory Rate 24 11/22/20 10:39 Blood Pressure 132/77 11/22/20 10:39 Pulse Oximetry 92 11/22/20 10:39 Course Orders Ordered: ED Orders 11/22/20 10:50 XR chest 1V Stat Blood Culture Stat Complete Blood Count AUTO DIFF Stat Comprehensive Metabolic Panel Stat Lactate (Lactic Acid) Stat Lipase Stat Partial Thromboplastin Time Stat Procalcitonin Stat Prothrombin Time INR Stat EKG-12 Lead Stat RT Consult Eval and Treat Now 11/22/20 10:51 NT-proBNP (BNP-Adult 18+) Stat Troponin & CK Cardiac Panel Stat 11/22/20 10:54 COVID19 Stat Vital Signs Vital signs: Vital Signs - 8 hr 11/22/20 10:39 Temperature 98.5 F Pulse Rate 122 H Respiratory Rate 24 Blood Pressure 132/77 Pulse Oximetry 92 Discharge Plan Departure Prescriptions: No Action tamsulosin 0.4 mg capsule 0.4 mg PO BEDTIME RF: 0 olanzapine 2.5 mg tablet 2.5 mg PO PRN PRN (Reason: Nausea) RF: 0 levothyroxine [Synthroid] 25 mcg Tablet 25 mcg PO DAILY RF: 0 metoprolol tartrate 25 mg Tablet 25 mg PO DAILY RF: 0 iron bisglycinate chelate 29 mg iron Capsule 29 mg PO DAILY RF: 0 biotin-chromium 2-600 mg-mcg Capsule 1 cap PO DAILY RF: 0 cholecalciferol (vitamin D3) [Vitamin D3] 125 mcg (5,000 unit) Tablet 250 mcg PO DAILY RF: 0
--- NOTE | 2020-11-22 11:29 | ED.SOB ---
HPI - SOB/Dyspnea <YEHUDA Wilcox - Last Filed: 11/22/20 15:48> General Chief Complaint: Shortness of Breath/Dyspnea Time Seen by Provider: 11/22/20 10:51 Source: patient and EMS Mode of arrival: EMS History of Present Illness HPI Narrative: 80yo male with a history of bladder and lung cancer (radiation completed and chemo pending at this time), paradoxical AFib, and recent GI bleed, presents emergency department for an episode of weakness that happened today. Patient lives at home with his , he was diagnosed with pneumonia and started on doxycycline. However, today he was walking and fell to his knees because he felt weak. Patient denies hitting his head or any injury with falling. He states he has had shortness of breath for the past month. EMS found patient to be 85% oxygen saturation on room air, patient does not use daily oxygen. Patient was on metoprolol but discontinued recently due to history of lung cancer. Patient is not taking any blood thinners at this time. He denies any fevers, chest pain, dizziness, abdominal pain, nausea, vomiting, diarrhea, or bloody stools. Related Data Home Medications Medication Instructions Recorded Confirmed tamsulosin 0.4 mg PO BEDTIME 05/27/20 11/22/20 biotin-chromium 1 cap PO DAILY 10/17/20 11/22/20 cholecalciferol (vitamin D3) 250 mcg PO DAILY 10/17/20 11/22/20 [Vitamin D3] iron bisglycinate chelate 29 mg PO DAILY 10/17/20 11/22/20 levothyroxine [Synthroid] 25 mcg PO DAILY 10/17/20 11/22/20 metoprolol tartrate 25 mg PO DAILY 10/17/20 11/22/20 olanzapine 2.5 mg PO PRN PRN 10/17/20 11/22/20 doxycycline monohydrate PO BID 11/22/20 Allergies Allergy/AdvReac Type Severity Reaction Status Date / Time Penicillins Allergy Verified 10/19/20 15:15 Sulfa (Sulfonamide Allergy Verified 10/19/20 15:15 Antibiotics) Review of Systems <YEHUDA Wilcox - Last Filed: 11/22/20 15:48> Review of Systems Narrative: REVIEW OF SYSTEMS: GENERAL: Denies fevers. HENT: No head trauma. CARDIOVASCULAR: No chest pain. RESPIRATORY: Reports shortness of breath, see HPI. GASTROINTESTINAL: No nausea or vomiting. MUSCULOSKELETAL: Reports weakness, see HPI. INTEGUMENTARY: No rash. Patient History <YEHUDA Wilcox - Last Filed: 11/22/20 15:48> Medical History Adult onset hypothyroidism Anemia History of cardioversion Hx of prostatic malignancy Lipoma of abdominal wall Paroxysmal A-fib Surgical History Hx of total knee replacement S/P TURP (status post transurethral resection of prostate) Family History Mother Multiple sclerosis Father Prostate cancer Social History household members: spouse Smoking Status: Never smoker alcohol intake: current Smoking Status: Never smoker alcohol intake frequency: holidays/special occasions only Substance Use Type: does not use Exam <YEHUDA Wilcox - Last Filed: 11/22/20 15:48> Initial Vital Signs Initial Vital Signs: Vital Signs Temperature 98.5 F 11/22/20 10:39 Pulse Rate 122 H 11/22/20 10:39 Respiratory Rate 24 11/22/20 10:39 Blood Pressure 132/77 11/22/20 10:39 Pulse Oximetry 92 11/22/20 10:39 PHYSICAL EXAMINATION: GENERAL: Awake and alert. HENT: Normocephalic, atraumatic. EYES: Conjunctiva pink, sclera white, no periorbital swelling. No discharge. CHEST: Normal to inspection and without deformities. CARDIOVASCULAR: S1 and S2 sounds normal. Regular rate and rhythm, no murmurs, clicks, or bruits. RESPIRATORY: Normal respiratory rate, trachea midline, airway patent. No stridor, nasal flaring or accessory muscle use. Able to speak in full sentences. Decreased lung sounds at bases, see HPI. MUSCULOSKELETAL: Normal gait and coordination. Equal tone and mass bilaterally. EXTREMITIES: Moves all extremities. SKIN: Warm, dry, soft, appropriate color for ethnicity. No lesions, rashes, or wounds to visualized areas. NEURO: Alert and Oriented X 3. Good coordination. . <DO Claire Rangel Last Filed: 11/22/20 16:48> Initial Vital Signs Initial Vital Signs: Vital Signs Temperature 98.5 F 11/22/20 10:39 Pulse Rate 122 H 11/22/20 10:39 Respiratory Rate 24 11/22/20 10:39 Blood Pressure 132/77 11/22/20 10:39 Pulse Oximetry 92 11/22/20 10:39 Course <Lor TorreYEHUDA rachel - Last Filed: 11/22/20 15:48> Course Course Narrative: Patient updated on plan of care, suggested admission, patient consented to admission. I spoke with Dr. Sanchez, hospitalist, discussed patient's test, test results, history, plan of care. Patient was accepted for admission. After initial test results, blood cultures ordered, IV Lasix given, and type and cross ordered given anemia. However anemia appears unchanged since last discharge. Orders Ordered: ED Orders 11/22/20 10:50 XR chest 1V Stat EKG-12 Lead Stat RT Consult Eval and Treat Now 11/22/20 11:59 Blood Culture Stat Complete Blood Count AUTO DIFF Stat Comprehensive Metabolic Panel Stat Lactate (Lactic Acid) Stat Lipase Stat NT-proBNP (BNP-Adult 18+) Stat Partial Thromboplastin Time Stat Procalcitonin Stat Prothrombin Time INR Stat Troponin & CK Cardiac Panel Stat Type and Screen Stat 11/22/20 12:03 COVID19 Stat Acetaminophen (Acetaminophen 325 Mg Tablet) 650 mg PO Q6HR PRN PRN Reason: Fever/Mild Pain (1-3) Al Hydrox/Mg Hydrox/Simethicone (Mag Hydrox/Alum/Simeth 30 Ml Udc) 30 ml PO Q6HR PRN PRN Reason: Dyspepsia Aspirin (Aspirin Ec 81 Mg Tablet) 81 mg PO DAILY KAREEN Bisacodyl (Bisacodyl 10 Mg Supp) 10 mg [place] DAILY PRN PRN Reason: Constipation Carvedilol (Carvedilol 3.125 Mg Tablet) 3.125 mg PO BID KAREEN Docusate Sodium (Docusate 100 Mg Capsule) 100 mg PO BID KAREEN Furosemide (Furosemide 20 Mg/2 Ml Vial) 20 mg IV BID KAREEN Heparin Sodium (Porcine) (Heparin 5,000 Unit/Ml Vial) 5,000 unit SUBCUT BID KAREEN Magnesium Hydroxide (Magnesium Hydroxide 30 Ml Udc) 30 ml PO DAILY PRN PRN Reason: Constipation Naloxone HCl (Naloxone 0.4 Mg/Ml Vial) 0.2 mg IV Q2MIN PRN PRN Reason: Opiate Reversal Ondansetron HCl (Ondansetron 4 Mg/2 Ml Inj) 4 mg IV Q8HR PRN PRN Reason: Nausea And Vomiting Potassium Chloride (Potassium Chloride 20 Meq Tab) 20 meq PO DAILY KAREEN Discontinued Medications Furosemide (Furosemide 40 Mg/4 Ml Vial) 40 mg IV NOW ONE Stop: 11/22/20 13:08 Last Admin: 11/22/20 13:30 Dose: 40 mg Documented by: BARBARA Consultations Consultation #1: Patient staffed with Dr. Staples discussed test, test results, plan of care. Vital Signs Vital signs: Vital Signs - 8 hr 11/22/20 10:39 11/22/20 10:49 11/22/20 11:00 Temperature 98.5 F Pulse Rate 122 H 119 H 115 H Respiratory Rate 24 25 H 16 Blood Pressure 132/77 120/80 Pulse Oximetry 92 11/22/20 11:30 11/22/20 12:00 11/22/20 12:30 Temperature Pulse Rate 106 H 103 H 99 H Respiratory Rate 16 17 23 Blood Pressure 106/76 111/75 114/81 Pulse Oximetry 98 <Flaco Staples, - Last Filed: 11/22/20 16:48> Orders Ordered: ED Orders 11/22/20 10:50 XR chest 1V Stat EKG-12 Lead Stat RT Consult Eval and Treat Now 11/22/20 11:59 Blood Culture Stat Complete Blood Count AUTO DIFF Stat Comprehensive Metabolic Panel Stat Lactate (Lactic Acid) Stat Lipase Stat NT-proBNP (BNP-Adult 18+) Stat Partial Thromboplastin Time Stat Procalcitonin Stat Prothrombin Time INR Stat Troponin & CK Cardiac Panel Stat Type and Screen Stat 11/22/20 12:03 COVID19 Stat Acetaminophen (Acetaminophen 325 Mg Tablet) 650 mg PO Q6HR PRN PRN Reason: Fever/Mild Pain (1-3) Al Hydrox/Mg Hydrox/Simethicone (Mag Hydrox/Alum/Simeth 30 Ml Udc) 30 ml PO Q6HR PRN PRN Reason: Dyspepsia Aspirin (Aspirin Ec 81 Mg Tablet) 81 mg PO DAILY KAREEN Bisacodyl (Bisacodyl 10 Mg Supp) 10 mg [place] DAILY PRN PRN Reason: Constipation Carvedilol (Carvedilol 3.125 Mg Tablet) 3.125 mg PO BID KAREEN Docusate Sodium (Docusate 100 Mg Capsule) 100 mg PO BID KAREEN Furosemide (Furosemide 20 Mg/2 Ml Vial) 20 mg IV BID KAREEN Heparin Sodium (Porcine) (Heparin 5,000 Unit/Ml Vial) 5,000 unit SUBCUT BID KAREEN Magnesium Hydroxide (Magnesium Hydroxide 30 Ml Udc) 30 ml PO DAILY PRN PRN Reason: Constipation Naloxone HCl (Naloxone 0.4 Mg/Ml Vial) 0.2 mg IV Q2MIN PRN PRN Reason: Opiate Reversal Ondansetron HCl (Ondansetron 4 Mg/2 Ml Inj) 4 mg IV Q8HR PRN PRN Reason: Nausea And Vomiting Potassium Chloride (Potassium Chloride 20 Meq Tab) 20 meq PO DAILY KAREEN Discontinued Medications Furosemide (Furosemide 40 Mg/4 Ml Vial) 40 mg IV NOW ONE Stop: 11/22/20 13:08 Last Admin: 11/22/20 13:30 Dose: 40 mg Documented by: BARBARA Vital Signs Vital signs: Vital Signs - 8 hr 11/22/20 10:39 11/22/20 10:49 11/22/20 11:00 Temperature 98.5 F Pulse Rate 122 H 119 H 115 H Respiratory Rate 24 25 H 16 Blood Pressure 132/77 120/80 Pulse Oximetry 92 11/22/20 11:30 11/22/20 12:00 11/22/20 12:30 Temperature Pulse Rate 106 H 103 H 99 H Respiratory Rate 16 17 23 Blood Pressure 106/76 111/75 114/81 Pulse Oximetry 98 MDM - SOB/Dyspnea <YEHUDA Wilcox - Last Filed: 11/22/20 15:48> Medical Records Attestation: I reviewed the patient's medical records. Lab Data Attestation: I reviewed the patient's lab results. Result diagrams: 11/22/20 14:44 11/22/20 11:59 Labs: Lab Results 11/22/20 11/22/20 11/22/20 Range/Units 11:59 11:59 11:59 WBC 62.1 H* (4.5-11.0) X10^3/uL RBC 2.69 L (4.5-5.9) X10^6/uL Hgb 7.5 L (13.5-17.5) g/dL Hct 24.0 L (41-53) % MCV 89.5 (80-100) fL MCH 28.0 (26-34) PG MCHC 31.3 (30-36) % RDW 25.5 H (11.6-14.8) % Plt Count 340 (150-400) X10^3/uL Neut % (Auto) Not Reportable Lymph % (Auto) Not Reportable Collier % (Auto) Not Reportable Eos % (Auto) Not Reportable Baso % (Auto) Not Reportable Lymph # (Auto) Not Reportable Collier # (Auto) Not Reportable Baso # (Auto) Not Reportable Total Counted 100 Seg Neutrophils % 35.0 L (38-70) % Band Neutrophils % 55.0 H (3-7) % Lymphocytes % (Manual) 1.0 L (25-45) % Monocytes % (Manual) 7.0 (2-11) % Metamyelocytes % 1.0 H (-0) % Myelocytes % 1.0 H (-0) % Neutrophils # (Manual) 17401 H (5572-1325) /uL RBC Morphology See below Polychromasia 1+ H Hypochromasia 2+ H Poikilocytosis 1+ H Anisocytosis 3+ H PT 20.9 H (10.1-12.7) SECONDS INR 1.8 H (0.9-1.3) APTT 34 D (26.4-36.2) SECONDS D-Dimer (<230) ng/mL Sodium 134 L (137-145) mmol/L Potassium 4.1 (3.4-5.1) mmol/L Chloride 102 (98-107) mmol/L Carbon Dioxide 26 (22-32) mmol/L BUN 23 H (9-20) mg/dL Creatinine 1.59 H (0.66-1.25) mg/dL Estimated GFR 42.3 L (>60) mL/min BUN/Creatinine Ratio 14.5 (6-22) Glucose 95 (80-110) mg/dL Lactate (0.7-2.1) mmol/L Calcium 8.1 L (8.4-10.2) mg/dL Total Bilirubin 0.5 (0.2-1.3) mg/dL AST 23 (17-59) IU/L ALT 19 (<50) IU/L Alkaline Phosphatase 183 H (38-126) U/L Total Creatine Kinase 53 L (55-170) U/L CK-MB (CK-2) TNP CK-MB (CK-2) Rel Index TNP Troponin I < 0.012 (0.01-0.034) ng/mL NT-Pro-B Natriuret Pep 34640 H (<450) pg/mL Total Protein 5.0 L (6.3-8.2) g/dL Albumin 2.4 L (3.5-5.0) g/dL Globulin 2.6 (1.7-4.1) g/dL Albumin/Globulin Ratio 0.9 L (1.0-2.8) Lipase 29 (23-300) U/L Procalcitonin 0.60 H (<0.5) ng/mL SARS-CoV-2 (PCR) (Negative) Blood Type Antibody Screen 11/22/20 11/22/20 11/22/20 Range/Units 11:59 11:59 11:59 WBC (4.5-11.0) X10^3/uL RBC (4.5-5.9) X10^6/uL Hgb (13.5-17.5) g/dL Hct (41-53) % MCV (80-100) fL MCH (26-34) PG MCHC (30-36) % RDW (11.6-14.8) % Plt Count (150-400) X10^3/uL Neut % (Auto) Lymph % (Auto) Collier % (Auto) Eos % (Auto) Baso % (Auto) Lymph # (Auto) Collier # (Auto) Baso # (Auto) Total Counted Seg Neutrophils % (38-70) % Band Neutrophils % (3-7) % Lymphocytes % (Manual) (25-45) % Monocytes % (Manual) (2-11) % Metamyelocytes % (-0) % Myelocytes % (-0) % Neutrophils # (Manual) (1266-9493) /uL RBC Morphology Polychromasia Hypochromasia Poikilocytosis Anisocytosis PT (10.1-12.7) SECONDS INR (0.9-1.3) APTT (26.4-36.2) SECONDS D-Dimer 679 H (<230) ng/mL Sodium (137-145) mmol/L Potassium (3.4-5.1) mmol/L Chloride (98-107) mmol/L Carbon Dioxide (22-32) mmol/L BUN (9-20) mg/dL Creatinine (0.66-1.25) mg/dL Estimated GFR (>60) mL/min BUN/Creatinine Ratio (6-22) Glucose (80-110) mg/dL Lactate 1.7 (0.7-2.1) mmol/L Calcium (8.4-10.2) mg/dL Total Bilirubin (0.2-1.3) mg/dL AST (17-59) IU/L ALT (<50) IU/L Alkaline Phosphatase (38-126) U/L Total Creatine Kinase (55-170) U/L CK-MB (CK-2) CK-MB (CK-2) Rel Index Troponin I (0.01-0.034) ng/mL NT-Pro-B Natriuret Pep (<450) pg/mL Total Protein (6.3-8.2) g/dL Albumin (3.5-5.0) g/dL Globulin (1.7-4.1) g/dL Albumin/Globulin Ratio (1.0-2.8) Lipase (23-300) U/L Procalcitonin (<0.5) ng/mL SARS-CoV-2 (PCR) (Negative) Blood Type A Positive Antibody Screen Negative 11/22/20 Range/Units 12:03 WBC (4.5-11.0) X10^3/uL RBC (4.5-5.9) X10^6/uL Hgb (13.5-17.5) g/dL Hct (41-53) % MCV (80-100) fL MCH (26-34) PG MCHC (30-36) % RDW (11.6-14.8) % Plt Count (150-400) X10^3/uL Neut % (Auto) Lymph % (Auto) Collier % (Auto) Eos % (Auto) Baso % (Auto) Lymph # (Auto) Collier # (Auto) Baso # (Auto) Total Counted Seg Neutrophils % (38-70) % Band Neutrophils % (3-7) % Lymphocytes % (Manual) (25-45) % Monocytes % (Manual) (2-11) % Metamyelocytes % (-0) % Myelocytes % (-0) % Neutrophils # (Manual) (0973-1706) /uL RBC Morphology Polychromasia Hypochromasia Poikilocytosis Anisocytosis PT (10.1-12.7) SECONDS INR (0.9-1.3) APTT (26.4-36.2) SECONDS D-Dimer (<230) ng/mL Sodium (137-145) mmol/L Potassium (3.4-5.1) mmol/L Chloride (98-107) mmol/L Carbon Dioxide (22-32) mmol/L BUN (9-20) mg/dL Creatinine (0.66-1.25) mg/dL Estimated GFR (>60) mL/min BUN/Creatinine Ratio (6-22) Glucose (80-110) mg/dL Lactate (0.7-2.1) mmol/L Calcium (8.4-10.2) mg/dL Total Bilirubin (0.2-1.3) mg/dL AST (17-59) IU/L ALT (<50) IU/L Alkaline Phosphatase (38-126) U/L Total Creatine Kinase (55-170) U/L CK-MB (CK-2) CK-MB (CK-2) Rel Index Troponin I (0.01-0.034) ng/mL NT-Pro-B Natriuret Pep (<450) pg/mL Total Protein (6.3-8.2) g/dL Albumin (3.5-5.0) g/dL Globulin (1.7-4.1) g/dL Albumin/Globulin Ratio (1.0-2.8) Lipase (23-300) U/L Procalcitonin (<0.5) ng/mL SARS-CoV-2 (PCR) Negative (Negative) Blood Type Antibody Screen Imaging Data Chest x-ray: Radiologist's Impression: [address] [id number] ReportSigned Patient: Shady Pinedo WMR#: [id number]: 3Acct:[id number]/Sex: 80 / MDate of Service: 11/22/20Loc: EDAccession Number: [id number] Procedure: XR chest 1V Ordering Provider: Flaco Staples D.O. PROCEDURE: XR CHEST 1V INDICATIONS: suspected sepsis TECHNIQUE: One view of the chest was acquired. COMPARISON: [facility], CR, XR CHEST 1V, 08/20/2020, 14:27. [facility], CR, XR CHEST 2V, 11/11/2020, 13:57. FINDINGS: Surgical changes and devices: None. Lungs and pleura: The right lower lung has an airspace opacity similar to the prior x-ray on 11/10/20, this is likely residual scarring from a prior large right pleural effusions seen on a 08/20/2020 x-ray. No pneumothorax. Blunting of the right costophrenic angle is seen consistent with a small residual pleural effusion. Mediastinum: Mediastinal contours appear normal. Heart size is normal. Bones and chest wall: No suspicious bony lesions. Overlying soft tissues appear unremarkable. IMPRESSION: 1. Airspace opacity in the right lower lung similar to the prior x-ray on 11/11/2020, likely postinflammatory scarring. 2. Small right pleural effusion. Dictated by: Franklin Weeks M.D. on 11/22/2020 at 11:28 Approved by: Franklin Weeks M.D. on 11/22/2020 at 11:31 ECG Data Interpretation: 1055: Rate 106, QTC 395. No ST elevation or ST depression. No T-wave abnormality. No ectopy. EKG also viewed by Jhoan per protocol. MDM Narrative Medical decision making narrative: 80-year-old male with a history of lung and bladder cancer, presents emergency department currently taking p.o. doxycycline for recently diagnosed pneumonia. He presents today via EMS for an episode of weakness where his knees buckled. EMS found hypoxia as well. I suspect his weakness is due to multiple factors including acute renal injury, fluid overload, anemia, and pneumonia. Patient was not given any antibiotics at this time as he is currently on p.o. doxycycline, lungs without significant crackles, patient is afebrile. Chest x-ray shows pneumonia which is similar to previous pneumonia seen on 11/11/2020. Patient was tachycardic on arrival, seen to be in AFib, has a history of paradoxical AFib. He is not on any blood thinners at this time as he had a recent GI bleed and blood thinners were discontinued (see previous admission note). Acute kidney injury may be related to recent infection and or fluid overload. After discussion with Dr. Staples about creatinine and GFR, as well as BNP, IV Lasix were given. Type and screen was ordered due to anemia. Blood cultures were ordered due to elevated white blood cell count, I suspect malignancy also contributes to significant elevated white count. Patient was admitted for hypoxia, acute kidney injury, in fluid overload. The consented to admission. Patient admitted to Dr. Sanchez for evaluation and treatment. <Flaco Staples, DO - Last Filed: 11/22/20 16:48> Lab Data Labs: Lab Results 11/22/20 11/22/20 11/22/20 Range/Units 11:59 11:59 11:59 WBC 62.1 H* (4.5-11.0) X10^3/uL RBC 2.69 L (4.5-5.9) X10^6/uL Hgb 7.5 L (13.5-17.5) g/dL Hct 24.0 L (41-53) % MCV 89.5 (80-100) fL MCH 28.0 (26-34) PG MCHC 31.3 (30-36) % RDW 25.5 H (11.6-14.8) % Plt Count 340 (150-400) X10^3/uL Neut % (Auto) Not Reportable Lymph % (Auto) Not Reportable Collier % (Auto) Not Reportable Eos % (Auto) Not Reportable Baso % (Auto) Not Reportable Lymph # (Auto) Not Reportable Collier # (Auto) Not Reportable Baso # (Auto) Not Reportable Total Counted 100 Seg Neutrophils % 35.0 L (38-70) % Band Neutrophils % 55.0 H (3-7) % Lymphocytes % (Manual) 1.0 L (25-45) % Monocytes % (Manual) 7.0 (2-11) % Metamyelocytes % 1.0 H (-0) % Myelocytes % 1.0 H (-0) % Neutrophils # (Manual) 53348 H (9365-1234) /uL RBC Morphology See below Polychromasia 1+ H Hypochromasia 2+ H Poikilocytosis 1+ H Anisocytosis 3+ H PT 20.9 H (10.1-12.7) SECONDS INR 1.8 H (0.9-1.3) APTT 34 D (26.4-36.2) SECONDS D-Dimer (<230) ng/mL Sodium 134 L (137-145) mmol/L Potassium 4.1 (3.4-5.1) mmol/L Chloride 102 (98-107) mmol/L Carbon Dioxide 26 (22-32) mmol/L BUN 23 H (9-20) mg/dL Creatinine 1.59 H (0.66-1.25) mg/dL Estimated GFR 42.3 L (>60) mL/min BUN/Creatinine Ratio 14.5 (6-22) Glucose 95 (80-110) mg/dL Lactate (0.7-2.1) mmol/L Calcium 8.1 L (8.4-10.2) mg/dL Total Bilirubin 0.5 (0.2-1.3) mg/dL AST 23 (17-59) IU/L ALT 19 (<50) IU/L Alkaline Phosphatase 183 H (38-126) U/L Total Creatine Kinase 53 L (55-170) U/L CK-MB (CK-2) TNP CK-MB (CK-2) Rel Index TNP Troponin I < 0.012 (0.01-0.034) ng/mL NT-Pro-B Natriuret Pep 17355 H (<450) pg/mL Total Protein 5.0 L (6.3-8.2) g/dL Albumin 2.4 L (3.5-5.0) g/dL Globulin 2.6 (1.7-4.1) g/dL Albumin/Globulin Ratio 0.9 L (1.0-2.8) Lipase 29 (23-300) U/L Procalcitonin 0.60 H (<0.5) ng/mL SARS-CoV-2 (PCR) (Negative) Blood Type Antibody Screen 11/22/20 11/22/20 11/22/20 Range/Units 11:59 11:59 11:59 WBC (4.5-11.0) X10^3/uL RBC (4.5-5.9) X10^6/uL Hgb (13.5-17.5) g/dL Hct (41-53) % MCV (80-100) fL MCH (26-34) PG MCHC (30-36) % RDW (11.6-14.8) % Plt Count (150-400) X10^3/uL Neut % (Auto) Lymph % (Auto) Collier % (Auto) Eos % (Auto) Baso % (Auto) Lymph # (Auto) Collier # (Auto) Baso # (Auto) Total Counted Seg Neutrophils % (38-70) % Band Neutrophils % (3-7) % Lymphocytes % (Manual) (25-45) % Monocytes % (Manual) (2-11) % Metamyelocytes % (-0) % Myelocytes % (-0) % Neutrophils # (Manual) (2163-1332) /uL RBC Morphology Polychromasia Hypochromasia Poikilocytosis Anisocytosis PT (10.1-12.7) SECONDS INR (0.9-1.3) APTT (26.4-36.2) SECONDS D-Dimer 679 H (<230) ng/mL Sodium (137-145) mmol/L Potassium (3.4-5.1) mmol/L Chloride (98-107) mmol/L Carbon Dioxide (22-32) mmol/L BUN (9-20) mg/dL Creatinine (0.66-1.25) mg/dL Estimated GFR (>60) mL/min BUN/Creatinine Ratio (6-22) Glucose (80-110) mg/dL Lactate 1.7 (0.7-2.1) mmol/L Calcium (8.4-10.2) mg/dL Total Bilirubin (0.2-1.3) mg/dL AST (17-59) IU/L ALT (<50) IU/L Alkaline Phosphatase (38-126) U/L Total Creatine Kinase (55-170) U/L CK-MB (CK-2) CK-MB (CK-2) Rel Index Troponin I (0.01-0.034) ng/mL NT-Pro-B Natriuret Pep (<450) pg/mL Total Protein (6.3-8.2) g/dL Albumin (3.5-5.0) g/dL Globulin (1.7-4.1) g/dL Albumin/Globulin Ratio (1.0-2.8) Lipase (23-300) U/L Procalcitonin (<0.5) ng/mL SARS-CoV-2 (PCR) (Negative) Blood Type A Positive Antibody Screen Negative 11/22/20 Range/Units 12:03 WBC (4.5-11.0) X10^3/uL RBC (4.5-5.9) X10^6/uL Hgb (13.5-17.5) g/dL Hct (41-53) % MCV (80-100) fL MCH (26-34) PG MCHC (30-36) % RDW (11.6-14.8) % Plt Count (150-400) X10^3/uL Neut % (Auto) Lymph % (Auto) Collier % (Auto) Eos % (Auto) Baso % (Auto) Lymph # (Auto) Collier # (Auto) Baso # (Auto) Total Counted Seg Neutrophils % (38-70) % Band Neutrophils % (3-7) % Lymphocytes % (Manual) (25-45) % Monocytes % (Manual) (2-11) % Metamyelocytes % (-0) % Myelocytes % (-0) % Neutrophils # (Manual) (2818-5797) /uL RBC Morphology Polychromasia Hypochromasia Poikilocytosis Anisocytosis PT (10.1-12.7) SECONDS INR (0.9-1.3) APTT (26.4-36.2) SECONDS D-Dimer (<230) ng/mL Sodium (137-145) mmol/L Potassium (3.4-5.1) mmol/L Chloride (98-107) mmol/L Carbon Dioxide (22-32) mmol/L BUN (9-20) mg/dL Creatinine (0.66-1.25) mg/dL Estimated GFR (>60) mL/min BUN/Creatinine Ratio (6-22) Glucose (80-110) mg/dL Lactate (0.7-2.1) mmol/L Calcium (8.4-10.2) mg/dL Total Bilirubin (0.2-1.3) mg/dL AST (17-59) IU/L ALT (<50) IU/L Alkaline Phosphatase (38-126) U/L Total Creatine Kinase (55-170) U/L CK-MB (CK-2) CK-MB (CK-2) Rel Index Troponin I (0.01-0.034) ng/mL NT-Pro-B Natriuret Pep (<450) pg/mL Total Protein (6.3-8.2) g/dL Albumin (3.5-5.0) g/dL Globulin (1.7-4.1) g/dL Albumin/Globulin Ratio (1.0-2.8) Lipase (23-300) U/L Procalcitonin (<0.5) ng/mL SARS-CoV-2 (PCR) Negative (Negative) Blood Type Antibody Screen Discharge Plan Departure Patient Disposition: Admitted As Inpatient Clinical Impression: Acute kidney injury, Hypoxia Anemia Qualifiers: Anemia type: unspecified type Qualified Code(s): D64.9 - Anemia, unspecified Pneumonia Qualifiers: Pneumonia type: due to unspecified organism Laterality: unspecified laterality Lung location: unspecified part of lung Qualified Code(s): J18.9 - Pneumonia, unspecified organism Admit Date/Time: 11/22/20 13:17 Admit Provider: Monroe Sanchez <Flaco Staples DO - Last Filed: 11/22/20 16:48> Cosign ED Attending Cosignature Attestation: Dr Staples Co-Sign Statement: I was available for consultation during this patient's emergency department visit. This chart is signed by myself for administrative purposes only. I did not have direct contact with this patient during this visit. They were seen independently by the APC.
[2020-11-22 12:12] LABS: Hemoglobin 7.5 g/dL (13.5-17.5); Mean Corpuscular HGB Conc 31.3 % (30-36); Mean Corpuscular Volume 89.5 fL (80-100); Platelet Count 340 X10^3/uL (150-400); Red Blood Cell Count 2.69 X10^6/uL (4.5-5.9); Red Cell Distribution Width 25.5 % (11.6-14.8)
[2020-11-22 12:13] LABS: Add Manual Diff / Slide Review YES
[2020-11-22 12:17] LABS: INR 1.8 (0.9-1.3); Prothrombin Time 20.9 SECONDS (10.1-12.7)
[2020-11-22 12:20] LABS: PTT Partial Thromboplastin Tim 34 SECONDS (26.4-36.2)
[2020-11-22 12:21] LABS: White Blood Cell Count 62.1 X10^3/uL (4.5-11.0)
[2020-11-22 12:22] LABS: COVID19 -Nasal RAPID Negative (Negative)
[2020-11-22 12:23] LABS: Alanine Aminotransferase 19 IU/L (<50); Albumin 2.4 g/dL (3.5-5.0); Albumin Globulin Ratio 0.9 (1.0-2.8); Alkaline Phosphatase 183 U/L (38-126); Aspartate Aminotransferase 23 IU/L (17-59); BUN Creatinine Ratio 14.5 (6-22); Bilirubin Total 0.5 mg/dL (0.2-1.3); Blood Urea Nitrogen 23 mg/dL (9-20); Calcium 8.1 mg/dL (8.4-10.2); Carbon Dioxide 26 mmol/L (22-32); Chloride 102 mmol/L (98-107); Creatine Kinase 53 U/L (55-170); Estimated Glomerular Filt Rate 42.3 mL/min (>60); Globulin 2.6 g/dL (1.7-4.1); Glucose 95 mg/dL (80-110); HEMOLYSIS < 15 (0-50); Lipase 29 U/L (23-300); Potassium 4.1 mmol/L (3.4-5.1); Sodium 134 mmol/L (137-145)
[2020-11-22 12:24] LABS: Lactate (Lactic Acid) 1.7 mmol/L (0.7-2.1)
[2020-11-22 12:35] LABS: NT-proBNP (BNP-Adult 18+) 11700 pg/mL (<450); Troponin I < 0.012 ng/mL (0.01-0.034)
[2020-11-22 12:42] LABS: Neutrophils Absolute Manual 55890 /uL (3000-5900); Total Cells Counted 100
[2020-11-22 12:43] LABS: Anisocytosis 3+; Hypochromasia 2+; Poikilocytosis 1+; Polychromasia 1+
--- NOTE | 2020-11-22 13:02 | PC.NURSE ---
patient has had a poor plth for pulse oximetry. His O2 sat was 98% at rest with 2l NC. He held his arm up to make a phone call and the finger that had the pulse ox read 75 and that was charted. The patient was not short of breathe and was talking in full sentences
[2020-11-22] MEDS: FUROSEMIDE 40 MG/4 ML VIAL IV (13:30)
--- NOTE | 2020-11-22 13:30 | DI.ECHO.S_ITS ---
[place] +---------+ [facility] +---------+ : : [address] : : : : [id number] : : : : Phone: [phone]+ Echocardiogram Report + + :Name: CARMINA HERRERA Study Date: 11/23/2020 Height: 69 in : :[facility] ReadingLocation: Weight: 180 lb : : Gender: Male BSA: 2.0 m2 : :: 1940 Age: 80 yrs BP: 120/74 mmHg: :Reason For Study: PROBABLE ACUTE ON CHRONIC CONGESTIVE HEART : :FAILURE : :Ordering Physician: : :HOSPITALISTDAMEON Performed By: Ruthie Alegre : :Referring: DONNA BERG : + + Interpretation Summary Left ventricular systolic function appears to be mild to moderately reduced with an estimated ejection fraction of 40 to 50% with a fairly marked dyssynchronous contraction pattern due to a conduction abnormality with mild global hypokinesis that is more prominent in the posterior wall. Left ventricular size and wall thickness appear normal. Diastolic function cannot be clearly assessed. The right ventricle appears normal in size and systolic function. Right ventricular systolic pressure is estimated at 46 mmHg with a CVP of 15 mmHg. The left atrium is severely enlarged while the right atrium appears normal in size. There is mild aortic stenosis with a peak velocity of 2.2 m/s and a mean gradient of 18 mmHg. There is moderate tricuspid regurgitation. There is a moderate sized pericardial effusion that is predominantly adjacent to the posterolateral wall where it measures 1.8 to 2.0 cm with a trivial effusion anteriorly and adjacent to the right ventricle. There is no definitive evidence for tamponade physiology but assessment is challenging because of the irregular rhythm. Specifically, there is no obvious right atrial collapse or evidence of right ventricular diastolic collapse. Clinical correlation is recommended. A moderately large left-sided pleural effusion is also noted. Procedure: A two-dimensional transthoracic echocardiogram with color flow and Doppler was performed. The study quality was technically adequate. There is no prior echocardiogram noted for this patient. The patient was in atrial fibrillation with heart rates between 80-110 bpm during the exam. Left Ventricle: The left ventricle is normal in size. There is normal left ventricular wall thickness. Left ventricular ejection fraction is estimated to be 40 to 50%. Left ventricular systolic function is mildly reduced. There is a significant dyssynchronous contraction pattern, consistent with a conduction abnormality. There is borderline global hypokinesis of the left ventricle. That appears to be worse in the posterior wall. Diastolic function could not be accurately assessed due to atrial fibrillation. Right Ventricle: The right ventricle is normal in size and function. There is no obvious diastolic collapse. Atria: The left atrium is severely dilated. Right atrial size is normal. There is no right atrial collapse noted. There is no Doppler evidence for an interatrial shunt. Mitral Valve: There is mild mitral annular calcification. The mitral valve leaflets appear mildly thickened, but open well. The mitral valve leaflets are mildly calcified. There is trace mitral regurgitation. Aortic Valve: The aortic valve is trileaflet. The aortic valve is mildly calcified. There is mildly reduced leaflet mobility. There is mild aortic stenosis. The peak aortic velocity is 2.2 m/sec. The aortic valve mean gradient is 18 mmHg. The calculated aortic valve area is 1.3 cm2. No aortic regurgitation is present. Tricuspid Valve: The tricuspid valve leaflets are thin and pliable. There is moderate tricuspid regurgitation. The right ventricular systolic pressure is estimated to be at least 46 mmHg based on an estimated right atrial pressure of 15 mm Hg. Pulmonic Valve: The pulmonic valve leaflets are thin and pliable; valve motion is normal. There is trace pulmonic regurgitation. Great Vessels: The aortic root is normal size. The ascending aorta is mildly enlarged. The IVC is dilated (diameter is greater than 2.1 cm) and it collapses less than 50% with a sniff. This suggests a high right atrial pressure of 15 mm Hg. Pericardium/ Pleura There is a small to moderate circumferential but predominantly posterolateral sided pericardial effusion measuring up to 1.8 to 2.0 cm extending towards apex with a trivial to small pericardial effusion elsewhere. There is no definitive evidence for tamponade physiology but assessment is challenging because of the irregular rhythm. Clinical correlation is recommended. There is a moderately large left-sided pleural effusion. MMode/2D Measurements & Calculations LVIDd: 4.6 cm LVOT diam: 2.2 cm LVIDs: 3.6 cm Ao root diam: 3.3 cm FS: 21.3 % asc Aorta Diam: 3.6 cm EPSS: 0.88 cm Ao Arch Diam (Prox Trans): 2.6 cm IVSd: 1.1 cm LVPWd: 0.96 cm LV hunter. diameter/BSA (cm/m^2): 2.3 LV sys. diameter/BSA (cm/m^2): 1.8 LA A2 area: 29.0 cm2 RA long axis: 5.7 cm LA A4 area: 25.1 cm2 RA area: 18.3 cm2 LA length (vol): 6.3 cm RA vol: 49.4 ml LA vol: 98.0 ml RA : 25.0 ml/m2 LA vol index: 49.6 ml/m2 IVC diam: 2.2 cm RVD1 (basal): 2.7 cm TAPSE: 1.5 cm Doppler Measurements & Calculations Ao V2 max: 222.6 cm/sec LVOT Max Emerson: 73.0 cm/sec Ao V2 mean: 157.2 cm/sec LV V1 max P.1 mmHg Ao max P.9 mmHg LV V1 VTI: 11.7 cm Ao mean P.9 mmHg DIGNA(I,D): 1.3 cm2 Ao V2 VTI: 35.4 cm DIGNA(V,D): 1.3 cm2 sev ratio: 0.33 DIGNA indexed to BSA (cm^2/m^2): 0.64 MV E max emerson: 76.4 cm/sec TR max emerson: 280.4 cm/sec MV A max emerson: 1.8 cm/sec TR max P.5 mmHg MV E/A: 43.1 PA V2 max: 67.5 cm/sec Med Peak E' Emerson: 5.2 cm/sec PA V2 mean: 45.3 cm/sec E/E' med: 14.8 PA mean P.93 mmHg Lat Peak E' Emerson: 7.1 cm/sec PA pr(Accel): 49.5 mmHg E/E' lat: 10.7 E/e' average: 12.7 MV dec time: 0.20 sec SV(LVOT): 45.0 ml Reading Physician:02:43 PM
[2020-11-22 14:10] LABS: D Dimer 679 ng/mL (<230)
[2020-11-22 15:13] LABS: Hematocrit 25.5 % (41-53); Hemoglobin 7.9 g/dL (13.5-17.5); Mean Corpuscular HGB Conc 31.1 % (30-36); Mean Corpuscular Hemoglobin 27.6 PG (26-34); Platelet Count 361 X10^3/uL (150-400); Red Blood Cell Count 2.87 X10^6/uL (4.5-5.9); Red Cell Distribution Width 24.7 % (11.6-14.8)
[2020-11-22 15:18] LABS: Add Manual Diff / Slide Review YES; White Blood Cell Count 65.6 X10^3/uL (4.5-11.0)
[2020-11-22 15:22] LABS: Cholesterol 70 mg/dL (140-199); HDL Cholesterol 20 mg/dL (40-60); LDL Cholesterol Calculated 34 mg/dL (<100); Magnesium 1.6 mg/dL (1.6-2.3); Triglycerides 78 mg/dL (35-150)
[2020-11-22 15:36] LABS: Total Cells Counted 100
[2020-11-22 15:37] LABS: Anisocytosis 2+; Neutrophils Absolute Manual 56416 /uL (3000-5900)
[2020-11-22 15:38] LABS: Poikilocytosis 1+
[2020-11-22 15:49] LABS: Thyroid Stimulating Hormone 5.86 uIU/mL (0.47-4.68)
--- NOTE | 2020-11-22 18:18 | DI.US.S_ITS ---
PROCEDURE: US PERIPH VENOUS LOW EXTREM RT INDICATIONS: RIGHT ARM SWELLING TECHNIQUE: Real-time imaging, as well as color and pulse Doppler interrogation, were performed of the lower extremity deep veins from the inguinal ligament to the popliteal fossa. COMPARISON: None. FINDINGS: The common femoral, femoral and popliteal veins are normally compressible, and free of intraluminal thrombus. Color and pulse Doppler demonstrate normal phasic intraluminal flow. There is normal augmentation response to distal compression maneuver. Currie cyst noted incidentally. IMPRESSION: No sonographic evidence of DVT. 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 Dictated by: Curt Bar M.D. on 11/22/2020 at 20:55 Approved by: Curt Bar M.D. on 11/22/2020 at 20:55
--- NOTE | 2020-11-22 18:18 | DI.US.S_ITS ---
PROCEDURE: US PERIPH VENOUS UP EXTREM RT INDICATIONS: SWELLING RIGHT LEG TECHNIQUE: Real-time imaging, as well as color and pulse Doppler interrogation, was performed of the right upper extremity deep veins from the inferior neck to the antecubital fossa. COMPARISON: None. FINDINGS: The internal jugular vein, visualized portions of the subclavian vein, axillary, and brachial veins are free of intraluminal thrombus. Where physically possible, the veins are normally compressible. Color and pulse Doppler demonstrate normal intraluminal flow, with expected phasicity and pulsatility. Additional scanning of the cephalic and basilic veins of the superficial system demonstrate normal compressibility, without thrombus. IMPRESSION: No sonographic evidence of DVT in the right upper extremity. Dictated by: Curt Bar M.D. on 11/22/2020 at 20:56 Approved by: Curt Bar M.D. on 11/22/2020 at 20:56
--- NOTE | 2020-11-22 18:20 | DI.CT.S_ITS ---
PROCEDURE: CT ANGIO CHEST PE PROTOCOL INDICATIONS: Rule out pneumonia versus pulmonary emboli TECHNIQUE: After the administration of intravenous contrast, 2 mm thick sections acquired from the pulmonary apices to the posterior costophrenic angles. 3-dimensional maximum intensity projection (MIP) coronal and sagittal reformats were then acquired through the thorax. For radiation dose reduction, the following was used: automated exposure control, adjustment of mA and/or kV according to patient size. COMPARISON: [facility], CT, CT ANGIO CHEST PE PROTOCOL, 08/20/2020, 15:52. [facility], CT, CT ABDOMEN PELVIS W CON, 10/19/2020, 14:32. FINDINGS: No pulmonary artery filling defect to indicate pulmonary embolism. Moderate-sized right pericardial effusion. Multiple enhancing masses in the mediastinum consistent with metastatic disease, likely within mediastinal lymph nodes. Small left and trace right pleural effusion with overlying atelectasis. Masslike consolidation in the right lower lobe, presumably metastatic although this is not entirely definitive. Nonaneurysmal thoracic aorta. No acute osseous finding. IMPRESSION: No evidence of pulmonary embolism. Moderate-sized pericardial effusion. Small left and trace right pleural effusions with overlying atelectasis and/or consolidation. Pulmonary nodules and masses consistent with either lung cancer or bladder cancer metastases. Peripherally enhancing mediastinal and hilar masses consistent with mediastinal and hilar denton metastases. Dictated by: Curt Bar M.D. on 11/22/2020 at 19:10 Approved by: Curt Bar M.D. on 11/22/2020 at 19:13
--- NOTE | 2020-11-22 19:40 | PM.EVENT ---
Event Note Date Patient Seen: 11/22/20 Time Patient Seen: 19:41 Event Note: PATIENT SEEN AND EXAMINED FULL H&P TO FOLLOW 80yo male with a history of bladder and lung cancer (radiation completed x10 fractions and chemo pending at this time), paradoxical AFib, and recent GI bleed, presents ED for significant weakness. He was found to have O2 sat of 85% on room air. There has been no fevers chills nausea vomiting diarrhea or bloody bowel movements. CBC revealed stable hemoglobin at 7.9 but significantly elevated WBC of 65.6. Chem panel was remarkable for elevated creatinine of 1.59. Lactate was normal at 1.7. Procalcitonin was marginally elevated at 0.60 [place] [address]. COVID-19 was negative. He was noted to have edema of his right upper extremity and his right lower extremity Admitted for acute hypoxic respiratory failure questionable etiology possibly related to CHF. PLAN ADMIT INPATIENT SUPPLEMENTAL O2 CTA OF THE CHEST ECHOCARDIOGRAM LASIX IV B.I.D. SERIAL CHEM PANELS BLOOD CULTURES AND URINE CULTURE HOLD ON ANTIBIOTICS FOR NOW NO DEFINITE SOURCE OF INFECTION
--- NOTE | 2020-11-22 19:48 | P.HP_ITS ---
History of Present Illness History of Present Illness Date Patient Seen: 11/22/20 Time Patient Seen: 19:49 Chief complaint: SOB Narrative: 80yo male with a history of bladder and lung cancer (radiation completed and chemo pending at this time), paradoxical AFib, and recent GI bleed, presents emergency department for an episode of weakness. He was diagnosed with pneumonia and started on doxycycline. He was walking and fell to his knees because he felt weak. . He has been having problems standing, difficulty getting himself off the bed or the bathroom commode. In the ED he was found to be hemodynamically stable afebrile. Hemoglobin was stable at 7.9 from values October 2020. He was found to have an elevated BNP but chest x-ray did not reveal any overt failure but there was airspace opacity in right lower lung similar to prior x-ray 11/11/2020 and was felt likely postinflammatory scarring. Dr. Bharat Novak min of felt that nonetheless there could be a possible pneumonia. He did complain of shortness of breath and he was hypoxemic as well. CTA of the chest was obtained to rule out pulmonary embolus or progression of any tumor a neither were found. However he was found to have a moderate-sized pericardial effusion as well as small left and trace right pleural effusion. As a result of the scan unlikely pneumonia is present. He was also noted to have edema of his right upper extremity and right lower extremity. He denied any pain of those extremities. Patient is being admitted for congestive heart failure in an ongoing management of his weakness. Patient History Medical History Adult onset hypothyroidism Anemia History of cardioversion Hx of prostatic malignancy Lipoma of abdominal wall Paroxysmal A-fib Surgical History Hx of total knee replacement S/P TURP (status post transurethral resection of prostate) Family & Social History Family History Mother Multiple sclerosis Father Prostate cancer Social History: household members spouse Prior Living Arrangements House Safety & Behavioral: Feels Safe in Current Yes Environment Been Physically Hurt or No Threatened By a Person Suicidal Ideation Description None Tobacco & Substance use: Smoking Status Never smoker alcohol intake current alcohol intake frequency holiday/special occasion Substance Use Type does not use Meds Home Medications and Allergies Home Medications Medication Instructions Recorded Confirmed Type tamsulosin 0.4 mg PO BEDTIME 05/27/20 11/22/20 History biotin-chromium 1 cap PO DAILY 10/17/20 11/22/20 History cholecalciferol (vitamin D3) 250 mcg PO DAILY 10/17/20 11/22/20 History [Vitamin D3] iron bisglycinate chelate 29 mg PO DAILY 10/17/20 11/22/20 History levothyroxine [Synthroid] 25 mcg PO DAILY 10/17/20 11/22/20 History metoprolol tartrate 25 mg PO DAILY 10/17/20 11/22/20 History olanzapine 2.5 mg PO PRN PRN 10/17/20 11/22/20 History Allergies Allergy/AdvReac Type Severity Reaction Status Date / Time Penicillins Allergy Verified 10/19/20 15:15 Sulfa (Sulfonamide Allergy Verified 10/19/20 15:15 Antibiotics) Review of Systems Review of Systems ROS: Yes All systems reviewed with the patient and are negative except as otherwise documented Exam Vital Signs (past 8 hours): - 11/22/20 12:00 11/22/20 12:30 11/22/20 14:10 Temperature Pulse Rate 103 H 99 H 108 H Respiratory Rate 17 23 26 H Blood Pressure 111/75 114/81 124/81 Pulse Oximetry 98 11/22/20 16:05 11/22/20 19:05 Temperature 97.8 F 96.9 F L Pulse Rate 111 H 94 H Respiratory Rate 20 22 Blood Pressure 113/67 134/80 Pulse Oximetry Oxygen Delivery Method Nasal Cannula Oxygen Flow Rate 3 Narrative Exam Narrative: CONSTITUTIONAL: 80-year-old male NAD HEENT: Normocephalic atraumatic extraocular movements intact pupils are equal round reactive fundi were not visualized sclera and conjunctiva were clear oropharynx is clear with moist mucous membranes Neck: Supple without thyromegaly bruits or jugular venous distention Thorax: Symmetrical with good lateral expansion Respiratory: Decreased breath sounds at the bases no rales rhonchi or wheezes Cardiovascular: Regular rhythm S1-S2 was normal there were no loose he has rubs murmurs gallops present GI: Benign bowel sounds present : No Venegas Musculoskeletal: Right upper extremity with 3+ edema right lower extremity with 2+ edema Neurological: Cranial nerves 2-12 were intact. Motor was equal active. Sensory modality to crude touch was intact. Psychological: Mood and affect normal. Awake alert oriented x3 Skin atrophic in with crepe paper wrinkling Objective Labs Result Diagrams: 11/24/20 05:26 11/24/20 05:26 Labs: Laboratory Results - last 24 hr 11/22/20 11/22/20 11/22/20 11:59 11:59 11:59 WBC 62.1 H* RBC 2.69 L Hgb 7.5 L Hct 24.0 L MCV 89.5 MCH 28.0 MCHC 31.3 RDW 25.5 H Plt Count 340 Neut % (Auto) Not Reportable Lymph % (Auto) Not Reportable Marshall % (Auto) Not Reportable Eos % (Auto) Not Reportable Baso % (Auto) Not Reportable Lymph # (Auto) Not Reportable Marshall # (Auto) Not Reportable Baso # (Auto) Not Reportable Total Counted 100 Seg Neutrophils % 35.0 L Band Neutrophils % 55.0 H Lymphocytes % (Manual) 1.0 L Monocytes % (Manual) 7.0 Eosinophils % (Manual) Metamyelocytes % 1.0 H Myelocytes % 1.0 H Neutrophils # (Manual) 47965 H RBC Morphology See below Polychromasia 1+ H Hypochromasia 2+ H Poikilocytosis 1+ H Anisocytosis 3+ H PT 20.9 H INR 1.8 H APTT 34 D D-Dimer Sodium 134 L Potassium 4.1 Chloride 102 Carbon Dioxide 26 BUN 23 H Creatinine 1.59 H Estimated GFR 42.3 L BUN/Creatinine Ratio 14.5 Glucose 95 Lactate Calcium 8.1 L Magnesium Total Bilirubin 0.5 AST 23 ALT 19 Alkaline Phosphatase 183 H Total Creatine Kinase 53 L CK-MB (CK-2) TNP CK-MB (CK-2) Rel Index TNP Troponin I < 0.012 NT-Pro-B Natriuret Pep 64556 H Total Protein 5.0 L Albumin 2.4 L Globulin 2.6 Albumin/Globulin Ratio 0.9 L Triglycerides Cholesterol LDL Cholesterol, Calc HDL Cholesterol Lipase 29 Procalcitonin 0.60 H TSH SARS-CoV-2 (PCR) Blood Type Antibody Screen 11/22/20 11/22/20 11/22/20 11:59 11:59 11:59 WBC RBC Hgb Hct MCV MCH MCHC RDW Plt Count Neut % (Auto) Lymph % (Auto) Marshall % (Auto) Eos % (Auto) Baso % (Auto) Lymph # (Auto) Marshall # (Auto) Baso # (Auto) Total Counted Seg Neutrophils % Band Neutrophils % Lymphocytes % (Manual) Monocytes % (Manual) Eosinophils % (Manual) Metamyelocytes % Myelocytes % Neutrophils # (Manual) RBC Morphology Polychromasia Hypochromasia Poikilocytosis Anisocytosis PT INR APTT D-Dimer 679 H Sodium Potassium Chloride Carbon Dioxide BUN Creatinine Estimated GFR BUN/Creatinine Ratio Glucose Lactate 1.7 Calcium Magnesium Total Bilirubin AST ALT Alkaline Phosphatase Total Creatine Kinase CK-MB (CK-2) CK-MB (CK-2) Rel Index Troponin I NT-Pro-B Natriuret Pep Total Protein Albumin Globulin Albumin/Globulin Ratio Triglycerides Cholesterol LDL Cholesterol, Calc HDL Cholesterol Lipase Procalcitonin TSH SARS-CoV-2 (PCR) Blood Type A Positive Antibody Screen Negative 11/22/20 11/22/20 11/22/20 12:03 14:44 14:44 WBC 65.6 H* RBC 2.87 L Hgb 7.9 L Hct 25.5 L MCV 89.0 MCH 27.6 MCHC 31.1 RDW 24.7 H Plt Count 361 Neut % (Auto) Not Reportable Lymph % (Auto) Not Reportable Marshall % (Auto) Not Reportable Eos % (Auto) Not Reportable Baso % (Auto) Not Reportable Lymph # (Auto) Not Reportable Marshall # (Auto) Not Reportable Baso # (Auto) Not Reportable Total Counted 100 Seg Neutrophils % 80.0 H D Band Neutrophils % 6.0 Lymphocytes % (Manual) 5.0 L D Monocytes % (Manual) 7.0 Eosinophils % (Manual) 2.0 Metamyelocytes % Myelocytes % Neutrophils # (Manual) 74097 H RBC Morphology See below Polychromasia Hypochromasia Poikilocytosis 1+ H Anisocytosis 2+ H PT INR APTT D-Dimer Sodium Potassium Chloride Carbon Dioxide BUN Creatinine Estimated GFR BUN/Creatinine Ratio Glucose Lactate Calcium Magnesium 1.6 Total Bilirubin AST ALT Alkaline Phosphatase Total Creatine Kinase CK-MB (CK-2) CK-MB (CK-2) Rel Index Troponin I NT-Pro-B Natriuret Pep Total Protein Albumin Globulin Albumin/Globulin Ratio Triglycerides 78 Cholesterol 70 L LDL Cholesterol, Calc 34 HDL Cholesterol 20 L Lipase Procalcitonin TSH SARS-CoV-2 (PCR) Negative Blood Type Antibody Screen 11/22/20 14:44 WBC RBC Hgb Hct MCV MCH MCHC RDW Plt Count Neut % (Auto) Lymph % (Auto) Marshall % (Auto) Eos % (Auto) Baso % (Auto) Lymph # (Auto) Marshall # (Auto) Baso # (Auto) Total Counted Seg Neutrophils % Band Neutrophils % Lymphocytes % (Manual) Monocytes % (Manual) Eosinophils % (Manual) Metamyelocytes % Myelocytes % Neutrophils # (Manual) RBC Morphology Polychromasia Hypochromasia Poikilocytosis Anisocytosis PT INR APTT D-Dimer Sodium Potassium Chloride Carbon Dioxide BUN Creatinine Estimated GFR BUN/Creatinine Ratio Glucose Lactate Calcium Magnesium Total Bilirubin AST ALT Alkaline Phosphatase Total Creatine Kinase CK-MB (CK-2) CK-MB (CK-2) Rel Index Troponin I NT-Pro-B Natriuret Pep Total Protein Albumin Globulin Albumin/Globulin Ratio Triglycerides Cholesterol LDL Cholesterol, Calc HDL Cholesterol Lipase Procalcitonin TSH 5.86 H SARS-CoV-2 (PCR) Blood Type Antibody Screen PLEASE NOTE THE ABOVE DIAGRAM CBC AND CHEM PANEL WERE FROM THE DAY THIS NOTE WAS COMPLETED. PROCEDURE: XR CHEST 1V INDICATIONS: suspected sepsis TECHNIQUE: One view of the chest was acquired. COMPARISON: [facility], , XR CHEST 1V, 08/20/2020, 14:27. [facility], , XR CHEST 2V, 11/11/2020, 13:57. FINDINGS: Surgical changes and devices: None. Lungs and pleura: The right lower lung has an airspace opacity similar to the prior x-ray on 11/10/20, this is likely residual scarring from a prior large right pleural effusions seen on a 08/20/2020 x-ray. No pneumothorax. Blunting of the right costophrenic angle is seen consistent with a small residual pleural effusion. Mediastinum: Mediastinal contours appear normal. Heart size is normal. Bones and chest wall: No suspicious bony lesions. Overlying soft tissues appear unremarkable. IMPRESSION: 1. Airspace opacity in the right lower lung similar to the prior x-ray on 11/11/2020, likely postinflammatory scarring. 2. Small right pleural effusion. Dictated by: Franklin Weeks M.D. on 11/22/2020 at 11:28 Approved by: Franklin Weeks M.D. on 11/22/2020 at 11:31 PROCEDURE: CT ANGIO CHEST PE PROTOCOL INDICATIONS: pleural effusion, intermitten arm swelling, mass vs PE TECHNIQUE: After the administration of intravenous contrast, 2 mm thick sections acquired from the pulmonary apices to the posterior costophrenic angles. 3-dimensional maximum intensity projection (MIP) coronal and sagittal reformats were then acquired through the thorax. For radiation dose reduction, the following was used: automated exposure control, adjustment of mA and/or kV according to patient size. COMPARISON: None. FINDINGS: Image quality: Excellent. Pulmonary arteries: Pulmonary arteries are normal in size, and demonstrate no intraluminal filling defects to suggest central pulmonary embolism. Lungs and pleura: There is a large right pleural effusion with areas of loc ulation. There appears to be compressive atelectasis within the right lower lobe. Confluent mass is noted in the medial aspect of the left upper lobe with marked extension into the mediastinum, right hilum, as well as portions of the pericardium. It measures approximately 11.0 cm AP x 7.5 cm transverse by 8.5 cm craniocaudal. Mediastinum: Heart size is enlarged, with pericardial effusion. Thoracic aorta is normal in caliber and enhancement. Esophagus is normal in caliber, without hiatal hernia. Portions of the proximal and mid superior vena cava demonstrate lack of contrast opacification and are contiguous with the above described mass. Bones and chest wall: No suspicious bony lesions. Ribs and thoracic spine appear intact throughout. Thyroid gland is unremarkable . No axillary or supraclavicular adenopathy. Abdomen: Visualized upper abdominal solid organs appear normal in the early arterial phase of enhancement. IMPRESSION: 1. Prominent right upper lobe mass, with prominent extension into the mediastinum, pericardium and hilar region, as above most consistent with malignancy. 2. Lack of opacification within the superior vena cava as above most concerning for tumor infiltration. 3. Large right pleural effusion with compressive atelectasis. 4. No pulmonary embolism. Dictated by: Adelaida Laboy M.D. on 08/20/2020 at 16:13 Approved by: Adelaida Laboy M.D. on 08/20/2020 at 16:41 Assessment & Plan Assessment & Plan narrative: Acute hypoxic respiratory failure Supplemental O2 to maintain O2 sat greater than 91 Acute congestive heart failure Check Echo Lasix 20 mg IV b.i.d. Further goal group directed treatment once results of echo are available. Serial BMPs Chronic anemia status post problems with GI bleed Approximately 1 month ago patient admitted to [facility] for symptomatic anemia. During admission initial hemoglobin was 5. He was transfused. However he continued to have rectal bleeding and ultimately he was transferred to [facility]. He has been told not to take any kind of blood thinners because of his problems with the GI bleeding. No definite source was found. On admission today his hemoglobin was 7.4 and over the past several weeks it has been in this range 7.5-7.9. Serial CBCs Pericardial effusion This was noted on CT. I will obtain ECHO Leukocytosis Presently no documented infection. Will hold on any antibiotics Check blood and urine cultures Trend WBC count
[2020-11-22 20:25] LABS: Appearance Urine UA CLEAR; Bilirubin Urine UA NEGATIVE (NEGATIVE); Color Urine UA YELLOW; Glucose Urine UA NEGATIVE (Negative); Ketones Urine UA NEGATIVE (NEGATIVE); Leukocyte Esterase Urine UA 3+ (NEGATIVE); Nitrite Urine UA NEGATIVE (Negative); Occult Blood Urine UA 3+ (Negative); Protein Urine UA NEGATIVE (Negative); Urobilinogen Urine UA 0.2 E.U./dL (0.2); pH Urine UA 6.5 (4.5-8.0)
[2020-11-22 20:33] LABS: Amorphous Sediment Urine 1+; Bacteria Urine Moderate (10-30); Culture Indicated Urine Specimen Cultured; Hyaline Casts Urine 1-5/LPF; RBC Urine 5-10/HPF (0-5/HPF); WBC Urine 10-30/HPF (0-5/HPF); White Blood Cell Casts Urine 1-5/LPF
[2020-11-22] MEDS: FUROSEMIDE 20 MG/2 ML VIAL IV (21:24)
[2020-11-22] MEDS: carvediloL 3.125 MG TABLET PO (21:24)
[2020-11-22] MEDS: DOCUSATE 100 MG CAPSULE PO (21:24)
[2020-11-22 23:23] LABS: Hemoglobin 7.4 g/dL (13.5-17.5); Mean Corpuscular HGB Conc 31.2 % (30-36); Mean Corpuscular Hemoglobin 27.8 PG (26-34); Mean Corpuscular Volume 89.2 fL (80-100); Platelet Count 306 X10^3/uL (150-400); Red Blood Cell Count 2.66 X10^6/uL (4.5-5.9); Red Cell Distribution Width 25.8 % (11.6-14.8)
[2020-11-22 23:25] LABS: Add Manual Diff / Slide Review YES; Hematocrit 23.7 % (41-53)
[2020-11-22] MEDS: MELATONIN 3 MG TABLET 6 MG PO (23:27)
[2020-11-23] VITALS (7 sets, daily range): BP systolic 99–115; BP diastolic 65–86; PULSE 74–105; RESP 18–20; TEMP 36.2–37; O2SAT 93–99
[2020-11-23 00:15] LABS: Anisocytosis 2+; Poikilocytosis 1+; Total Cells Counted 100
[2020-11-23 00:16] LABS: Hypochromasia 1+
[2020-11-23 00:19] LABS: Neutrophils Absolute Manual 0 /uL (3000-5900); White Blood Cell Count 58.3 X10^3/uL (4.5-11.0)
--- NOTE | 2020-11-23 02:58 | PC.NURSE ---
0058: patient is alert and oriented. Breath sounds diminished throughout with inspiratory crackles in right LL. Is currently on 2L/min oxygen per NC and denies SOB at rest but endorses SOB with exertion. Unable to obtain sat as monitors not picking up a reading which patient/evening RN reports has been ongoing problem and MD/AR MANAGER is aware. HR is irregular and has hx of afib; telemetry reading was afib CVR. Denies nausea. BT hypoactive but states he is passing flatus. Indwelling catheter is patent; urine is clear, pale yellow. Noted to have edema in bilateral LE and in right UE. Wearing bilateral calf SCD's. Denies pain. Ongoing fluid restriction noted. Fall risk score is high and bed alarm is activated.
[2020-11-23] MEDS: SODIUM CHLORIDE 0.9% FLUSH 10 ML IV (05:43)
[2020-11-23 06:18] LABS: Hemoglobin 7.4 g/dL (13.5-17.5); Mean Corpuscular HGB Conc 31.7 % (30-36); Mean Corpuscular Hemoglobin 28.3 PG (26-34); Mean Corpuscular Volume 89.3 fL (80-100); Platelet Count 309 X10^3/uL (150-400); Red Blood Cell Count 2.62 X10^6/uL (4.5-5.9); Red Cell Distribution Width 25.3 % (11.6-14.8)
[2020-11-23 06:24] LABS: Alanine Aminotransferase 19 IU/L (<50); Albumin 2.2 g/dL (3.5-5.0); Albumin Globulin Ratio 0.8 (1.0-2.8); Alkaline Phosphatase 183 U/L (38-126); Aspartate Aminotransferase 24 IU/L (17-59); BUN Creatinine Ratio 14.6 (6-22); Bilirubin Total 0.5 mg/dL (0.2-1.3); Blood Urea Nitrogen 24 mg/dL (9-20); Carbon Dioxide 29 mmol/L (22-32); Chloride 101 mmol/L (98-107); Estimated Glomerular Filt Rate 40.8 mL/min (>60); Globulin 2.6 g/dL (1.7-4.1); Glucose 93 mg/dL (80-110); HEMOLYSIS < 15 (0-50); Magnesium 1.5 mg/dL (1.6-2.3); Potassium 3.9 mmol/L (3.4-5.1); Sodium 134 mmol/L (137-145); Total Protein 4.8 g/dL (6.3-8.2)
[2020-11-23 06:28] LABS: Hematocrit 23.4 % (41-53)
[2020-11-23 06:30] LABS: Add Manual Diff / Slide Review YES
[2020-11-23] MEDS: LEVOTHYROXINE 25 MCG TABLET PO (06:30)
[2020-11-23 06:33] LABS: NT-proBNP (BNP-Adult 18+) 10700 pg/mL (<450)
[2020-11-23 06:34] LABS: White Blood Cell Count 63.5 X10^3/uL (4.5-11.0)
[2020-11-23 06:51] LABS: Neutrophils Absolute Manual 60325 /uL (3000-5900); Total Cells Counted 100
[2020-11-23 06:52] LABS: Anisocytosis 3+; Poikilocytosis 1+
[2020-11-23 06:53] LABS: Hypochromasia 1+; Polychromasia 1+
[2020-11-23] MEDS: MAGNESIUM SULFATE 2 GM/50 ML PIGGYBACK IV (09:17)
[2020-11-23] MEDS: MAGNESIUM HYDROXIDE 30 ML UDC PO (09:17)
[2020-11-23] MEDS: FUROSEMIDE 20 MG/2 ML VIAL IV (09:20)
[2020-11-23] MEDS: POTASSIUM CHLORIDE 20 MEQ TAB PO (09:20)
[2020-11-23] MEDS: DOCUSATE 100 MG CAPSULE PO ×2 (09:20→21:44)
[2020-11-23] MEDS: ASPIRIN EC 81 MG TABLET PO (09:20)
[2020-11-23] MEDS: PANTOPRAZOLE 40 MG TABLET PO (09:22)
--- NOTE | 2020-11-23 11:51 | PC.NURSE ---
Assess- Patient is awake and denies pain. He has edema to his r.arm that is 2+. He also has some edema to bilateral legs that are 2+ both puffy but not wheepy. BS with crackles to r.lower bases. Patient up to try and have a bowel movement after jackie and mom given. He has been unsuccessful at this time. If needed will then give patient a suppository. His appetite has been poor. He was explaining to this RN that he had bladder cancer in 2000 and then it metastasized to his lungs. He is suppose to start chemotherapy soon, but states that they have since found an issue with his heart, per patient. He is on a fluid restriction of 500cc each shift and he is not happy about this but he is being compliant. Oma cath present to r.upper chest and flushing well. Magnesium rider infusing and then he will be heplocked.
--- NOTE | 2020-11-23 15:00 | PT.IIE ---
Surgical History (Last Reviewed 11/22/20 @ 11:30 by YEHUDA Wilcox) Hx of total knee replacement S/P TURP (status post transurethral resection of prostate) Medical History (Last Reviewed 11/22/20 @ 11:30 by YEHUDA Wilcox) Adult onset hypothyroidism Anemia History of cardioversion Hx of prostatic malignancy Lipoma of abdominal wall Paroxysmal A-fib Physical Therapy Inpatient Evaluation/Re-Eval M1 PT/OT-IP Prior Functional Status Start: 11/23/20 15:48 Freq: NEEDED Status: Active Protocol: Document 11/23/20 15:48 CGR (Rec: 11/23/20 16:00 CGR [id number]) Medical Review Prior Functional Status Medical History Reviewed Yes Communication Pt is an effective verbal communicator. Mobility and Gait Pt was MOD I with mobility using a 2ww or SPC for all ambulation. Activities of Daily Living and IADL's Pt was IND in ADLs but states things were getting harder. Social History Household Members spouse Living Arrangements House Number of Floors (Floors) Two Floors Number of Stairs To Enter/Railing? Pt has 4 steps to enter with B wide railings. Pt states he stays on the main level. Home Environment High Toilet,Walk in Shower,Tub /Shower Home Equipment Front Wheel Walker,Straight Cane,Hand Held Shower,Grab Bars Near Toilet,Grab Bars In Shower Employment Status Retired M1 PT/OT-IP Prior Functional Status Start: 11/23/20 16:03 Freq: NEEDED Status: Active Protocol: Document 11/23/20 15:00 AB (Rec: 11/23/20 16:19 AB [id number]) Medical Review Prior Functional Status Medical History Reviewed Yes Communication able to make needs known Mobility and Gait pt stated that he is indpeendent with all mobilities and ambulation using FWW but occasionally uses a SPC but lately has just been using a FWW due to feeling weak Activities of Daily Living and IADL's per OT note: Pt was IND in ADLs but states things were getting harder. Social History Household Members spouse Living Arrangements House Number of Floors (Floors) Two Floors Number of Stairs To Enter/Railing? pt stays on main level of the house Pt has 4 steps to enter with B wide rails and can only hold on to one rail at a time Home Environment High Toilet Home Equipment Front Wheel Walker,Straight Cane,Hand Held Shower,Grab Bars Near Toilet,Grab Bars In Shower Employment Status Retired Additional Social History Comment pt has a walk-in tub shower M2 PT-IP Current Condition Start: 11/23/20 16:03 Freq: NEEDED Status: Active Protocol: Document 11/23/20 15:00 AB (Rec: 11/23/20 16:19 AB [id number]) Physical Therapy Current Condition Current Condition Evaluation Date 11/23/20 Treatment Diagnosis acute kidney injury; bladder/ lung CA; difficulty in walking Onset Date 11/22/20 Precautions Other Precautions falls, monitor BP/hypotension; O2 sat M3 PT-IP Subjective Start: 11/23/20 16:03 Freq: NEEDED Status: Active Protocol: Document 11/23/20 15:00 AB (Rec: 11/23/20 16:19 AB [email or web address]) Subjective Physical Therapy Visit Type Type Initial Evaluation Visit Start Time 15:00 Visit Stop Time 15:45 Total Visit Minutes 45 Number of PRODUCT MANAGEMENT CONSULTANT Visits 0 Physical Therapy Visit Comments Patient Comments pt requested to use the toilet M4 PT-IP Mobility and Gait Start: 11/23/20 16:03 Freq: NEEDED Status: Active Protocol: Document 11/23/20 15:00 AB (Rec: 11/23/20 16:19 AB [id number]) PT-Bed Mobility Assessment Supine to Sit Supine to Sit Maximum Assistance,2 Person Assistance PT-Transfer Assessment Sit to and From Stand Sit to and from Stand Maximum Assistance,1 Person Assistance,Use of Upper Extremities Equipment Transfer Assistive Device Gait Belt,Front Wheeled Walker Orthotic/Prosthetic Devices or Brace: No Transfers Transfer Destination Chair,Bedside Commode Transfer Technique Stand Step Pivot Transfer Ability Level of Assist Moderate Assistance,Maximum Assistance,1 Person Assistance ,Use of Upper Extremities Comments Mobility Comments BP in supine: 112/72. completed supine to sit max A x 2 and max cues. pt was able to sit on EOB CGA. c/o dizziness. BP: 99/63. requested to use the toilet. bedside commode positioned next to pt. completed sit to stand max A and max cues and transferred to commode using FWW mod to max A. presents with unsteady standing balance . pt completed sit to stand from the bedside commode max A and maintain standing mod A using FWW while OT assisted with hygiene care. pt transferred to chair using FWW mod to max A and max cues. pt agreed to ambulate and completed ~ 12 ft using FWW mod to max A and cues. c/o dizziness after ambulation. BP checked sitting on chair: 79/55. reclined pt on chair. BP checked: 117/65. positioned pt on chair. Left pt with OT in room. spouse was outside pt's room and has concerns about pt's mobility. informed spouse regarding pt's level of assistance and SNF recommendation. spouse agreed . pt has O2 cannula off and on the side of the bed when PT checked on pt. attempted to obtain O2 sat but unsuccessful . pt c/o SOB after ambulation and O2 put back on. still unable to obtain O2 sat. Gait Assessment Gait Gait Assistance Required: Moderate Assistance,Maximum Assistance,1 Person Assist Distance (Feet) 12 Able to Maintain Weight Bearing Status Yes During Gait Assistive Devices Assistive Device Gait Belt,Front Wheeled Walker Orthotic/Prosthetic Devices or Brace: No Gait Deviations General Gait Pattern Antalgic,Decreased Stride Length,Decreased Feet Clearance,Narrow Based Gait, Step-to Gait Factors Limiting Gait Function Factors Limiting Gait Function Decreased Activity Tolerance, Decreased Strength,Difficulty Following Directions,Poor Balance,Poor Safety Awareness PT-Balance Assessment Sitting Balance and Reactions Static Sitting Balance Ability Good Dynamic Sitting Balance Ability Fair Standing Balance and Reactions Static Standing Balance Ability Fair Dynamic Standing Balance Ability Poor Device Used FWW M5 PT-IP Objective Assessments Start: 11/23/20 16:03 Freq: NEEDED Status: Active Protocol: Document 11/23/20 15:00 AB (Rec: 11/23/20 16:19 [email or web address]) Orientation Orientation/Cognition Level of Alertness Alert Orientation Name,Place,Situation Safety Awareness Decreased Safety Awareness Comments pt can be impulsive Gross Range of Motion Lower Extremity ROM Assessment Within Functional Limits Strength Lower Extremity Strength Assessment Bilaterally Impaired Hip 3+/5 Knee 3+/5 Muscle Tone Muscle Tone WNL Yes M6 PT-IP Treatment Start: 11/23/20 16:03 Freq: NEEDED Status: Active Protocol: Document 11/23/20 15:00 AB (Rec: 11/23/20 16:19 [email or web address]) Physical Therapy Treatment Education Education Provided Safety M7 PT-IP Assessment and Plan Start: 11/23/20 16:03 Freq: NEEDED Status: Active Protocol: Document 11/23/20 15:00 AB (Rec: 11/23/20 16:19 AB [id number]) PT Summary Assessment and Plan Potential Rehabilitation Potential Good Status of Condition at Evaluation Evolving Summary Impairments Pain,ROM,Strength,Balance, Coordination,Sensation,Tone, Cognition,Bed Mobility, Transfers,Gait,Activity Tolerance Assessment Summary pt rquiring max A x 2 for bed mobility and mod to max A for transfers and ambulation using FWW. spouse stated that she has a heart condition and may not be able to assist pt much. pt will require SNF rehab to improve strength and mobility . Goals Bed Mobility Goal Contact Guard Assistance Transfer Goal Contact Guard Assistance,Front Wheeled Walker Gait Goal Contact Guard Assistance,Front Wheel Walker Gait Distance 50 Other Goals improve bed mobility and transfers to SBA improve ambulation using FWW 100 ft SBA up/down 4 steps 1 rail CGA Days to Meet Goals 10 Frequency of Treatment Frequency Of Treatment Once a Day Treatment Plan Physical Therapy Treatment Plan Bed Mobility Training,Transfer Training,Gait Training, Therapeutic Exercise,Balance Retraining,Discharge Planning, Neuromuscular Re-ed, Coordination Retraining Precautions Other Precautions falls; monitor BP/ hypotension , O2 sat Recommendations To Nursing Amount of Assist Needed 2 Person Assist Discharge Recommendations PT Discharge Recommendations SNF Rehab Transportation Needs at Discharge Wheelchair/Cabulance
--- NOTE | 2020-11-23 15:34 | OT.IP.EVAL ---
Past Medical History (Last Reviewed 11/22/20 @ 11:30 by YEHUDA Wilcox) Adult onset hypothyroidism Anemia History of cardioversion Hx of prostatic malignancy Lipoma of abdominal wall Paroxysmal A-fib Surgical History (Last Reviewed 11/22/20 @ 11:30 by YEHUDA Wilcox) Hx of total knee replacement S/P TURP (status post transurethral resection of prostate) Occupational Therapy Inpatient Evaluation/Re-Eval M1 PT/OT-IP Prior Functional Status Start: 11/23/20 15:48 Freq: NEEDED Status: Active Protocol: Document 11/23/20 15:48 CGR (Rec: 11/23/20 16:00 CGR [id number]) Medical Review Prior Functional Status Medical History Reviewed Yes Communication Pt is an effective verbal communicator. Mobility and Gait Pt was MOD I with mobility using a 2ww or SPC for all ambulation. Activities of Daily Living and IADL's Pt was IND in ADLs but states things were getting harder. Social History Household Members spouse Living Arrangements House Number of Floors (Floors) Two Floors Number of Stairs To Enter/Railing? Pt has 4 steps to enter with B wide railings. Pt states he stays on the main level. Home Environment High Toilet,Walk in Shower,Tub /Shower Home Equipment Front Wheel Walker,Straight Cane,Hand Held Shower,Grab Bars Near Toilet,Grab Bars In Shower Employment Status Retired M2 OT-IP Current Condition Start: 11/23/20 15:48 Freq: Status: Active Protocol: Document 11/23/20 15:48 CGR (Rec: 11/23/20 16:00 CGR [id number]) Occupational Therapy Current Condition Current Condition Evaluation Date 11/23/20 Treatment Diagnosis Generalized weakness, hypoxia, PNA Diagnosis Onset Date 11/22/20 M3 OT- IP Subjective and Pain Start: 11/23/20 15:48 Freq: Status: Active Protocol: Document 11/23/20 15:48 CGR (Rec: 11/23/20 16:00 CGR [id number]) OT- Subjective Occupational Therapy Visit Type Type Initial Evaluation Visit Start Time 14:58 Visit Stop Time 15:34 Total Visit Minutes 36 Notes co-treat with P.T. OT Pain Assessment Pain When Pain Assessed At Rest Pain Present Pain Present Denied Pain M4 OT- IP ADL's Start: 11/23/20 15:48 Freq: Status: Active Protocol: Document 11/23/20 15:48 CGR (Rec: 11/23/20 16:00 CGR [id number]) OT [id number] Comments OT Self-Feeding Comments Not meal time OT ADL-Grooming General Evaluation Grooming Ability Standby Assistance Areas Needing Assistance Retrieving/Set-up of Grooming Items,Face Washing Comments OT Grooming Comments seated in chair with set up OT ADL-Oral Care General Eval Oral Care Ability Standby Assistance Comments Oral Care Comments seated in chair with set up OT ADL-Dressing General Eval Upper Body Dressing Ability Minimal Assistance Comments OT Dressing Comments hospital gown OT ADL-Toileting General Evaluation Toileting Ability Total Assistance Comments OT Toileting Comments Pt had bm seated on BSC and needed total a for back pericare. OT ADL-Bathing Comments OT Bathing Comments not performed M5 OT- IP IADL's Start: 11/23/20 15:48 Freq: Status: Active Protocol: Document 11/23/20 15:48 CGR (Rec: 11/23/20 16:00 R [id number]) OT-Instrumental Activities of Daily Living Deficits IADL Deficits Identified Deficits Home Safety Awareness Awareness of Need for Assistance at Home Good Awareness Ability to Problem Solve Emergency Able to Problem Solve Situations Medication Management Medication Management Caregiver Administers Money Management Money Management Caregiver Provides Assistance Meal Preparation Meal Preparation Caregiver Provides Assist Coding Validator Coding Validator Caregiver Provides Assist Driving Driving Comments 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 M6 OT- IP Functional Cognition Start: 11/23/20 15:48 Freq: Status: Active Protocol: Document 11/23/20 15:48 CGR (Rec: 11/23/20 16:00 CGR [id number]) Cognitive Factors Limiting Selfcare Function Cognitive Ability Level of Alertness Alert Patient Orientation Name,Age,Birthday,Year,Place, Situation Attention Span Ability Capable of Focused Attention, Capable of Sustained Attention Ability to Follow Commands Able to Follow One Step Commands with Increased Time, Able to Follow One Step Commands with Repetition Cognitive Comments Cognitive Assessment Comments Pt would benefit from formal cog assessment. OT- Vision and Hearing OT- Hearing Assessment OT- Hearing Assessment WFL OT- Vision Assessment Visual Acuity WFL,Glasses For Reading Visual Attentiveness WFL Occular Pursuits WFL Visual Convergence WFL M7 OT- IP Mobility and Balance Start: 11/23/20 15:48 Freq: Status: Active Protocol: Document 11/23/20 15:48 CGR (Rec: 11/23/20 16:00 CGR [id number]) OT- Bed Mobility Assessment Supine to Sit Supine to Sit Assist Maximum Assistance,2 Person Assistance Scooting Scooting to Edge of Bed Maximum Assistance,2 Person Assistance OT-Transfer Assessment Sit to and From Stand Sit to and from Stand Maximum Assistance,1 Person Assistance Transfers Transfer Ability Maximum Assistance,1 Person Assistance Technique Transfer Destination Bed,Bedside Commode,Chair Transfer Technique Stand Step Pivot Devices Transfer Assistive Devices Gait Belt,Front Wheeled Walker OT- Gait Assessment Gait Gait Assistance Required: Moderate Assistance,Maximum Assistance,1 Person Assist Assistive Devices Assistive Device Gait Belt,Front Wheeled Walker Comments Gait Ability Comments mobility in room ~12 feet OT- Balance Assessment Sitting Balance and Reactions Static Sitting Balance Ability Fair Dynamic Sitting Balance Ability Fair M8 OT- IP Objective Assessments Start: 11/23/20 15:48 Freq: Status: Active Protocol: Document 11/23/20 15:48 CGR (Rec: 11/23/20 16:00 CGR [id number]) OT Gross Range of Motion Upper Extremity Range of Motion Assessment Within Functional Limits OT Strength Upper Extremity Strength Assessment Within Functional Limits Comments Strength Comments grossly 4-/5, weak for this patient but WFL OT- Coordination Assessment Upper Extremity Finger to Nose Test Within Functional Limits Finger Tapping Test Within Functional Limits OT-Muscle Tone Assessment Muscle Tone WNL Yes OT Sensation Assessment Edema Edema Present Edema Comments Pt with pitting edema to BUE. M9 OT- IP Assessment and Plan Start: 11/23/20 15:48 Freq: Status: Active Protocol: Document 11/23/20 15:48 CGR (Rec: 11/23/20 16:00 CGR [id number]) OT Summary Assessment and Plan Potential Rehabilitation Potential Fair Analytic Complexity at Evaluation Moderate Summary OT Impairments Strength,Balance,Functional Cognition,Functional Mobility, Grooming,Dressing,Toileting, Bathing,Toilet Transfers, Shower Transfers,Activity Tolerance Progress Towards Goals Slow Progress due to Medical Issues,Slow Progress due to Activity Tolerance Assessment Summary Pt presents as a moderate complexity evaluation s/p admit for generalized weakness . Pt has been diagnoses with bladder ca with mets to the lungs. Pt currently requring max a x1-2 people for mobility . Pt will benefit from rehab services while hospitalized and will likely need SNF upon discharge prior to returning home. Goals Grooming Goal Independent Dressing Goal Independent Toileting Goal Independent Bathing Goal Independent Toilet Transfer Goal Independent Shower Transfer Goal Independent Days to Meet Goals 20 Frequency of Treatment Frequency Of Treatment Once a Day Treatment Plan OT Treatment Plan ADL Training,Functional Cognition Training,Functional Mobility,Patient/Family Education,Discharge Planning Other Treatment Recommendations and Next cog assessment, endurance Treatment Focus activities, watch BP. Discharge Recommendations OT Discharge Recommendations SNF Rehab Transportation Needs at Discharge Wheelchair/Cabulance
--- NOTE | 2020-11-23 15:35 | CM.DANOTE ---
Patient is a 80 yo male who was admitted on 11/22/20 for SOB. Pt has PRE MCR for insurance and his PCP is Dr. Kat Christian in [place]. EMR was reviewed. Per MD, pt with hx of bladder and lung cancer and high white count and admitted for acute hypoxic respiratory failure. PT/OT ordered this afternoon and pending. SW met bedside with pt and spouse and explained role and they confirm they live at home in [place] and pt has been slowly declining in his strength and abilities to complete ADL's independently. Pt now does not have the strength to use his walker or sit up from bed independently or get off of the commode independently. Pt denies any hx of HH or SNF and they would be agreeable to either pending pt's progress. Spouse feels strongly that pt is so weak that he will likely not progress enough during hospital stay to d/c home. Pt and spouse have supportive adult son and Dtr who do not live locally, but can come visit and support if needed. SW provided the SNF/HH Choice list and discussed the process for reviewing and choosing a few SNF preferences and then the need for insurance auth for SNF and find an accepting SNF. Spouse agreeable to review list tonight and look at the website and let SW know a few preferences tomorrow for likely referral. Plan: SW to follow closely tomorrow for SNF preferences from spouse for [facility] contracted SNF facility and PT/OT eval and recommendations for likely SNF vs HH. HARJIT Weaver Discharge Planning/Care Management Advanced directive, confirm from FAMILY Start: 11/22/20 16:36 Freq: Q24H Status: Complete Protocol: Document 11/22/20 16:36 AGW (Rec: 11/22/20 20:13 AGW [id number]) Advance Directive, confirm on record Time 20:00 Person contacted patient Copy received No Advanced directive available on record No CM Discharge Assessment Start: 11/23/20 15:33 Freq: Status: Active Protocol: Document 11/23/20 15:33 BF (Rec: 11/23/20 15:35 BF [id number]) Discharge Planning Assessment Assigned Front Office Supervisor HARJIT Allen DPOA/Assigned Designee Name spouse and kids Advance Directives? No Advance Directives on File No History Provided By Patient,Significant Other, Medical Record Comment admitted twice in September 2020 Prior Living Arrangements House Household Members spouse Type of transporation used prior to Relies on Others admit Independent with ADL's No Is patient alert and oriented? Yes Needs Assistance With Bathing,Meal Prep,Managing Medications,Home Chores / Shopping Caregiver for Another No DME Already Rented / Owned FWW / Walker Patient/Family Preference Fpc Facility Comment Pending PT/OT eval Barriers to Discharge No Discharge Plan [facility]pc Facility Transportation Arrangement Spouse if home, facility van if SNF Medicare Choice List Provided Yes SNF/HH Preference reviewing SNF list Whiteboard Updated in Patient Room with Yes name and ext. # of Front Office Supervisor Review Status In Process Please Provide Date Initial DC 11/23/20 Assessment Was Performed Next Review Type Continued Stay Review
--- NOTE | 2020-11-23 16:24 | P.PN_ITS ---
Subjective Subjective Date Patient Seen: 11/23/20 Interval history: 80yo male with a history of bladder and lung cancer (radiation completed and chemo pending at this time), paradoxical AFib, and recent GI bleed, presents emergency department for an episode of weakness. He was diagnosed with pneumonia and started on doxycycline. he was walking and fell to his knees because he felt weak. . He has been having problems standing, difficulty getting himself off the bed or the bathroom commode. In the ED he was found to be hemodynamically stable afebrile. Hemoglobin was stable at 7.9 from values October 2020. He was found to have an elevated BNP but chest x-ray did not reveal any overt failure. He did complain of shortness of breath as he was hypoxemic as well. CTA of the chest was obtained to rule out pulmonary embolus or progression of any tumor a neither were found. However he was found to have a moderate-sized pericardial effusion as well as small left and trace right pleural effusion. This morning he states his shortness of breath or weakness seems to have improved. He denies palpitation lightheadedness nausea vomiting diarrhea abdominal pain chest pain Exam Vital Signs (past 8 hours): - 11/23/20 12:00 Temperature 98.6 F Pulse Rate 89 Respiratory Rate 19 Blood Pressure 113/74 Pulse Oximetry 93 Oxygen Delivery Method Room Air Oxygen Flow Rate 2 Narrative Exam Narrative: Constitutional: 80-year-old male NAD HEENT: Normocephalic atraumatic extraocular movements intact pupils are equal round reactive fundi were not visualized sclera and conjunctiva were clear oropharynx is clear with moist mucous membranes Neck: Supple without thyromegaly bruits or jugular venous distention Thorax: Symmetrical with good lateral expansion Respiratory: Decreased breath sounds at the bases no rales rhonchi or wheezes Cardiovascular: Regular rhythm S1-S2 was normal there were no loose he has rubs murmurs gallops present GI: Benign bowel sounds present : No Venegas Musculoskeletal: Right upper extremity with 2+ edema right lower extremity with 1+ edema Neurological: Cranial nerves 2-12 were intact. Motor was equal active. Sensory modality a crude touch was intact. Psychological: Mood and affect normal. Awake alert oriented x3 Skin atrophic in with crepe paper wrinkling Objective Labs Result Diagrams: 11/23/20 05:42 11/23/20 05:42 Labs: Laboratory Results - last 24 hr 11/22/20 11/22/20 11/23/20 20:22 23:05 05:42 WBC 58.3 H* 63.5 H* RBC 2.66 L 2.62 L Hgb 7.4 L 7.4 L Hct 23.7 L 23.4 L MCV 89.2 89.3 MCH 27.8 28.3 MCHC 31.2 31.7 RDW 25.8 H 25.3 H Plt Count 306 309 Neut % (Auto) Not Reportable Not Reportable Lymph % (Auto) Not Reportable Not Reportable [place] % (Auto) Not Reportable Not Reportable Eos % (Auto) Not Reportable Not Reportable Baso % (Auto) Not Reportable Not Reportable Lymph # (Auto) Not Reportable Not Reportable [place] # (Auto) Not Reportable Not Reportable Baso # (Auto) Not Reportable Not Reportable Total Counted 100 100 Seg Neutrophils % 82.0 H 78.0 H Band Neutrophils % 10.0 H 17.0 H Lymphocytes % (Manual) 5.0 L 1.0 L Monocytes % (Manual) 3.0 4.0 Neutrophils # (Manual) 0 L 73322 H RBC Morphology See below See below Polychromasia 1+ H Hypochromasia 1+ H 1+ H Poikilocytosis 1+ H 1+ H Anisocytosis 2+ H 3+ H Sodium Potassium Chloride Carbon Dioxide BUN Creatinine Estimated GFR BUN/Creatinine Ratio Glucose Calcium Magnesium Total Bilirubin AST ALT Alkaline Phosphatase NT-Pro-B Natriuret Pep Total Protein Albumin Globulin Albumin/Globulin Ratio Urine Color Yellow Urine Appearance Clear Urine pH 6.5 Ur Specific [place] 1.010 Urine Protein Negative Urine Glucose (UA) Negative Urine Ketones Negative Urine Occult Blood 3+ H Urine Nitrate Negative Urine Bilirubin Negative Urine Urobilinogen 0.2 Ur Leukocyte Esterase 3+ H Urine RBC 5-10/hpf H Urine WBC 10-30/hpf H Amorphous Sediment 1+ Urine Bacteria Moderate (10-30) H Hyaline Casts 1-5/lpf WBC Casts 1-5/lpf H Ur Culture Indicated? Specimen cultured 11/23/20 05:42 WBC RBC Hgb Hct MCV MCH MCHC RDW Plt Count Neut % (Auto) Lymph % (Auto) [place] % (Auto) Eos % (Auto) Baso % (Auto) Lymph # (Auto) [place] # (Auto) Baso # (Auto) Total Counted Seg Neutrophils % Band Neutrophils % Lymphocytes % (Manual) Monocytes % (Manual) Neutrophils # (Manual) RBC Morphology Polychromasia Hypochromasia Poikilocytosis Anisocytosis Sodium 134 L Potassium 3.9 Chloride 101 Carbon Dioxide 29 BUN 24 H Creatinine 1.64 H Estimated GFR 40.8 L BUN/Creatinine Ratio 14.6 Glucose 93 Calcium 8.0 L Magnesium 1.5 L Total Bilirubin 0.5 AST 24 ALT 19 Alkaline Phosphatase 183 H NT-Pro-B Natriuret Pep 71734 H Total Protein 4.8 L Albumin 2.2 L Globulin 2.6 Albumin/Globulin Ratio 0.8 L Urine Color Urine Appearance Urine pH Ur Specific [place] Urine Protein Urine Glucose (UA) Urine Ketones Urine Occult Blood Urine Nitrate Urine Bilirubin Urine Urobilinogen Ur Leukocyte Esterase Urine RBC Urine WBC Amorphous Sediment Urine Bacteria Hyaline Casts WBC Casts Ur Culture Indicated? [facility] Medical History Adult onset hypothyroidism Anemia History of cardioversion Hx of prostatic malignancy Lipoma of abdominal wall Paroxysmal A-fib Surgical History Hx of total knee replacement S/P TURP (status post transurethral resection of prostate) Family History Mother Multiple sclerosis Father Prostate cancer Social History household members: spouse Smoking Status: Never smoker alcohol intake: current Assessment & Plan Assessment & Plan narrative: Acute hypoxic respiratory failure Continue supplemental O2 to maintain O2 sat greater than 91 Acute congestive heart failure Echo revealed ejection fraction 45-50% Because of his orthostatic changes will discontinue his Lasix Also for that reason will hold on Kevin inhibitors, ARB, beta blockers Orthostatic blood pressure Systolic blood pressure decreases from 111 to 79 after walking Discontinue his IV Lasix Start midodrine Pericardial effusion Echo revealed moderate pericardial effusion without tamponade physiology Leukocytosis Would consider the patient to have Luke moist reaction. The fact that his PMNs are primarily mature without any evidence of cells suggestive of leukemia One question would be whether he hasa leukoerythroblastosis 2/2 cancer metastatic to the bone marrow. The fact that he does not nucleated red cells, and immature WBC forms with tender go against this
[2020-11-23] MEDS: MIDODRINE HCL 5 MG TABLET PO (21:40)
[2020-11-23] MEDS: TAMSULOSIN 0.4 MG CAPSULE PO (21:40)
[2020-11-24] VITALS (17 sets, daily range): BP systolic 97–135; BP diastolic 54–85; PULSE 62–105; RESP 15–20; TEMP 36.1–36.7; O2SAT 92–100
--- NOTE | 2020-11-24 01:41 | PC.NURSE ---
0766: patient is alert and oriented. Breath sounds diminished at bases but CTA with RA sat of 99%; denies feeling SOB. HR irregular w/telemetry reading of afib RVR rate of 105. Denies nausea. BT hypoactive but abdomen is soft. Indwelling catheter is patent. Able to move self in bed. Gait not assessed at this time but patient reports he ambulated in room with PT earlier using walker and 2 assists. Continued edema in bilateral LE and right arm. Had SCD's on at shift change but now requests they be off so reminded to ankle wave. Denies pain. Fall risk score is high and bed alarm is activated.
[2020-11-24] MEDS: SODIUM CHLORIDE 0.9% FLUSH 10 ML IV (05:26)
[2020-11-24 06:19] LABS: Mean Corpuscular Hemoglobin 27.6 PG (26-34); Platelet Count 250 X10^3/uL (150-400); Red Blood Cell Count 2.44 X10^6/uL (4.5-5.9); Red Cell Distribution Width 25.2 % (11.6-14.8)
[2020-11-24] MEDS: LEVOTHYROXINE 25 MCG TABLET 37.5 MCG PO (06:19)
[2020-11-24] MEDS: MIDODRINE HCL 5 MG TABLET PO ×3 (06:19→20:08)
[2020-11-24 06:23] LABS: Add Manual Diff / Slide Review YES; Hematocrit 21.7 % (41-53)
[2020-11-24 06:27] LABS: Alanine Aminotransferase 18 IU/L (<50); Albumin Globulin Ratio 0.8 (1.0-2.8); Alkaline Phosphatase 184 U/L (38-126); Aspartate Aminotransferase 24 IU/L (17-59); BUN Creatinine Ratio 15.7 (6-22); Bilirubin Total 0.3 mg/dL (0.2-1.3); Blood Urea Nitrogen 25 mg/dL (9-20); Calcium 7.7 mg/dL (8.4-10.2); Carbon Dioxide 29 mmol/L (22-32); Chloride 98 mmol/L (98-107); Estimated Glomerular Filt Rate 42.3 mL/min (>60); Globulin 2.4 g/dL (1.7-4.1); Glucose 90 mg/dL (80-110); HEMOLYSIS < 15 (0-50); Magnesium 2.1 mg/dL (1.6-2.3); Potassium 3.8 mmol/L (3.4-5.1); Sodium 131 mmol/L (137-145); Total Protein 4.4 g/dL (6.3-8.2); White Blood Cell Count 49.4 X10^3/uL (4.5-11.0)
[2020-11-24 06:28] LABS: Hemoglobin 6.7 g/dL (13.5-17.5)
[2020-11-24 07:03] LABS: Anisocytosis 3+; Neutrophils Absolute Manual 45942 /uL (3000-5900); Poikilocytosis 1+; Total Cells Counted 100
[2020-11-24] MEDS: POTASSIUM CHLORIDE 20 MEQ TAB PO (08:43)
[2020-11-24] MEDS: DOCUSATE 100 MG CAPSULE PO ×2 (08:43→20:09)
--- NOTE | 2020-11-24 08:56 | TAR.TRANSNT ---
1st unit of PRBC's initiated within 30 minutes of retrieving from Blood bank.
--- NOTE | 2020-11-24 09:42 | OT.IPNOTE ---
Chart reviewed, pt with H&H of 6.7 & 21.7 and receiving blood. Will hold this AM and check back later if schedule permits.
--- NOTE | 2020-11-24 10:27 | PT-IP ANOTE ---
Addendum entered and electronically signed by Hanny Marte, PT 11/24/20 13:24: Pt still undergoing transfusion. Will follow up morning of 11/25/20. Original Note: Per chart review, latest H&H is 6.7/.7. Pt is receiving two units PRBC's today. Will hold PT tx this AM and check back later as staffing allows.
--- NOTE | 2020-11-24 11:15 | PC.NURSE ---
Patient tolerating blood transfusion well. No signs and symptoms of adverse reaction. No shortness of breath, LS clear throughout diminished in bases. RR 18, 02 saturation 92-96% on RA. VSS, afebrile.
--- NOTE | 2020-11-24 15:15 | P.PN_ITS ---
Subjective Subjective Interval history: 80yo male with a history of bladder and lung cancer (radiation completed and chemo pending at this time), paradoxical AFib, and recent GI bleed, presents emergency department for an episode of weakness. He was diagnosed with pneumonia and started on doxycycline. he was walking and fell to his knees because he felt weak. . He has been having problems standing, difficulty getting himself off the bed or the bathroom commode. In the ED he was found to be hemodynamically stable afebrile. Hemoglobin was stable at 7.9 from values October 2020. He was found to have an elevated BNP but chest x-ray did not reveal any overt failure. He did complain of shortness of breath as he was hypoxemic as well. CTA of the chest was obtained to rule out pulmonary embolus or progression of any tumor a neither were found. However he was found to have a moderate-sized pericardial effusion as well as small left and trace right pleural effusion. States he continues to feel better. However his hemoglobin was 6.7 this morning. He denied no abdominal pain no nausea vomiting melena port wine colored stools bright red blood per rectum or hematemesis. Exam Vital Signs (past 8 hours): - 11/24/20 08:49 11/24/20 09:00 11/24/20 09:10 Temperature 97.0 F L 97.0 F L 97.2 F L Pulse Rate 94 H 92 H 80 Respiratory Rate 20 20 18 Blood Pressure 135/85 135/85 109/77 Pulse Oximetry 92 11/24/20 11:55 11/24/20 12:09 11/24/20 12:22 Temperature 97.0 F L 97.0 F L 97.0 F L Pulse Rate 95 H 62 62 Respiratory Rate 18 15 15 Blood Pressure 97/63 97/63 97/63 Pulse Oximetry 95 11/24/20 12:45 11/24/20 12:55 11/24/20 14:38 Temperature 97.5 F L 97.5 F L 97.0 F L Pulse Rate 72 73 80 Respiratory Rate 18 18 18 Blood Pressure 99/73 99/74 111/58 L Pulse Oximetry 96 Oxygen Delivery Method Room Air Oxygen Flow Rate 0 Narrative Exam Narrative: Constitutional: 80-year-old male NAD HEENT: Normocephalic atraumatic extraocular movements intact pupils are equal r ound reactive fundi were not visualized sclera and conjunctiva were clear oropharynx is clear with moist mucous membranes Neck: Supple without thyromegaly bruits or jugular venous distention Thorax: Symmetrical with good lateral expansion Respiratory: Decreased breath sounds at the bases no rales rhonchi or wheezes Cardiovascular: Regular rhythm S1-S2 was normal there were no loose he has rubs murmurs gallops present GI: Benign bowel sounds present : No Venegas Musculoskeletal: Right upper extremity with 2+ edema right lower extremity with 1+ edema Neurological: Cranial nerves 2-12 were intact. Motor was equal active. Sensory modality a crude touch was intact. Psychological: Mood and affect normal. Awake alert oriented x3 Skin atrophic in with crepe paper wrinkling Objective Labs Result Diagrams: 11/24/20 05:26 11/24/20 05:26 Labs: Laboratory Results - last 24 hr 11/22/20 11/24/20 11/24/20 11:59 05:26 05:26 WBC 49.4 H* RBC 2.44 L Hgb 6.7 L* Hct 21.7 L MCV 89.0 MCH 27.6 MCHC 31.0 RDW 25.2 H Plt Count 250 Neut % (Auto) Not Reportable Lymph % (Auto) Not Reportable [place] % (Auto) Not Reportable Eos % (Auto) Not Reportable Baso % (Auto) Not Reportable Lymph # (Auto) Not Reportable [place] # (Auto) Not Reportable Baso # (Auto) Not Reportable Total Counted 100 Seg Neutrophils % 88.0 H Band Neutrophils % 5.0 Atypical Lymphs % 2.0 H Monocytes % (Manual) 4.0 Eosinophils % (Manual) 1.0 L Neutrophils # (Manual) 30931 H RBC Morphology Not Reportable Poikilocytosis 1+ H Anisocytosis 3+ H Sodium 131 L Potassium 3.8 Chloride 98 Carbon Dioxide 29 BUN 25 H Creatinine 1.59 H Estimated GFR 42.3 L BUN/Creatinine Ratio 15.7 Glucose 90 Calcium 7.7 L Magnesium 2.1 Total Bilirubin 0.3 AST 24 ALT 18 Alkaline Phosphatase 184 H Total Protein 4.4 L Albumin 2.0 L Globulin 2.4 Albumin/Globulin Ratio 0.8 L Blood Type A Positive Antibody Screen Negative Crossmatch See Detail [facility] Medical History Adult onset hypothyroidism Anemia History of cardioversion Hx of prostatic malignancy Lipoma of abdominal wall Paroxysmal A-fib Surgical History Hx of total knee replacement S/P TURP (status post transurethral resection of prostate) Family History Mother Multiple sclerosis Father Prostate cancer Social History household members: spouse Smoking Status: Never smoker alcohol intake: current Assessment & Plan Assessment & Plan narrative: Acute hypoxic respiratory failure Continue supplemental O2 to maintain O2 sat greater than 91 Acute congestive heart failure Echo revealed ejection fraction 45-50% Because of his orthostatic changes will discontinue his Lasix Also for that reason will hold on Kevin inhibitors, ARB, beta blockers Symptomatic leading improved Check BNP in a.m. Orthostatic blood pressure Systolic blood pressure decreases from 111 to 79 after walking yesterday. Today Blood pressure is 109/70 7-130 5/85 Would wonder if his orthostasis is related to his low hemoglobin. He has been placed on midodrine 5 mg p.o. t.i.d. and his Lasix was discontinued yesterday. Discontinue his IV Lasix yesterday Monitor for any active bleeding Chronic anemia status post prior problems with GI bleed(10/2020) Approximately 1 month ago patient admitted to [facility] for symptomatic anemia. During admission initial hemoglobin was 5. He was transfused. However he continued to have rectal bleeding and ultimately he was transferred to [facility]. He has been told not to take any kind of blood thinners because of his problems with the GI bleeding. No definite source was found as a cause of his bleed. On admission today his hemoglobin was 7.4 and over the past several weeks it has been in this range 7.5-7.9 Today his morning hemoglobin was 6.7. He has no abdominal pain no nausea vomiti ng melena port wine colored stools bright red blood per rectum or hematemesis. Patient has been on no blood thinners during this admission 2 units of packed RBCs to be transfused Follow-up CBC after transfusion and in a.m. Monitor for any active bleeding . Pericardial effusion Echo revealed moderate pericardial effusion without tamponade physiology Acute on chronic kidney disease His creatinine was 1.06 on 10/22/2020. On admission it was 1.59. There have been no increase in creatinine on Lasix. However Lasix has been discontinued because of his hypotension Avoid ARB/KEVIN inhibitors Avoid nephrotoxic drugs BMP in a.m. Leukocytosis Would consider the patient to have Leukamoid reaction. The fact that his PMNs a re primarily mature without any evidence of cells suggestive of leukemia One question would be whether he hasa leukoerythroblastosis 2/2 cancer metastatic to the bone marrow. The fact that he does not nucleated red cells, and immature WBC forms with tend go against this
--- NOTE | 2020-11-24 15:21 | PC.NURSE ---
Patients 2nd unit of blood done at 1438. VSS, unable to get a good pulse ox reading on patients finger, ear, or toes. He has cold hands, put warm cloth on his hands an blankets and still unable to get. Patient is not sob, wheezing, or hypoxic. He states that he is breathing well. Hannah called and asked to talk to but he was busy. Note left for him and he is aware to call patients .
--- NOTE | 2020-11-24 15:54 | CM.DPC ---
DCP Continued [employer] Student attempted to meet with patient this afternoon, he was resting and spouse was not in room. Per chart review and nursing interview patient received a blood transfusion today. Discharge needs are pending at this time. Plan to see patient and 11/25/20 to discuss D/C options. PLAN: Will continue to assist in facilitating D/C plans for patient. CM Team to follow closely. Kathia Martinez, HARJIT Whelan MSW, Student
[2020-11-24 17:30] LABS: Hematocrit 28.9 % (41-53); Hemoglobin 9.3 g/dL (13.5-17.5); Mean Corpuscular HGB Conc 32.2 % (30-36); Mean Corpuscular Hemoglobin 28.2 PG (26-34); Mean Corpuscular Volume 87.6 fL (80-100); Platelet Count 284 X10^3/uL (150-400); Red Cell Distribution Width 21.1 % (11.6-14.8)
[2020-11-24 17:35] LABS: Add Manual Diff / Slide Review YES
[2020-11-24 17:36] LABS: White Blood Cell Count 61.3 X10^3/uL (4.5-11.0)
[2020-11-24 18:06] LABS: Hypochromasia 1+; Neutrophils Absolute Manual 58235 /uL (3000-5900); Total Cells Counted 100
--- NOTE | 2020-11-24 18:24 | P.EN_ITS ---
Event Note Date Patient Seen: 11/24/20 Event Note: Advance Care Planning Present Attending physician Monroe Sanchez MD Reason for ACP Patient's overall declining health Course of illness 80yo male with a history of bladder and lung cancer (radiation completed and chemo pending at this time), paradoxical AFib, and recent symptomatic GI bleed , presents emergency department for an episode of weakness. He was diagnosed with pneumonia and started on doxycycline. he was walking and fell to his knees because he felt weak. . He has been having problems standing, difficulty getting himself off the bed or the bathroom commode. In the ED he was found to be hemodynamically stable afebrile. Hemoglobin was stable at 7.9 from values October 2020. He was found to have an elevated BNP but chest x-ray did not reveal any overt failure. He did complain of shortness of breath as he was hypoxemic as well. CTA of the chest was obtained to rule out pulmonary embolus or progression of any tumor a neither were found. However he was found to have a moderate-sized pericardial effusion as well as small left and trace right pleural effusion. During this admission he is developed orthostatic hypotension and is now on midodrine This hemoglobin was 6.7 this morning. He denied no abdominal pain no nausea vomiting melena port wine colored stools bright red blood per rectum. He has been transfused with 2 units of packed cells and hemoglobin is up to 9.3. Goals of care states that the patient's appetite is very poor and that he eats mostly bites at the best. The patient has cancer is no longer being treated because of his poor functional status. Therefore no chemotherapy options are available. The patient was actually interested in with dignity. I explained the process and he realizes the difficulty with proceeding with with dignity. We talked about hospice he is accepting of hospice and realizes that little time remaining and he is accepting of hospice. The question will be hospice at home or facility. Going home with hospice he realizes that the priority will be medical management at home and not returning to the hospital. He also realizes that he will not have any further blood transfusions. He is also aware that he will not have further labs, x-rays, scans. PLAN Changed to comfort care Referral to Hospice Case management to be aware of need for discussion regarding residential placement versus home with private duty caregivers
[2020-11-24] MEDS: TAMSULOSIN 0.4 MG CAPSULE PO (20:08)
[2020-11-24] MEDS: MELATONIN 3 MG TABLET 6 MG PO (20:08)
[2020-11-24] MEDS: ACETAMINOPHEN 325 MG TABLET 650 MG PO (20:09)
[2020-11-25] VITALS: BP 95/73; PULSE 97; RESP 20; TEMP 36.6; O2SAT 97
[2020-11-25] MEDS: MORPHINE 2 MG/ML INJ IV ×2 (01:20→05:12)
[2020-11-25] MEDS: MIDODRINE HCL 5 MG TABLET PO ×3 (06:33→19:48)
[2020-11-25] MEDS: LEVOTHYROXINE 25 MCG TABLET 37.5 MCG PO (06:34)
--- NOTE | 2020-11-25 09:57 | OT.IPNOTE ---
Discharge pt for OT services due to comfort care per hospitalist.
--- NOTE | 2020-11-25 10:23 | PT-IP ANOTE ---
Per discussion at AM rounds, pt is transitioning to comfort care. At hospitalist's request, PT will discharge therapy orders.
[2020-11-25] MEDS: SODIUM CHLORIDE 0.9% FLUSH 10 ML IV ×2 (11:18→19:58)
[2020-11-25 12:06] VITALS: BP 130/101; PULSE 113; RESP 20; TEMP 35.9
--- NOTE | 2020-11-25 15:17 | PM.PN.1 ---
Subjective Subjective Date Patient Seen: 11/25/20 Time Patient Seen: 11:05 Interval history: 80yo male with a history of bladder and lung cancer (radiation completed and chemo pending at this time), paradoxical AFib, and recent GI bleed, presented emergency department for an episode of weakness. Admitted with acute hypoxic respiratory failure, deemed secondary to acute systolic heart failure. Provider yesterday had a prolonged discussion with the patient and ultimately decided on comfort care measures only and discharging home with hospice. Patient denies complaints of chest pain or shortness of breath today, he is saturating well on 2 L of supplemental oxygen at 97% although this is likely somewhat for comfort as he was not hypoxic over the course of the day yesterday off of supplemental oxygen. His hemoglobin improved to 9.3 after 2 units of blood were given for hemoglobin of 6.7. Patient his currently pending discharge home with hospice once equipment is available home. Exam Vital Signs (past 8 hours): - 11/25/20 12:06 Temperature 96.7 F L Pulse Rate 113 H Respiratory Rate 20 Blood Pressure 130/101 H Oxygen Delivery Method Nasal Cannula Oxygen Flow Rate 2 Narrative Exam Narrative: Constitutional: 80-year-old male NAD HEENT: Normocephalic atraumatic extraocular movements intact pupils are equal round reactive fundi were not visualized sclera and conjunctiva were clear oropharynx is clear with moist mucous membranes Neck: Supple without thyromegaly bruits or jugular venous distention Thorax: Symmetrical with good lateral expansion Respiratory: Decreased breath sounds at the bases no rales rhonchi or wheezes Cardiovascular: Regular rhythm S1-S2 was normal there were no loose he has rubs murmurs gallops present GI: Benign bowel sounds present : No Venegas Musculoskeletal: Right upper extremity with 2+ edema right lower extremity with 1+ edema Neurological: Cranial nerves 2-12 were intact. Motor was equal active. Sensory modality a crude touch was intact. Psychological: Mood and affect normal. Awake alert oriented x3 Skin atrophic in with crepe paper wrinkling Objective Labs Result Diagrams: 11/24/20 17:00 11/24/20 05:26 Labs: Laboratory Results - last 24 hr 11/24/20 17:00 WBC 61.3 H* RBC 3.30 L Hgb 9.3 L Hct 28.9 L MCV 87.6 MCH 28.2 MCHC 32.2 RDW 21.1 H Plt Count 284 Neut % (Auto) Not Reportable Lymph % (Auto) Not Reportable [place] % (Auto) Not Reportable Eos % (Auto) Not Reportable Baso % (Auto) Not Reportable Lymph # (Auto) Not Reportable [place] # (Auto) Not Reportable Baso # (Auto) Not Reportable Total Counted 100 Seg Neutrophils % 64.0 Band Neutrophils % 31.0 H Lymphocytes % (Manual) 1.0 L Monocytes % (Manual) 4.0 Neutrophils # (Manual) 34791 H RBC Morphology See below Hypochromasia 1+ H PFSH Medical History Adult onset hypothyroidism Anemia History of cardioversion Hx of prostatic malignancy Lipoma of abdominal wall Paroxysmal A-fib Surgical History Hx of total knee replacement S/P TURP (status post transurethral resection of prostate) Family History Mother Multiple sclerosis Father Prostate cancer Social History household members: spouse Smoking Status: Never smoker alcohol intake: current Assessment & Plan Assessment & Plan narrative: 80yo male with a history of bladder and lung cancer (radiation completed and chemo pending at this time), paradoxical AFib, and recent GI bleed, presented emergency department for an episode of weakness. Admitted with acute hypoxic respiratory failure, deemed secondary to acute systolic heart failure. 1. Acute hypoxic respiratory failure, improved Continue supplemental O2 to maintain O2 sat greater than 90%, lasix discontinued but can resume for comfort if needed. Held for orthostatic hypotension as noted below 2. Acute congestive heart failure Echo revealed ejection fraction 45-50% Because of his orthostatic changes will discontinue his Lasix Also for that reason will hold on Kevin inhibitors, ARB, beta blockers Symptomatic leading improved Check BNP in a.m. 3. Orthostatic hypotension. Systolic blood pressure decreases from 111 to 79 after walking yesterday. Possibly related to anemia although this is not much improved today. He has been placed on midodrine 5 mg p.o. t.i.d. and his Lasix was discontinued. 4. Chronic anemia status post prior problems with GI bleed(10/2020) Approximately 1 month ago patient admitted to [facility] for symptomatic anemia. During admission initial hemoglobin was 5. He was transfused. However he continued to have rectal bleeding and ultimately he was transferred to [facility]. He has been told not to take any kind of blood thinners because of his problems with the GI bleeding. No definite source was found as a cause of his bleed 2 units of packed RBCs was given with response from 6.7 to 9.3 today. no further labs per goals of care. . 5. Pericardial effusion Echo revealed moderate pericardial effusion without tamponade physiology. No further evaluation warranted given goals of care. 6. Acute on chronic kidney disease His creatinine was 1.06 on 10/22/2020. On admission it was 1.59. There have been no increase in creatinine on Lasix. However Lasix has been discontinued because of his hypotension Avoid ARB/KEVIN inhibitors Avoid nephrotoxic drugs no further lab evaluations 7. Leukocytosis Would consider the patient to have Leukamoid reaction. The fact that his PMNs are primarily mature without any evidence of cells suggestive of leukemia One question would be whether he has a leukoerythroblastosis 2/2 cancer metastatic to the bone marrow. The fact that he does not nucleated red cells, and immature WBC forms with tend go against this. no further evaluation warranted at this time given goals of care. Code:DNR Dispo: anticipate discharge home on hospice once equipment is ready. Care management assisting with this. DVT: hold given comfort measures and current anemia.
--- NOTE | 2020-11-25 15:56 | CM.DPC ---
DCP/continued: Received referral for hospice evaluation. [facility] met with patient and spouse/Hannah re: evaluation. Both patient and spouse in agreement to go home with hospice. [place] and agreeable for [facility] to call [facility] Placed call [facility], jorge Winters she report that they can see patient in the residence on Wednesday11-27-20. All information e-faxed to [facility]. Patient will need hospital bed and 02 prior to returning to residence. Vianey plans to order this afternoon for d/c tomorrow. Updated Dr. Beaver on above, he is aware and agreeable. Current plan is if all arrangements completed re: DME patient will d/c home tomorrow afternoon. Per spouse non-urgent BLS transport will be needed. Patient currently not ambulatory. P: Hopeful that patient will be able to d/c home tomorrow with [facility] beginning on 11-27-20. Spouse provided with community resources for private caregivers as needed. HARJIT Nash
[2020-11-25 17:00] VITALS: BP 110/78; PULSE 112; RESP 21; TEMP 36.6; O2SAT 97
[2020-11-25 19:13] VITALS: O2SAT 95
[2020-11-25] MEDS: MELATONIN 3 MG TABLET 6 MG PO (19:56)
[2020-11-25] MEDS: DOCUSATE 100 MG CAPSULE PO (19:57)
[2020-11-25] MEDS: TAMSULOSIN 0.4 MG CAPSULE PO (19:57)
[2020-11-26] VITALS: BP 108/75; PULSE 87; RESP 18; TEMP 36.6; O2SAT 94
--- NOTE | 2020-11-26 02:33 | PC.NURSE ---
0027: patient is alert and oriented. Breath sounds CTA; on oxygen at 2L/min per NC with sat of 94% and patient denies SOB at rest but evening RN reports SOB with exertion. HR irregular with hx of afib. Denies nausea. BT present and is passing flatus according to patient. Indwelling catheter is patent. Is able to move himself in bed but is assisted prn. Gait not assessed at this time as patient in bed for the night. Edema noted in all extremities with weeping clear fluid from right UE. Denies pain. Refused SCD's. Fall risk score is high and bed alarm is activated.
[2020-11-26] MEDS: LEVOTHYROXINE 25 MCG TABLET 37.5 MCG PO (06:27)
[2020-11-26] MEDS: MIDODRINE HCL 5 MG TABLET PO ×2 (06:27→12:20)
[2020-11-26 08:00] VITALS: BP 122/64; PULSE 111; RESP 17; TEMP 36.4; O2SAT 94
[2020-11-26] MEDS: DOCUSATE 100 MG CAPSULE PO (09:04)
--- NOTE | 2020-11-26 13:39 | PM.DS.1 ---
History of Present Illness History of Present Illness Date Patient Seen: 11/26/20 Time Patient Seen: 13:39 Chief complaint: SOB Narrative: Per Dr. Sanchez, 80yo male with a history of bladder and lung cancer (radiation completed and chemo pending at this time), paradoxical AFib, and recent GI bleed, presents emergency department for an episode of weakness. He was diagnosed with pneumonia and started on doxycycline. He was walking and fell to his knees because he felt weak. . He has been having problems standing, difficulty getting himself off the bed or the bathroom commode. In the ED he was found to be hemodynamically stable afebrile. Hemoglobin was stable at 7.9 from values October 2020. He was found to have an elevated BNP but chest x-ray did not reveal any overt failure but there was airspace opacity in right lower lung similar to prior x-ray 11/11/2020 and was felt likely postinflammatory scarring. Dr. Bharat Novak min of felt that nonetheless there could be a possible pneumonia. He did complain of shortness of breath and he was hypoxemic as well. CTA of the chest was obtained to rule out pulmonary embolus or progression of any tumor a neither were found. However he was found to have a moderate-sized pericardial effusion as well as small left and trace right pleural effusion. As a result of the scan unlikely pneumonia is present. He was also noted to have edema of his right upper extremity and right lower extremity. He denied any pain of those extremities. Patient is being admitted for congestive heart failure in an ongoing management of his weakness. Discharge Providers Provider Date of admission: 11/22/20 13:17 Discharge Date: 11/26/20 Primary care physician: Kat Christian PA-C Consults: 11/22/20 13:30 Consult to Discharge Planning Routine Comment: 11/23/20 14:44 Consult to Occupational Therapy Evaluate & Treat Comment: Physician Instructions: Evaluate and treat Consult to Physical Therapy Evaluate & Treat Comment: Physician Instructions: Evaluate and Treat 11/24/20 18:42 Consult to Hospice Referral Routine Comment: Discharge provider: Koby Beaver DO Summary Hospital Course Discharge Diagnosis: Please see hospital course by problem list noted below. Hospital Course: 80yo male with a history of bladder and lung cancer (radiation completed and chemo pending at this time), paradoxical AFib, and recent GI bleed, presented emergency department for an episode of weakness. Admitted with acute hypoxic respiratory failure, deemed secondary to acute systolic heart failure. Ultimately discharged home on hospice after goals of care discussion with patient. 1. Acute hypoxic respiratory failure, improved Continued supplemental O2 to maintain O2 sat greater than 90%, lasix was given initially for treatment but discontinued given comfort measures and orthostatic hypotension. Can resume for comfort if needed. Held for orthostatic hypotension as noted below 2. Acute diastolic congestive heart failure Echo revealed ejection fraction 45-50% Because of his orthostatic changes his lasix was discontinued and midodrine was continued. On discharge home medications can be resumed if desired. Recommend stopping metoprolol if continued dizziness. 3. Orthostatic hypotension. Systolic blood pressure decreases from 111 to 79 after ambulation. He has been placed on midodrine 5 mg p.o. t.i.d. and his Lasix was discontinued with improvement in symptoms. 4. Chronic anemia status post prior problems with GI bleed(10/2020) Approximately 1 month ago patient admitted to [facility] for symptomatic anemia. During admission initial hemoglobin was 5. He was transfused. However he continued to have rectal bleeding and ultimately he was transferred to [facility]. He has been told not to take any kind of blood thinners because of his problems with the GI bleeding. No definite source was found as a cause of his bleed. 2 units of packed RBCs was given with response from Hg 6.7 to 9.3. No further labs were obtained given comfort care. . 5. Pericardial effusion, present on admission. Echo revealed moderate pericardial effusion without tamponade physiology. No further evaluation warranted given goals of care. 6. Acute on chronic kidney disease His creatinine was 1.06 on 10/22/2020. On admission it was 1.59. There have been no increase in creatinine on Lasix. However Lasix has been discontinued because of his hypotension. No further treatments given goals of care. 7. Leukocytosis Would consider the patient to have Leukamoid reaction. The fact that his PMNs are primarily mature without any evidence of cells suggestive of leukemia One question would be whether he has a leukoerythroblastosis 2/2 cancer metastatic to the bone marrow. The fact that he does not nucleated red cells, and immature WBC forms with tend go against this. no further evaluation warranted at this time given goals of care. Code:DNR Dispo: anticipate discharge home on hospice once equipment is ready. Care management assisting with this. DVT: hold given comfort measures and current anemia. Time Spent with Patient Time spent: Greater than 30 minutes Exam Vital Signs (past 8 hours): - 11/26/20 08:00 Temperature 97.6 F Pulse Rate 111 H Respiratory Rate 17 Blood Pressure 122/64 Pulse Oximetry 94 Oxygen Delivery Method Nasal Cannula Oxygen Flow Rate 2 Narrative Exam Narrative: Constitutional: 80-year-old male NAD HEENT: Normocephalic atraumatic extraocular movements intact pupils are equal round reactive fundi were not visualized sclera and conjunctiva were clear oropharynx is clear with moist mucous membranes Neck: Supple without thyromegaly bruits or jugular venous distention Thorax: Symmetrical with good lateral expansion Respiratory: Decreased breath sounds at the bases no rales rhonchi or wheezes Cardiovascular: Regular rhythm S1-S2 was normal there were no loose he has rubs murmurs gallops present GI: Benign bowel sounds present : No Venegas Musculoskeletal: Right upper extremity with 2+ edema right lower extremity with 1+ edema Neurological: Cranial nerves 2-12 were intact. Motor was equal active. Sensory modality a crude touch was intact. Psychological: Mood and affect normal. Awake alert oriented x3 Objective Labs Result Diagrams: 11/24/20 17:00 11/24/20 05:26 [facility] Medical History Adult onset hypothyroidism Anemia History of cardioversion Hx of prostatic malignancy Lipoma of abdominal wall Paroxysmal A-fib Surgical History Hx of total knee replacement S/P TURP (status post transurethral resection of prostate) Family History Mother Multiple sclerosis Father Prostate cancer Social History household members: spouse Smoking Status: Never smoker alcohol intake: current Discharge Plan Discharge Plan Patient Disposition: Hospice - Home Provider Discharge Comment: Please continue midodrine for dizziness if this is helpful. If slightly helpful you can also consider taking 2 pills three times a day. Oxycodone was prescribed for any severe pain you have, if not needed you can take tylenol. I have recommended you continue taking your home medications, however any of these could be discontinued depending on your comfort level with them. Discharge orders & Medications Prescriptions: New acetaminophen 325 mg Tablet 650 mg PO Q6HR PRN (Reason: Fever/Mild Pain (1-3)) 20 Days Qty: 60 RF: 0 midodrine 5 mg Tablet 5 mg PO 0600,1200,1800 30 Days Qty: 90 RF: 0 oxycodone 5 mg Tablet 5 mg PO Q4HR PRN (Reason: Pain, Moderate (4-6)) 7 Days Qty: 30 RF: 0 midodrine 5 mg tablet 5 mg PO TID 30 Days Qty: 90 RF: 0 oxycodone 5 mg tablet 5 mg PO Q6H PRN (Reason: pain) 7 Days Qty: 30 RF: 0 Continued tamsulosin 0.4 mg capsule 0.4 mg PO BEDTIME RF: 0 olanzapine 2.5 mg tablet 2.5 mg PO PRN PRN (Reason: Nausea) RF: 0 levothyroxine [Synthroid] 25 mcg Tablet 25 mcg PO DAILY RF: 0 metoprolol tartrate 25 mg Tablet 25 mg PO DAILY RF: 0 iron bisglycinate chelate 29 mg iron Capsule 29 mg PO DAILY RF: 0 biotin-chromium 2-600 mg-mcg Capsule 1 cap PO DAILY RF: 0 cholecalciferol (vitamin D3) [Vitamin D3] 125 mcg (5,000 unit) Tablet 250 mcg PO DAILY RF: 0 Follow up/Referrals: Kat Christian, PAClaire[facility] [Primary Care Provider] - Diet/Activity/Treatments Diet: Diet as Tolerated Activity: As tolerated Visit Report/Discharge Packet Instructions: DI for Prescription Opioid Use, Midodrine Discharge Data Primary Care Provider: Kat Christian
--- NOTE | 2020-11-26 13:57 | CM.DPNOTE ---
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 I stated during the call that they pt. had 5 [address] at his residence which they wanted to know. Olivia Valles CM Asst.
--- NOTE | 2020-11-26 14:57 | CM.DANOTE ---
DCP/continued: Reviewed chart. Spoke with Dr. Beaver this AM, he reports patient is medically stable for d/c home with hospice. Placed call to Vianey at [facility], she confirms that equipment will be delivered at residence today. Hospice nurse planning to see patient in residence tomorrow 11-27-20. Placed call to spouse/Hannah she confirms that DME will be delivered early afternoon. Spouse requesting patient leave [place] between 3-3:30pm. MIRROR SILVERER asked MARGARITO/Olivia to arrange non-urgent BLS transport. Medical necessity non-urgent form completed and signed by provider. Spouse aware that if Medicare does not cover transport they will get bill. Spouse aware and agreeable. RN updated on the above. Transport scheduled for 3:30pm. P: Home today with [facility]. HARJIT Nash
--- NOTE | 2020-11-26 15:30 | PC.NURSE ---
Patient taken via BLS to home, patient had all belongings.
== END 2020-11-26 15:31 | disposition hospice, home (50) | DRG 291 ==
LOC: ED 13:17 → AC 13:18
PROVIDERS: Emergency Medicine; Nurse Practitioner Family; Admitting Provider Internal Medicine; Emergency Provider Nurse Practitioner; PCP Physician Assistant; Referring Provider Nurse Practitioner; Visit Provider Internal Medicine
DX: I50.31 Acute diastolic (congestive) heart failure (principal); J96.01 Acute respiratory failure with hypoxia; N17.9 Acute kidney failure, unspecified; C34.90 Malignant neoplasm of unspecified part of unspecified bronchus or lung; I31.3 Pericardial effusion (noninflammatory); I48.0 Paroxysmal atrial fibrillation; C67.9 Malignant neoplasm of bladder, unspecified; D72.823 Leukemoid reaction; D64.9 Anemia, unspecified; I95.1 Orthostatic hypotension; E03.9 Hypothyroidism, unspecified; Z20.822 Contact with and (suspected) exposure to COVID-19; Z66 Do not resuscitate
CPT/HCPCS: 36415; 36430; 36591; 71045; 71275; 80053; 80061; 81001; 82550; 83605; 83690; 83735; 83880; 84145; 84443; 84484; 85007; 85025; 85379; 85610; 85730; 86850; 86900; 86901; 87040; 87086; 87635; 93005; 93306; 93971; 94760; 96374; 97162; 97166; 97530; 97535; 99284; C9803; P9016; J1642; J1940; J2270; J3475; Q9967